=== PATIENT | male | born 1950 | race African-American/Black ===

== ENCOUNTER 2017-09-03 13:01 | Inpatient (IN) | payer MEDICARE, OTHER ==
[~2017-09-03] VITALS: Ht 170.2 cm; Wt 63.5 kg
[2017-09-03 18:30] VITALS: BP 173/94
[2017-09-03 20:00] VITALS: BP 141/70
[2017-09-03] MEDS ORDERED: HALOPERIDOL1 MG GT (20:28)
[2017-09-03] MEDS ORDERED: HEPARIN SO5000 UNIT2 SUBQ (20:39)
[2017-09-03] MEDS ORDERED: MILK OF MA400 MG/51 GT (20:40)
[2017-09-03] MEDS ORDERED: DEPAKOTE ER250 MG GT (20:40)
[2017-09-03] MEDS ORDERED: REMERON15 M1 ORAL (20:40)
[2017-09-03] MEDS ORDERED: TRADJENTA5 MG GT (20:40)
[2017-09-03] MEDS ORDERED: ALLOPURINOL100 M1 GT (20:40)
[2017-09-03] MEDS ORDERED: KEPPRA500 M4 GT (20:40)
[2017-09-03] MEDS ORDERED: ASPIRIN81 M3 GT (20:40)
[2017-09-03] MEDS ORDERED: CLONIDINE HCL0.1 MG GT (20:40)
[2017-09-03] MEDS ORDERED: LIPITOR10 MG ORAL (20:40)
[2017-09-03] MEDS ORDERED: DEPAKOTE SPRIN125 MG GT (20:49)
[2017-09-03] MEDS ORDERED: Promethazine/Codeine 5ml UD ORAL PRN (22:00)
[2017-09-03] MEDS ORDERED: Nitroglycerin Subl 0.4mg tab SL PRN (22:00)
[2017-09-03] MEDS ORDERED: Albuterol/Ipratropium 3ml neb HHN PRN (22:00)
[2017-09-03] MEDS ORDERED: Morphine Sulfate 2mg/ml Inj IVP PRN (22:00)
[2017-09-03] MEDS ORDERED: LORazepam Inj 2mg/ml 1ml IV PRN (22:00)
[2017-09-03] MEDS ORDERED: cefTRIAXone 1 GM in D5W 55 ML IVPB SCH (22:45)
[2017-09-03] MEDS: Depakote 125mg Sprinkles GT SCH (23:02)
[2017-09-03] MEDS: Solu-MEDROL 125mg Inj IV SCH (23:02)
[2017-09-04] VITALS: BP 142/72
[2017-09-04 04:00] VITALS: BP 148/91
[2017-09-04] MEDS: Solu-MEDROL 125mg Inj IV SCH ×3 (06:06→17:21)
[2017-09-04] MEDS: NovoLOG Insulin Flexpen SUBQ SCH ×4 (06:06→21:22)
[2017-09-04] MEDS: Depakote 125mg Sprinkles GT SCH ×3 (06:06→21:37)
[2017-09-04 08:00] VITALS: BP 148/81
[2017-09-04] MEDS ORDERED: Theophylline ER 100mg ORAL SCH (09:00)
[2017-09-04] MEDS ORDERED: Allopurinol 100mg Tab GT SCH (09:00)
[2017-09-04 09:17] LABS: BASOPHILS % (AUTO) 0.3 % (0.0-2.0); HEMATOCRIT 30.7 % (42.0-52.0); LYMPHOCYTES % (AUTO) 14.2 % (20.0-45.0); MEAN CORPUSCULAR VOLUME 82 FL (80-99); MONOCYTES % (AUTO) 1.2 % (1.0-10.0); NEUTROPHILS % (AUTO) 84.4 % (45.0-75.0); PLATELET COUNT 234 K/UL (150-450); RED BLOOD COUNT 3.74 M/UL (4.70-6.10); RED CELL DISTRIBUTION WIDTH 14.3 % (11.6-14.8); WHITE BLOOD COUNT 11.3 K/UL (4.8-10.8)
[2017-09-04 09:45] LABS: ALANINE AMINOTRANSFERASE 28 U/L (12-78); ALBUMIN 1.3 G/DL (3.4-5.0); ALBUMIN/GLOBULIN RATIO 0.1 (1.0-2.7); ALKALINE PHOSPHATASE 77 U/L (46-116); ANION GAP 7 mmol/L (5-15); ASPARTATE AMINO TRANSFERASE 48 U/L (15-37); BILIRUBIN,TOTAL 0.2 MG/DL (0.2-1.0); BLOOD UREA NITROGEN 26 mg/dL (7-18); CALCIUM 8.4 MG/DL (8.5-10.1); CARBON DIOXIDE 24 MMOL/L (21-32); CHLORIDE 102 MMOL/L (98-107); POTASSIUM 4.7 MMOL/L (3.5-5.1); SODIUM 133 MMOL/L (136-145)
--- NOTE | 2017-09-04 09:51 | Consultation ---
History of Present Illness General Date patient seen: Sep 04, 2017 Present Illness HPI 67 year old male with hx of COPD, DM, seizures, CVA, schizophrenia, HTN, GOUT, PEG, bed bound, detention resident, was taken to [facility] with CC of SOB, a CT of chest at [place] didn't show any PE. He received symptomatic treatment at [place] and transferred to [place]. Pt is nonverbal. looks comfortable and doesn't answer any questions. Allergies: Coded Allergies: No Known Allergies (Unverified , 09/03/17) Medication History Scheduled Allopurinol* (Allopurinol*), 100 MG GT DAILY, (Reported) Aspirin (Aspirin), 81 MG GT DAILY, (Reported) Atorvastatin Calcium* (Lipitor*), 10 MG ORAL BEDTIME, (Reported) Divalproex Sodium (Depakote Sprinkle), 250 MG GT EVERY 8 HOURS, (Reported) Haloperidol* (Haldol*), 2 MG GT EVERY 8 HOURS, (Reported) Heparin Sod (Porcine) (Heparin Sodium*), 5,000 UNITS SUBQ EVERY 12 HOURS, ( Reported) Levetiracetam (Keppra), 500 MG GT EVERY 12 HOURS, (Reported) Linagliptin (Tradjenta), 5 MG GT DAILY, (Reported) Mirtazapine (Remeron), 7.5 MG ORAL BEDTIME, (Reported) Scheduled PRN Clonidine Hcl (Clonidine Hcl), 0.1 MG GT EVERY 8 HOURS PRN for For High Blood Pressure, (Reported) Magnesium Hydroxide* (Milk Of Magnesia*), 30 ML GT DAILY PRN for Constipation, ( Reported) Discontinued Medications Divalproex Sodium* (Depakote Er*), 250 MG GT EVERY 8 HOURS, (Reported) Discontinued Reason: Prescription changed Patient History Healthcare decision maker Guerline Collier, brother Resuscitation status Full Code Advanced Directive on File Past Medical/Surgical History Past Medical/Surgical History: (1) History of CVA (cerebrovascular accident) (2) Feeding by G-tube (3) Diabetes mellitus (4) COPD (chronic obstructive pulmonary disease) Review of Systems All Other Systems: negative except mentioned in HPI Physical Exam General Appearance: cachetic Lines, tubes and drains: peripheral HEENT: normocephalic, atraumatic Neck: non-tender, normal alignment Respiratory/Chest: chest wall non-tender, lungs clear Breasts: no masses Cardiovascular/Chest: normal peripheral pulses, regular rhythm Abdomen: normal bowel sounds, soft, no mass Last 24 Hour Vital Signs Date Time Temp Pulse Resp B/P (MAP) Pulse Ox O2 Delivery O2 Flow Rate FiO2 09/04/17 08:00 97.9 93 22 148/81 100 Room Air 97.9 09/04/17 04:00 102 09/04/17 04:00 98.1 101 27 148/91 100 Room Air 98.1 09/04/17 00:00 84 09/04/17 00:00 98.4 88 20 142/72 99 Room Air 98.4 09/03/17 20:00 86 09/03/17 20:00 98.1 78 22 141/70 97 Room Air 98.1 09/03/17 18:30 97.9 98 16 173/94 98 Room Air 97.9 Intake and Output 09/03/17 09/04/17 19:00 07:00 Output Total 425 ml Balance -425 ml Output Urine Total 425 ml Laboratory Tests Test 09/04/17 08:40 White Blood Count 11.3 K/UL (4.8-10.8) H Red Blood Count 3.74 M/UL (4.70-6.10) L Hemoglobin 10.0 G/DL (14.2-18.0) L Hematocrit 30.7 % (42.0-52.0) L Mean Corpuscular Volume 82 FL (80-99) Mean Corpuscular Hemoglobin 26.6 PG (27.0-31.0) L Mean Corpuscular Hemoglobin Concent 32.4 G/DL (32.0-36.0) Red Cell Distribution Width 14.3 % (11.6-14.8) Platelet Count 234 K/UL (150-450) Mean Platelet Volume 6.4 FL (6.5-10.1) L Neutrophils (%) (Auto) 84.4 % (45.0-75.0) H Lymphocytes (%) (Auto) 14.2 % (20.0-45.0) L Monocytes (%) (Auto) 1.2 % (1.0-10.0) Eosinophils (%) (Auto) 0.0 % (0.0-3.0) Basophils (%) (Auto) 0.3 % (0.0-2.0) Sodium Level Pending Potassium Level Pending Chloride Level Pending Carbon Dioxide Level Pending Blood Urea Nitrogen Pending Creatinine Pending Estimat Glomerular Filtration Rate Pending Glucose Level Pending Calcium Level Pending Total Bilirubin Pending Aspartate Amino Transf (AST/SGOT) Pending Alanine Aminotransferase (ALT/SGPT) Pending Alkaline Phosphatase Pending Total Protein Pending Albumin Pending Globulin Pending Height (Feet): 5 Height (Inches): 7.00 Weight (Pounds): 140 Medications Current Medications Medications (Trade) Dose Ordered Sig/Christian Route PRN Reason Start Time Stop Time Status Last Admin Dose Admin Acetaminophen (Tylenol) 650 mg Q4H PRN ORAL fever 09/03/17 22:00 10/03/17 21:59 Albuterol/ Ipratropium (Albuterol/ Ipratropium) 3 ml EVERY 4 HOURS PRN HHN dyspnea 09/03/17 22:00 09/08/17 21:59 Allopurinol (Zyloprim) 100 mg DAILY GT 09/04/17 09:00 10/04/17 08:59 09/04/17 09:01 Atorvastatin Calcium (Lipitor) 10 mg BEDTIME ORAL 09/04/17 21:00 10/04/17 20:59 Ceftriaxone Sodium 1 gm/ Dextrose 55 ml @ 110 mls/hr Q24H IVPB 09/03/17 22:45 09/10/17 22:44 09/03/17 23:15 Clonidine HCl (Catapres Tab) 0.1 mg EVERY 4 HOURS PRN ORAL sbp more than 160 09/03/17 22:00 10/03/17 21:59 Dextrose (Dextrose 50%) STAT PRN IV Hypoglycemia 09/03/17 22:00 10/03/17 21:59 Divalproex Sodium (Depakote Sprinkles) 250 mg EVERY 8 HOURS GT 09/03/17 22:00 10/03/17 21:59 09/04/17 06:06 Heparin Sodium (Porcine) (Heparin 5000 units/ml) 5,000 units EVERY 12 HOURS SUBQ 09/04/17 10:00 10/04/17 09:59 Insulin Aspart (NovoLOG) BEFORE MEALS AND HS SUBQ 09/04/17 06:30 10/04/17 06:29 Levetiracetam (Keppra) 500 mg EVERY 12 HOURS GT 09/04/17 09:00 10/04/17 08:59 09/04/17 08:56 Lorazepam (Ativan 2mg/ml 1ml) 0.5 mg Q4H PRN IV For Anxiety 09/03/17 22:00 09/10/17 21:59 Methylprednisolone Sodium Succinate (Solu-MEDROL) 60 mg EVERY 6 HOURS IV 09/04/17 00:00 10/04/17 00:00 09/04/17 06:06 Morphine Sulfate (Morphine Sulfate) 2 mg EVERY 4 HOURS PRN IVP severe pain 7-10 09/03/17 22:00 09/10/17 21:59 Nitroglycerin (Ntg) 0.4 mg Q5M X 3 DOSES PRN SL Prn Chest Pain 09/03/17 22:00 10/03/17 21:59 Ondansetron HCl (Zofran) 4 mg Q6H PRN IVP Nausea & Vomiting 09/03/17 22:00 10/03/17 21:59 Promethazine HCl/ Codeine (Phenergan with Codeine) 5 ml EVERY 6 HOURS PRN ORAL cough 09/03/17 22:00 10/03/17 21:59 Temazepam (Restoril) 15 mg HSPRN PRN ORAL Insomnia 09/03/17 22:00 09/10/17 21:59 Theophylline (Henry-Dur) 100 mg EVERY 12 HOURS ORAL 09/04/17 09:00 10/04/17 08:59 Assessment/Plan Problem List: (1) Pneumonia ICD Codes: J18.9 - Pneumonia, unspecified organism SNOMED: 248536671 (2) COPD (chronic obstructive pulmonary disease) ICD Codes: J44.9 - Chronic obstructive pulmonary disease, unspecified SNOMED: 60365811 (3) Diabetes mellitus ICD Codes: E11.9 - Type 2 diabetes mellitus without complications SNOMED: 73218083 (4) Feeding by G-tube ICD Codes: Z93.1 - Gastrostomy status SNOMED: 614066709, 866988694 (5) History of CVA (cerebrovascular accident) ICD Codes: Z86.73 - Personal history of transient ischemic attack (TIA), and cerebral infarction without residual deficits SNOMED: 458946576 Assessment/Plan check sputum IV abx check cxr in am respiratory treatment titrate fio2 to sat of 92% dvt prophylaxis Elder Kumar MD Sep 04, 2017 09:51
[2017-09-04] MEDS ORDERED: Heparin 5000 units/ml inj SUBQ SCH (10:00)
[2017-09-04 12:30] VITALS: BP 127/58
[2017-09-04] MEDS ORDERED: Nitroglycerin Subl 0.4mg tab SL PRN (12:30)
[2017-09-04] MEDS ORDERED: Morphine Sulfate 2mg/ml Inj IVP PRN (13:00)
[2017-09-04] MEDS ORDERED: Albuterol/Ipratropium 3ml neb HHN PRN (13:00)
[2017-09-04] MEDS ORDERED: LORazepam Inj 2mg/ml 1ml IV PRN (14:00)
--- NOTE | 2017-09-04 14:40 | Consultation ---
Consult Note Consult Note ID DIC # [id number] APRIL COATS M.D. Sep 04, 2017 14:40
[2017-09-04 16:00] VITALS: BP 138/74
[2017-09-04] MEDS ORDERED: Promethazine/Codeine 5ml UD ORAL PRN (18:00)
[2017-09-04 20:00] VITALS: BP 114/62
--- NOTE | 2017-09-04 20:15 | History and Physical Report ---
DATE OF ADMISSION: 09/03/2017 TIME SEEN: At 8 a.m. CONSULTANTS: 1. Elder Kumar M.D. 2. Pieter Mcfarland M.D. 3. Spike Canales M.D. 4. Samuel Solorzano M.D. 5. Gideon Mcdonald M.D. CHIEF COMPLAINT: Shortness of breath, altered mental status, weakness, fever, and elevated troponin. BRIEF HISTORY: This is a 67-year-old male from [facility], who was transferred to [facility] for above-mentioned diagnoses, evaluated in the ER, transferred to [place] for further care. Currently, O2 NC, sleeping in bed, nonverbal, not responding to questions. REVIEW OF SYSTEMS: Unavailable. PAST MEDICAL HISTORY: Includes altered mental status, shortness of breath, fever, elevated troponin, COPD, hypertension, and diabetes. PAST SURGICAL HISTORY: G-tube. ALLERGIES: Denies. SOCIAL HISTORY: No smoking. No alcohol. No intravenous drug abuse. FAMILY HISTORY: Noncontributory. PHYSICAL EXAMINATION: GENERAL: Lethargic in bed, not responding to questions. VITAL SIGNS: Temperature is 98, pulse 101, respirations 27, and blood pressure 148/91. CARDIOVASCULAR: No murmur. LUNGS: Poor air exchange. ABDOMEN: Bowel sounds distant. EXTREMITIES: No cyanosis, clubbing, or edema. NEUROLOGIC: The patient is flaccid in bed, not responding to requests. LABORATORY DATA: Pending. MEDICATIONS: Include Lipitor, Keppra, allopurinol, heparin, Henry-Dur, methylprednisolone, NovoLog, ceftriaxone, levofloxacin, divalproex, albuterol, morphine, Zofran, lorazepam, temazepam, nitroglycerin, clonidine, and Phenergan. ASSESSMENT: 1. Shortness of breath. 2. Fever. 3. Elevated troponin. 4. Altered mental status. 5. COPD. 6. Hypertension. 7. Diabetes. PLAN: 1. Continue pre-admit medications. 2. Blood pressure and blood sugar control. 3. O2 and pulmonary treatment. 4. Antibiotics per Infectious Disease. 5. OT, PT, and dietary evaluation. 6. CBC and BMP in the morning. 7. Dr. Kumar, Dr. Mcfarland, Dr. Canales, Dr. Solorzano, and Dr. Mcdonald to consult. Stuart New D.O. DR: MER JOB#: [id number] CC:
--- NOTE | 2017-09-04 21:02 | Cardiology Progress Note ---
Assessment/Plan Assessment/Plan The patient is seen and examined, full consult note will be dictated shortly. Objective Last 24 Hour Vital Signs Date Time Temp Pulse Resp B/P (MAP) Pulse Ox O2 Delivery O2 Flow Rate FiO2 09/04/17 16:00 97.2 73 19 138/74 100 97.2 09/04/17 12:30 97.3 62 20 127/58 100 97.3 09/04/17 08:00 97.9 93 22 148/81 100 Room Air 97.9 09/04/17 04:00 102 09/04/17 04:00 98.1 101 27 148/91 100 Room Air 98.1 09/04/17 00:00 84 09/04/17 00:00 98.4 88 20 142/72 99 Room Air 98.4 Intake and Output 09/03/17 09/04/17 19:00 07:00 Output Total 425 ml Balance -425 ml Output Urine Total 425 ml Laboratory Tests Test 09/04/17 08:40 White Blood Count 11.3 K/UL (4.8-10.8) H Red Blood Count 3.74 M/UL (4.70-6.10) L Hemoglobin 10.0 G/DL (14.2-18.0) L Hematocrit 30.7 % (42.0-52.0) L Mean Corpuscular Volume 82 FL (80-99) Mean Corpuscular Hemoglobin 26.6 PG (27.0-31.0) L Mean Corpuscular Hemoglobin Concent 32.4 G/DL (32.0-36.0) Red Cell Distribution Width 14.3 % (11.6-14.8) Platelet Count 234 K/UL (150-450) Mean Platelet Volume 6.4 FL (6.5-10.1) L Neutrophils (%) (Auto) 84.4 % (45.0-75.0) H Lymphocytes (%) (Auto) 14.2 % (20.0-45.0) L Monocytes (%) (Auto) 1.2 % (1.0-10.0) Eosinophils (%) (Auto) 0.0 % (0.0-3.0) Basophils (%) (Auto) 0.3 % (0.0-2.0) Sodium Level 133 MMOL/L (136-145) L Potassium Level 4.7 MMOL/L (3.5-5.1) Chloride Level 102 MMOL/L (98-107) Carbon Dioxide Level 24 MMOL/L (21-32) Anion Gap 7 mmol/L (5-15) Blood Urea Nitrogen 26 mg/dL (7-18) H Creatinine 1.0 MG/DL (0.55-1.30) Estimat Glomerular Filtration Rate > 60 mL/min (>60) Glucose Level 148 MG/DL (74-106) H Calcium Level 8.4 MG/DL (8.5-10.1) L Total Bilirubin 0.2 MG/DL (0.2-1.0) Aspartate Amino Transf (AST/SGOT) 48 U/L (15-37) H Alanine Aminotransferase (ALT/SGPT) 28 U/L (12-78) Alkaline Phosphatase 77 U/L (46-116) Total Protein 10.2 G/DL (6.4-8.2) H Albumin 1.3 G/DL (3.4-5.0) L Globulin 8.9 g/dL Albumin/Globulin Ratio 0.1 (1.0-2.7) L GERDA GARCIA Sep 04, 2017 21:02
[2017-09-04] MEDS: Heparin 5000 units/ml inj SUBQ SCH (21:21)
[2017-09-04] MEDS ORDERED: cefTRIAXone 1 GM in D5W 55 ML IVPB SCH (23:00)
[2017-09-05] VITALS: BP 128/68
[2017-09-05] MEDS: Solu-MEDROL 125mg Inj IV SCH ×3 (00:46→12:46)
[2017-09-05 04:00] VITALS: BP 125/65
--- NOTE | 2017-09-05 04:45 | Consultation ---
DATE OF CONSULTATION: 09/04/2017 INFECTIOUS DISEASE CONSULTATION CONSULTING PHYSICIAN: Spike Canales M.D. REFERRING PHYSICIAN: Stuart New D.O. REASON FOR CONSULTATION: Evaluation of the patient for possible pneumonia, sepsis, and antibiotic management. HISTORY OF PRESENT ILLNESS: The patient is a 67-year-old male with multiple medical problems, who was transferred initially from [facility] to [facility] due to shortness of breath. The patient after initial workup was transferred to this [facility]. The patient was found to have mild leukocytosis and Infectious Disease consultation has been requested for further evaluation of the patient's antibiotic management. PAST MEDICAL HISTORY: 1. COPD. 2. Diabetes. 3. Seizure disorder. 4. Osteoarthritis. 5. CVA. 6. Hypertension. 7. GERD. 8. Gout. 9. Anxiety. 10. Status post PEG placement. MEDICATIONS: Levaquin and Rocephin. ALLERGIES: No known drug allergies. SOCIAL HISTORY: The patient lives in snf. FAMILY HISTORY: Unavailable. REVIEW OF SYSTEMS: Unobtainable. PHYSICAL EXAMINATION: VITAL SIGNS: Temperature 97.3, pulse 66, blood pressure 127/58. HEENT: No pale conjunctivae. No icterus. NECK: Supple. CHEST: Coarse breathing sounds. HEART: S1 and S2. ABDOMEN: Soft. G-tube in place. EXTREMITIES: No cyanosis. Stage I decubitus of the left heel. LABORATORY AND DIAGNOSTIC DATA: Workups from [place] showed white blood cells 9.3. Influenza screen A/B negative. UA shows white blood cells. Blood culture and urine culture sent and was pending. CT of chest, no evidence of pulmonary emboli, infiltrate, or consolidation. Lactic acidosis. [facility] workup shows WBC 11.3, hemoglobin 10, and platelets 234,000. BUN 23 and creatinine 1. ALT, AST, and alkaline phosphatase unremarkable. ASSESSMENT: The patient is a 67-year-old male with: 1. Status post shortness of breath, probable bronchitis. 2. Doubt pneumonia. CT scan from [place] did not show evidence of infiltrate. 3. Mild leukocytosis. 4. Mild pyuria. 5. Afebrile. PLAN: 1. We will continue the patient on Levaquin, discontinue Rocephin. 2. Monitor CBC. 3. Monitor BMP. 4. Monitor cultures from outside facility. 5. We will follow cultures (sputum, urine, blood) that were sent here. 6. Continue the patient on IV steroids. 7. Based on the patient's clinical course and labs, we will do further recommendation. Spike Canales M.D. DR: Jhonny JOB#: [id number] CC:
[2017-09-05] MEDS: Depakote 125mg Sprinkles GT SCH ×3 (06:15→21:04)
[2017-09-05] MEDS: NovoLOG Insulin Flexpen SUBQ SCH ×4 (06:17→21:06)
[2017-09-05 07:34] LABS: BASOPHILS % (AUTO) 0.2 % (0.0-2.0); HEMATOCRIT 29.8 % (42.0-52.0); HEMOGLOBIN 9.7 G/DL (14.2-18.0); MEAN CORPUSCULAR VOLUME 82 FL (80-99); MONOCYTES % (AUTO) 2.8 % (1.0-10.0); PLATELET COUNT 240 K/UL (150-450); RED BLOOD COUNT 3.64 M/UL (4.70-6.10); RED CELL DISTRIBUTION WIDTH 14.1 % (11.6-14.8); WHITE BLOOD COUNT 8.2 K/UL (4.8-10.8)
[2017-09-05 07:47] LABS: ALANINE AMINOTRANSFERASE 28 U/L (12-78); ALBUMIN 1.3 G/DL (3.4-5.0); ALBUMIN/GLOBULIN RATIO 0.2 (1.0-2.7); ALKALINE PHOSPHATASE 83 U/L (46-116); ANION GAP 7 mmol/L (5-15); ASPARTATE AMINO TRANSFERASE 39 U/L (15-37); BILIRUBIN,TOTAL 0.2 MG/DL (0.2-1.0); BLOOD UREA NITROGEN 49 mg/dL (7-18); CALCIUM 8.3 MG/DL (8.5-10.1); CARBON DIOXIDE 26 MMOL/L (21-32); CHLORIDE 102 MMOL/L (98-107); CREATININE 1.3 MG/DL (0.55-1.30); POTASSIUM 4.6 MMOL/L (3.5-5.1); SODIUM 135 MMOL/L (136-145)
[2017-09-05 07:49] LABS: INR 1.1 (0.9-1.1)
[2017-09-05 07:58] LABS: % IRON SATURATION 30 % (15-50); IRON 58 ug/dL (50-175); TOTAL IRON BINDING CAPACITY 193 ug/dL (250-450)
[2017-09-05 08:06] LABS: LACTATE DEHYDROGENASE 189 U/L (81-234)
[2017-09-05 08:16] VITALS: BP 123/70
[2017-09-05] MEDS: Allopurinol 100mg Tab GT SCH (08:58)
--- NOTE | 2017-09-05 09:01 | General Progress Note ---
Assessment/Plan Problem List: (1) HTN (hypertension) ICD Codes: I10 - Essential (primary) hypertension SNOMED: 96241510 (2) Altered mental status ICD Codes: R41.82 - Altered mental status, unspecified SNOMED: 024812165 (3) SOB (shortness of breath) ICD Codes: R06.02 - Shortness of breath SNOMED: 272248756 (4) Renal insufficiency ICD Codes: N28.9 - Disorder of kidney and ureter, unspecified SNOMED: 178217573, 829740007 (5) COPD (chronic obstructive pulmonary disease) ICD Codes: J44.9 - Chronic obstructive pulmonary disease, unspecified SNOMED: 41132929 (6) Diabetes mellitus ICD Codes: E11.9 - Type 2 diabetes mellitus without complications SNOMED: 56808948 (7) Feeding by G-tube ICD Codes: Z93.1 - Gastrostomy status SNOMED: 175545882, 298972190 (8) History of CVA (cerebrovascular accident) ICD Codes: Z86.73 - Personal history of transient ischemic attack (TIA), and cerebral infarction without residual deficits SNOMED: 963793562 (9) Pneumonia ICD Codes: J18.9 - Pneumonia, unspecified organism SNOMED: 007475391 Status: unchanged Assessment/Plan o2 pulm tx abx bp bs control cbc bmp am Subjective Constitutional: Reports: weakness Respiratory: Reports: shortness of breath Allergies: Coded Allergies: No Known Allergies (Unverified , 09/03/17) All Systems: reviewed and negative except above Subjective o2nc sleepy Objective Last 24 Hour Vital Signs Date Time Temp Pulse Resp B/P (MAP) Pulse Ox O2 Delivery O2 Flow Rate FiO2 09/05/17 08:16 98.9 85 20 123/70 96 Room Air 98.9 09/05/17 04:00 97.0 63 19 125/65 100 Nasal Cannula 2.0 97.0 09/05/17 00:00 97.0 65 18 128/68 100 Nasal Cannula 2.0 97.0 09/04/17 20:00 97.1 63 19 114/62 100 Nasal Cannula 2.0 97.1 09/04/17 16:00 97.2 73 19 138/74 100 97.2 09/04/17 12:30 97.3 62 20 127/58 100 97.3 Intake and Output 09/04/17 09/05/17 19:00 07:00 Output Total 550 ml 480 ml Balance -550 ml -480 ml Output Urine Total 550 ml 480 ml # Voids 1 1 Laboratory Tests 09/04/17 21:15: Troponin I 0.063H 09/05/17 06:00: White Blood Count 8.2, Red Blood Count 3.64L, Hemoglobin 9.7L, Hematocrit 29.8L , Mean Corpuscular Volume 82, Mean Corpuscular Hemoglobin 26.7L, Mean Corpuscular Hemoglobin Concent 32.7, Red Cell Distribution Width 14.1, Platelet Count 240, Mean Platelet Volume 6.4L, Neutrophils (%) (Auto) 79.0H, Lymphocytes (%) (Auto) 18.0L, Monocytes (%) (Auto) 2.8, Eosinophils (%) (Auto) 0.0, Basophils (%) (Auto) 0.2, Neutrophils % (Manual) [Pending], Lymphocytes % ( Manual) [Pending], Platelet Estimate [Pending], Platelet Morphology [Pending], Erythrocyte Sedimentation Rate [Pending], Reticulocyte Count [Pending], Prothrombin Time 11.7H, Prothromb Time International Ratio 1.1, Activated Partial Thromboplast Time 30, Sodium Level 135L, Potassium Level 4.6, Chloride Level 102, Carbon Dioxide Level 26, Anion Gap 7, Blood Urea Nitrogen 49H, Creatinine 1.3, Estimat Glomerular Filtration Rate > 60, Glucose Level 196H, Calcium Level 8.3L, Iron Level 58, Total Iron Binding Capacity 193L, Percent Iron Saturation 30, Unsaturated Iron Binding 135, Total Bilirubin 0.2, Aspartate Amino Transf (AST/SGOT) 39H, Alanine Aminotransferase (ALT/SGPT) 28, Alkaline Phosphatase 83, Lactate Dehydrogenase 189, Pro-B-Type Natriuretic Peptide 737H, Total Protein 9.6H, Albumin 1.3L, Globulin 8.3, Albumin/Globulin Ratio 0.2L, Vitamin B12 Level 1475H, Folate 19.9 Height (Feet): 5 Height (Inches): 7.00 Weight (Pounds): 140 General Appearance: lethargic EENT: normal ENT inspection Neck: normal alignment Cardiovascular: normal peripheral pulses, normal rate, regular rhythm Respiratory/Chest: chest wall non-tender, lungs clear, normal breath sounds Extremities: normal inspection Edema: no edema noted Arm (L), no edema noted Arm (R), no edema noted Leg (L), no edema noted Leg (R), no edema noted Pedal (L), no edema noted Pedal (R), no edema noted Generalized Neurologic: motor weakness Skin: normal pigmentation, warm/dry SYLVAIN ARTHUR Sep 05, 2017 09:01
[2017-09-05] MEDS: Heparin 5000 units/ml inj SUBQ SCH ×2 (09:04→21:05)
[2017-09-05 12:00] VITALS: BP 126/70
--- NOTE | 2017-09-05 12:20 | Diagnostic Imaging Report ---
Indication: Dyspnea Technique: XRAY Chest 1v Comparison: None Findings: Heart size within normal limits. The thoracic aorta is tortuous. There is linear opacity at the left base thought represent atelectasis. Otherwise there is no focal airspace consolidation. No pleural effusion or pneumothorax. No acute osseous abnormality appreciated. Impression: Linear opacity at the left base thought represent subsegmental atelectasis. Correlate clinically to exclude the possibility of developing infiltrate.
--- NOTE | 2017-09-05 13:27 | Pulmonology Progress Note ---
Assessment/Plan Problems: (1) Bacteremia (2) Pneumonia (3) COPD (chronic obstructive pulmonary disease) (4) Diabetes mellitus (5) Feeding by G-tube (6) History of CVA (cerebrovascular accident) Assessment/Plan BC from [place] showed Proteus sensitive to Amikacin, ceftazidime, ertapenem and Zosyn f/u cultures here check electrolytes continue abx check electrolytes tolerating feeding add some fluids check BUN?Creatinine Subjective ROS Limited/Unobtainable: No Interval Events: comfortable Allergies: Coded Allergies: No Known Allergies (Unverified , 09/03/17) Objective Last 24 Hour Vital Signs Date Time Temp Pulse Resp B/P (MAP) Pulse Ox O2 Delivery O2 Flow Rate FiO2 09/05/17 12:00 98.4 85 20 126/70 99 Room Air 98.4 09/05/17 08:16 98.9 85 20 123/70 96 Room Air 98.9 09/05/17 04:00 97.0 63 19 125/65 100 Nasal Cannula 2.0 97.0 09/05/17 00:00 97.0 65 18 128/68 100 Nasal Cannula 2.0 97.0 09/04/17 20:00 97.1 63 19 114/62 100 Nasal Cannula 2.0 97.1 09/04/17 16:00 97.2 73 19 138/74 100 97.2 Intake and Output 09/04/17 09/05/17 19:00 07:00 Output Total 550 ml 480 ml Balance -550 ml -480 ml Output Urine Total 550 ml 480 ml # Voids 1 1 Microbiology Date/Time Source Procedure Growth Status 09/04/17 06:00 Sputum Gram Stain - Final Resulted 09/04/17 06:00 Sputum Culture - Preliminary Staphylococcus Species Resulted 09/03/17 23:00 Nose MRSA Culture - Final Staphylococcus Aureus - Mrsa Complete 09/04/17 03:00 Urine,Clean Catch Urine Culture - Preliminary Gram Negative Bacillus 1 Resulted Laboratory Tests 09/04/17 21:15: Troponin I 0.063H 09/05/17 06:00: White Blood Count 8.2, Red Blood Count 3.64L, Hemoglobin 9.7L, Hematocrit 29.8L , Mean Corpuscular Volume 82, Mean Corpuscular Hemoglobin 26.7L, Mean Corpuscular Hemoglobin Concent 32.7, Red Cell Distribution Width 14.1, Platelet Count 240, Mean Platelet Volume 6.4L, Neutrophils (%) (Auto) 79.0H, Lymphocytes (%) (Auto) 18.0L, Monocytes (%) (Auto) 2.8, Eosinophils (%) (Auto) 0.0, Basophils (%) (Auto) 0.2, Differential Total Cells Counted 100, Neutrophils % ( Manual) 79H, Lymphocytes % (Manual) 16L, Monocytes % (Manual) 5, Eosinophils % ( Manual) 0, Basophils % (Manual) 0, Band Neutrophils 0, Platelet Estimate Adequate, Platelet Morphology Normal, Anisocytosis 1+, Erythrocyte Sedimentation Rate 28H, Reticulocyte Count 1.1, Prothrombin Time 11.7H, Prothromb Time International Ratio 1.1, Activated Partial Thromboplast Time 30, Sodium Level 135L, Potassium Level 4.6, Chloride Level 102, Carbon Dioxide Level 26, Anion Gap 7, Blood Urea Nitrogen 49H, Creatinine 1.3, Estimat Glomerular Filtration Rate > 60, Glucose Level 196H, Calcium Level 8.3L, Iron Level 58, Total Iron Binding Capacity 193L, Percent Iron Saturation 30, Unsaturated Iron Binding 135, Total Bilirubin 0.2, Aspartate Amino Transf (AST/ SGOT) 39H, Alanine Aminotransferase (ALT/SGPT) 28, Alkaline Phosphatase 83, Lactate Dehydrogenase 189, Pro-B-Type Natriuretic Peptide 737H, Total Protein 9.6H, Albumin 1.3L, Globulin 8.3, Albumin/Globulin Ratio 0.2L, Vitamin B12 Level 1475H, Folate 19.9 Current Medications Medications (Trade) Dose Ordered Sig/Christian Route PRN Reason Start Time Stop Time Status Last Admin Dose Admin Acetaminophen (Tylenol) 650 mg Q4H PRN ORAL fever 09/04/17 14:00 10/03/17 21:59 Albuterol/ Ipratropium (Albuterol/ Ipratropium) 3 ml EVERY 4 HOURS PRN HHN dyspnea 09/04/17 13:00 09/08/17 21:59 Allopurinol (Zyloprim) 100 mg DAILY GT 09/05/17 09:00 10/04/17 08:59 09/05/17 08:58 Atorvastatin Calcium (Lipitor) 10 mg BEDTIME ORAL 09/04/17 21:00 10/04/17 20:59 09/04/17 21:18 Clonidine HCl (Catapres Tab) 0.1 mg EVERY 4 HOURS PRN ORAL sbp more than 160 09/04/17 13:00 10/03/17 21:59 Dextrose (Dextrose 50%) STAT PRN IV Hypoglycemia 09/04/17 22:00 10/03/17 21:59 Divalproex Sodium (Depakote Sprinkles) 250 mg EVERY 8 HOURS GT 09/04/17 14:00 10/03/17 21:59 09/05/17 06:15 Heparin Sodium (Porcine) (Heparin 5000 units/ml) 5,000 units EVERY 12 HOURS SUBQ 09/04/17 21:00 10/04/17 09:59 09/05/17 09:04 Insulin Aspart (NovoLOG) BEFORE MEALS AND HS SUBQ 09/04/17 16:30 10/04/17 06:29 09/05/17 12:49 Levetiracetam (Keppra) 500 mg EVERY 12 HOURS GT 09/04/17 21:00 10/04/17 08:59 09/05/17 08:56 Levofloxacin 150 ml @ 150 mls/hr QHS IVPB 09/04/17 21:00 09/11/17 20:59 09/04/17 21:19 Lorazepam (Ativan 2mg/ml 1ml) 0.5 mg Q4H PRN IV For Anxiety 09/04/17 14:00 09/10/17 21:59 Methylprednisolone Sodium Succinate (Solu-MEDROL) 60 mg EVERY 6 HOURS IV 09/04/17 18:00 10/04/17 00:00 09/05/17 12:46 Morphine Sulfate (Morphine Sulfate) 2 mg EVERY 4 HOURS PRN IVP severe pain 7-10 09/04/17 13:00 09/10/17 21:59 Nitroglycerin (Ntg) 0.4 mg Q5M X 3 DOSES PRN SL Prn Chest Pain 09/04/17 12:30 10/03/17 21:59 Ondansetron HCl (Zofran) 4 mg Q6H PRN IVP Nausea & Vomiting 09/04/17 16:00 10/03/17 21:59 Promethazine HCl/ Codeine (Phenergan with Codeine) 5 ml EVERY 6 HOURS PRN ORAL cough 09/04/17 18:00 10/03/17 21:59 Temazepam (Restoril) 15 mg HSPRN PRN ORAL Insomnia 09/04/17 22:00 09/10/17 21:59 Elder Kumar MD Sep 05, 2017 13:27
[2017-09-05 16:03] VITALS: BP 129/75
[2017-09-05] MEDS ORDERED: Tubing IV Secondary IV ONE (16:19)
[2017-09-05 19:57] VITALS: BP 142/72
--- NOTE | 2017-09-05 20:09 | General Progress Note ---
Progress Note Progress Note [id number] full consult dictated ASHLYN MCCORMACK Sep 05, 2017 20:09
[2017-09-05 23:14] LABS: APPEARANCE,URINE CLEAR; BILIRUBIN, URINE NEGATIVE (NEGATIVE); COLOR,URINE PALE YELLOW; GLUCOSE, URINE (UA) NEGATIVE (NEGATIVE); KETONES,URINE NEGATIVE (NEGATIVE); LEUKOCYTE ESTERASE ,URINE 1+ (NEGATIVE); NITRITE,URINE NEGATIVE (NEGATIVE); PH,URINE 5 (4.5-8.0); PROTEIN,URINE 1+ (NEGATIVE); UROBILINOGEN,URINE NORMAL MG/DL (0.0-1.0)
[2017-09-06] VITALS: BP 121/56
--- NOTE | 2017-09-06 00:15 | Progress Note ---
DATE: 09/05/2017 SUBJECTIVE: This is a 67-year-old male patient with shortness of breath, but he does have increase in mood lability worsened by the stress of his medical illness. MENTAL STATUS EXAMINATION: This is a 67-year-old male with psychomotor agitation. Mood is irritable and agitated. Affect guarded and restricted. Thought process, disorganized and illogical. Denies suicidal or homicidal thoughts. Insight and judgment is poor. He has racing thoughts and pressured speech. DIAGNOSIS: Bipolar 2, rule out major depression with psychotic features. PLAN: Plan for this patient is to treat him with a medication regimen consisting of Namenda 5 mg 250 mg q.8 hours per G-tube. Ativan 0.5 mg q.4 hours p.r.n. anxiety and agitation. Provide behavior management. Chart was reviewed and discussed with staff. Seen and assessed in his room. A 20 minutes of supportive therapy provided. Daily psychiatric consultation requested by Dr. Stuart New. Samuel Solorzano M.D. DR: GUILLAUME JOB#: [id number] CC:
--- NOTE | 2017-09-06 00:45 | Consultation ---
DATE OF CONSULTATION: 09/04/2017 NOTE: POOR AUDIO INITIAL PSYCHIATRIC CONSULTATION HISTORY OF PRESENT ILLNESS: The patient is a male patient, 67 years old, came from [facility], admitted to [facility] secondary to shortness of breath and respiratory insufficiency, however, cognition has declined below baseline secondary to the progression of his medical illness. That is why his attending physician has requested daily psychiatric consultation for this patient. I saw and assessed him at bedside, very confused and disorganized flat affect. He is minimally responsive, but verbally baseline. Cognition has declined significantly below his baseline. SOCIAL HISTORY: Financially supported by [employer] and [employer]. Currently lives in a custodial called [facility]. MEDICAL HISTORY: Despite the patient's medical history, the patient has respiratory insufficiency. He also has shortness of breath and he also has an infection as well as COPD. SUBSTANCE ABUSE HISTORY: No history of any drug or alcohol use. PSYCHIATRIC HISTORY: Major depressive disorder, rule out pseudodementia, rule out depression with psychotic features. STRENGTHS: He is better and he has a place to live. WEAKNESSES: He is impulsive and minimal support system. FAMILY PSYCHIATRIC HISTORY: Denies. MENTAL STATUS EXAMINATION: His appearance is disheveled, irritable, and agitated. Affect is flat. Thought process, disorganized and illogical. Thought content, poverty of speech. Insight and judgment is poor. DIAGNOSIS: Major depression with psychotic features, rule out dementia with psychosis, rule out paranoid schizophrenia. PLAN: Plan for this patient, I am going to continue him on a dose of Depakote . This patient is currently on a dose of Depakote 250 mg per G-tube q.8 h. I am also going to add overlying dose of Namenda 5 mg twice a day per G-tube to prevent any further decline in his cognition mg q.4 h. p.r.n. IV to reduce agitation and anxiety. Continue Depakote 250 mg per G-tube three times a day. A 15 to 20 minutes of supportive therapy provided. Chart reviewed and discussed with staff. He was seen and assessed at bedside. Samuel Solorzano M.D. DR: Estevan JOB#: [id number] CC:
[2017-09-06 03:56] VITALS: BP 132/61
[2017-09-06] MEDS: Depakote 125mg Sprinkles GT SCH ×3 (05:44→22:01)
[2017-09-06] MEDS: NovoLOG Insulin Flexpen SUBQ SCH ×4 (06:37→21:00)
--- NOTE | 2017-09-06 06:45 | Progress Note ---
DATE: 09/06/2017 SUBJECTIVE: This is a male patient, who is confused and disorganized, admitted to the hospital. A 67 years old, he has shortness of breath. He was admitted to the hospital because the patient continues to have some mood lability and confusion, but the reason why he was admitted to the hospital because of shortness of breath primarily, however, this patient also has a history of bipolar 2 disorder and so daily psychiatric consultation has been requested by this patient's attending physician as his mood lability has worsened secondary to stress of his medical illness. MENTAL STATUS EXAMINATION: This is a 67-year-old male with psychomotor agitation. Mood is irritable and agitated. Affect guarded and restricted. Thought process, disorganized and illogical. No signs of any suicidal or homicidal thoughts. Insight and judgment is poor. DIAGNOSIS: Bipolar 2. PLAN: Continue to treat this patient with psychotropic medication regimen of Depakote 250 mg q.8 hours. I am also going to add a dose of Namenda 5 mg b.i.d. to prevent any further decline in his cognition as his cognition has declined below baseline. An 18 to 20 minutes supportive therapy provided. Chart reviewed. Discussed with staff. Seen and assessed in his room. Samuel Solorzano M.D. DR: JOE JOB#: [id number] CC:
[2017-09-06 07:00] LABS: BASOPHILS % (AUTO) 0.5 % (0.0-2.0); EOSINOPHILS % (AUTO) 0.1 % (0.0-3.0); HEMATOCRIT 28.2 % (42.0-52.0); HEMOGLOBIN 9.2 G/DL (14.2-18.0); MEAN CORPUSCULAR VOLUME 81 FL (80-99); MONOCYTES % (AUTO) 9.9 % (1.0-10.0); NEUTROPHILS % (AUTO) 66.5 % (45.0-75.0); PLATELET COUNT 249 K/UL (150-450); RED BLOOD COUNT 3.48 M/UL (4.70-6.10); RED CELL DISTRIBUTION WIDTH 14.1 % (11.6-14.8); WHITE BLOOD COUNT 8.2 K/UL (4.8-10.8)
--- NOTE | 2017-09-06 07:00 | Consultation ---
DATE OF CONSULTATION: 09/05/2017 NEPHROLOGY CONSULTATION CONSULTING PHYSICIAN: Xin Garland M.D. REFERRING PHYSICIAN: Stuart New D.O. REASON FOR CONSULTATION: Acute renal failure. HISTORY OF PRESENT ILLNESS: The patient is an unfortunate 67-year-old male with past medical history significant for history of schizophrenia, CVA, status post trach, hypertension, COPD, diabetes, and bedbound, penit[facility]iary resident, who was taken to [facility] with a chief complaint of shortness of breath and altered mental status. The patient had a CT of the chest at [place], which did not show any evidence of pulmonary embolism. The patient was consequently transferred to [facility] for continuation of the treatment. While the patient was there, found to have worsening of his kidney function. I was called for management of renal disease and electrolyte imbalance. PAST MEDICAL HISTORY: 1. Hypertension. 2. Dyslipidemia. 3. History of CVA. 4. History of gout. 5. History of PEG placement. 6. History of seizure disorder. 7. History of schizophrenia. 8. History of diabetes. PAST SURGICAL HISTORY: History of G-tube placement. MEDICATIONS: Prior to admission are including, 1. Allopurinol 100 mg p.o. daily. 2. Aspirin 81 mg p.o. daily. 3. Atorvastatin 10 mg p.o. daily. 4. Depakote 250 mg p.o. daily. 5. Haldol 2 mg every 8 hours p.r.n. 6. Heparin 5000 units subcutaneously. 7. Cipro 500 mg q.12 hours. 8. Tradjenta 5 mg p.o. daily. 9. Remeron 7.5 mg p.o. daily. 10. Clonidine 0.1 mg p.o. q.4 h. p.r.n. blood pressure more than 160. ALLERGIES: No known drug allergies. REVIEW OF SYSTEMS: The patient is nonverbal, unfortunately cannot give any information. PHYSICAL EXAMINATION: VITAL SIGNS: The patient has temperature of 97, pulse rate of 93, blood pressure of 140/80, pulse rate of 100, and respiratory rate of 18. HEAD AND NECK: No JVP. No LAD. No thyromegaly. Bitemporal wasting. Dry mucous membranes. Extraocular movement intact. Pupils are reactive to light and accommodation. LUNGS: Decreased breathing sound on both sides. CARDIAC: Regular rate and rhythm. S1 and S2. No murmur. No rub. ABDOMEN: Soft and nontender. PEG tube in place. EXTREMITIES: No edema. No clubbing. No cyanosis. LABORATORY DATA: Lab values revealed sodium of 135, potassium 4.6, 102 chloride, 26 bicarb, BUN 49, creatinine is 1.3, increased from 1, glucose 196, calcium of 8.3, iron of 68, and saturation of 30%. The patient had troponin of 0.62. BNP of 773. Total protein of 9.6. Albumin of 1.3. CBC revealed WBC count of 8, hemoglobin of 9.7, hematocrit of 29, and platelet count of 240,000. There is no UA. ASSESSMENT: 1. Acute renal failure. The etiology of acute renal failure are including acute tubular necrosis due to unstable hemodynamics. 2. Chronic kidney disease. The etiology are including diabetic nephropathy versus hypertensive nephrosclerosis versus multiple myeloma. The patient has high total protein and low albumin, possibility of multiple myeloma with the presence of anemia and low anion gap. The patient might have multiple myeloma. PLAN: Plan for the patient is to obtain a random urine protein creatinine ratio to calculate the proteinuria. Check the urine. Check the UA. Check the random urine sodium and creatinine to calculate fractional excretion of sodium. Ultrasound of the kidney to evaluate the kidney size. I would check the vitamin D for evaluation of the hypocalcemia. I would replace the electrolytes as needed. I would avoid any NSAID or nephrotoxic. Again, I would like to thank, Dr. Cb New, for allowing me to participate in the care of this patient. Xin Garland M.D. DR: JESÚS JOB#: [id number] CC:
[2017-09-06 07:08] LABS: ANION GAP 3 mmol/L (5-15); BLOOD UREA NITROGEN 52 mg/dL (7-18); CALCIUM 7.8 MG/DL (8.5-10.1); CARBON DIOXIDE 28 MMOL/L (21-32); CHLORIDE 109 MMOL/L (98-107); CREATININE 1.1 MG/DL (0.55-1.30); POTASSIUM 4.1 MMOL/L (3.5-5.1); SODIUM 140 MMOL/L (136-145)
[2017-09-06 08:00] VITALS: BP 132/72
[2017-09-06] MEDS: Allopurinol 100mg Tab GT SCH (09:44)
[2017-09-06] MEDS: Memantine 10mg tab ORAL SCH ×2 (09:45→18:31)
[2017-09-06] MEDS: Heparin 5000 units/ml inj SUBQ SCH ×2 (09:45→22:09)
[2017-09-06 12:00] VITALS: BP 148/80
--- NOTE | 2017-09-06 14:32 | General Progress Note ---
Assessment/Plan Problem List: (1) HTN (hypertension) ICD Codes: I10 - Essential (primary) hypertension SNOMED: 48820209 (2) Altered mental status ICD Codes: R41.82 - Altered mental status, unspecified SNOMED: 006388004 (3) SOB (shortness of breath) ICD Codes: R06.02 - Shortness of breath SNOMED: 924509884 (4) Renal insufficiency ICD Codes: N28.9 - Disorder of kidney and ureter, unspecified SNOMED: 336418982, 752533034 (5) COPD (chronic obstructive pulmonary disease) ICD Codes: J44.9 - Chronic obstructive pulmonary disease, unspecified SNOMED: 70592654 (6) Diabetes mellitus ICD Codes: E11.9 - Type 2 diabetes mellitus without complications SNOMED: 12921374 (7) Feeding by G-tube ICD Codes: Z93.1 - Gastrostomy status SNOMED: 590564227, 972890653 (8) History of CVA (cerebrovascular accident) ICD Codes: Z86.73 - Personal history of transient ischemic attack (TIA), and cerebral infarction without residual deficits SNOMED: 781066672 (9) Pneumonia ICD Codes: J18.9 - Pneumonia, unspecified organism SNOMED: 735471858 (10) UTI (urinary tract infection) ICD Codes: N39.0 - Urinary tract infection, site not specified SNOMED: 88311646 Status: unchanged Assessment/Plan o2 pulm tx abx bp bs control cbc bmp am dc plan Subjective Constitutional: Reports: weakness Allergies: Coded Allergies: No Known Allergies (Unverified , 09/03/17) All Systems: reviewed and negative except above Subjective calm in bed Objective Last 24 Hour Vital Signs Date Time Temp Pulse Resp B/P (MAP) Pulse Ox O2 Delivery O2 Flow Rate FiO2 09/06/17 12:00 97.7 74 20 148/80 100 Room Air 97.7 09/06/17 08:00 98.2 74 20 132/72 100 Room Air 98.2 09/06/17 03:56 98.2 80 20 132/61 100 Room Air 98.2 09/06/17 00:00 98.8 61 18 121/56 98 Room Air 98.8 09/05/17 19:57 98.0 83 18 142/72 99 Room Air 98.0 09/05/17 16:03 97.5 85 20 129/75 100 Room Air 97.5 Intake and Output 09/05/17 09/06/17 19:00 07:00 Intake Total 705 ml 1600 ml Output Total 800 ml 650 ml Balance -95 ml 950 ml Intake Free Water 100 ml 200 ml IV Total 125 ml 800 ml Tube Feeding 480 ml 600 ml Output Urine Total 800 ml 650 ml Laboratory Tests 09/05/17 17:30: Stool Occult Blood Positive 09/05/17 23:00: Urine Random Creatinine [Pending], Urine Random Microalbumin [Pending], Urine Microalbumin/Creatinine Ratio [Pending] 09/05/17 23:03: Urine Color Pale yellow, Urine Appearance Clear, Urine pH 5, Urine Specific [place] 1.015, Urine Protein 1+H, Urine Glucose (UA) Negative, Urine Ketones Negative, Urine Occult Blood 3+H, Urine Nitrite Negative, Urine Bilirubin Negative, Urine Urobilinogen Normal, Urine Leukocyte Esterase 1+H, Urine RBC 2- 4H, Urine WBC 0-2, Urine Squamous Epithelial Cells Occasional, Urine Bacteria Few, Urine Eosinophils None seen, Urine Random Total Protein 27H, Urine Random Sodium < 10L, Urine Creatinine 47.6 09/06/17 06:30: White Blood Count 8.2, Red Blood Count 3.48L, Hemoglobin 9.2L, Hematocrit 28.2L , Mean Corpuscular Volume 81, Mean Corpuscular Hemoglobin 26.6L, Mean Corpuscular Hemoglobin Concent 32.8, Red Cell Distribution Width 14.1, Platelet Count 249, Mean Platelet Volume 6.5, Neutrophils (%) (Auto) 66.5, Lymphocytes (% ) (Auto) 23.0, Monocytes (%) (Auto) 9.9, Eosinophils (%) (Auto) 0.1, Basophils ( %) (Auto) 0.5, Sodium Level 140, Potassium Level 4.1, Chloride Level 109H, Carbon Dioxide Level 28, Anion Gap 3L, Blood Urea Nitrogen 52H, Creatinine 1.1, Estimat Glomerular Filtration Rate > 60, Glucose Level 180H, Calcium Level 7.8L Height (Feet): 5 Height (Inches): 7.00 Weight (Pounds): 140 General Appearance: lethargic EENT: normal ENT inspection Neck: normal alignment Cardiovascular: normal peripheral pulses, normal rate, regular rhythm Respiratory/Chest: chest wall non-tender, lungs clear, normal breath sounds Abdomen: normal bowel sounds, non tender, soft Extremities: normal inspection Edema: no edema noted Arm (L), no edema noted Arm (R), no edema noted Leg (L), no edema noted Leg (R), no edema noted Pedal (L), no edema noted Pedal (R), no edema noted Generalized Neurologic: motor weakness Skin: normal pigmentation, warm/dry SYLVAIN ARTHUR Sep 06, 2017 14:32
[2017-09-06] MEDS: Metoprolol 25mg tab ORAL SCH ×2 (16:15→22:01)
[2017-09-06] MEDS: Aspirin EC 81mg tab ORAL SCH (16:15)
--- NOTE | 2017-09-06 16:18 | Wound Care Consultation ---
Wound Assessment Wound Assessment #1: Wound Number: 1 Wound Present on Admission: Yes New Wound: No Status Change of Wound: No Wound Location Body Site Modif: left Wound Location Body Site: heel Wound Type: pressure ulcer Javier Test: Does not Javier Pressure Ulcer Stage: Deep Tissue Injury Wound Thickness: Full Thickness Wound Length: 2.0 Wound Width: 4.0 Wound Depth: utd Percent of Wound Purple/Maroon: 100 Wound Drainage Amount: None Wound Drainage Odor: None/Absent Tissue Surrounding Wound: Intact Wound General Appearance: Reddened - purple/maroon Wound Assessment #2: Wound Number: 2 Wound Present on Admission: Yes New Wound: No Status Change of Wound: No Wound Location Body Site Modif: mid Wound Location Body Site: sacral Wound Type: scar Javier Test: Does not Javier Wound Thickness: Full Thickness Percent of Wound Coats/Red: 100 Wound Drainage Amount: None Wound Drainage Odor: None/Absent Tissue Surrounding Wound: Intact Wound General Appearance: Asymptomatic Wound Comment #1 Left heel DTI pressure ulcer #2 Sacral area scar tissue Recommendation -Local wound care per protocol -Keep clean and dry -Turn and reposition -Offload both heels -Heel protector on both heels -Low air loss mattress -Optimize nutrition -Assess and f/u accordingly for any changes FATUMA ZAFAR RN Sep 06, 2017 16:18
[2017-09-06] MEDS ORDERED: Piperacillin/Tazobactam 3.375 GM in NS 110 ML IVPB SCH (16:19)
--- NOTE | 2017-09-06 17:22 | Infectious Diseases Prog Note ---
Assessment/Plan Assessment/Plan ASSESSMENT: The patient is a 67-year-old male with: 1. Status post shortness of breath, probable bronchitis. -CXR: Linear opacity at the left base thought represent subsegmental atelectasis. Correlate clinically to exclude the possibility of developing infiltrate. -CT of chest, no evidence of pulmonary emboli, infiltrate, or consolidation. -Influenza screen A/B negative. -sp cx normal resp doris and Stap sp (colonziers) 2. Doubt pneumonia. CT scan from [place] did not show evidence of infiltrate. 3. Mild leukocytosis.; resolved 4. Doubt UTI as no pyuria -ucx >100k Proteus mirabilis, probable ESBL (S Erta, Zosyn); colonizer 5. Afebrile. -. COPD. - Diabetes. - Seizure disorder. - Osteoarthritis. - CVA. - Hypertension. - GERD. -. Gout. -. Anxiety. -. Status post PEG placement. PLAN: 1. D/c Zosyn #2 as Proteus in urine is colonizer and resume Levaquin #3/5 for acute bronchitis -09/04 SP CEftriaxone #2 2. Monitor CBC. 3. Monitor BMP. 4. Monitor cultures from outside facility. 5. We will follow cultures (sputum, urine, blood) that were sent here. 6. aspiration precautions Subjective Allergies: Coded Allergies: No Known Allergies (Unverified , 09/03/17) Subjective afebrile no leukocytosis Objective Vital Signs Last 24 Hour Vital Signs Date Time Temp Pulse Resp B/P (MAP) Pulse Ox O2 Delivery O2 Flow Rate FiO2 09/06/17 16:15 74 148/80 09/06/17 12:00 97.7 74 20 148/80 100 Room Air 97.7 09/06/17 08:00 98.2 74 20 132/72 100 Room Air 98.2 09/06/17 03:56 98.2 80 20 132/61 100 Room Air 98.2 09/06/17 00:00 98.8 61 18 121/56 98 Room Air 98.8 09/05/17 19:57 98.0 83 18 142/72 99 Room Air 98.0 Height (Feet): 5 Height (Inches): 7.00 Weight (Pounds): 140 Objective HEENT: No pale conjunctivae. No icterus. NECK: Supple. CHEST: Coarse breathing sounds. HEART: S1 and S2. ABDOMEN: Soft. G-tube in place. EXTREMITIES: No cyanosis. Stage I decubitus of the left heel. Microbiology Date/Time Source Procedure Growth Status 09/04/17 08:40 Blood Blood Culture - Preliminary NO GROWTH AFTER 24 HOURS Resulted 09/04/17 08:30 Blood Blood Culture - Preliminary NO GROWTH AFTER 24 HOURS Resulted 09/04/17 06:00 Sputum Gram Stain - Final Resulted 09/04/17 06:00 Sputum Culture - Preliminary Staphylococcus Species Usual Respiratory Doris Resulted 09/03/17 23:00 Nose MRSA Culture - Final Staphylococcus Aureus - Mrsa Complete 09/04/17 03:00 Urine,Clean Catch Urine Culture - Preliminary Proteus Mirabilis Resulted 09/03/17 23:00 Rectal Mucosa VRE Culture - Final NO VANCOMYCIN RESISTANT ENTEROCOCCUS ... Complete Laboratory Tests Test 09/05/17 17:30 09/05/17 23:00 09/05/17 23:03 09/06/17 06:30 Stool Occult Blood Positive (NEGATIVE) Urine Random Creatinine Pending Urine Random Microalbumin Pending Urine Microalbumin/Creatinine Ratio Pending Urine Color Pale yellow Urine Appearance Clear Urine pH 5 (4.5-8.0) Urine Specific [place] 1.015 (1.005-1.035) Urine Protein 1+ (NEGATIVE) H Urine Glucose (UA) Negative (NEGATIVE) Urine Ketones Negative (NEGATIVE) Urine Occult Blood 3+ (NEGATIVE) H Urine Nitrite Negative (NEGATIVE) Urine Bilirubin Negative (NEGATIVE) Urine Urobilinogen Normal MG/DL (0.0-1.0) Urine Leukocyte Esterase 1+ (NEGATIVE) H Urine RBC 2-4 /HPF (0 - 0) H Urine WBC 0-2 /HPF (0 - 0) Urine Squamous Epithelial Cells Occasional /LPF Urine Bacteria Few /HPF (NONE) Urine Eosinophils None seen Urine Random Total Protein 27 MG/DL (< 11.9) H Urine Random Sodium < 10 mmol/L (20-110) L Urine Creatinine 47.6 MG/DL (30.0-125.0) White Blood Count 8.2 K/UL (4.8-10.8) Red Blood Count 3.48 M/UL (4.70-6.10) L Hemoglobin 9.2 G/DL (14.2-18.0) L Hematocrit 28.2 % (42.0-52.0) L Mean Corpuscular Volume 81 FL (80-99) Mean Corpuscular Hemoglobin 26.6 PG (27.0-31.0) L Mean Corpuscular Hemoglobin Concent 32.8 G/DL (32.0-36.0) Red Cell Distribution Width 14.1 % (11.6-14.8) Platelet Count 249 K/UL (150-450) Mean Platelet Volume 6.5 FL (6.5-10.1) Neutrophils (%) (Auto) 66.5 % (45.0-75.0) Lymphocytes (%) (Auto) 23.0 % (20.0-45.0) Monocytes (%) (Auto) 9.9 % (1.0-10.0) Eosinophils (%) (Auto) 0.1 % (0.0-3.0) Basophils (%) (Auto) 0.5 % (0.0-2.0) Sodium Level 140 MMOL/L (136-145) Potassium Level 4.1 MMOL/L (3.5-5.1) Chloride Level 109 MMOL/L (98-107) H Carbon Dioxide Level 28 MMOL/L (21-32) Anion Gap 3 mmol/L (5-15) L Blood Urea Nitrogen 52 mg/dL (7-18) H Creatinine 1.1 MG/DL (0.55-1.30) Estimat Glomerular Filtration Rate > 60 mL/min (>60) Glucose Level 180 MG/DL (74-106) H Calcium Level 7.8 MG/DL (8.5-10.1) L Current Medications Medications (Trade) Dose Ordered Sig/Christian Route PRN Reason Start Time Stop Time Status Last Admin Dose Admin Acetaminophen (Tylenol) 650 mg Q4H PRN ORAL fever 09/04/17 14:00 10/03/17 21:59 Albuterol/ Ipratropium (Albuterol/ Ipratropium) 3 ml EVERY 4 HOURS PRN HHN dyspnea 09/04/17 13:00 09/08/17 21:59 Allopurinol (Zyloprim) 100 mg DAILY GT 09/05/17 09:00 10/04/17 08:59 09/06/17 09:44 Aspirin (Ecotrin) 81 mg DAILY ORAL 09/06/17 14:30 10/06/17 14:29 09/06/17 16:15 Atorvastatin Calcium (Lipitor) 10 mg BEDTIME ORAL 09/04/17 21:00 10/04/17 20:59 09/05/17 21:04 Clonidine HCl (Catapres Tab) 0.1 mg EVERY 4 HOURS PRN ORAL sbp more than 160 09/04/17 13:00 10/03/17 21:59 Dextrose (Dextrose 50%) STAT PRN IV Hypoglycemia 09/04/17 22:00 10/03/17 21:59 Divalproex Sodium (Depakote Sprinkles) 250 mg EVERY 8 HOURS GT 09/04/17 14:00 10/03/17 21:59 09/06/17 16:14 Heparin Sodium (Porcine) (Heparin 5000 units/ml) 5,000 units EVERY 12 HOURS SUBQ 09/04/17 21:00 10/04/17 09:59 09/06/17 09:45 Insulin Aspart (NovoLOG) BEFORE MEALS AND HS SUBQ 09/04/17 16:30 10/04/17 06:29 09/06/17 17:05 Levetiracetam (Keppra) 500 mg EVERY 12 HOURS GT 09/04/17 21:00 10/04/17 08:59 09/06/17 09:44 Lorazepam (Ativan 2mg/ml 1ml) 0.5 mg Q4H PRN IV For Anxiety 09/04/17 14:00 09/10/17 21:59 Memantine (Namenda) 5 mg BID ORAL 09/06/17 09:00 10/06/17 08:59 09/06/17 09:45 Metoprolol Tartrate (Lopressor) 25 mg Q12HR ORAL 09/06/17 15:00 10/06/17 14:59 09/06/17 16:15 Morphine Sulfate (Morphine Sulfate) 2 mg EVERY 4 HOURS PRN IVP severe pain 7-10 09/04/17 13:00 09/10/17 21:59 Nitroglycerin (Ntg) 0.4 mg Q5M X 3 DOSES PRN SL Prn Chest Pain 09/04/17 12:30 10/03/17 21:59 Ondansetron HCl (Zofran) 4 mg Q6H PRN IVP Nausea & Vomiting 09/04/17 16:00 10/03/17 21:59 Piperacillin Sod/ Tazobactam Sod 3.375 gm/Sodium Chloride 110 ml @ 27.5 mls/hr Q8HR IVPB 09/06/17 16:19 09/12/17 13:59 09/06/17 17:02 Promethazine HCl/ Codeine (Phenergan with Codeine) 5 ml EVERY 6 HOURS PRN ORAL cough 09/04/17 18:00 10/03/17 21:59 Sodium Chloride 1,000 ml @ 75 mls/hr [id number] IV 09/05/17 13:45 10/05/17 13:44 09/06/17 17:03 Temazepam (Restoril) 15 mg HSPRN PRN ORAL Insomnia 09/04/17 22:00 09/10/17 21:59 Zuleyka Mathews M.D. Sep 06, 2017 17:22
[2017-09-06 20:00] VITALS: BP 152/78
--- NOTE | 2017-09-06 20:26 | Pulmonology Progress Note ---
Assessment/Plan Problems: (1) Bacteremia (2) Pneumonia (3) COPD (chronic obstructive pulmonary disease) (4) Diabetes mellitus (5) Feeding by G-tube (6) History of CVA (cerebrovascular accident) Assessment/Plan improving f/u cultures here check electrolytes continue abx check electrolytes tolerating feeding add some fluids dvt porphylaxis Subjective ROS Limited/Unobtainable: No Constitutional: Reports: no symptoms HEENT: Repors: no symptoms Respiratory: Reports: no symptoms Allergies: Coded Allergies: No Known Allergies (Unverified , 09/03/17) Objective Last 24 Hour Vital Signs Date Time Temp Pulse Resp B/P (MAP) Pulse Ox O2 Delivery O2 Flow Rate FiO2 09/06/17 16:15 74 148/80 09/06/17 12:00 97.7 74 20 148/80 100 Room Air 97.7 09/06/17 08:00 98.2 74 20 132/72 100 Room Air 98.2 09/06/17 03:56 98.2 80 20 132/61 100 Room Air 98.2 09/06/17 00:00 98.8 61 18 121/56 98 Room Air 98.8 Intake and Output 09/05/17 09/06/17 19:00 07:00 Intake Total 705 ml 1600 ml Output Total 800 ml 650 ml Balance -95 ml 950 ml Intake Free Water 100 ml 200 ml IV Total 125 ml 800 ml Tube Feeding 480 ml 600 ml Output Urine Total 800 ml 650 ml Objective General Appearance: WD/WN HEENT: normocephalic, atraumatic Respiratory/Chest: chest wall non-tender, lungs clear Cardiovascular: normal peripheral pulses, normal rate Abdomen: normal bowel sounds, soft, non tender, Gtube Genitourinary: normal external genitalia Extremities: no cyanosis Microbiology Date/Time Source Procedure Growth Status 09/04/17 08:40 Blood Blood Culture - Preliminary NO GROWTH AFTER 24 HOURS Resulted 09/04/17 08:30 Blood Blood Culture - Preliminary NO GROWTH AFTER 24 HOURS Resulted 09/04/17 06:00 Sputum Gram Stain - Final Resulted 09/04/17 06:00 Sputum Culture - Preliminary Staphylococcus Species Usual Respiratory Silvia Resulted 09/03/17 23:00 Nose MRSA Culture - Final Staphylococcus Aureus - Mrsa Complete 09/04/17 03:00 Urine,Clean Catch Urine Culture - Preliminary Proteus Mirabilis Resulted 09/03/17 23:00 Rectal Mucosa VRE Culture - Final NO VANCOMYCIN RESISTANT ENTEROCOCCUS ... Complete Laboratory Tests 09/05/17 23:00: Urine Random Creatinine [Pending], Urine Random Microalbumin [Pending], Urine Microalbumin/Creatinine Ratio [Pending] 09/05/17 23:03: Urine Color Pale yellow, Urine Appearance Clear, Urine pH 5, Urine Specific [place] 1.015, Urine Protein 1+H, Urine Glucose (UA) Negative, Urine Ketones Negative, Urine Occult Blood 3+H, Urine Nitrite Negative, Urine Bilirubin Negative, Urine Urobilinogen Normal, Urine Leukocyte Esterase 1+H, Urine RBC 2- 4H, Urine WBC 0-2, Urine Squamous Epithelial Cells Occasional, Urine Bacteria Few, Urine Eosinophils None seen, Urine Random Total Protein 27H, Urine Random Sodium < 10L, Urine Creatinine 47.6 09/06/17 06:30: White Blood Count 8.2, Red Blood Count 3.48L, Hemoglobin 9.2L, Hematocrit 28.2L , Mean Corpuscular Volume 81, Mean Corpuscular Hemoglobin 26.6L, Mean Corpuscular Hemoglobin Concent 32.8, Red Cell Distribution Width 14.1, Platelet Count 249, Mean Platelet Volume 6.5, Neutrophils (%) (Auto) 66.5, Lymphocytes (% ) (Auto) 23.0, Monocytes (%) (Auto) 9.9, Eosinophils (%) (Auto) 0.1, Basophils ( %) (Auto) 0.5, Sodium Level 140, Potassium Level 4.1, Chloride Level 109H, Carbon Dioxide Level 28, Anion Gap 3L, Blood Urea Nitrogen 52H, Creatinine 1.1, Estimat Glomerular Filtration Rate > 60, Glucose Level 180H, Calcium Level 7.8L Current Medications Medications (Trade) Dose Ordered Sig/Christian Route PRN Reason Start Time Stop Time Status Last Admin Dose Admin Acetaminophen (Tylenol) 650 mg Q4H PRN ORAL fever 09/04/17 14:00 10/03/17 21:59 Albuterol/ Ipratropium (Albuterol/ Ipratropium) 3 ml EVERY 4 HOURS PRN HHN dyspnea 09/04/17 13:00 09/08/17 21:59 Allopurinol (Zyloprim) 100 mg DAILY GT 09/05/17 09:00 10/04/17 08:59 09/06/17 09:44 Aspirin (Ecotrin) 81 mg DAILY ORAL 09/06/17 14:30 10/06/17 14:29 09/06/17 16:15 Atorvastatin Calcium (Lipitor) 10 mg BEDTIME ORAL 09/04/17 21:00 10/04/17 20:59 09/05/17 21:04 Clonidine HCl (Catapres Tab) 0.1 mg EVERY 4 HOURS PRN ORAL sbp more than 160 09/04/17 13:00 10/03/17 21:59 Dextrose (Dextrose 50%) STAT PRN IV Hypoglycemia 09/04/17 22:00 10/03/17 21:59 Divalproex Sodium (Depakote Sprinkles) 250 mg EVERY 8 HOURS GT 09/04/17 14:00 10/03/17 21:59 09/06/17 16:14 Heparin Sodium (Porcine) (Heparin 5000 units/ml) 5,000 units EVERY 12 HOURS SUBQ 09/04/17 21:00 10/04/17 09:59 09/06/17 09:45 Insulin Aspart (NovoLOG) BEFORE MEALS AND HS SUBQ 09/04/17 16:30 10/04/17 06:29 09/06/17 17:05 Levetiracetam (Keppra) 500 mg EVERY 12 HOURS GT 09/04/17 21:00 10/04/17 08:59 09/06/17 09:44 Levofloxacin (Levaquin) 500 mg Q24H ORAL 09/07/17 18:00 09/14/17 17:59 Lorazepam (Ativan 2mg/ml 1ml) 0.5 mg Q4H PRN IV For Anxiety 09/04/17 14:00 09/10/17 21:59 Memantine (Namenda) 5 mg BID ORAL 09/06/17 09:00 10/06/17 08:59 09/06/17 18:31 Metoprolol Tartrate (Lopressor) 25 mg Q12HR ORAL 09/06/17 15:00 10/06/17 14:59 09/06/17 16:15 Morphine Sulfate (Morphine Sulfate) 2 mg EVERY 4 HOURS PRN IVP severe pain 7-10 09/04/17 13:00 09/10/17 21:59 Nitroglycerin (Ntg) 0.4 mg Q5M X 3 DOSES PRN SL Prn Chest Pain 09/04/17 12:30 10/03/17 21:59 Ondansetron HCl (Zofran) 4 mg Q6H PRN IVP Nausea & Vomiting 09/04/17 16:00 10/03/17 21:59 Promethazine HCl/ Codeine (Phenergan with Codeine) 5 ml EVERY 6 HOURS PRN ORAL cough 09/04/17 18:00 10/03/17 21:59 Sodium Chloride 1,000 ml @ 75 mls/hr [id number] IV 09/05/17 13:45 10/05/17 13:44 09/06/17 17:03 Temazepam (Restoril) 15 mg HSPRN PRN ORAL Insomnia 09/04/17 22:00 09/10/17 21:59 Elder Kumar MD Sep 06, 2017 20:26
--- NOTE | 2017-09-06 21:45 | Consultation ---
DATE OF CONSULTATION: 09/05/2017 PSYCHOTHERAPY CONSULTATION PROGRESS NOTE CONSULTING PHYSICIAN: Mayte Rose M.D. TREATING ATTENDING PHYSICIAN: Stuart New D.O. HISTORY: This patient is a 67-year-old male patient from [facility]. The patient has been very confused, disorganized, helpless, and has no logical or viable plan for self-care due to his disorganization, confusion and helplessness. The patient is referred for psychotherapeutic services. At this time, the patient is very confused and disorganized. He is unable to care for his basic needs. There is no indication of auditory or visual hallucinations. No indication of suicidal or homicidal thoughts of ideation at this time, but the patient is very confused and disorganized. The patient at this time is monitored by the nursing staff. PAST MEDICAL HISTORY: History of COPD. ALLERGIES: The patient has no known drug allergies. SUBSTANCE ABUSE HISTORY: There is no indication of alcohol use or illicit substance use, or smoking cigarettes. PSYCHIATRIC HISTORY: The patient has a history of depression and psychosis, and has been treated with psychotropic medications in the past. SOCIAL HISTORY: The patient is a 67-year-old male patient from [facility]. Financially supported by [employer]. MENTAL STATUS EXAMINATION: The patient is alert and oriented to person. Mood is dysphoric. Affect blunted. Thought process is disorganized. The patient has poor attention and concentration. DIAGNOSIS: Major depressive disorder, recurrent, severe with psychotic features. This clinician assessed this patient, assessed the patient's mental status, and provided the patient with reality orientation and provided the patient supportive psychotherapy. Encouraging the patient to participate in treatment milieu. Working on increasing compliance with treatment and coping skills. Continue behavioral management. This clinician has reviewed the patient's chart and discussed the treatment with the treatment team.3 Mayte Rose PsyD. : BERTRAND JOB#: [id number] CC:
--- NOTE | 2017-09-06 21:57 | Nephrology Progress Note ---
Assessment/Plan Assessment 1. Acute renal failure. . 2. Chronic kidney disease. 3.hypocalcemia 4.anemia 5.malnutrition Plan plan to continue current ivf monitoring renal function avoid NSAID Replace electrolyte as need ot Subjective ROS Limited/Unobtainable: Yes Constitutional: Reports: no symptoms HEENT: Reports: no symptoms Genitourinary: Reports: no symptoms Neurologic/Psychiatric: Reports: no symptoms Subjective no acute events Objective Objective Last 24 Hour Vital Signs Date Time Temp Pulse Resp B/P (MAP) Pulse Ox O2 Delivery O2 Flow Rate FiO2 09/06/17 20:00 97.9 69 20 152/78 97 Room Air 97.9 09/06/17 16:15 74 148/80 09/06/17 12:00 97.7 74 20 148/80 100 Room Air 97.7 09/06/17 08:00 98.2 74 20 132/72 100 Room Air 98.2 09/06/17 03:56 98.2 80 20 132/61 100 Room Air 98.2 09/06/17 00:00 98.8 61 18 121/56 98 Room Air 98.8 Intake and Output 09/05/17 09/06/17 19:00 07:00 Intake Total 705 ml 1600 ml Output Total 800 ml 650 ml Balance -95 ml 950 ml Intake Free Water 100 ml 200 ml IV Total 125 ml 800 ml Tube Feeding 480 ml 600 ml Output Urine Total 800 ml 650 ml Laboratory Tests 09/05/17 23:00: Urine Random Creatinine [Pending], Urine Random Microalbumin [Pending], Urine Microalbumin/Creatinine Ratio [Pending] 09/05/17 23:03: Urine Color Pale yellow, Urine Appearance Clear, Urine pH 5, Urine Specific [place] 1.015, Urine Protein 1+H, Urine Glucose (UA) Negative, Urine Ketones Negative, Urine Occult Blood 3+H, Urine Nitrite Negative, Urine Bilirubin Negative, Urine Urobilinogen Normal, Urine Leukocyte Esterase 1+H, Urine RBC 2- 4H, Urine WBC 0-2, Urine Squamous Epithelial Cells Occasional, Urine Bacteria Few, Urine Eosinophils None seen, Urine Random Total Protein 27H, Urine Random Sodium < 10L, Urine Creatinine 47.6 09/06/17 06:30: White Blood Count 8.2, Red Blood Count 3.48L, Hemoglobin 9.2L, Hematocrit 28.2L , Mean Corpuscular Volume 81, Mean Corpuscular Hemoglobin 26.6L, Mean Corpuscular Hemoglobin Concent 32.8, Red Cell Distribution Width 14.1, Platelet Count 249, Mean Platelet Volume 6.5, Neutrophils (%) (Auto) 66.5, Lymphocytes (% ) (Auto) 23.0, Monocytes (%) (Auto) 9.9, Eosinophils (%) (Auto) 0.1, Basophils ( %) (Auto) 0.5, Sodium Level 140, Potassium Level 4.1, Chloride Level 109H, Carbon Dioxide Level 28, Anion Gap 3L, Blood Urea Nitrogen 52H, Creatinine 1.1, Estimat Glomerular Filtration Rate > 60, Glucose Level 180H, Calcium Level 7.8L Height (Feet): 5 Height (Inches): 7.00 Weight (Pounds): 140 Objective HEAD AND NECK: No JVP. No LAD. No thyromegaly. Bitemporal wasting. Dry mucous membranes. Extraocular movement intact. Pupils are reactive to light and accommodation. LUNGS: Decreased breathing sound on both sides. CARDIAC: Regular rate and rhythm. S1 and S2. No murmur. No rub. ABDOMEN: Soft and nontender. PEG tube in place. EXTREMITIES: No edema. No clubbing. No cyanosis. ASHLYN MCCORMACK Sep 06, 2017 21:56
[2017-09-07] VITALS: BP 147/71
[2017-09-07 04:00] VITALS: BP 144/76
[2017-09-07] MEDS: Depakote 125mg Sprinkles GT SCH ×2 (05:11→13:26)
[2017-09-07] MEDS: NovoLOG Insulin Flexpen SUBQ SCH (05:16)
--- NOTE | 2017-09-07 06:30 | Consultation ---
DATE OF CONSULTATION: 09/04/2017 CARDIOLOGY CONSULTATION CONSULTING PHYSICIAN: Pieter Mcfarland M.D. REFERRING PHYSICIAN: Stuart New D.O. REASON FOR CONSULTATION: Management of shortness of breath. HISTORY OF PRESENT ILLNESS: The patient is a very unfortunate 67-year-old , who presents from [facility] to [facility] for evaluation of shortness of breath. Unfortunately, the patient is nonverbal. This report is prepared by reviewing the old records including the records from [facility]. Apparently, the nurse at the facility noted the patient had shortness of breath at 6 a.m. on 09/03/2017. There were no other acute symptoms or complaints. There was no fever, chills, cough, chest pain, or shortness of breath. The patient was evaluated in the emergency department of [facility]. CT scan of the chest was done in that facility, which ruled out pulmonary embolism. The patient had some other workups including chemistry and CBC. Chemistry was significant for hyponatremia and elevation of troponin at 0.23. Electrocardiogram showed sinus tachycardia, rate of [address] and T-wave abnormalities in that facility. The patient received IV fluid in that facility and repeat of troponin I was 0.21, but the patient was transferred to [facility] for continuation of care due to insurance purposes. As mentioned above, the patient is nonverbal. There is no clear history of chest pain or shortness of breath. PAST MEDICAL HISTORY: Hypertension, dyslipidemia, history of CVA, history of gout, history of dysphagia, status post PEG placement, history of seizure disorder, history of schizophrenia, history of diabetes mellitus, history of epilepsy, history of GERD, and history of anxiety disorder. PAST SURGICAL HISTORY: PEG placement. MEDICATIONS: At the nursing facility include Haldol 2 mg G-tube three times a day, heparin 5000 units subcutaneous every 12 hours, Keppra 500 mg G-tube q.12 h., linagliptin 5 mg daily, Lipitor 10 mg p.o. nightly, milk of magnesia as needed, multivitamin one tablet daily, Pepcid 20 mg daily, Remeron 7.5 mg nightly, senna, allopurinol 100 mg p.o. daily, aspirin 81 mg p.o. daily, clonidine 0.1 mg q.8 h. p.r.n. systolic blood pressure above 160 mmHg, and Depakote 250 mg q.8 h. ALLERGIES: No known drug allergies. SOCIAL HISTORY: There is no history of tobacco, alcohol, or illicit drug use. FAMILY HISTORY: Unable to assess. REVIEW OF SYSTEMS: Given the patient's nonverbal status, 12-system review cannot be done. PHYSICAL EXAMINATION: GENERAL: The patient is a very unfortunate 67-year-old who is nonverbal. VITAL SIGNS: Blood pressure 140/80, pulse of 100, respirations of 18, temperature 97.0 degrees Fahrenheit, and . HEENT: Atraumatic and normocephalic. Anicteric. Bitemporal wasting. Pupils are equal, round, and reactive to light and accommodation. Extraocular muscles intact. NECK: JVP less than 5 cm. No carotid bruit. LUNGS: Diminished breath sounds on both sides. CARDIOVASCULAR: Regular rate and rhythm. Normal S1 and S2. No murmurs, gallops, or rubs. PMI is at fourth intercostal space at the midclavicular line. ABDOMEN: Soft, nontender, and nondistended. No hepatosplenomegaly. Presence of PEG tube over abdominal wall. EXTREMITIES: No evidence of edema, clubbing, or cyanosis. LABORATORY AND DIAGNOSTIC DATA: Troponin I x2, 0.23 and 0.21. WBC was 9.3, hemoglobin 10.7, hematocrit 39.1, and platelet count was 259,000. BNP was 94. Glucose 157, sodium 131, potassium 4.5, chloride 98, bicarbonate 27, BUN of 28, and creatinine 0.79. A 12-lead electrocardiogram showed sinus tachycardia, rate of [address] and T-wave abnormalities. ASSESSMENT AND PLAN: The patient is a very unfortunate 67-year-old who is nonverbal, seen in Cardiology consultation at the request of Dr. New. 1. Elevated troponin I level in this patient, might be type 2 [id number] myocardial infarction, however, in view of the patient's comorbidities and the fact that has CVA and hemiplegia and being nonverbal status, history of schizophrenia and dementia, conservative management would be gold standard. We will make sure that the patient continue on aspirin and high-intensity statins as well as beta-luis felipe for double control. 2. Sinus tachycardia, most likely due to underlying sepsis. I would like to obtain 2D echocardiography for assessment of LV systolic function. I would like to thank, Dr. New, for allowing me to participate in the care of this patient. Pieter Mcfarland M.D. DR: AILYN JOB#: [id number] CC:
[2017-09-07 08:00] VITALS: BP 158/76
[2017-09-07 08:30] LABS: BASOPHILS % (AUTO) 1.6 % (0.0-2.0); EOSINOPHILS % (AUTO) 1.2 % (0.0-3.0); HEMATOCRIT 30.3 % (42.0-52.0); HEMOGLOBIN 9.9 G/DL (14.2-18.0); LYMPHOCYTES % (AUTO) 43.3 % (20.0-45.0); MEAN CORPUSCULAR VOLUME 83 FL (80-99); MONOCYTES % (AUTO) 13.3 % (1.0-10.0); NEUTROPHILS % (AUTO) 40.7 % (45.0-75.0); PLATELET COUNT 267 K/UL (150-450); RED BLOOD COUNT 3.67 M/UL (4.70-6.10); RED CELL DISTRIBUTION WIDTH 14.4 % (11.6-14.8); WHITE BLOOD COUNT 8.5 K/UL (4.8-10.8)
[2017-09-07 09:04] LABS: ANION GAP 4 mmol/L (5-15); BLOOD UREA NITROGEN 42 mg/dL (7-18); CALCIUM 7.8 MG/DL (8.5-10.1); CARBON DIOXIDE 28 MMOL/L (21-32); CHLORIDE 113 MMOL/L (98-107); CREATININE 0.9 MG/DL (0.55-1.30); POTASSIUM 3.9 MMOL/L (3.5-5.1); SODIUM 145 MMOL/L (136-145)
--- NOTE | 2017-09-07 10:30 | Progress Note ---
DATE: 09/07/2017 SUBJECTIVE: The patient is a 67-year-old male patient with shortness of breath. This patient continues to have some confusion and disorganized thought process. Mood lability, worsened by the stress of his medical illness. That is why this patient disorganized and since his cognition has declined below baseline, his attending has requested daily psychiatric consultation. MENTAL STATUS EXAMINATION: This is a 67-year-old male with psychomotor retardation. Mood is depressed. Affect guarded and restricted. Thought process, disorganized and illogical. Denies any current suicidal or homicidal thoughts. Insight and judgment is poor. DIAGNOSIS: Depression with psychotic features, rule out pseudodementia. PLAN: Treat him with Depakote 250 mg twice a day and Namenda 5 mg twice a day. Provided 18 to 20 minutes of supportive therapy and encouraged him to interact appropriately with staff. Chart is reviewed and discussed with staff. Samuel Solorzano M.D. DR: JOE JOB#: [id number] CC:
[2017-09-07] MEDS: Allopurinol 100mg Tab GT SCH (11:10)
[2017-09-07] MEDS: Metoprolol 25mg tab ORAL SCH (11:10)
[2017-09-07] MEDS: Memantine 10mg tab ORAL SCH (11:10)
[2017-09-07] MEDS: Aspirin EC 81mg tab ORAL SCH (11:11)
[2017-09-07] MEDS: Heparin 5000 units/ml inj SUBQ SCH (11:12)
[2017-09-07 12:00] VITALS: BP 143/69
[2017-09-07] MEDS ORDERED: NovoLOG Insulin Flexpen SUBQ SCH (12:00)
--- NOTE | 2017-09-07 12:33 | Infectious Diseases Prog Note ---
Assessment/Plan Assessment/Plan ASSESSMENT: The patient is a 67-year-old male with: 1. Status post shortness of breath, probable bronchitis. -CXR: Linear opacity at the left base thought represent subsegmental atelectasis. Correlate clinically to exclude the possibility of developing infiltrate. -CT of chest, no evidence of pulmonary emboli, infiltrate, or consolidation. -Influenza screen A/B negative. -sp cx normal resp doris and MRSA (colonziers) 2. Doubt pneumonia. CT scan from [place] did not show evidence of infiltrate. 3. Mild leukocytosis.; resolved 4. Doubt UTI as no pyuria -ucx >100k Proteus mirabilis, ESBL (S Erta, Zosyn); colonizer 5. Afebrile. -. COPD. - Diabetes. - Seizure disorder. - Osteoarthritis. - CVA. - Hypertension. - GERD. -. Gout. -. Anxiety. -. Status post PEG placement. PLAN: 1. Continue Levaquin #4/5 for acute bronchitis -would not treat MRSA in sputum and ESBL in urine cx as both colonizers -09/06 SP Zosyn #2 -09/04 SP CEftriaxone #2 2. Monitor CBC. 3. Monitor BMP. 4.Contact precautions 5. We will follow cultures (blood) that were sent here. 6. aspiration precautions Subjective Allergies: Coded Allergies: No Known Allergies (Unverified , 09/03/17) Subjective afebrile no leukocytosis Bcx NTD Objective Vital Signs Last 24 Hour Vital Signs Date Time Temp Pulse Resp B/P (MAP) Pulse Ox O2 Delivery O2 Flow Rate FiO2 09/07/17 12:00 98.0 68 20 143/69 98 Room Air 98.0 09/07/17 11:10 68 156/76 09/07/17 08:00 98.2 68 20 158/76 98 Room Air 98.2 09/07/17 04:00 96.6 63 20 144/76 98 Room Air 96.6 09/07/17 00:00 96.4 63 20 147/71 97 Nasal Cannula 96.4 09/06/17 22:01 69 152/78 09/06/17 20:00 97.9 69 20 152/78 97 Room Air 97.9 09/06/17 16:15 74 148/80 Height (Feet): 5 Height (Inches): 7.00 Weight (Pounds): 140 Objective HEENT: No pale conjunctivae. No icterus. NECK: Supple. CHEST: Coarse breathing sounds. HEART: S1 and S2. ABDOMEN: Soft. G-tube in place. EXTREMITIES: No cyanosis. Stage I decubitus of the left heel. Laboratory Tests Test 09/07/17 07:40 White Blood Count 8.5 K/UL (4.8-10.8) Red Blood Count 3.67 M/UL (4.70-6.10) L Hemoglobin 9.9 G/DL (14.2-18.0) L Hematocrit 30.3 % (42.0-52.0) L Mean Corpuscular Volume 83 FL (80-99) Mean Corpuscular Hemoglobin 26.9 PG (27.0-31.0) L Mean Corpuscular Hemoglobin Concent 32.5 G/DL (32.0-36.0) Red Cell Distribution Width 14.4 % (11.6-14.8) Platelet Count 267 K/UL (150-450) Mean Platelet Volume 6.3 FL (6.5-10.1) L Neutrophils (%) (Auto) 40.7 % (45.0-75.0) L Lymphocytes (%) (Auto) 43.3 % (20.0-45.0) Monocytes (%) (Auto) 13.3 % (1.0-10.0) H Eosinophils (%) (Auto) 1.2 % (0.0-3.0) Basophils (%) (Auto) 1.6 % (0.0-2.0) Sodium Level 145 MMOL/L (136-145) Potassium Level 3.9 MMOL/L (3.5-5.1) Chloride Level 113 MMOL/L (98-107) H Carbon Dioxide Level 28 MMOL/L (21-32) Anion Gap 4 mmol/L (5-15) L Blood Urea Nitrogen 42 mg/dL (7-18) H Creatinine 0.9 MG/DL (0.55-1.30) Estimat Glomerular Filtration Rate > 60 mL/min (>60) Glucose Level 81 MG/DL (74-106) # Calcium Level 7.8 MG/DL (8.5-10.1) L Current Medications Medications (Trade) Dose Ordered Sig/Christian Route PRN Reason Start Time Stop Time Status Last Admin Dose Admin Acetaminophen (Tylenol) 650 mg Q4H PRN ORAL fever 09/04/17 14:00 10/03/17 21:59 Albuterol/ Ipratropium (Albuterol/ Ipratropium) 3 ml EVERY 4 HOURS PRN HHN dyspnea 09/04/17 13:00 09/08/17 21:59 Allopurinol (Zyloprim) 100 mg DAILY GT 09/05/17 09:00 10/04/17 08:59 09/07/17 11:10 Aspirin (Ecotrin) 81 mg DAILY ORAL 09/06/17 14:30 10/06/17 14:29 09/07/17 11:11 Atorvastatin Calcium (Lipitor) 10 mg BEDTIME ORAL 09/04/17 21:00 10/04/17 20:59 09/06/17 22:01 Clonidine HCl (Catapres Tab) 0.1 mg EVERY 4 HOURS PRN ORAL sbp more than 160 09/04/17 13:00 10/03/17 21:59 Dextrose (Dextrose 50%) STAT PRN IV Hypoglycemia 09/04/17 22:00 10/03/17 21:59 Divalproex Sodium (Depakote Sprinkles) 250 mg EVERY 8 HOURS GT 09/04/17 14:00 10/03/17 21:59 09/07/17 05:11 Heparin Sodium (Porcine) (Heparin 5000 units/ml) 5,000 units EVERY 12 HOURS SUBQ 09/04/17 21:00 10/04/17 09:59 09/07/17 11:12 Insulin Aspart (NovoLOG) Q6HR SUBQ 09/07/17 12:00 10/04/17 06:29 Levetiracetam (Keppra) 500 mg EVERY 12 HOURS GT 09/04/17 21:00 10/04/17 08:59 09/07/17 11:10 Levofloxacin (Levaquin) 500 mg Q24H ORAL 09/07/17 18:00 09/14/17 17:59 Lorazepam (Ativan 2mg/ml 1ml) 0.5 mg Q4H PRN IV For Anxiety 09/04/17 14:00 09/10/17 21:59 Memantine (Namenda) 5 mg BID ORAL 09/06/17 09:00 10/06/17 08:59 09/07/17 11:10 Metoprolol Tartrate (Lopressor) 25 mg Q12HR ORAL 09/06/17 15:00 10/06/17 14:59 09/07/17 11:10 Morphine Sulfate (Morphine Sulfate) 2 mg EVERY 4 HOURS PRN IVP severe pain 7-10 09/04/17 13:00 09/10/17 21:59 Nitroglycerin (Ntg) 0.4 mg Q5M X 3 DOSES PRN SL Prn Chest Pain 09/04/17 12:30 10/03/17 21:59 Ondansetron HCl (Zofran) 4 mg Q6H PRN IVP Nausea & Vomiting 09/04/17 16:00 10/03/17 21:59 Promethazine HCl/ Codeine (Phenergan with Codeine) 5 ml EVERY 6 HOURS PRN ORAL cough 09/04/17 18:00 10/03/17 21:59 Sodium Chloride 1,000 ml @ 75 mls/hr [id number] IV 09/05/17 13:45 10/05/17 13:44 09/07/17 05:11 Temazepam (Restoril) 15 mg HSPRN PRN ORAL Insomnia 09/04/17 22:00 09/10/17 21:59 Zuleyka Mathews M.D. Sep 07, 2017 12:33
--- NOTE | 2017-09-07 14:20 | General Progress Note ---
Assessment/Plan Problem List: (1) HTN (hypertension) ICD Codes: I10 - Essential (primary) hypertension SNOMED: 98656657 (2) Altered mental status ICD Codes: R41.82 - Altered mental status, unspecified SNOMED: 878439725 (3) SOB (shortness of breath) ICD Codes: R06.02 - Shortness of breath SNOMED: 596954617 (4) Renal insufficiency ICD Codes: N28.9 - Disorder of kidney and ureter, unspecified SNOMED: 544899910, 217750670 (5) COPD (chronic obstructive pulmonary disease) ICD Codes: J44.9 - Chronic obstructive pulmonary disease, unspecified SNOMED: 12346259 (6) Diabetes mellitus ICD Codes: E11.9 - Type 2 diabetes mellitus without complications SNOMED: 67846981 (7) Feeding by G-tube ICD Codes: Z93.1 - Gastrostomy status SNOMED: 067375725, 024762575 (8) History of CVA (cerebrovascular accident) ICD Codes: Z86.73 - Personal history of transient ischemic attack (TIA), and cerebral infarction without residual deficits SNOMED: 391160803 (9) Pneumonia ICD Codes: J18.9 - Pneumonia, unspecified organism SNOMED: 845756597 (10) UTI (urinary tract infection) ICD Codes: N39.0 - Urinary tract infection, site not specified SNOMED: 88642370 Status: unchanged Assessment/Plan o2 pulm tx abx bp bs control cbc bmp am dc plan Subjective Constitutional: Reports: weakness Allergies: Coded Allergies: No Known Allergies (Unverified , 09/03/17) All Systems: reviewed and negative except above Subjective calm in bed Objective Last 24 Hour Vital Signs Date Time Temp Pulse Resp B/P (MAP) Pulse Ox O2 Delivery O2 Flow Rate FiO2 09/07/17 12:00 98.0 68 20 143/69 98 Room Air 98.0 09/07/17 11:10 68 156/76 09/07/17 08:00 98.2 68 20 158/76 98 Room Air 98.2 09/07/17 04:00 96.6 63 20 144/76 98 Room Air 96.6 09/07/17 00:00 96.4 63 20 147/71 97 Nasal Cannula 96.4 09/06/17 22:01 69 152/78 09/06/17 20:00 97.9 69 20 152/78 97 Room Air 97.9 09/06/17 16:15 74 148/80 Intake and Output 09/06/17 09/07/17 19:00 07:00 Intake Total 135 ml 1685 ml Output Total 1300 ml Balance 135 ml 385 ml Free Water 260 ml IV Total 75 ml 825 ml Tube Feeding 60 ml 600 ml Output Urine Total 1300 ml Laboratory Tests 09/07/17 07:40: White Blood Count 8.5, Red Blood Count 3.67L, Hemoglobin 9.9L, Hematocrit 30.3L , Mean Corpuscular Volume 83, Mean Corpuscular Hemoglobin 26.9L, Mean Corpuscular Hemoglobin Concent 32.5, Red Cell Distribution Width 14.4, Platelet Count 267, Mean Platelet Volume 6.3L, Neutrophils (%) (Auto) 40.7L, Lymphocytes (%) (Auto) 43.3, Monocytes (%) (Auto) 13.3H, Eosinophils (%) (Auto) 1.2, Basophils (%) (Auto) 1.6, Sodium Level 145, Potassium Level 3.9, Chloride Level 113H, Carbon Dioxide Level 28, Anion Gap 4L, Blood Urea Nitrogen 42H, Creatinine 0.9, Estimat Glomerular Filtration Rate > 60, Glucose Level 81#, Calcium Level 7.8L Height (Feet): 5 Height (Inches): 7.00 Weight (Pounds): 140 General Appearance: lethargic EENT: normal ENT inspection Neck: normal alignment Cardiovascular: normal peripheral pulses, normal rate, regular rhythm Respiratory/Chest: chest wall non-tender, lungs clear, normal breath sounds Abdomen: normal bowel sounds, non tender, soft Extremities: normal inspection Edema: no edema noted Arm (L), no edema noted Arm (R), no edema noted Leg (L), no edema noted Leg (R), no edema noted Pedal (L), no edema noted Pedal (R), no edema noted Generalized Neurologic: motor weakness Skin: normal pigmentation, warm/dry SYLVAIN ARTHUR Sep 07, 2017 14:20
--- NOTE | 2017-09-07 15:36 | Nephrology Progress Note ---
Assessment/Plan Assessment 1. Acute renal failure. resolved 2. Chronic kidney disease. 3.hypocalcemia 4.anemia 5.malnutrition Plan plan to continue current ivf monitoring renal function avoid NSAID Replace electrolyte as need ot Subjective ROS Limited/Unobtainable: Yes Constitutional: Reports: no symptoms HEENT: Reports: no symptoms Genitourinary: Reports: no symptoms Neurologic/Psychiatric: Reports: no symptoms Subjective no acute events Objective Objective Last 24 Hour Vital Signs Date Time Temp Pulse Resp B/P (MAP) Pulse Ox O2 Delivery O2 Flow Rate FiO2 09/07/17 12:00 98.0 68 20 143/69 98 Room Air 98.0 09/07/17 11:10 68 156/76 09/07/17 08:00 98.2 68 20 158/76 98 Room Air 98.2 09/07/17 04:00 96.6 63 20 144/76 98 Room Air 96.6 09/07/17 00:00 96.4 63 20 147/71 97 Nasal Cannula 96.4 09/06/17 22:01 69 152/78 09/06/17 20:00 97.9 69 20 152/78 97 Room Air 97.9 09/06/17 16:15 74 148/80 Intake and Output 09/06/17 09/07/17 19:00 07:00 Intake Total 135 ml 1685 ml Output Total 1300 ml Balance 135 ml 385 ml Free Water 260 ml IV Total 75 ml 825 ml Tube Feeding 60 ml 600 ml Output Urine Total 1300 ml Laboratory Tests 09/07/17 07:40: White Blood Count 8.5, Red Blood Count 3.67L, Hemoglobin 9.9L, Hematocrit 30.3L , Mean Corpuscular Volume 83, Mean Corpuscular Hemoglobin 26.9L, Mean Corpuscular Hemoglobin Concent 32.5, Red Cell Distribution Width 14.4, Platelet Count 267, Mean Platelet Volume 6.3L, Neutrophils (%) (Auto) 40.7L, Lymphocytes (%) (Auto) 43.3, Monocytes (%) (Auto) 13.3H, Eosinophils (%) (Auto) 1.2, Basophils (%) (Auto) 1.6, Sodium Level 145, Potassium Level 3.9, Chloride Level 113H, Carbon Dioxide Level 28, Anion Gap 4L, Blood Urea Nitrogen 42H, Creatinine 0.9, Estimat Glomerular Filtration Rate > 60, Glucose Level 81#, Calcium Level 7.8L Height (Feet): 5 Height (Inches): 7.00 Weight (Pounds): 140 Objective HEAD AND NECK: No JVP. No LAD. No thyromegaly. Bitemporal wasting. Dry mucous membranes. Extraocular movement intact. Pupils are reactive to light and accommodation. LUNGS: Decreased breathing sound on both sides. CARDIAC: Regular rate and rhythm. S1 and S2. No murmur. No rub. ABDOMEN: Soft and nontender. PEG tube in place. EXTREMITIES: No edema. No clubbing. No cyanosis. ASHLYN MCCORMACK Sep 07, 2017 15:36
--- NOTE | 2017-09-07 16:05 | Pulmonology Progress Note ---
Assessment/Plan Problems: (1) Bacteremia (2) Pneumonia (3) COPD (chronic obstructive pulmonary disease) (4) Diabetes mellitus (5) Feeding by G-tube (6) History of CVA (cerebrovascular accident) Assessment/Plan dc home today improving f/u cultures here check electrolytes continue abx check electrolytes tolerating feeding add some fluids dvt porphylaxis Subjective ROS Limited/Unobtainable: No Constitutional: Reports: no symptoms HEENT: Repors: no symptoms Respiratory: Reports: no symptoms Allergies: Coded Allergies: No Known Allergies (Unverified , 09/03/17) Objective Last 24 Hour Vital Signs Date Time Temp Pulse Resp B/P (MAP) Pulse Ox O2 Delivery O2 Flow Rate FiO2 09/07/17 12:00 98.0 68 20 143/69 98 Room Air 98.0 09/07/17 11:10 68 156/76 09/07/17 08:00 98.2 68 20 158/76 98 Room Air 98.2 09/07/17 04:00 96.6 63 20 144/76 98 Room Air 96.6 09/07/17 00:00 96.4 63 20 147/71 97 Nasal Cannula 96.4 09/06/17 22:01 69 152/78 09/06/17 20:00 97.9 69 20 152/78 97 Room Air 97.9 09/06/17 16:15 74 148/80 Intake and Output 09/06/17 09/07/17 19:00 07:00 Intake Total 135 ml 1685 ml Output Total 1300 ml Balance 135 ml 385 ml Free Water 260 ml IV Total 75 ml 825 ml Tube Feeding 60 ml 600 ml Output Urine Total 1300 ml Objective General Appearance: WD/WN HEENT: normocephalic, atraumatic Respiratory/Chest: chest wall non-tender, lungs clear Cardiovascular: normal peripheral pulses, normal rate Abdomen: normal bowel sounds, soft, non tender, Gtube Genitourinary: normal external genitalia Extremities: no cyanosis Laboratory Tests 09/07/17 07:40: White Blood Count 8.5, Red Blood Count 3.67L, Hemoglobin 9.9L, Hematocrit 30.3L , Mean Corpuscular Volume 83, Mean Corpuscular Hemoglobin 26.9L, Mean Corpuscular Hemoglobin Concent 32.5, Red Cell Distribution Width 14.4, Platelet Count 267, Mean Platelet Volume 6.3L, Neutrophils (%) (Auto) 40.7L, Lymphocytes (%) (Auto) 43.3, Monocytes (%) (Auto) 13.3H, Eosinophils (%) (Auto) 1.2, Basophils (%) (Auto) 1.6, Sodium Level 145, Potassium Level 3.9, Chloride Level 113H, Carbon Dioxide Level 28, Anion Gap 4L, Blood Urea Nitrogen 42H, Creatinine 0.9, Estimat Glomerular Filtration Rate > 60, Glucose Level 81#, Calcium Level 7.8L Current Medications Medications (Trade) Dose Ordered Sig/Christian Route PRN Reason Start Time Stop Time Status Last Admin Dose Admin Acetaminophen (Tylenol) 650 mg Q4H PRN ORAL fever 09/04/17 14:00 10/03/17 21:59 Albuterol/ Ipratropium (Albuterol/ Ipratropium) 3 ml EVERY 4 HOURS PRN HHN dyspnea 09/04/17 13:00 09/08/17 21:59 Allopurinol (Zyloprim) 100 mg DAILY GT 09/05/17 09:00 10/04/17 08:59 09/07/17 11:10 Aspirin (Ecotrin) 81 mg DAILY ORAL 09/06/17 14:30 10/06/17 14:29 09/07/17 11:11 Atorvastatin Calcium (Lipitor) 10 mg BEDTIME ORAL 09/04/17 21:00 10/04/17 20:59 09/06/17 22:01 Clonidine HCl (Catapres Tab) 0.1 mg EVERY 4 HOURS PRN ORAL sbp more than 160 09/04/17 13:00 10/03/17 21:59 Dextrose (Dextrose 50%) STAT PRN IV Hypoglycemia 09/04/17 22:00 10/03/17 21:59 Divalproex Sodium (Depakote Sprinkles) 250 mg EVERY 8 HOURS GT 09/04/17 14:00 10/03/17 21:59 09/07/17 13:26 Heparin Sodium (Porcine) (Heparin 5000 units/ml) 5,000 units EVERY 12 HOURS SUBQ 09/04/17 21:00 10/04/17 09:59 09/07/17 11:12 Insulin Aspart (NovoLOG) Q6HR SUBQ 09/07/17 12:00 10/04/17 06:29 Levetiracetam (Keppra) 500 mg EVERY 12 HOURS GT 09/04/17 21:00 10/04/17 08:59 09/07/17 11:10 Levofloxacin (Levaquin) 500 mg Q24H ORAL 09/07/17 18:00 09/14/17 17:59 Lorazepam (Ativan 2mg/ml 1ml) 0.5 mg Q4H PRN IV For Anxiety 09/04/17 14:00 09/10/17 21:59 Memantine (Namenda) 5 mg BID ORAL 09/06/17 09:00 10/06/17 08:59 09/07/17 11:10 Metoprolol Tartrate (Lopressor) 25 mg Q12HR ORAL 09/06/17 15:00 10/06/17 14:59 09/07/17 11:10 Morphine Sulfate (Morphine Sulfate) 2 mg EVERY 4 HOURS PRN IVP severe pain 7-10 09/04/17 13:00 09/10/17 21:59 Nitroglycerin (Ntg) 0.4 mg Q5M X 3 DOSES PRN SL Prn Chest Pain 09/04/17 12:30 10/03/17 21:59 Ondansetron HCl (Zofran) 4 mg Q6H PRN IVP Nausea & Vomiting 09/04/17 16:00 10/03/17 21:59 Promethazine HCl/ Codeine (Phenergan with Codeine) 5 ml EVERY 6 HOURS PRN ORAL cough 09/04/17 18:00 10/03/17 21:59 Sodium Chloride 1,000 ml @ 75 mls/hr [id number] IV 09/05/17 13:45 10/05/17 13:44 09/07/17 05:11 Temazepam (Restoril) 15 mg HSPRN PRN ORAL Insomnia 09/04/17 22:00 09/10/17 21:59 Elder Kumar MD Sep 07, 2017 16:05
[2017-09-07] MEDS ORDERED: LEVAQUIN500 MG GT (16:24)
[2017-09-07] MEDS ORDERED: D5 1/2NS 1000ml IV ONE (17:22)
[2017-09-07] MEDS ORDERED: Levofloxacin 500mg tab ORAL SCH (18:00)
--- NOTE | 2017-09-07 18:31 | Discharge Summary ---
Discharge Summary Hospital Course Date of Admission Sep 03, 2017 at 18:00 Date of Discharge Sep 07, 2017 at 17:23 Admitting Diagnosis HPI Doug Collier is a 67 year old male who was admitted on Sep 03, 2017 at 18:00 for Shortness Of Breath Hospital Course [id number] Discharge Discharge Disposition Patient was discharged to SNF/Subacute Facility(03) Discharge Diagnoses: Martine King NP Sep 07, 2017 18:31
--- NOTE | 2017-09-07 23:00 | Progress Note ---
DATE: 09/06/2017 PSYCHOTHERAPY CONSULTATION PROGRESS NOTE TREATING ATTENDING PHYSICIAN: Stuart New D.O. SUBJECTIVE: The patient is a 67-year-old male patient. The patient remains confused, disorganized, altered in his mental status, remained helpless, and motivated. The patient has no logical plan for self-care or safety. MENTAL STATUS EXAMINATION: The patient is alert and oriented to person. Mood is dysphoric. Affect blunted. Thought process disorganized. The patient has poor attention and concentration. This clinician assessed this patient, assessed this patient's mental status. Provided the patient with reality orientation and provided with supportive psychotherapy DIAGNOSIS: Major depressive disorder, recurrent, severe with psychotic features. PLAN: Continue with behavioral management. This clinician has reviewed the patient's chart and discussed the treatment with nursing staff. Mayte Rose PsyD. DR: Elfego JOB#: [id number] CC:
--- NOTE | 2017-09-08 02:16 | Discharge Summary 2 SIG ---
DATE OF ADMISSION: 09/03/2017 DATE OF DISCHARGE: 09/07/2017 CONSULTANTS: 1. Elder Kumar M.D. 2. Xin Garland M.D. 3. Zuleyka Mathews M.D. 4. Samuel Solorzano M.D. 5. Pieter Mcfarland M.D. 6. Mayte Rose PsyD. BRIEF HOSPITAL COURSE: The patient is a 67-year-old male resident of [facility], who was initially transferred to [facility] due to shortness of breath and altered mental status with weakness, fever, and elevated troponin. He has a medical history significant for altered mental status, hypertension, chronic obstructive pulmonary disease, and diabetes. The patient has a G-tube, history of schizophrenia, gout, and seizure disorder. At [facility], a CT of the chest did not show any PE. He received symptomatic treatment and was eventually transferred to [place] for further management. He was given respiratory treatment and was started on IV antibiotic ceftriaxone. He was given [place] and was eventually started on Solu-Medrol. He was followed by Infectious Disease specialist. Rocephin was discontinued. The patient was given Levaquin. Chest x-ray done showed linear opacity on the left base. His creatinine increased to 1.3. Electrolytes were monitored and was given IV fluids. Recommended to avoid NSAIDs. He has declined cognition and psychiatric evaluation was done. He was diagnosed with major depression with psychotic features and was given Depakote and Namenda. The patient had elevated troponin 0.23. Electrocardiogram showed sinus tachycardia at the rate of [address] to T-wave abnormality. His repeat troponin showed 0.23 and 0.21, however, with no acute ST to T-wave changes. The patient probably with type 2 non-ST elevated myocardial infarction. However due to other comorbidities, conservative management was given. He was placed on aspirin, metoprolol, and Lipitor. He came in with left heel DTI and a sacral area scar. He was given local wound care with frequent turning and offloading. Sputum culture showed growth of MRSA. Urine culture with Proteus mirabilis ESBL. Influenza screens were negative. Sputum culture most likely colonizers. He was continued on Levaquin. No need to treat MRSA in sputum and ESBL in urine as both are colonizers. He was eventually cleared for discharge back to intermediate to continue two more days of Levaquin treatment. FINAL DIAGNOSES: 1. Pneumonia. 2. Chronic obstructive pulmonary disease. 3. Dysphagia with feeding via gastrostomy tube. 4. Old cerebrovascular accident. 5. Acute renal failure, resolved. 6. Chronic kidney disease. 7. Hypocalcemia. 8. Anemia. 9. Malnutrition. 10. Left heel deep tissue injury pressure ulcer, present on admission. DISPOSITION: The patient was discharged back to intermediate. DISCHARGE MEDICATIONS: Refer to medication list. Continue with Levaquin 500 mg G-tube x2 more days. Stuart New D.O. I have been assigned to dictate discharge summary on this account and I was not involved in the patient's management. Martine King N.P. DR: MARKEL JOB#: [id number] CC: NEAL
--- NOTE | 2017-09-08 17:01 | Cardiology Report ---
APPROVED REPORT EKG Measurement Heart [id number] Normal sinus rhythm Normal ECG
--- NOTE | 2017-09-09 00:46 | Progress Note ---
DATE: 09/07/2017 PSYCHOTHERAPY CONSULTATION PROGRESS NOTE TREATING ATTENDING PHYSICIAN: Stuart New D.O. SUBJECTIVE: The patient is a 67-year-old male patient. The patient patient has a history of depression. The patient is confused, disorganized, and altered in his mental status. He is very helpless and hopeless. Unable to care for his basic needs at this time. He has no logical or viable plan for self-care. At times, the patient is irritable and agitated. The patient is alert and oriented to person. Mood is dysphoric. Affect blunted. Thought process is . This clinician assessed this patient. Provided the patient with reality orientation, provided the patient with supportive psychotherapy. Encouraging the patient to participate in treatment milieu. Continue with behavioral management. This clinician has reviewed the patient's chart and discussed the treatment with treatment team. Mayte Rose PsyD. : CHIVO JOB#: [id number] CC:
== END 2017-09-07 17:23 | DRG 193 ==
LOC: 2E 18:00 → 3E 09-04 12:36 → 4E 09-06 08:00
DX: J18.9 Pneumonia, unspecified organism (principal); N17.0 Acute kidney failure with tubular necrosis; I21.A1 Myocardial infarction type 2; Z43.1 Encounter for attention to gastrostomy; F31.81 Bipolar II disorder; J44.9 Chronic obstructive pulmonary disease, unspecified; Z86.73 Personal history of transient ischemic attack (TIA), and cerebral infarction without residual deficits; I12.9 Hypertensive chronic kidney disease with stage 1 through stage 4 chronic kidney disease, or unspecified chronic kidney disease; E11.22 Type 2 diabetes mellitus with diabetic chronic kidney disease; N18.9 Chronic kidney disease, unspecified; Z79.4 Long term (current) use of insulin; E83.51 Hypocalcemia; D64.9 Anemia, unspecified; L89.620 Pressure ulcer of left heel, unstageable; Z22.322 Carrier or suspected carrier of Methicillin resistant Staphylococcus aureus; F20.9 Schizophrenia, unspecified; G40.909 Epilepsy, unspecified, not intractable, without status epilepticus; K21.9 Gastro-esophageal reflux disease without esophagitis; F41.9 Anxiety disorder, unspecified; F32.9 Major depressive disorder, single episode, unspecified; E78.5 Hyperlipidemia, unspecified; M10.9 Gout, unspecified
CPT/HCPCS: 36415; 71045; 80048; 80053; 80299; 81001; 82043; 82044; 82270; 82378; 82570; 82607; 82746; 82962; 83540; 83550; 83615; 83880; 84165; 84300; 84484; 85007; 85025; 85044; 85060; 85610; 85651; 85730; 87040; 87070; 87081; 87086; 87181; 87205; 89050; 93005; 97803; J1815

== ENCOUNTER 2018-06-21 08:25 | Inpatient (IN) | payer MEDICARE, OTHER ==
[~2018-06-21] VITALS: Ht 172.7 cm; Wt 73.5 kg
--- NOTE | 2018-06-21 08:20 | NUR ---
ED Nurse Note: PT BROUGHT IN BY R68 FROM [facility] FOR SEIZURE X 2 - ONE LAST NIGHT AND ONE THIS AM. PER EMS, PT HAS HX OF SEIZURES AND IS ON MEDICATION FOR IT. BG EN ROUTE: 139. BG AT BEDSIDE: 127. NO INCONTINENCE. PT IS NONVERBAL, AOX1, WHICH IS BASELINE PER EMS.
[2018-06-21 08:25] VITALS: BP 180/71
[~2018-06-21 08:25] MED LIST: ALLOPURINOL100 M1 GT; ASPIRIN81 M3 GT; CLONIDINE HCL0.1 MG GT; DEPAKOTE ER250 MG GT; DEPAKOTE SPRIN125 MG GT; HALOPERIDOL1 MG GT; HEPARIN SO5000 UNIT2 SUBQ; KEPPRA500 M4 GT; LEVAQUIN500 MG GT; LIPITOR10 MG ORAL; MILK OF MA400 MG/51 GT; REMERON15 M1 ORAL; TRADJENTA5 MG GT
[2018-06-21] MEDS ORDERED: Sodium Chloride 500ML 500 ML IV ONE (08:36)
[2018-06-21] MEDS ORDERED: ACETAMINOPHEN325 M1 ORAL (08:37)
[2018-06-21] MEDS ORDERED: SENNA LAXATIVE1 EAC1 PO (08:37)
--- NOTE | 2018-06-21 08:38 | Emergency Room Report ---
History of Present Illness General Chief Complaint: Seizure Source: EMS Present Illness HPI Patient is brought from nursing facility with reports of seizure activity Patient was provided with medications yesterday however had another breakthrough seizure this morning Patient himself is not able to provide history History of present illness remains limited Unknown regarding vomiting or diarrhea Unknown regarding fevers patient appears to be on Keppra On discussion with the patient's family member He reports that he has not seen the patient have any seizures, he reports that his did see him this morning foaming at the mouth and appeared that his eyes were rolled back in his head Reports patient had a major stroke and heart attack several years ago He was able to provide medications which include lisinopril, spironolactone, amlodipine and [place], another medicine that he reported as DOK, unclear if this is Depakote Allergies: Coded Allergies: No Known Allergies (Unverified , 09/03/17) Patient History Limited by: medical condition Past Medical History: see triage record Pertinent Family History: unable to obtain Reviewed Nursing Documentation: PMH: Agreed; PSxH: Agreed Nursing Documentation-PMH Past Medical History: No History, Except For Hx Hypertension: Yes Hx COPD: Yes Hx Diabetes: Yes Hx Cancer: No Hx Cerebrovascular Accident: Yes - hemiplegia/hemiparesis Hx Seizures: Yes Hx Aphasia: Yes Hx Dysphasia: Yes - G-tube Review of Systems All Other Systems: limited - Other than the ones mentioned in the history of present illness all others are reviewed however they do stay limited due to the patient's mental status Physical Exam Vital Signs Date Time Temp Pulse Resp B/P (MAP) Pulse Ox O2 Delivery O2 Flow Rate FiO2 06/21/18 08:12 98.4 120 16 170/80 98 Room Air Sp02 EP Interpretation: reviewed, normal General Appearance: no apparent distress Head: normocephalic, atraumatic Eyes: bilateral eye PERRL, bilateral eye EOMI ENT: dry mucus membranes Neck: supple Respiratory: lungs clear, no retraction, no accessory muscle use Cardiovascular #1: regular rate, rhythm Gastrointestinal: non tender, soft Musculoskeletal: other - Chronically debilitated Neurologic: responsive - Has eyes open, response to verbal and physical stimuli however not following commands Skin: normal color Lymphatic: no adenopathy Medical Decision Making Diagnostic Impression: Primary Impression: Seizure disorder Additional Impression: Elevated troponin ER Course Patient is a fairly complex patient with multiple differential to consideration including but not limited to cardiac cardiopulmonary and vascular emergencies Patient remains at baseline mental status eyes open does not appear altered Blood work reveals elevated troponin level etiology of this is not fully clear EKG does not show any ST changes Patient will require further inpatient care Labs Test 06/21/18 09:08 06/21/18 09:11 White Blood Count 9.5 K/UL (4.8-10.8) Red Blood Count 4.78 M/UL (4.70-6.10) Hemoglobin 13.2 G/DL (14.2-18.0) Hematocrit 40.5 % (42.0-52.0) Mean Corpuscular Volume 85 FL (80-99) Mean Corpuscular Hemoglobin 27.5 PG (27.0-31.0) Mean Corpuscular Hemoglobin Concent 32.5 G/DL (32.0-36.0) Red Cell Distribution Width 12.2 % (11.6-14.8) Platelet Count 158 K/UL (150-450) Mean Platelet Volume 8.9 FL (6.5-10.1) Neutrophils (%) (Auto) 58.9 % (45.0-75.0) Lymphocytes (%) (Auto) 34.6 % (20.0-45.0) Monocytes (%) (Auto) 5.1 % (1.0-10.0) Eosinophils (%) (Auto) 0.2 % (0.0-3.0) Basophils (%) (Auto) 1.2 % (0.0-2.0) Sodium Level 134 MMOL/L (136-145) Potassium Level 5.1 MMOL/L (3.5-5.1) Chloride Level 100 MMOL/L (98-107) Carbon Dioxide Level 26 MMOL/L (21-32) Anion Gap 9 mmol/L (5-15) Blood Urea Nitrogen 21 mg/dL (7-18) Creatinine 1.1 MG/DL (0.55-1.30) Estimat Glomerular Filtration Rate > 60 mL/min (>60) Glucose Level 132 MG/DL (74-106) Calcium Level 9.1 MG/DL (8.5-10.1) Total Bilirubin 0.4 MG/DL (0.2-1.0) Aspartate Amino Transf (AST/SGOT) 71 U/L (15-37) Alanine Aminotransferase (ALT/SGPT) 86 U/L (12-78) Alkaline Phosphatase 100 U/L (46-116) Total Creatine Kinase 247 U/L (26-308) Creatine Kinase MB 1.6 NG/ML (0.0-3.6) Creatine Kinase MB Relative Index 0.6 Troponin I 0.159 ng/mL (0.000-0.056) Total Protein 8.8 G/DL (6.4-8.2) Albumin 3.0 G/DL (3.4-5.0) Globulin 5.8 g/dL Albumin/Globulin Ratio 0.5 (1.0-2.7) Lipase 264 U/L (73-393) Urine Color Pale yellow Urine Appearance Clear Urine pH 7 (4.5-8.0) Urine Specific [place] 1.010 (1.005-1.035) Urine Protein 3+ (NEGATIVE) Urine Glucose (UA) Negative (NEGATIVE) Urine Ketones Negative (NEGATIVE) Urine Blood 1+ (NEGATIVE) Urine Nitrite Negative (NEGATIVE) Urine Bilirubin Negative (NEGATIVE) Urine Urobilinogen Normal MG/DL (0.0-1.0) Urine Leukocyte Esterase Negative (NEGATIVE) Urine RBC 0-2 /HPF (0 - 0) Urine WBC 0-2 /HPF (0 - 0) Urine Squamous Epithelial Cells Occasional /LPF Urine Bacteria Occasional /HPF (NONE) EKG Diagnostic Results Rate: normal Rhythm: NSR ST Segments: no acute changes Rhythm Strip Diag. Results EP Interpretation: yes Rate: 88 Rhythm: NSR, no PVC's, no ectopy Chest X-Ray Diagnostic Results Chest X-Ray Diagnostic Results : Chest X-Ray Ordered: Yes # of Views/Limited/Complete: 1 View Indication: Chest Pain EP Interpretation: Yes Interpretation: no consolidation, no effusion, no pneumothorax, other - Wide mediastinum Impression: Other - Wide mediastinum Electronically Signed by: Olman Martinez DO Last Vital Signs Date Time Temp Pulse Resp B/P (MAP) Pulse Ox O2 Delivery O2 Flow Rate FiO2 06/21/18 08:12 98.4 120 16 170/80 98 Room Air Status: improved Disposition: ADMITTED INPATIENT Condition: Serious Olman Martinez DO Jun 21, 2018 08:38
[2018-06-21] MEDS ORDERED: levETIRAcetam 500mg/NS100ml 100 ML IVPB ONE (08:45)
[2018-06-21 09:36] LABS: BASOPHILS % (AUTO) 1.2 % (0.0-2.0); EOSINOPHILS % (AUTO) 0.2 % (0.0-3.0); HEMATOCRIT 40.5 % (42.0-52.0); HEMOGLOBIN 13.2 G/DL (14.2-18.0); LYMPHOCYTES % (AUTO) 34.6 % (20.0-45.0); MEAN CORPUSCULAR VOLUME 85 FL (80-99); MONOCYTES % (AUTO) 5.1 % (1.0-10.0); NEUTROPHILS % (AUTO) 58.9 % (45.0-75.0); PLATELET COUNT 158 K/UL (150-450); RED BLOOD COUNT 4.78 M/UL (4.70-6.10); RED CELL DISTRIBUTION WIDTH 12.2 % (11.6-14.8); WHITE BLOOD COUNT 9.5 K/UL (4.8-10.8)
[2018-06-21 09:50] LABS: APPEARANCE,URINE CLEAR; BILIRUBIN, URINE NEGATIVE (NEGATIVE); COLOR,URINE PALE YELLOW; GLUCOSE, URINE (UA) NEGATIVE (NEGATIVE); KETONES,URINE NEGATIVE (NEGATIVE); LEUKOCYTE ESTERASE ,URINE NEGATIVE (NEGATIVE); NITRITE,URINE NEGATIVE (NEGATIVE); PH,URINE 7 (4.5-8.0); PROTEIN,URINE 3+ (NEGATIVE); UROBILINOGEN,URINE NORMAL MG/DL (0.0-1.0)
[2018-06-21 09:59] LABS: ANION GAP 9 mmol/L (5-15); BLOOD UREA NITROGEN 21 mg/dL (7-18); CALCIUM 9.1 MG/DL (8.5-10.1); CARBON DIOXIDE 26 MMOL/L (21-32); CHLORIDE 100 MMOL/L (98-107); CREATININE 1.1 MG/DL (0.55-1.30); POTASSIUM 5.1 MMOL/L (3.5-5.1); SODIUM 134 MMOL/L (136-145)
[2018-06-21 10:13] LABS: ALANINE AMINOTRANSFERASE 86 U/L (12-78); ALBUMIN/GLOBULIN RATIO 0.5 (1.0-2.7); ALKALINE PHOSPHATASE 100 U/L (46-116); ASPARTATE AMINO TRANSFERASE 71 U/L (15-37); BILIRUBIN,TOTAL 0.4 MG/DL (0.2-1.0); CKMB 1.6 NG/ML (0.0-3.6); CREATINE KINASE 247 U/L (26-308)
--- NOTE | 2018-06-21 10:53 | NUR ---
ED Nurse Note: TELE UNIT CALLED FOR PT TRANSFER. PER BHUMIKA, CHARGE NURSE, BED NOT READY. TOLD TO CALL BACK IN 15 MINUTES. WILL CALL BACK.
[2018-06-21 10:59] VITALS: BP 148/63
--- NOTE | 2018-06-21 11:17 | NUR ---
ED Nurse Note: TELE UNIT CALLED FOR PT TRANSFER. REPORT GIVEN TO SHELLEY EVANGELISTA. PT TAKEN UP TO TELE UNT VIA GURNEY WITH ALL BELONGINGS ON [employer] OPERATOR HEAVY DUTY ACCOMPANIED BY PRIMARY NURSE AND EMT.
--- NOTE | 2018-06-21 11:50 | NUR ---
NURSE NOTES: Received patient from ER on [facility] asleep on semi dangelo position on stable condition with no SOB or distress noted. On tele monitor, A/O X 0, IV intact and patent. Keep patient clean and comfortable in bed, call light within patient reach, will continue to monitor accordingly.
[2018-06-21 12:00] VITALS: BP 123/63
[2018-06-21] MEDS ORDERED: Acetaminophen 650mg/20.3ml GT PRN (13:30)
--- NOTE | 2018-06-21 14:42 | Consultation ---
Consult Note Consult Note asked to eval at the request of Dr North for : Int Med- & Fluid Mgt Patient is brought from nursing facility with reports of seizure activity Patient was provided with medications yesterday however had another breakthrough seizure this morning Patient himself is not able to provide history History of present illness remains limited Unknown regarding vomiting or diarrhea Unknown regarding fevers patient appears to be on Keppra On discussion with the patient's family member He reports that he has not seen the patient have any seizures, he reports that his did see him this morning foaming at the mouth and appeared that his eyes were rolled back in his head Reports patient had a major stroke and heart attack several years ago He was able to provide medications which include lisinopril, spironolactone, amlodipine and [place], another medicine that he reported as DOK, unclear if this is Depakote No Known Allergies (Unverified , 09/03/17) Past Medical History: No History, Except For Hx Hypertension: Yes Hx COPD: Yes Hx Diabetes: Yes Hx Cerebrovascular Accident: Yes - hemiplegia/hemiparesis Hx Seizures: Yes Hx Aphasia: Yes Hx Dysphasia: Yes - G-tube examined non verbal data reviewed Assessment/Plan reported Sz activity Right paralysis , h/o CVA PEG Hyponatremia elevated troponin clinical dehydration One liter NS Depakote and Keppra monitor labs gastric support GT feeding ua and c/s nitrate and asa per orders Odilon Carroll MD Jun 21, 2018 14:42
[2018-06-21] MEDS ORDERED: LORazepam Inj 2mg/ml 1ml IV PRN (14:59)
[2018-06-21 16:00] VITALS: BP 130/76
--- NOTE | 2018-06-21 17:07 | Cardiology Progress Note ---
Assessment/Plan Assessment/Plan The patient is seen and examined, full consult note will be dictated. Objective Last 24 Hour Vital Signs Date Time Temp Pulse Resp B/P (MAP) Pulse Ox O2 Delivery O2 Flow Rate FiO2 06/21/18 16:00 97.2 60 18 130/76 (94) 99 06/21/18 12:25 Room Air 06/21/18 12:00 97.7 62 18 123/63 (83) 99 06/21/18 11:16 99.2 69 14 141/66 99 Room Air 06/21/18 10:59 99.1 67 12 148/63 99 Room Air 06/21/18 08:25 100 23 Room Air 06/21/18 08:25 98.6 100 23 180/71 96 Room Air 06/21/18 08:12 98.4 120 16 170/80 98 Room Air Laboratory Tests Test 06/21/18 09:08 06/21/18 09:11 White Blood Count 9.5 K/UL (4.8-10.8) Red Blood Count 4.78 M/UL (4.70-6.10) Hemoglobin 13.2 G/DL (14.2-18.0) L Hematocrit 40.5 % (42.0-52.0) L Mean Corpuscular Volume 85 FL (80-99) Mean Corpuscular Hemoglobin 27.5 PG (27.0-31.0) Mean Corpuscular Hemoglobin Concent 32.5 G/DL (32.0-36.0) Red Cell Distribution Width 12.2 % (11.6-14.8) Platelet Count 158 K/UL (150-450) Mean Platelet Volume 8.9 FL (6.5-10.1) Neutrophils (%) (Auto) 58.9 % (45.0-75.0) Lymphocytes (%) (Auto) 34.6 % (20.0-45.0) Monocytes (%) (Auto) 5.1 % (1.0-10.0) Eosinophils (%) (Auto) 0.2 % (0.0-3.0) Basophils (%) (Auto) 1.2 % (0.0-2.0) Sodium Level 134 MMOL/L (136-145) L Potassium Level 5.1 MMOL/L (3.5-5.1) Chloride Level 100 MMOL/L (98-107) Carbon Dioxide Level 26 MMOL/L (21-32) Anion Gap 9 mmol/L (5-15) Blood Urea Nitrogen 21 mg/dL (7-18) H Creatinine 1.1 MG/DL (0.55-1.30) Estimat Glomerular Filtration Rate > 60 mL/min (>60) Glucose Level 132 MG/DL (74-106) H Calcium Level 9.1 MG/DL (8.5-10.1) Total Bilirubin 0.4 MG/DL (0.2-1.0) Aspartate Amino Transf (AST/SGOT) 71 U/L (15-37) H Alanine Aminotransferase (ALT/SGPT) 86 U/L (12-78) H Alkaline Phosphatase 100 U/L (46-116) Total Creatine Kinase 247 U/L (26-308) Creatine Kinase MB 1.6 NG/ML (0.0-3.6) Creatine Kinase MB Relative Index 0.6 Troponin I 0.159 ng/mL (0.000-0.056) C-Reactive Protein, Quantitative 1.5 mg/dL (0.00-0.90) H Total Protein 8.8 G/DL (6.4-8.2) H Albumin 3.0 G/DL (3.4-5.0) L Globulin 5.8 g/dL Albumin/Globulin Ratio 0.5 (1.0-2.7) L Lipase 264 U/L (73-393) Urine Color Pale yellow Urine Appearance Clear Urine pH 7 (4.5-8.0) Urine Specific [place] 1.010 (1.005-1.035) Urine Protein 3+ (NEGATIVE) H Urine Glucose (UA) Negative (NEGATIVE) Urine Ketones Negative (NEGATIVE) Urine Blood 1+ (NEGATIVE) H Urine Nitrite Negative (NEGATIVE) Urine Bilirubin Negative (NEGATIVE) Urine Urobilinogen Normal MG/DL (0.0-1.0) Urine Leukocyte Esterase Negative (NEGATIVE) Urine RBC 0-2 /HPF (0 - 0) H Urine WBC 0-2 /HPF (0 - 0) Urine Squamous Epithelial Cells Occasional /LPF Urine Bacteria Occasional /HPF (NONE) Pieter Mcfarland MD Jun 21, 2018 17:07
[2018-06-21] MEDS: Docusate 100mg/10ml Liq GT SCH (17:10)
[2018-06-21] MEDS: Nitroglycerin Patch 0.4mg TDERMAL SCH (17:12)
[2018-06-21] MEDS: NovoLOG Insulin Flexpen SUBQ SCH (17:12)
[2018-06-21] MEDS ORDERED: Docusate 100mg/10ml Liq GT SCH (18:00)
--- NOTE | 2018-06-21 18:27 | NUR ---
NURSE NOTES: Called and left message to brother (Guerline Nando) [phone] regarding home medication to bring.
--- NOTE | 2018-06-21 19:26 | NUR ---
HAND-OFF: Report given to Tong RN.
--- NOTE | 2018-06-21 19:28 | NUR ---
NURSE NOTES: Received report from Fabian Chapman RN. Patient in bed AAO x1 with HOB elevated at 30' fro aspiration precaution . able to verbalize needs and wants to a certain extent; no acute pain noted at this time. Safety (Seizure) precaution in place; siderails x3 up and padded, call light within reach, bed in lowest position, brakes and alarm on at all times, suction equipment at bedside. On GTF at prescribed formula and rate and is tolerating well. IV line intact and patent. Placed on cardiac monitoring per protocol. No S/S of distress at this time. Needs and wants anticipated and attended, will continue plan of care and monitor for any changes in condition noted
[2018-06-21 20:00] VITALS: BP 117/55
[2018-06-21] MEDS ORDERED: levETIRAcetam 500mg/5ml Liquid GT SCH (21:00)
[2018-06-21] MEDS: Depakote 125mg Sprinkles GT SCH (22:01)
[2018-06-21] MEDS: levETIRAcetam 500mg/5ml Liquid GT SCH (22:02)
[2018-06-21] MEDS: Heparin 5000 units/ml inj SUBQ SCH (22:04)
--- NOTE | 2018-06-21 22:10 | NUR ---
NURSE NOTES:Patients brother (Guerline Collier) called back regarding medication reconciliation, states that " i dont have the medication at home, all his meds are from the facility" Will F/U with Trevor Babin tomorrow morning 06/22/17. Will continue to monitor
--- NOTE | 2018-06-21 23:45 | History and Physical Report ---
DATE OF ADMISSION: 06/21/2018 HISTORY OF PRESENT ILLNESS: The patient admitted for breakthrough seizure, also with elevated troponin and azotemia. The patient also initially brought in from a senior living. He was admitted for breakthrough seizure. The patient is unable to provide history. He is a poor historian, cannot get any history from the patient and admitted got breakthrough seizure. PAST MEDICAL HISTORY: Significant for seizure, organic brain syndrome, diabetes, COPD, hypertension, history of aphasia, dysphagia, hyperlipidemia, psychosis, depression, history of CVA. PAST SURGICAL HISTORY: History of PEG. ALLERGIES: No known allergies. FAMILY HISTORY: Unable to obtain. SOCIAL HISTORY: Unable to obtain. REVIEW OF SYSTEMS: Unable to obtain. PHYSICAL EXAMINATION: VITAL SIGNS: Temperature 99.9, pulse is 67, blood pressure 142/67. HEENT: PERRLA. NECK: Supple. CHEST: Clear to auscultation. CARDIOVASCULAR: Bradycardic. GASTROINTESTINAL: Abdomen is soft. Positive bowel sounds. No edema on the G-tube. EXTREMITY: No edema. Reflexes on both sides. NEUROLOGICAL: Does not follow neurologic examination, non-oriented. LABORATORY DATA: WBC of 9.5, hemoglobin 13.2, platelet 158. Sodium 134, potassium 5.1, BUN 21, creatinine of 1.1, and glucose of 132. AST of 71, ALT of 86. Troponin 0.159. ASSESSMENT/PLAN: Elevated troponin, breakthrough seizure, as well as hyponatremia and azotemia. I have asked Dr. Curry, Dr. Edmonds, Dr. Carroll to see the patient for the above-mentioned diagnoses and treatment. I am covering Dr. Stuart New's for a couple of days. Olman Bangura M.D. DR: Selene JOB#: [id number] CC:
[2018-06-22] VITALS: BP 138/80
--- NOTE | 2018-06-22 03:30 | NUR ---
NURSE NOTES: Patient in bed asleep with no distress noted. Continue plan of care
[2018-06-22 04:00] VITALS: BP 152/70
[2018-06-22] MEDS: Depakote 125mg Sprinkles GT SCH (05:52)
[2018-06-22] MEDS: NovoLOG Insulin Flexpen SUBQ SCH ×4 (06:00→18:02)
--- NOTE | 2018-06-22 07:39 | NUR ---
HAND-OFF: Report given to Jenny Granger RN. Patient in stable condition, endorsed plan of care.
--- NOTE | 2018-06-22 07:40 | NUR ---
NURSE NOTES: Received patient from SHELLEY Fortune. Patient in bed, awake, and able to respond. On room air. No SOB. Respirations are even and unlaboured. school patrol in placed. Gtube feeding is in placed Glucerna 1.2 at 40 cc/hour. Condom cath is also in placed patent and draining well. IV site is asymptomatic. Per PM nurse, NS @ 75 cc/hour was paused due to patient trying to remove the IV fluid and site. Will resume during my shift. Bed in lowest position with side rails up and padded. Will continue to follow plan of care.
[2018-06-22 08:00] VITALS: BP 155/70
[2018-06-22] MEDS ORDERED: Allopurinol 100mg Tab GT SCH (09:00)
--- NOTE | 2018-06-22 09:11 | Diagnostic Imaging Report ---
Indication: Chest pain Comparison: 09/05/2017 A single view chest radiograph was obtained. Findings: Cardiomediastinal appearance is within normal limits for age. The lungs are clear. Pulmonary vascularity is appropriate. The diaphragmatic contour is smooth and costophrenic angles are sharp. No pleural effusions are identified. The bones are unremarkable. Impression: No acute findings
[2018-06-22] MEDS: Docusate 100mg/10ml Liq GT SCH ×3 (09:23→17:16)
[2018-06-22] MEDS: levETIRAcetam 500mg/5ml Liquid GT SCH ×2 (09:23→22:14)
[2018-06-22] MEDS: Aspirin Baby 81mg GT SCH (09:23)
[2018-06-22] MEDS: Heparin 5000 units/ml inj SUBQ SCH ×2 (09:25→22:16)
[2018-06-22 10:30] LABS: HEMATOCRIT 40.6 % (42.0-52.0); HEMOGLOBIN 13.1 G/DL (14.2-18.0); MEAN CORPUSCULAR VOLUME 84 FL (80-99); PLATELET COUNT 176 K/UL (150-450); RED BLOOD COUNT 4.83 M/UL (4.70-6.10); RED CELL DISTRIBUTION WIDTH 12.1 % (11.6-14.8); WHITE BLOOD COUNT 8.3 K/UL (4.8-10.8)
[2018-06-22 10:58] LABS: ALANINE AMINOTRANSFERASE 72 U/L (12-78); ALBUMIN 2.6 G/DL (3.4-5.0); ALBUMIN/GLOBULIN RATIO 0.5 (1.0-2.7); ALKALINE PHOSPHATASE 90 U/L (46-116); ANION GAP 7 mmol/L (5-15); ASPARTATE AMINO TRANSFERASE 59 U/L (15-37); BILIRUBIN,TOTAL 0.4 MG/DL (0.2-1.0); BLOOD UREA NITROGEN 16 mg/dL (7-18); CARBON DIOXIDE 26 MMOL/L (21-32); CHLORIDE 107 MMOL/L (98-107); CHOLESTEROL 119 MG/DL (< 200); CREATININE 0.9 MG/DL (0.55-1.30); FERRITIN 171 NG/ML (8-388); GAMMA GLUTAMYL TRANSPEPTIDASE 84 U/L (5-85); HDL CHOLESTEROL 53 MG/DL (40-60); PHOSPHORUS 3.4 MG/DL (2.5-4.9); POTASSIUM 3.9 MMOL/L (3.5-5.1); SODIUM 140 MMOL/L (136-145); TRIGLYCERIDES 106 MG/DL (30-150)
[2018-06-22 10:59] LABS: % IRON SATURATION 12 % (15-50); IRON 37 ug/dL (50-175); TOTAL IRON BINDING CAPACITY 298 ug/dL (250-450)
--- NOTE | 2018-06-22 12:00 | NUR ---
NURSE NOTES: Pharmacy called to clarify about the Trajenta medication. Per PM nurse Brother is not aware about this medication because patient came from SNF and that is what I relayed to the pharmacist. On eMAR notes it says that I will ask Dr. Espinal about taking januvia. It was not explained to me by the pharmacist about this.
--- NOTE | 2018-06-22 12:54 | Nephrology Progress Note ---
Assessment/Plan Problem List: (1) Seizure (2) Dehydration (3) HTN (hypertension) (4) Feeding by G-tube (5) Elevated troponin (6) Electrolyte abnormality Assessment reported Sz activity Right paralysis , h/o CVA PEG Hyponatremia elevated troponin clinical dehydration elevated troponin Plan mag IV Venofer one time up dose Depakote isordil, ASA , Subjective ROS Limited/Unobtainable: No Constitutional: Reports: other - non verbal Objective Objective Last 24 Hour Vital Signs Date Time Temp Pulse Resp B/P (MAP) Pulse Ox O2 Delivery O2 Flow Rate FiO2 06/22/18 09:00 Room Air 06/22/18 08:00 97.7 55 20 155/70 (98) 97 06/22/18 07:16 55 06/22/18 04:00 66 06/22/18 04:00 98.1 60 18 152/70 (97) 100 06/22/18 00:00 98.9 114 16 138/80 (99) 94 06/22/18 00:00 71 06/21/18 21:00 Room Air 06/21/18 20:00 59 06/21/18 20:00 97.9 60 20 117/55 (75) 96 06/21/18 17:12 130/76 06/21/18 16:00 97.2 60 18 130/76 (94) 99 06/21/18 16:00 94 Intake and Output 06/21/18 06/22/18 18:59 06:59 Intake Total 600 ml 580 ml Output Total 400 ml 50 ml Balance 200 ml 530 ml Intake Free Water 180 ml IV Total 600 ml Tube Feeding 400 ml Output Urine Total 400 ml 50 ml # Voids 2 # Bowel Movements 2 1 Laboratory Tests 06/21/18 18:10: Troponin I 0.182H 06/22/18 10:15: Troponin I 0.141H, White Blood Count 8.3, Red Blood Count 4.83, Hemoglobin 13.1L , Hematocrit 40.6L, Mean Corpuscular Volume 84, Mean Corpuscular Hemoglobin 27.2 , Mean Corpuscular Hemoglobin Concent 32.4, Red Cell Distribution Width 12.1, Platelet Count 176, Mean Platelet Volume 9.6, Neutrophils (%) (Auto) , Lymphocytes (%) (Auto) , Monocytes (%) (Auto) , Eosinophils (%) (Auto) , Basophils (%) (Auto) , Differential Total Cells Counted 100, Neutrophils % ( Manual) 41L, Lymphocytes % (Manual) 51H, Monocytes % (Manual) 5, Eosinophils % ( Manual) 3, Basophils % (Manual) 0, Band Neutrophils 0, Platelet Estimate Adequate, Platelet Morphology Normal, Red Blood Cell Morphology Normal, Sodium Level 140, Potassium Level 3.9, Chloride Level 107, Carbon Dioxide Level 26, Anion Gap 7, Blood Urea Nitrogen 16, Creatinine 0.9, Estimat Glomerular Filtration Rate > 60, Glucose Level 119H, Uric Acid 6.4, Calcium Level 9.0, Phosphorus Level 3.4, Magnesium Level 1.6L, Iron Level 37L, Total Iron Binding Capacity 298, Percent Iron Saturation 12L, Unsaturated Iron Binding 261, Ferritin 171, Total Bilirubin 0.4, Gamma Glutamyl Transpeptidase 84, Aspartate Amino Transf (AST/SGOT) 59H, Alanine Aminotransferase (ALT/SGPT) 72, Alkaline Phosphatase 90, Pro-B-Type Natriuretic Peptide 316H, Total Protein 8.1, Albumin 2.6L, Globulin 5.5, Albumin/Globulin Ratio 0.5L, Triglycerides Level 106, Cholesterol Level 119, LDL Cholesterol 61, HDL Cholesterol 53, Cholesterol/HDL Ratio 2.2L, Vitamin B12 Level 1207H, Folate 42.8, Thyroid Stimulating Hormone ( TSH) 2.107, Valproic Acid (Depakene) Level 29L Height (Feet): 5 Height (Inches): 8.00 Weight (Pounds): 162 General Appearance: no apparent distress Cardiovascular: regular rhythm Respiratory/Chest: lungs clear Abdomen: soft, other - GT Neurologic: other - no further Sz activity Odilon Carroll MD Jun 22, 2018 12:54
--- NOTE | 2018-06-22 13:07 | Consultation ---
History of Present Illness General Chief Complaint: Seizure Present Illness HPI the pt is a 68 yo male with hx of seizure, with elevated troponin and azotemia. the pt was confused and unable to provide hx. the pt has hx of depression and psychotic do. the pt might have been noncompliant with meds. the pt is unable to understand, process nor communicate appropriately. Allergies: Coded Allergies: No Known Allergies (Unverified , 09/03/17) Medication History Scheduled Allopurinol* (Allopurinol*), 100 MG GT DAILY, (Reported) Aspirin (Aspirin), 81 MG GT DAILY, (Reported) Atorvastatin Calcium* (Lipitor*), 10 MG ORAL BEDTIME, (Reported) Divalproex Sodium (Depakote Sprinkle), 250 MG GT EVERY 8 HOURS, (Reported) Haloperidol* (Haldol*), 2 MG GT EVERY 8 HOURS, (Reported) Heparin Sod (Porcine) (Heparin Sodium*), 5,000 UNITS SUBQ EVERY 12 HOURS, ( Reported) Levetiracetam (Keppra), 500 MG GT EVERY 12 HOURS, (Reported) Levofloxacin* (Levaquin*), 500 MG GT DAILY, (Reported) Linagliptin (Tradjenta), 5 MG GT DAILY, (Reported) Mirtazapine (Remeron), 7.5 MG ORAL BEDTIME, (Reported) Scheduled PRN Acetaminophen* (Acetaminophen 325MG Tablet*), 650 MG ORAL Q4H PRN for For Pain, (Reported) Clonidine Hcl (Clonidine Hcl), 0.1 MG GT EVERY 8 HOURS PRN for For High Blood Pressure, (Reported) Magnesium Hydroxide* (Milk Of Magnesia*), 30 ML GT DAILY PRN for Constipation, ( Reported) Miscellaneous Medications Sennosides/Docusate Sodium (Senna Laxative Tablet), 1 EACH PO, (Reported) Patient History Limited by: medical condition History Provided By: Medical Record, PMD Healthcare decision maker Resuscitation status Full Code Advanced Directive on File Past Medical/Surgical History Past Medical/Surgical History: (1) COPD (chronic obstructive pulmonary disease) (2) Diabetes mellitus (3) History of CVA (cerebrovascular accident) (4) Pneumonia (5) SOB (shortness of breath) (6) Renal insufficiency (7) Altered mental status (8) Bacteremia (9) UTI (urinary tract infection) (10) Bronchitis (11) Seizure disorder (12) Elevated troponin (13) Dehydration (14) Seizure (15) HTN (hypertension) (16) Feeding by G-tube (17) Electrolyte abnormality Review of Systems Psychiatric: Reports: prior hx, anxiety, depressed feelings ROS Narrative the pt is confused Physical Exam General Appearance: alert, confused Neurologic: responsive, depressed affect Last 24 Hour Vital Signs Date Time Temp Pulse Resp B/P (MAP) Pulse Ox O2 Delivery O2 Flow Rate FiO2 06/22/18 09:00 Room Air 06/22/18 08:00 97.7 55 20 155/70 (98) 97 06/22/18 07:16 55 06/22/18 04:00 66 06/22/18 04:00 98.1 60 18 152/70 (97) 100 06/22/18 00:00 98.9 114 16 138/80 (99) 94 06/22/18 00:00 71 06/21/18 21:00 Room Air 06/21/18 20:00 59 06/21/18 20:00 97.9 60 20 117/55 (75) 96 06/21/18 17:12 130/76 06/21/18 16:00 97.2 60 18 130/76 (94) 99 06/21/18 16:00 94 Intake and Output 06/21/18 06/22/18 19:00 07:00 Intake Total 600 ml 580 ml Output Total 400 ml 50 ml Balance 200 ml 530 ml Intake Free Water 180 ml IV Total 600 ml Tube Feeding 400 ml Output Urine Total 400 ml 50 ml # Voids 2 # Bowel Movements 2 1 Laboratory Tests Test 06/21/18 18:10 06/22/18 10:15 Troponin I 0.182 ng/mL (0.000-0.056) 0.141 ng/mL (0.000-0.056) White Blood Count 8.3 K/UL (4.8-10.8) Red Blood Count 4.83 M/UL (4.70-6.10) Hemoglobin 13.1 G/DL (14.2-18.0) L Hematocrit 40.6 % (42.0-52.0) L Mean Corpuscular Volume 84 FL (80-99) Mean Corpuscular Hemoglobin 27.2 PG (27.0-31.0) Mean Corpuscular Hemoglobin Concent 32.4 G/DL (32.0-36.0) Red Cell Distribution Width 12.1 % (11.6-14.8) Platelet Count 176 K/UL (150-450) Mean Platelet Volume 9.6 FL (6.5-10.1) Neutrophils (%) (Auto) % (45.0-75.0) Lymphocytes (%) (Auto) % (20.0-45.0) Monocytes (%) (Auto) % (1.0-10.0) Eosinophils (%) (Auto) % (0.0-3.0) Basophils (%) (Auto) % (0.0-2.0) Differential Total Cells Counted 100 Neutrophils % (Manual) 41 % (45-75) L Lymphocytes % (Manual) 51 % (20-45) H Monocytes % (Manual) 5 % (1-10) Eosinophils % (Manual) 3 % (0-3) Basophils % (Manual) 0 % (0-2) Band Neutrophils 0 % (0-8) Platelet Estimate Adequate Platelet Morphology Normal Red Blood Cell Morphology Normal Sodium Level 140 MMOL/L (136-145) Potassium Level 3.9 MMOL/L (3.5-5.1) Chloride Level 107 MMOL/L (98-107) Carbon Dioxide Level 26 MMOL/L (21-32) Anion Gap 7 mmol/L (5-15) Blood Urea Nitrogen 16 mg/dL (7-18) Creatinine 0.9 MG/DL (0.55-1.30) Estimat Glomerular Filtration Rate > 60 mL/min (>60) Glucose Level 119 MG/DL (74-106) H Uric Acid 6.4 MG/DL (2.6-7.2) Calcium Level 9.0 MG/DL (8.5-10.1) Phosphorus Level 3.4 MG/DL (2.5-4.9) Magnesium Level 1.6 MG/DL (1.8-2.4) L Iron Level 37 ug/dL (50-175) L Total Iron Binding Capacity 298 ug/dL (250-450) Percent Iron Saturation 12 % (15-50) L Unsaturated Iron Binding 261 ug/dL (112-346) Ferritin 171 NG/ML (8-388) Total Bilirubin 0.4 MG/DL (0.2-1.0) Gamma Glutamyl Transpeptidase 84 U/L (5-85) Aspartate Amino Transf (AST/SGOT) 59 U/L (15-37) H Alanine Aminotransferase (ALT/SGPT) 72 U/L (12-78) Alkaline Phosphatase 90 U/L (46-116) Pro-B-Type Natriuretic Peptide 316 pg/mL (0-125) H Total Protein 8.1 G/DL (6.4-8.2) Albumin 2.6 G/DL (3.4-5.0) L Globulin 5.5 g/dL Albumin/Globulin Ratio 0.5 (1.0-2.7) L Triglycerides Level 106 MG/DL (30-150) Cholesterol Level 119 MG/DL (< 200) LDL Cholesterol 61 mg/dL (<100) HDL Cholesterol 53 MG/DL (40-60) Cholesterol/HDL Ratio 2.2 (3.3-4.4) L Vitamin B12 Level 1207 PG/ML (193-986) H Folate 42.8 NG/ML (8.6-58.9) Thyroid Stimulating Hormone (TSH) 2.107 uiU/mL (0.358-3.740) Valproic Acid (Depakene) Level 29 MCG/ML (50-100) L Height (Feet): 5 Height (Inches): 8.00 Weight (Pounds): 162 Medications Current Medications Medications (Trade) Dose Ordered Sig/Christian Route PRN Reason Start Time Stop Time Status Last Admin Dose Admin Acetaminophen (Tylenol) 650 mg Q4H PRN GT Mild Pain/Temp > 100.5 06/21/18 13:30 07/21/18 13:29 Aspirin (ASA) 81 mg DAILY GT 06/22/18 09:00 07/22/18 08:59 06/22/18 09:23 Atorvastatin Calcium (Lipitor) 10 mg BEDTIME GT 06/21/18 21:00 07/21/18 20:59 06/21/18 22:01 Baclofen (Lioresal) 5 mg Q6HR GT 06/21/18 18:00 07/21/18 17:59 06/22/18 11:40 Clonidine HCl (Catapres Tab) 0.1 mg Q8H PRN GT For High Blood Pressure 06/21/18 13:30 07/21/18 13:29 Dextrose (Dextrose 50%) 25 ml Q30M PRN IV Hypoglycemia 06/21/18 14:00 07/21/18 13:59 Dextrose (Dextrose 50%) 50 ml Q30M PRN IV Hypoglycemia 06/21/18 14:00 07/21/18 13:59 Divalproex Sodium (Depakote Sprinkles) 500 mg Q8HR GT 06/22/18 14:00 07/21/18 21:59 Docusate Sodium (Colace) 100 mg TID GT 06/21/18 18:00 07/21/18 17:59 06/22/18 09:23 Famotidine (Pepcid) 20 mg BID GT 06/21/18 18:00 07/21/18 17:59 06/22/18 09:23 Heparin Sodium (Porcine) (Heparin 5000 units/ml) 5,000 units EVERY 12 HOURS SUBQ 06/21/18 21:00 07/21/18 20:59 06/22/18 09:25 Insulin Aspart (NovoLOG) Q6HR SUBQ 06/21/18 18:00 07/21/18 17:59 Iron Sucrose 200 mg/Sodium Chloride 120 ml @ 240 mls/hr ONCE ONCE IV 06/22/18 15:00 06/22/18 15:29 Isosorbide Dinitrate (Isordil) 10 mg ONCE GT 06/22/18 13:30 06/22/18 14:30 Isosorbide Dinitrate (Isordil) 10 mg Q6HR GT 06/22/18 18:00 07/22/18 17:59 Levetiracetam (Keppra) 750 mg Q12HR GT 06/21/18 21:00 07/21/18 20:59 06/22/18 09:23 Lorazepam (Ativan 2mg/ml 1ml) 1 mg Q4H PRN IV For agitation 06/21/18 14:59 06/28/18 14:58 Magnesium Sulfate 100 ml @ 100 mls/hr Q1H IVPB 06/22/18 14:00 06/22/18 17:59 Mirtazapine (Remeron) 7.5 mg BEDTIME GT 06/21/18 21:00 07/21/18 20:59 06/21/18 22:01 Nitroglycerin (Ntg) 1 patch Q24H TDERMAL 06/21/18 16:00 07/21/18 15:59 06/21/18 17:12 Non-Formulary Medication (Non-Formulary Med) 1 ea DAILY ORAL 06/22/18 09:00 07/22/18 08:59 UNV Assessment/Plan Problem List: (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
--- NOTE | 2018-06-22 13:52 | NUR ---
NURSE NOTES: Left a message to Dr. Mcfarland for BNP level 316. Awaiting for call back.
[2018-06-22] MEDS ORDERED: Depakote 125mg Sprinkles GT SCH (14:00)
[2018-06-22] MEDS ORDERED: Iron Sucrose 200 MG in NS 110 ML IV ONE (15:00)
--- NOTE | 2018-06-22 15:37 | Cardiology Report ---
APPROVED REPORT EXAM: Two-dimensional and M-mode echocardiogram with Doppler and color Doppler. INDICATION Acute myocardial infarction M-Mode DIMENSIONS IVSd1.2 (0.7-1.1cm)Left Atrium (MM)3.5 (1.6-4.0cm) LVDd4.1 (3.5-5.6cm)Aortic Root2.5 (2.0-3.7cm) PWd0.8 (0.7-1.1cm)Aortic Cusp Exc.2.0 (1.5-2.0cm) LVDs1.9 (2.5-4.0cm) PWs1.4 cm Normal left ventricular chamber size, systolic function and wall motion. Left ventricular ejection fraction estimated to be 55 %. Anterior Echo-free space, may be due to pericardial fat or effusion. All other cardiac chamber sizes are within normal limits. Mild focal aortic valve sclerosis with reduced cusp excursion. Large echogenic material noted on aortic valves, likely calcification. Cannot exclude vegetation. Mildly thickened mitral valve leaflets with normal excursion. Mild mitral annulus and aortic root calcification. Pulmonic valve not well visualized. Normal tricuspid valve structure. Subcostal views not obtainable. A color flow and spectral Doppler study was performed and revealed: No aortic insufficiency. Mild mitral regurgitation. Mitral diastolic velocities suggest mild left ventricular diastolic dysfunction (Grade I). Trace tricuspid regurgitation. Tricuspid systolic velocities suggests peak right ventricular systolic pressure of 21 mmHg. Trace pulmonic regurgitation present.
[2018-06-22] MEDS: Nitroglycerin Patch 0.4mg TDERMAL SCH (15:43)
--- NOTE | 2018-06-22 15:53 | NUR ---
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
--- NOTE | 2018-06-22 16:00 | Cardiology Report ---
APPROVED REPORT EKG Measurement Heart [id number] Normal sinus rhythm Normal ECG
--- NOTE | 2018-06-22 16:12 | NUR ---
NURSE NOTES: Called [facility] for Glucerna 1.2 because unit is out of stock. Dietary came and brought Jevity 1.2 and states that it is appropriate to also give to the patient because Glucerna 1.2 is out of stock and shipment will come tomorrow.
--- NOTE | 2018-06-22 17:17 | General Progress Note ---
Assessment/Plan Problem List: (1) Seizure ICD Codes: R56.9 - Unspecified convulsions SNOMED: 46391264 (2) HTN (hypertension) ICD Codes: I10 - Essential (primary) hypertension SNOMED: 46236185 (3) Seizure disorder ICD Codes: G40.909 - Epilepsy, unspecified, not intractable, without status epilepticus SNOMED: 863513635 (4) Dehydration ICD Codes: E86.0 - Dehydration SNOMED: 72805625 Status: progressing Assessment/Plan afebrile seizure no sz today vitals stable Subjective ROS Limited/Unobtainable: Yes Allergies: Coded Allergies: No Known Allergies (Unverified , 09/03/17) Objective Last 24 Hour Vital Signs Date Time Temp Pulse Resp B/P (MAP) Pulse Ox O2 Delivery O2 Flow Rate FiO2 06/22/18 15:43 155/70 06/22/18 13:22 155/70 06/22/18 11:15 62 06/22/18 09:00 Room Air 06/22/18 08:00 97.7 55 20 155/70 (98) 97 06/22/18 07:16 55 06/22/18 04:00 66 06/22/18 04:00 98.1 60 18 152/70 (97) 100 06/22/18 00:00 98.9 114 16 138/80 (99) 94 06/22/18 00:00 71 06/21/18 21:00 Room Air 06/21/18 20:00 59 06/21/18 20:00 97.9 60 20 117/55 (75) 96 Intake and Output 06/21/18 06/22/18 18:59 06:59 Intake Total 600 ml 580 ml Output Total 400 ml 50 ml Balance 200 ml 530 ml Intake Free Water 180 ml IV Total 600 ml Tube Feeding 400 ml Output Urine Total 400 ml 50 ml # Voids 2 # Bowel Movements 2 1 Laboratory Tests 06/21/18 18:10: Troponin I 0.182H 06/22/18 10:15: Troponin I 0.141H, White Blood Count 8.3, Red Blood Count 4.83, Hemoglobin 13.1L , Hematocrit 40.6L, Mean Corpuscular Volume 84, Mean Corpuscular Hemoglobin 27.2 , Mean Corpuscular Hemoglobin Concent 32.4, Red Cell Distribution Width 12.1, Platelet Count 176, Mean Platelet Volume 9.6, Neutrophils (%) (Auto) , Lymphocytes (%) (Auto) , Monocytes (%) (Auto) , Eosinophils (%) (Auto) , Basophils (%) (Auto) , Differential Total Cells Counted 100, Neutrophils % ( Manual) 41L, Lymphocytes % (Manual) 51H, Monocytes % (Manual) 5, Eosinophils % ( Manual) 3, Basophils % (Manual) 0, Band Neutrophils 0, Platelet Estimate Adequate, Platelet Morphology Normal, Red Blood Cell Morphology Normal, Sodium Level 140, Potassium Level 3.9, Chloride Level 107, Carbon Dioxide Level 26, Anion Gap 7, Blood Urea Nitrogen 16, Creatinine 0.9, Estimat Glomerular Filtration Rate > 60, Glucose Level 119H, Uric Acid 6.4, Calcium Level 9.0, Phosphorus Level 3.4, Magnesium Level 1.6L, Iron Level 37L, Total Iron Binding Capacity 298, Percent Iron Saturation 12L, Unsaturated Iron Binding 261, Ferritin 171, Total Bilirubin 0.4, Gamma Glutamyl Transpeptidase 84, Aspartate Amino Transf (AST/SGOT) 59H, Alanine Aminotransferase (ALT/SGPT) 72, Alkaline Phosphatase 90, Pro-B-Type Natriuretic Peptide 316H, Total Protein 8.1, Albumin 2.6L, Globulin 5.5, Albumin/Globulin Ratio 0.5L, Triglycerides Level 106, Cholesterol Level 119, LDL Cholesterol 61, HDL Cholesterol 53, Cholesterol/HDL Ratio 2.2L, Vitamin B12 Level 1207H, Folate 42.8, Thyroid Stimulating Hormone ( TSH) 2.107, Valproic Acid (Depakene) Level 29L Height (Feet): 5 Height (Inches): 8.00 Weight (Pounds): 162 General Appearance: confused Neck: supple Cardiovascular: normal rate Respiratory/Chest: lungs clear Olman Bangura MD Jun 22, 2018 17:17
--- NOTE | 2018-06-22 19:15 | NUR ---
NURSE NOTES: Called [facility] about the Trajenta medication and was told by Conrado ROSA Electronics Design Engineer that they will fax the medication list.
--- NOTE | 2018-06-22 19:16 | NUR ---
HAND-OFF: Report given to SHELLEY Fortune. Aware about the Trajenta medication.
--- NOTE | 2018-06-22 19:18 | NUR ---
NURSE NOTES: Received report from Jenny Oneal RN. Patient in bed AAO x1 with HOB elevated at semi fowlers, on R/A and is saturating at 95-97% and in no respiratory distress noted at this time. Patient able to verbalize needs and wants appropriately with no difficulty. Receives GTF as ordered and is tolerating well, Glucerna 1.2 replaced with Jevity 1.2 d/t unavailability per RD recommendation, will resume Glucerna 1.2 once available. Safety precaution in place; side rails x2 up, call light within reach, bed in lowest position, brakes and alarm on at all times. No complaints of acute pain at this time, kept comfortable in bed. Cardiac monitoring in place per protocol. Needs and wants anticipated and attended, will continue plan of care and monitor for any changes in condition noted
--- NOTE | 2018-06-22 21:38 | Cardiology Progress Note ---
Assessment/Plan Assessment/Plan 1. Elevated troponin I level in this patient, could be due to seizure activity or [id number] myocardial infarction, type II, however, in view of the patient's comorbidities including CVA and hemiplegia, aphasia as well as history of schizophrenia and dementia, conservative management would be gold standard. Continue aspirin and atorvastatin as well as metoprolol. 2. DM 3. Hx of HTN, will add amlodipine, clonidine for breakthrough HTN. 4. CVA 5. Dementia 6. Seizure D/O Subjective Subjective Sinus rhythm at rate of 61. Objective Last 24 Hour Vital Signs Date Time Temp Pulse Resp B/P (MAP) Pulse Ox O2 Delivery O2 Flow Rate FiO2 06/22/18 19:00 Room Air 06/22/18 17:16 155/70 06/22/18 15:43 155/70 06/22/18 15:35 61 06/22/18 13:22 155/70 06/22/18 11:15 62 06/22/18 09:00 Room Air 06/22/18 08:00 97.7 55 20 155/70 (98) 97 06/22/18 07:16 55 06/22/18 04:00 66 06/22/18 04:00 98.1 60 18 152/70 (97) 100 06/22/18 00:00 98.9 114 16 138/80 (99) 94 06/22/18 00:00 71 Intake and Output 06/21/18 06/22/18 19:00 07:00 Intake Total 600 ml 620 ml Output Total 400 ml 50 ml Balance 200 ml 570 ml Intake Free Water 180 ml IV Total 600 ml Tube Feeding 440 ml Output Urine Total 400 ml 50 ml # Voids 2 # Bowel Movements 2 1 2D Echo: LVEF 55%, Mild MR, Grade I LVDD, RVSP 21 mmHg Laboratory Tests Test 06/22/18 10:15 White Blood Count 8.3 K/UL (4.8-10.8) Red Blood Count 4.83 M/UL (4.70-6.10) Hemoglobin 13.1 G/DL (14.2-18.0) L Hematocrit 40.6 % (42.0-52.0) L Mean Corpuscular Volume 84 FL (80-99) Mean Corpuscular Hemoglobin 27.2 PG (27.0-31.0) Mean Corpuscular Hemoglobin Concent 32.4 G/DL (32.0-36.0) Red Cell Distribution Width 12.1 % (11.6-14.8) Platelet Count 176 K/UL (150-450) Mean Platelet Volume 9.6 FL (6.5-10.1) Neutrophils (%) (Auto) % (45.0-75.0) Lymphocytes (%) (Auto) % (20.0-45.0) Monocytes (%) (Auto) % (1.0-10.0) Eosinophils (%) (Auto) % (0.0-3.0) Basophils (%) (Auto) % (0.0-2.0) Differential Total Cells Counted 100 Neutrophils % (Manual) 41 % (45-75) L Lymphocytes % (Manual) 51 % (20-45) H Monocytes % (Manual) 5 % (1-10) Eosinophils % (Manual) 3 % (0-3) Basophils % (Manual) 0 % (0-2) Band Neutrophils 0 % (0-8) Platelet Estimate Adequate Platelet Morphology Normal Red Blood Cell Morphology Normal Sodium Level 140 MMOL/L (136-145) Potassium Level 3.9 MMOL/L (3.5-5.1) Chloride Level 107 MMOL/L (98-107) Carbon Dioxide Level 26 MMOL/L (21-32) Anion Gap 7 mmol/L (5-15) Blood Urea Nitrogen 16 mg/dL (7-18) Creatinine 0.9 MG/DL (0.55-1.30) Estimat Glomerular Filtration Rate > 60 mL/min (>60) Glucose Level 119 MG/DL (74-106) H Uric Acid 6.4 MG/DL (2.6-7.2) Calcium Level 9.0 MG/DL (8.5-10.1) Phosphorus Level 3.4 MG/DL (2.5-4.9) Magnesium Level 1.6 MG/DL (1.8-2.4) L Iron Level 37 ug/dL (50-175) L Total Iron Binding Capacity 298 ug/dL (250-450) Percent Iron Saturation 12 % (15-50) L Unsaturated Iron Binding 261 ug/dL (112-346) Ferritin 171 NG/ML (8-388) Total Bilirubin 0.4 MG/DL (0.2-1.0) Gamma Glutamyl Transpeptidase 84 U/L (5-85) Aspartate Amino Transf (AST/SGOT) 59 U/L (15-37) H Alanine Aminotransferase (ALT/SGPT) 72 U/L (12-78) Alkaline Phosphatase 90 U/L (46-116) Troponin I 0.141 ng/mL (0.000-0.056) Pro-B-Type Natriuretic Peptide 316 pg/mL (0-125) H Total Protein 8.1 G/DL (6.4-8.2) Albumin 2.6 G/DL (3.4-5.0) L Globulin 5.5 g/dL Albumin/Globulin Ratio 0.5 (1.0-2.7) L Triglycerides Level 106 MG/DL (30-150) Cholesterol Level 119 MG/DL (< 200) LDL Cholesterol 61 mg/dL (<100) HDL Cholesterol 53 MG/DL (40-60) Cholesterol/HDL Ratio 2.2 (3.3-4.4) L Vitamin B12 Level 1207 PG/ML (193-986) H Folate 42.8 NG/ML (8.6-58.9) Thyroid Stimulating Hormone (TSH) 2.107 uiU/mL (0.358-3.740) Valproic Acid (Depakene) Level 29 MCG/ML (50-100) L Objective HEENT: Atraumatic and normocephalic. Anicteric. Bitemporal wasting. Pupils are equal, round, and reactive to light and accommodation. Extraocular muscles intact. NECK: JVP less than 5 cm. No carotid bruit. LUNGS: Diminished breath sounds on both sides. CARDIOVASCULAR: Regular rate and rhythm. Normal S1 and S2. No murmurs, gallops, or rubs. PMI is at fourth intercostal space at the midclavicular line. ABDOMEN: Soft, nontender, and nondistended. No hepatosplenomegaly. Presence of PEG tube over abdominal wall. EXTREMITIES: No evidence of edema, clubbing, or cyanosis. Pieter Mcfarland MD Jun 22, 2018 21:38
--- NOTE | 2018-06-22 23:00 | Consultation ---
DATE OF CONSULTATION: 06/21/2018 CARDIOLOGY CONSULTATION CONSULTING PHYSICIAN: Pieter Mcfarland M.D. REFERRING PHYSICIAN: Olman Bangura M.D. REASON FOR CONSULTATION: Management of tachycardia. HISTORY OF PRESENT ILLNESS: The patient is a very unfortunate 68-year-old gentleman, who is a resident of a nursing facility. They brought into emergency department of [facility] for evaluation and management of seizure disorder. Apparently, the patient had another breakthrough of seizure on the morning of June 21 despite receiving antiseizure medication. The patient is unfortunately nonverbal. This report is prepared by using the medical records. The patient was seen by his to have foam in the mouth and eyes rolling back during seizure activity. At the time of arrival to the [facility], the patient had blood pressure 170/80 mmHg and heart rate was 120. A 12-lead electrocardiogram was significant for sinus rhythm, rate of 88 with no ectopy and no ST and T-wave abnormalities. Chest x-ray done in the emergency department showed wide mediastinum but no evidence of consolidation, effusion, or pneumothorax. The patient was admitted to telemetry bed for further evaluation and management. I was called by Dr. Bangura to evaluate the patient's tachycardia in Cardiology consultation. PAST MEDICAL HISTORY: Includes hypertension, COPD, diabetes mellitus, history of CVA with hemiparalysis, history of seizures, history of dysphagia, status post PEG placement. ALLERGIES: No known drug allergies. PAST SURGICAL HISTORY: Percutaneous endoscopic gastrostomy tube placement. FAMILY HISTORY: No premature coronary artery disease or arrhythmogenic in the first-degree relatives, according to the records. SOCIAL HISTORY: No current history of tobacco, alcohol, or illicit drug use. MEDICATIONS: List of medication includes acetaminophen 650 mg q.4 h. p.r.n. pain, 100 mg G-tube q.4 h. p.r.n. pain, allopurinol 100 mg G-tube daily, aspirin 81 mg G-tube daily, Lipitor 10 mg G-tube nightly, clonidine 0.1 mg G-tube q.8 h. p.r.n. systolic blood pressure above 160, Depakote 250 mg G-tube q.8 h., Haldol 2 mg G-tube q.8 h., heparin sodium 5000 units subcutaneous q.12 h., Keppra 500 mg G-tube q.12 h., Levaquin 500 mg G-tube daily, Tradjenta 5 mg G-tube daily, milk of magnesia 30 mL G-tube daily p.r.n. constipation, Remeron 7.5 mg G-tube nightly, and Senna one tablet G-tube daily. REVIEW OF SYSTEMS: A 12-system review could not be obtained given the patient's aphasia and severe debilitation. PHYSICAL EXAMINATION: VITAL SIGNS: Blood pressure at time of arrival to the hospital 170/80, respirations 16, pulse 120, and temperature 98.4 degrees Fahrenheit. O2 saturation 98% on room air. GENERAL: The patient is a very unfortunate 68-year-old gentleman, chronically ill. HEENT: Atraumatic and normocephalic. Anicteric. Pupils are equal, round, and reactive to light and accommodation. Dry mucosal membranes. NECK: JVP less than 5 cm. No carotid bruit. Carotid upstrokes 2+ bilaterally. CARDIOVASCULAR: Normal S1 and S2. Regular rate and rhythm. Tachycardic. No murmurs, gallops, or rubs. PMI is at fourth intercostal space at the midclavicular line. LUNGS: Clear to auscultation bilaterally. ABDOMEN: Soft, nontender, and nondistended. No hepatosplenomegaly. Positive bowel sounds. Presence of a G-tube. EXTREMITIES: No evidence of edema, clubbing or cyanosis. LABORATORY FINDINGS: WBC 9.5, hemoglobin 13.2, hematocrit 40.5, and platelet count 158,000. Sodium is 134, potassium 5.1, chloride 100, bicarbonate 26, BUN 21, and creatinine 1.1. Glucose is 132. Calcium is 9.1. Troponin I was elevated at 0.159. AST 71, ALT 86. ProBNP was 316. Chest x-ray revealed no acute cardiopulmonary disease. ASSESSMENT AND PLAN: The patient is a very unfortunate 68-year-old gentleman, seen in Cardiology consultation. 1. Slight elevation of troponin I level. This could be secondary to non-ST elevation myocardial infarction type 2 or rhabdomyolysis associated with seizure activity in association with small troponin leakage. Given overall the patient's clinical picture of CVA and severe debilitation, I do not feel that the patient would be a suitable candidate for ischemic workup including heart catheterization. We will continue with conservative medical management. The patient will be continued on anti-platelet therapy, high-dose statins as well as beta-blockers for double-product control. 2. History of hypertension. We will continue the patient's outpatient therapy with clonidine p.r.n. We may add calcium channel luis felipe to the regimen. 3. History of chronic obstructive pulmonary disease. 4. History of diabetes mellitus. We will continue with aspirin and statin. 5. History of cerebrovascular accident with hemiparalysis and aphasia. 6. History of seizure disorder. 7. History of dysphagia, status post percutaneous endoscopic gastrostomy placement. 8. We will like to obtain 2-D echocardiography to assess LV systolic and diastolic function. 9. Further therapeutic and diagnostic decision will be based on results of echocardiography. 10. Serial troponin I levels will also be done to identify the pattern of the troponin rise. Of note, 12-lead electrocardiogram does not show any acute ST and T-wave abnormalities. I would like to thank for allowing me to participate in the care of this patient. Pieter Mcfarland M.D. DR: DAVID JOB#: [id number] CC:
--- NOTE | 2018-06-23 03:00 | NUR ---
NURSE NOTES: Patient in bed asleep with no complaints of acute pain at this time, will continue to monitor
[2018-06-23] MEDS: NovoLOG Insulin Flexpen SUBQ SCH ×4 (05:43→17:12)
--- NOTE | 2018-06-23 07:10 | NUR ---
NURSE NOTES: I received the patient awake and resting in bed. Patient alert to name only. Patient did not display any signs of distress or SOB. Bed in the lowest position and call light within reach. I will continue to monitor the patient and implement care.
--- NOTE | 2018-06-23 07:30 | NUR ---
HAND-OFF: Report given to Flor Gonzalez RN. Patient in stable condition, endorsed plan of care
[2018-06-23 08:00] VITALS: BP 120/54
[2018-06-23] MEDS: levETIRAcetam 500mg/5ml Liquid GT SCH ×2 (08:14→21:28)
[2018-06-23] MEDS: Docusate 100mg/10ml Liq GT SCH ×3 (08:14→17:03)
[2018-06-23] MEDS: Aspirin Baby 81mg GT SCH (08:14)
[2018-06-23] MEDS: Heparin 5000 units/ml inj SUBQ SCH ×2 (08:17→21:30)
[2018-06-23 11:37] VITALS: BP 129/53
--- NOTE | 2018-06-23 12:51 | Consultation ---
History of Present Illness General Date patient seen: Jun 23, 2018 Chief Complaint: Seizure Present Illness Allergies: Coded Allergies: No Known Allergies (Unverified , 09/03/17) Medication History Scheduled Allopurinol* (Allopurinol*), 100 MG GT DAILY, (Reported) Aspirin (Aspirin), 81 MG GT DAILY, (Reported) Atorvastatin Calcium* (Lipitor*), 10 MG ORAL BEDTIME, (Reported) Divalproex Sodium (Depakote Sprinkle), 250 MG GT EVERY 8 HOURS, (Reported) Haloperidol* (Haldol*), 2 MG GT EVERY 8 HOURS, (Reported) Heparin Sod (Porcine) (Heparin Sodium*), 5,000 UNITS SUBQ EVERY 12 HOURS, ( Reported) Levetiracetam (Keppra), 500 MG GT EVERY 12 HOURS, (Reported) Levofloxacin* (Levaquin*), 500 MG GT DAILY, (Reported) Linagliptin (Tradjenta), 5 MG GT DAILY, (Reported) Mirtazapine (Remeron), 7.5 MG ORAL BEDTIME, (Reported) Scheduled PRN Acetaminophen* (Acetaminophen 325MG Tablet*), 650 MG ORAL Q4H PRN for For Pain, (Reported) Clonidine Hcl (Clonidine Hcl), 0.1 MG GT EVERY 8 HOURS PRN for For High Blood Pressure, (Reported) Magnesium Hydroxide* (Milk Of Magnesia*), 30 ML GT DAILY PRN for Constipation, ( Reported) Miscellaneous Medications Sennosides/Docusate Sodium (Senna Laxative Tablet), 1 EACH PO, (Reported) Patient History Healthcare decision maker Resuscitation status Full Code Advanced Directive on File Physical Exam Last 24 Hour Vital Signs Date Time Temp Pulse Resp B/P (MAP) Pulse Ox O2 Delivery O2 Flow Rate FiO2 06/23/18 12:08 129/53 06/23/18 11:37 98.2 61 20 129/53 (78) 96 06/23/18 09:00 Room Air 06/23/18 08:00 97.9 55 20 120/54 (76) 97 06/23/18 07:40 55 06/23/18 05:34 128/61 06/23/18 04:00 63 06/23/18 00:12 134/66 06/23/18 00:00 67 06/22/18 20:00 75 06/22/18 19:00 Room Air 06/22/18 17:16 155/70 06/22/18 15:43 155/70 06/22/18 15:35 61 06/22/18 13:22 155/70 Intake and Output 06/22/18 06/23/18 19:00 07:00 Intake Total 780 ml Output Total 1250 ml Balance 780 ml -1250 ml Intake Free Water 100 ml IV Total 200 ml Tube Feeding 480 ml Output Urine Total 1250 ml # Bowel Movements 1 Height (Feet): 5 Height (Inches): 8.00 Weight (Pounds): 162 Medications Current Medications Medications (Trade) Dose Ordered Sig/Christian Route PRN Reason Start Time Stop Time Status Last Admin Dose Admin Acetaminophen (Tylenol) 650 mg Q4H PRN GT Mild Pain/Temp > 100.5 06/21/18 13:30 07/21/18 13:29 Aspirin (ASA) 81 mg DAILY GT 06/22/18 09:00 07/22/18 08:59 06/23/18 08:14 Atorvastatin Calcium (Lipitor) 10 mg BEDTIME GT 06/21/18 21:00 07/21/18 20:59 06/22/18 22:15 Baclofen (Lioresal) 5 mg Q6HR GT 06/21/18 18:00 07/21/18 17:59 06/23/18 12:07 Clonidine HCl (Catapres Tab) 0.1 mg Q8H PRN GT For High Blood Pressure 06/21/18 13:30 07/21/18 13:29 Dextrose (Dextrose 50%) 25 ml Q30M PRN IV Hypoglycemia 06/21/18 14:00 07/21/18 13:59 Dextrose (Dextrose 50%) 50 ml Q30M PRN IV Hypoglycemia 06/21/18 14:00 07/21/18 13:59 Docusate Sodium (Colace) 100 mg TID GT 06/21/18 18:00 07/21/18 17:59 06/23/18 12:07 Famotidine (Pepcid) 20 mg BID GT 06/21/18 18:00 07/21/18 17:59 06/23/18 08:14 Heparin Sodium (Porcine) (Heparin 5000 units/ml) 5,000 units EVERY 12 HOURS SUBQ 06/21/18 21:00 07/21/18 20:59 06/23/18 08:17 Insulin Aspart (NovoLOG) Q6HR SUBQ 06/21/18 18:00 07/21/18 17:59 06/22/18 18:02 Isosorbide Dinitrate (Isordil) 10 mg Q6HR GT 06/22/18 18:00 07/22/18 17:59 06/23/18 12:08 Levetiracetam (Keppra) 1,000 mg Q12HR GT 06/22/18 21:00 07/22/18 20:59 06/23/18 08:14 Lorazepam (Ativan 2mg/ml 1ml) 1 mg Q4H PRN IV For agitation 06/21/18 14:59 06/28/18 14:58 Mirtazapine (Remeron) 15 mg BEDTIME GT 06/22/18 21:00 07/22/18 20:59 06/22/18 22:15 Nitroglycerin (Ntg) 1 patch Q24H TDERMAL 06/21/18 16:00 07/21/18 15:59 06/22/18 15:43 Non-Formulary Medication (Non-Formulary Med) 1 ea DAILY ORAL 06/22/18 09:00 07/22/18 08:59 UNV Assessment/Plan Assessment/Plan Hematology Oncology Consultation Note DOS: 06/23/17 IFRAH MD: Olman Bangura RFC: Lymphocytosis ID [id number] old male brought from nursing facility with reports of seizure activity Patient was provided with medications yesterday however had another breakthrough seizure this morning Patient himself is not able to provide history History of present illness remains limited Unknown regarding vomiting or diarrhea Unknown regarding fevers patient appears to be on Keppra On discussion with the patient's family member He reports that he has not seen the patient have any seizures, he reports that his did see him this morning foaming at the mouth and appeared that his eyes were rolled back in his head Reports patient had a major stroke and heart attack several years ago He was able to provide medications which include lisinopril, spironolactone, amlodipine and [place], another medicine that he reported as DOK, unclear if this is Depakote Lymphocytosis is noted on the peripeheral smear and heme was consulted, as was cards, notes have been reviewed Allergies: Coded Allergies: No Known Allergies (Unverified , 09/03/17) Limited by: medical condition Past Medical History: see triage record Pertinent Family History: unable to obtain Reviewed Nursing Documentation: PMH: Agreed; PSxH: Agreed Nursing Documentation-PMH Past Medical History: No History, Except For Hx Hypertension: Yes Hx COPD: Yes Hx Diabetes: Yes Hx Cancer: No Hx Cerebrovascular Accident: Yes - hemiplegia/hemiparesis Hx Seizures: Yes Hx Aphasia: Yes Hx Dysphasia: Yes - G-tube ER ROS - General Review of Systems All Other Systems: limited - Other than the ones mentioned in the history of present illness all others are reviewed however they do stay limited due to the patient's mental status ER Physical Exam - General Physical Exam Last 24 Hour Vital Signs Date Time Temp Pulse Resp B/P (MAP) Pulse Ox O2 Delivery O2 Flow Rate FiO2 06/23/18 12:08 129/53 06/23/18 11:37 98.2 61 20 129/53 (78) 96 06/23/18 09:00 Room Air 06/23/18 08:00 97.9 55 20 120/54 (76) 97 06/23/18 07:40 55 06/23/18 05:34 128/61 06/23/18 04:00 63 06/23/18 00:12 134/66 06/23/18 00:00 67 06/22/18 20:00 75 06/22/18 19:00 Room Air 06/22/18 17:16 155/70 06/22/18 15:43 155/70 06/22/18 15:35 61 06/22/18 13:22 155/70 General Appearance: no apparent distress, reviewed Head: normocephalic, atraumatic Eyes: bilateral eye PERRL, bilateral eye EOMI ENT: dry mucus membranes Neck: supple Respiratory: lungs clear, no retraction, no accessory muscle use Cardiovascular: regular rate, rhythm Gastrointestinal: non tender, soft ++ peg Musculoskeletal: other - Chronically debilitated Neurologic: responsive - Has eyes open, not following commands Skin: normal color Lymphatic: no adenopathy Current Medications Medications (Trade) Dose Ordered Sig/Christian Route PRN Reason Start Time Stop Time Status Last Admin Dose Admin Acetaminophen (Tylenol) 650 mg Q4H PRN GT Mild Pain/Temp > 100.5 06/21/18 13:30 07/21/18 13:29 Aspirin (ASA) 81 mg DAILY GT 06/22/18 09:00 07/22/18 08:59 06/23/18 08:14 Atorvastatin Calcium (Lipitor) 10 mg BEDTIME GT 06/21/18 21:00 07/21/18 20:59 06/22/18 22:15 Baclofen (Lioresal) 5 mg Q6HR GT 06/21/18 18:00 07/21/18 17:59 06/23/18 12:07 Clonidine HCl (Catapres Tab) 0.1 mg Q8H PRN GT For High Blood Pressure 06/21/18 13:30 07/21/18 13:29 Dextrose (Dextrose 50%) 25 ml Q30M PRN IV Hypoglycemia 06/21/18 14:00 07/21/18 13:59 Dextrose (Dextrose 50%) 50 ml Q30M PRN IV Hypoglycemia 06/21/18 14:00 07/21/18 13:59 Docusate Sodium (Colace) 100 mg TID GT 06/21/18 18:00 07/21/18 17:59 06/23/18 12:07 Famotidine (Pepcid) 20 mg BID GT 06/21/18 18:00 07/21/18 17:59 06/23/18 08:14 Heparin Sodium (Porcine) (Heparin 5000 units/ml) 5,000 units EVERY 12 HOURS SUBQ 06/21/18 21:00 07/21/18 20:59 06/23/18 08:17 Insulin Aspart (NovoLOG) Q6HR SUBQ 06/21/18 18:00 07/21/18 17:59 06/22/18 18:02 Isosorbide Dinitrate (Isordil) 10 mg Q6HR GT 06/22/18 18:00 07/22/18 17:59 06/23/18 12:08 Levetiracetam (Keppra) 1,000 mg Q12HR GT 06/22/18 21:00 07/22/18 20:59 06/23/18 08:14 Lorazepam (Ativan 2mg/ml 1ml) 1 mg Q4H PRN IV For agitation 06/21/18 14:59 06/28/18 14:58 Mirtazapine (Remeron) 15 mg BEDTIME GT 06/22/18 21:00 07/22/18 20:59 06/22/18 22:15 Nitroglycerin (Ntg) 1 patch Q24H TDERMAL 06/21/18 16:00 07/21/18 15:59 06/22/18 15:43 Non-Formulary Medication (Non-Formulary Med) 1 ea DAILY ORAL 06/22/18 09:00 07/22/18 08:59 UNV Assessment and Recs: # Lymphocytosis -- with elevated lymphocyte percentage, potentially reactive process versus from seizure d/o, recent breakthrough seizure --> smear has been ordered, cbc reordered at this time --> flow cytometry consider to send only if lymphocytosis continues to persist # Anemia of chronic disease -- mild closely monitor --> w/u not yet required # Seizure disorder - on keppra continue at this time --> appreciate neuro recs # Elevated troponin - as per cards # Nonverbal status -- at baseline # s/p peg Appreciate consultation greatly! Timothy Petit MD Jun 23, 2018 12:51
--- NOTE | 2018-06-23 13:24 | NUR ---
CASE MANAGEMENT:REVIEW BIBA FROM [facility] CC: SEIZURE X2 SI: SEIZURE DISORDER. ELEVATED TROPONIN 98.5 120 16 180/71 98% ON RA TROPONIN(+) 0.159 VALPROIC -29 IS: 500CC NS BOLUS IV KEPPRA CXR : TO TELEMETRY DCP: RETURN TO [facility] INTERQUAL CRITERIA MET PLAN: SEIZURE PRECAUTIONS NEURO CHECKS Q4HRS
--- NOTE | 2018-06-23 13:41 | Nephrology Progress Note ---
Assessment/Plan Problem List: (1) Seizure (2) Dehydration (3) HTN (hypertension) (4) Feeding by G-tube (5) Elevated troponin (6) Electrolyte abnormality Assessment reported Sz activity Right paralysis , h/o CVA PEG Hyponatremia elevated troponin clinical dehydration elevated troponin Plan no labs today mag IV Venofer one time Dapakote Dced and Keppra increased by Psych. isordil, ASA , med surg DC planning Subjective ROS Limited/Unobtainable: Yes Objective Objective Last 24 Hour Vital Signs Date Time Temp Pulse Resp B/P (MAP) Pulse Ox O2 Delivery O2 Flow Rate FiO2 06/23/18 12:08 129/53 06/23/18 11:49 55 06/23/18 11:37 98.2 61 20 129/53 (78) 96 06/23/18 09:00 Room Air 06/23/18 08:00 97.9 55 20 120/54 (76) 97 06/23/18 07:40 55 06/23/18 05:34 128/61 06/23/18 04:00 63 06/23/18 00:12 134/66 06/23/18 00:00 67 06/22/18 20:00 75 06/22/18 19:00 Room Air 06/22/18 17:16 155/70 06/22/18 15:43 155/70 06/22/18 15:35 61 Intake and Output 06/22/18 06/23/18 19:00 07:00 Intake Total 780 ml Output Total 1250 ml Balance 780 ml -1250 ml Intake Free Water 100 ml IV Total 200 ml Tube Feeding 480 ml Output Urine Total 1250 ml # Bowel Movements 1 Height (Feet): 5 Height (Inches): 8.00 Weight (Pounds): 162 General Appearance: no apparent distress Neurologic: other - right elda Objective no change Odilon Carroll MD Jun 23, 2018 13:41
[2018-06-23 15:06] LABS: BASOPHILS % (AUTO) 1.2 % (0.0-2.0); EOSINOPHILS % (AUTO) 2.9 % (0.0-3.0); HEMATOCRIT 36.2 % (42.0-52.0); HEMOGLOBIN 11.6 G/DL (14.2-18.0); LYMPHOCYTES % (AUTO) 51.8 % (20.0-45.0); MEAN CORPUSCULAR VOLUME 85 FL (80-99); MONOCYTES % (AUTO) 9.9 % (1.0-10.0); NEUTROPHILS % (AUTO) 34.2 % (45.0-75.0); PLATELET COUNT 160 K/UL (150-450); RED BLOOD COUNT 4.27 M/UL (4.70-6.10); RED CELL DISTRIBUTION WIDTH 12.1 % (11.6-14.8); WHITE BLOOD COUNT 6.7 K/UL (4.8-10.8)
[2018-06-23 16:13] VITALS: BP 123/59
[2018-06-23] MEDS: Nitroglycerin Patch 0.4mg TDERMAL SCH (17:03)
--- NOTE | 2018-06-23 19:10 | NUR ---
HAND-OFF: Report given to SHELLEY Fortune.
--- NOTE | 2018-06-23 19:12 | NUR ---
NURSE NOTES: Received report from Flor Gonzalez RN. Patient in bed AAO x1 with HOB elevated at semifowlers, no complaints of acute pain at this time. Able to verbalize with no difficulty, no S/S of respiratory distress and SP02 at 94-96% in R/A. Safety precaution in place; siderails x3 up, call light within reach, bed in lowest position, brakes and alarm on at all times. Kept clean, dry, and comfortable in bed at all times. Needs and wants anticipated and attended, will continue plan of care and monitor for any changes noted
--- NOTE | 2018-06-23 19:30 | NUR ---
NURSE NOTES: On GTF on prescribed rate and formula, tolerating well. Aspiration and seizure precaution initiated at all times. Will continue to monitor
[2018-06-23 20:00] VITALS: BP 120/50
--- NOTE | 2018-06-23 20:10 | Cardiology Progress Note ---
Assessment/Plan Assessment/Plan 1. Elevated troponin I level in this patient, could be due to seizure activity or [id number]-[id number] myocardial infarction, type II, however, in view of the patient's comorbidities including CVA and hemiplegia, aphasia as well as history of schizophrenia and dementia, conservative management would be the gold standard. Continue aspirin and atorvastatin as well as metoprolol. 2. DM, ASA and statins. 3. Hx of HTN, continue clonidine for breakthrough HTN. 4. CVA, continue ASA 5. Dementia 6. Seizure D/O Subjective Subjective Sinus bradycardia at rate of 59. Objective Last 24 Hour Vital Signs Date Time Temp Pulse Resp B/P (MAP) Pulse Ox O2 Delivery O2 Flow Rate FiO2 06/23/18 17:03 123/59 06/23/18 17:02 123/59 06/23/18 16:13 98.1 59 20 123/59 (80) 94 06/23/18 15:39 55 06/23/18 12:08 129/53 06/23/18 11:49 55 06/23/18 11:37 98.2 61 20 129/53 (78) 96 06/23/18 09:00 Room Air 06/23/18 08:00 97.9 55 20 120/54 (76) 97 06/23/18 07:40 55 06/23/18 05:34 128/61 06/23/18 04:00 63 06/23/18 00:12 134/66 06/23/18 00:00 67 Intake and Output 06/22/18 06/23/18 18:59 06:59 Intake Total 780 ml 40 ml Output Total 1250 ml Balance 780 ml -1210 ml Intake Free Water 100 ml IV Total 200 ml Tube Feeding 480 ml 40 ml Output Urine Total 1250 ml # Bowel Movements 1 2D Echo: LVEF 55%, Mild MR, Grade I LVDD, RVSP 21 mmHg Laboratory Tests Test 06/23/18 14:45 White Blood Count 6.7 K/UL (4.8-10.8) Red Blood Count 4.27 M/UL (4.70-6.10) L Hemoglobin 11.6 G/DL (14.2-18.0) L Hematocrit 36.2 % (42.0-52.0) L Mean Corpuscular Volume 85 FL (80-99) Mean Corpuscular Hemoglobin 27.1 PG (27.0-31.0) Mean Corpuscular Hemoglobin Concent 32.0 G/DL (32.0-36.0) Red Cell Distribution Width 12.1 % (11.6-14.8) Platelet Count 160 K/UL (150-450) Mean Platelet Volume 8.8 FL (6.5-10.1) Neutrophils (%) (Auto) 34.2 % (45.0-75.0) L Lymphocytes (%) (Auto) 51.8 % (20.0-45.0) H Monocytes (%) (Auto) 9.9 % (1.0-10.0) Eosinophils (%) (Auto) 2.9 % (0.0-3.0) Basophils (%) (Auto) 1.2 % (0.0-2.0) Microbiology Date/Time Source Procedure Growth Status 06/21/18 10:24 Rectum VRE Culture Pending Resulted 06/21/18 10:24 Rectum - Final NO CARBAPENEM-RESISTANT ENTEROBACTERI... Resulted Objective HEENT: Atraumatic and normocephalic. Anicteric. Bitemporal wasting. Pupils are equal, round, and reactive to light and accommodation. Extraocular muscles intact. NECK: JVP less than 5 cm. No carotid bruit. LUNGS: Diminished breath sounds on both sides. CARDIOVASCULAR: Regular rate and rhythm. Normal S1 and S2. No murmurs, gallops, or rubs. PMI is at fourth intercostal space at the midclavicular line. ABDOMEN: Soft, nontender, and nondistended. No hepatosplenomegaly. Presence of PEG tube over abdominal wall. EXTREMITIES: No evidence of edema, clubbing, or cyanosis. Pieter Mcfarland MD Jun 23, 2018 20:10
--- NOTE | 2018-06-23 23:03 | General Progress Note ---
Assessment/Plan Problem List: (1) encephalopathy due to toxin (2) Seizure disorder ICD Codes: G40.909 - Epilepsy, unspecified, not intractable, without status epilepticus SNOMED: 106798555 Status: stable Assessment/Plan remeron 15mg qhs dc depakote increase kepra 1000mg po bid the pts room was change close to the station to monitor Subjective Allergies: Coded Allergies: No Known Allergies (Unverified , 09/03/17) Subjective the pt was sleepy today the nurse didn't know if the pt has had any seizures the room was away from nursing station Objective Last 24 Hour Vital Signs Date Time Temp Pulse Resp B/P (MAP) Pulse Ox O2 Delivery O2 Flow Rate FiO2 06/23/18 17:03 123/59 06/23/18 17:02 123/59 06/23/18 16:13 98.1 59 20 123/59 (80) 94 06/23/18 15:39 55 06/23/18 12:08 129/53 06/23/18 11:49 55 06/23/18 11:37 98.2 61 20 129/53 (78) 96 06/23/18 09:00 Room Air 06/23/18 08:00 97.9 55 20 120/54 (76) 97 06/23/18 07:40 55 06/23/18 05:34 128/61 06/23/18 04:00 63 06/23/18 00:12 134/66 06/23/18 00:00 67 Intake and Output 06/22/18 06/23/18 19:00 07:00 Intake Total 780 ml Output Total 1250 ml Balance 780 ml -1250 ml Intake Free Water 100 ml IV Total 200 ml Tube Feeding 480 ml Output Urine Total 1250 ml # Bowel Movements 1 Laboratory Tests 06/23/18 14:45: White Blood Count 6.7, Red Blood Count 4.27L, Hemoglobin 11.6L, Hematocrit 36.2L , Mean Corpuscular Volume 85, Mean Corpuscular Hemoglobin 27.1, Mean Corpuscular Hemoglobin Concent 32.0, Red Cell Distribution Width 12.1, Platelet Count 160, Mean Platelet Volume 8.8, Neutrophils (%) (Auto) 34.2L, Lymphocytes ( %) (Auto) 51.8H, Monocytes (%) (Auto) 9.9, Eosinophils (%) (Auto) 2.9, Basophils (%) (Auto) 1.2 Height (Feet): 5 Height (Inches): 8.00 Weight (Pounds): 162 General Appearance: lethargic, confused, agitated Mian Edmonds MD Jun 23, 2018 23:03
[2018-06-24] VITALS (7 sets, daily range): BP systolic 125–144; BP diastolic 52–78
--- NOTE | 2018-06-24 02:32 | NUR ---
NURSE NOTES: Patient in bed asleep with no S/S of distress noted. Will continue to monitor
[2018-06-24] MEDS: NovoLOG Insulin Flexpen SUBQ SCH ×5 (06:00→23:20)
[2018-06-24 06:06] LABS: BASOPHILS % (AUTO) 1.3 % (0.0-2.0); EOSINOPHILS % (AUTO) 2.2 % (0.0-3.0); HEMATOCRIT 35.4 % (42.0-52.0); HEMOGLOBIN 11.6 G/DL (14.2-18.0); LYMPHOCYTES % (AUTO) 52.6 % (20.0-45.0); MEAN CORPUSCULAR VOLUME 84 FL (80-99); MONOCYTES % (AUTO) 6.8 % (1.0-10.0); NEUTROPHILS % (AUTO) 37.2 % (45.0-75.0); PLATELET COUNT 143 K/UL (150-450); RED CELL DISTRIBUTION WIDTH 12.1 % (11.6-14.8); WHITE BLOOD COUNT 7.2 K/UL (4.8-10.8)
[2018-06-24 06:40] LABS: ALANINE AMINOTRANSFERASE 59 U/L (12-78); ALBUMIN 2.4 G/DL (3.4-5.0); ALBUMIN/GLOBULIN RATIO 0.5 (1.0-2.7); ANION GAP 4 mmol/L (5-15); ASPARTATE AMINO TRANSFERASE 48 U/L (15-37); BILIRUBIN,TOTAL 0.3 MG/DL (0.2-1.0); BLOOD UREA NITROGEN 23 mg/dL (7-18); CALCIUM 8.4 MG/DL (8.5-10.1); CARBON DIOXIDE 30 MMOL/L (21-32); CHLORIDE 107 MMOL/L (98-107); CREATININE 1.2 MG/DL (0.55-1.30); PHOSPHORUS 3.2 MG/DL (2.5-4.9); SODIUM 141 MMOL/L (136-145)
[2018-06-24 07:03] LABS: ALKALINE PHOSPHATASE 90 U/L (46-116)
--- NOTE | 2018-06-24 07:24 | NUR ---
HAND-OFF: Report given to Jenny Apodaca RN. Patient in stable condition, endorsed plan of care.
--- NOTE | 2018-06-24 07:33 | NUR ---
NURSE NOTES: Received report from SHELLEY Fortune. Pt is sitting up in bed. No distress noted. Bed is in lowest position, side rails up X2, and call light is within reach. WIll continue to monitor,
[2018-06-24] MEDS: Docusate 100mg/10ml Liq GT SCH ×3 (08:14→17:10)
[2018-06-24] MEDS: Aspirin Baby 81mg GT SCH (08:14)
[2018-06-24] MEDS: levETIRAcetam 500mg/5ml Liquid GT SCH ×2 (08:14→21:07)
[2018-06-24] MEDS: Heparin 5000 units/ml inj SUBQ SCH ×2 (08:15→21:00)
--- NOTE | 2018-06-24 10:48 | NUR ---
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 CURRENT TF:Gluc 1.2 @ 55 x24 hrs ENTERAL NUTRITION RECOMMENDATIONS: Glucerna 1.2 @60ml x24 hrs to provide 1440ml, 1728 kcal, 86g prot, 1159ml free H2O - Increase goal rate to 60ml/hr x 24 hrs - Flush per MD/ HOB over 30 degrees ADDITIONAL RECOMMENDATIONS: 1) Calibrated bedscale wt for accurate CBW 2) Monitor lytes closely, replete as needed 3) Consider TRIAL PARALEGAL eval for possible oral grat- pt on oral diet TID MAT CUTTER
--- NOTE | 2018-06-24 12:25 | NUR ---
NURSE NOTES: patient is sitting up in bed resting comfortably. Will contiunue to monitor.
--- NOTE | 2018-06-24 13:21 | Nephrology Progress Note ---
Assessment/Plan Problem List: (1) Seizure (2) Dehydration (3) HTN (hypertension) (4) Feeding by G-tube (5) Elevated troponin (6) Electrolyte abnormality Assessment reported Sz activity Right paralysis , h/o CVA PEG Hyponatremia elevated troponin clinical dehydration elevated troponin Plan labs reviewed Venofer one time given Dapakote Dced and Keppra increased by Psych. isordil, ASA , med surg DC planning Subjective ROS Limited/Unobtainable: No Constitutional: Reports: malaise Objective Objective Last 24 Hour Vital Signs Date Time Temp Pulse Resp B/P (MAP) Pulse Ox O2 Delivery O2 Flow Rate FiO2 06/24/18 12:02 128/55 06/24/18 12:00 57 06/24/18 11:58 99.0 58 18 128/55 (79) 95 06/24/18 09:00 Room Air 06/24/18 08:00 61 06/24/18 08:00 99.5 80 18 128/66 (86) 95 06/24/18 06:08 125/64 06/24/18 04:00 97.8 55 16 125/64 (84) 96 06/24/18 04:00 63 06/24/18 00:37 136/62 06/24/18 00:00 97.4 69 17 135/52 (79) 98 06/23/18 21:00 Room Air 06/23/18 20:00 97.5 69 19 120/50 (73) 97 06/23/18 20:00 68 06/23/18 17:03 123/59 06/23/18 17:02 123/59 06/23/18 16:13 98.1 59 20 123/59 (80) 94 06/23/18 15:39 55 Intake and Output 06/23/18 06/24/18 19:00 07:00 Intake Total 560 ml 1040 ml Balance 560 ml 1040 ml Intake Free Water 120 ml 600 ml Tube Feeding 440 ml 440 ml # Bowel Movements 1 Current Medications Medications (Trade) Dose Ordered Sig/Christian Route PRN Reason Start Time Stop Time Status Last Admin Dose Admin Acetaminophen (Tylenol) 650 mg Q4H PRN GT Mild Pain/Temp > 100.5 06/21/18 13:30 07/21/18 13:29 Aspirin (ASA) 81 mg DAILY GT 06/22/18 09:00 07/22/18 08:59 06/24/18 08:14 Atorvastatin Calcium (Lipitor) 10 mg BEDTIME GT 06/21/18 21:00 07/21/18 20:59 06/23/18 21:28 Baclofen (Lioresal) 5 mg Q6HR GT 06/21/18 18:00 07/21/18 17:59 06/24/18 12:02 Clonidine HCl (Catapres Tab) 0.1 mg Q8H PRN GT For High Blood Pressure 06/21/18 13:30 07/21/18 13:29 Dextrose (Dextrose 50%) 25 ml Q30M PRN IV Hypoglycemia 06/21/18 14:00 07/21/18 13:59 Dextrose (Dextrose 50%) 50 ml Q30M PRN IV Hypoglycemia 06/21/18 14:00 07/21/18 13:59 Docusate Sodium (Colace) 100 mg TID GT 06/21/18 18:00 07/21/18 17:59 06/24/18 12:02 Famotidine (Pepcid) 20 mg BID GT 06/21/18 18:00 07/21/18 17:59 06/24/18 08:14 Heparin Sodium (Porcine) (Heparin 5000 units/ml) 5,000 units EVERY 12 HOURS SUBQ 06/21/18 21:00 07/21/18 20:59 06/23/18 21:30 Insulin Aspart (NovoLOG) Q6HR SUBQ 06/21/18 18:00 07/21/18 17:59 06/22/18 18:02 Isosorbide Dinitrate (Isordil) 10 mg Q6HR GT 06/22/18 18:00 07/22/18 17:59 06/24/18 12:02 Levetiracetam (Keppra) 1,000 mg Q12HR GT 06/22/18 21:00 07/22/18 20:59 06/24/18 08:14 Lorazepam (Ativan 2mg/ml 1ml) 1 mg Q4H PRN IV For agitation 06/21/18 14:59 06/28/18 14:58 Mirtazapine (Remeron) 15 mg BEDTIME GT 06/22/18 21:00 07/22/18 20:59 06/23/18 21:28 Nitroglycerin (Ntg) 1 patch Q24H TDERMAL 06/21/18 16:00 07/21/18 15:59 06/23/18 17:03 Laboratory Tests 06/23/18 14:45: White Blood Count 6.7, Red Blood Count 4.27L, Hemoglobin 11.6L, Hematocrit 36.2L , Mean Corpuscular Volume 85, Mean Corpuscular Hemoglobin 27.1, Mean Corpuscular Hemoglobin Concent 32.0, Red Cell Distribution Width 12.1, Platelet Count 160, Mean Platelet Volume 8.8, Neutrophils (%) (Auto) 34.2L, Lymphocytes ( %) (Auto) 51.8H, Monocytes (%) (Auto) 9.9, Eosinophils (%) (Auto) 2.9, Basophils (%) (Auto) 1.2 06/24/18 04:50: White Blood Count 7.2, Red Blood Count 4.20L, Hemoglobin 11.6L, Hematocrit 35.4L , Mean Corpuscular Volume 84, Mean Corpuscular Hemoglobin 27.7, Mean Corpuscular Hemoglobin Concent 32.8, Red Cell Distribution Width 12.1, Platelet Count 143L, Mean Platelet Volume 7.3, Neutrophils (%) (Auto) 37.2L, Lymphocytes (%) (Auto) 52.6H, Monocytes (%) (Auto) 6.8, Eosinophils (%) (Auto) 2.2, Basophils (%) (Auto) 1.3, Sodium Level 141, Potassium Level 4.0, Chloride Level 107, Carbon Dioxide Level 30, Anion Gap 4L, Blood Urea Nitrogen 23H, Creatinine 1.2, Estimat Glomerular Filtration Rate > 60, Glucose Level 110H, Calcium Level 8.4L, Phosphorus Level 3.2, Magnesium Level 1.9, Total Bilirubin 0.3, Aspartate Amino Transf (AST/SGOT) 48H, Alanine Aminotransferase (ALT/SGPT) 59, Alkaline Phosphatase 90, Pro-B-Type Natriuretic Peptide 155H, Total Protein 7.5, Albumin 2.4L, Globulin 5.1, Albumin/Globulin Ratio 0.5L Height (Feet): 5 Height (Inches): 8.00 Weight (Pounds): 162 General Appearance: no apparent distress Cardiovascular: normal rate Respiratory/Chest: lungs clear Abdomen: soft Objective no change Odilon Carroll MD Jun 24, 2018 13:21
[2018-06-24] MEDS: Nitroglycerin Patch 0.4mg TDERMAL SCH (16:51)
--- NOTE | 2018-06-24 18:37 | NUR ---
TRANSFER TO FLOOR: Patient transferred to 4E, per MD orders. Report given to SHELLEY Barreto. Belongings list in chart. Plan of care endorsed. Pt is stable.
--- NOTE | 2018-06-24 18:37 | NUR ---
Received pt at 1836, pt in bed in no acute distress. a/o x 1, responds to name, obeys commands. VS stable, j tube dressing D/C/I, skin intact. Feeding running as ordered. Patent IV to L foream. VS stable. Pt left in bed in low position, call light within reach, suction at bedside, verified arm band, rails padded.
[2018-06-24] MEDS ORDERED: LORazepam Inj 2mg/ml 1ml IV PRN (19:00)
--- NOTE | 2018-06-24 20:04 | NUR ---
Report given to SHELLEY Hdz. Pt left in bed in stable condition, a/o x 1, follows commands. Bed in low position, call light within reach, bed alarm on, suction at bedside, rails are padded.
[2018-06-24] MEDS ORDERED: Acetaminophen 650mg/20.3ml GT PRN (21:30)
--- NOTE | 2018-06-24 21:42 | NUR ---
NURSE NOTES: Patient in bed, awake, unable to make needs known. NOted with GT site, feeding is infusing as ordered. Kept clean and comfortable. Provided safe environment. Bed in low and locked position. Iv site is patent. Respiration is even and unlabored. NO s/s of pain or discomfort noted. Call light is at bedside. Frequent visual checks. Will continue plan of care.
--- NOTE | 2018-06-24 22:32 | General Progress Note ---
Assessment/Plan Problem List: (1) encephalopathy due to toxin (2) Seizure disorder ICD Codes: G40.909 - Epilepsy, unspecified, not intractable, without status epilepticus SNOMED: 526673052 Status: stable Assessment/Plan remeron 15mg qhs increase kepra 1000mg po bid dc cn Subjective Allergies: Coded Allergies: No Known Allergies (Unverified , 09/03/17) Subjective pt had no seizures today. the pt tolerating Keppra Objective Last 24 Hour Vital Signs Date Time Temp Pulse Resp B/P (MAP) Pulse Ox O2 Delivery O2 Flow Rate FiO2 06/24/18 21:00 Room Air 06/24/18 20:00 97.2 52 19 144/63 (90) 97 06/24/18 18:49 97.3 51 18 138/64 (88) 99 06/24/18 17:10 128/55 06/24/18 16:51 128/55 06/24/18 16:00 59 06/24/18 12:02 128/55 06/24/18 12:00 57 06/24/18 11:58 99.0 58 18 128/55 (79) 95 06/24/18 09:00 Room Air 06/24/18 08:00 61 06/24/18 08:00 99.5 80 18 128/66 (86) 95 06/24/18 06:08 125/64 06/24/18 04:00 97.8 55 16 125/64 (84) 96 06/24/18 04:00 63 06/24/18 00:37 136/62 06/24/18 00:00 97.4 69 17 135/52 (79) 98 Intake and Output 06/23/18 06/24/18 18:59 06:59 Intake Total 560 ml 1040 ml Balance 560 ml 1040 ml Intake Free Water 120 ml 600 ml Tube Feeding 440 ml 440 ml # Bowel Movements 1 Laboratory Tests 06/24/18 04:50: White Blood Count 7.2, Red Blood Count 4.20L, Hemoglobin 11.6L, Hematocrit 35.4L , Mean Corpuscular Volume 84, Mean Corpuscular Hemoglobin 27.7, Mean Corpuscular Hemoglobin Concent 32.8, Red Cell Distribution Width 12.1, Platelet Count 143L, Mean Platelet Volume 7.3, Neutrophils (%) (Auto) 37.2L, Lymphocytes (%) (Auto) 52.6H, Monocytes (%) (Auto) 6.8, Eosinophils (%) (Auto) 2.2, Basophils (%) (Auto) 1.3, Sodium Level 141, Potassium Level 4.0, Chloride Level 107, Carbon Dioxide Level 30, Anion Gap 4L, Blood Urea Nitrogen 23H, Creatinine 1.2, Estimat Glomerular Filtration Rate > 60, Glucose Level 110H, Calcium Level 8.4L, Phosphorus Level 3.2, Magnesium Level 1.9, Total Bilirubin 0.3, Aspartate Amino Transf (AST/SGOT) 48H, Alanine Aminotransferase (ALT/SGPT) 59, Alkaline Phosphatase 90, Pro-B-Type Natriuretic Peptide 155H, Total Protein 7.5, Albumin 2.4L, Globulin 5.1, Albumin/Globulin Ratio 0.5L Height (Feet): 5 Height (Inches): 8.00 Weight (Pounds): 162 General Appearance: alert, confused Mian Edmonds MD Jun 24, 2018 22:32
--- NOTE | 2018-06-24 22:37 | General Progress Note ---
Assessment/Plan Problem List: (1) Seizure ICD Codes: R56.9 - Unspecified convulsions SNOMED: 79839311 (2) HTN (hypertension) ICD Codes: I10 - Essential (primary) hypertension SNOMED: 34132254 (3) Seizure disorder ICD Codes: G40.909 - Epilepsy, unspecified, not intractable, without status epilepticus SNOMED: 319978294 (4) Dehydration ICD Codes: E86.0 - Dehydration SNOMED: 54959392 Status: stable Assessment/Plan obs.poor historian no sz today htn is under control Subjective ROS Limited/Unobtainable: Yes Allergies: Coded Allergies: No Known Allergies (Unverified , 09/03/17) Objective Last 24 Hour Vital Signs Date Time Temp Pulse Resp B/P (MAP) Pulse Ox O2 Delivery O2 Flow Rate FiO2 06/24/18 21:00 Room Air 06/24/18 20:00 97.2 52 19 144/63 (90) 97 06/24/18 18:49 97.3 51 18 138/64 (88) 99 06/24/18 17:10 128/55 06/24/18 16:51 128/55 06/24/18 16:00 59 06/24/18 12:02 128/55 06/24/18 12:00 57 06/24/18 11:58 99.0 58 18 128/55 (79) 95 06/24/18 09:00 Room Air 06/24/18 08:00 61 06/24/18 08:00 99.5 80 18 128/66 (86) 95 06/24/18 06:08 125/64 06/24/18 04:00 97.8 55 16 125/64 (84) 96 06/24/18 04:00 63 06/24/18 00:37 136/62 06/24/18 00:00 97.4 69 17 135/52 (79) 98 Intake and Output 06/23/18 06/24/18 18:59 06:59 Intake Total 560 ml 1040 ml Balance 560 ml 1040 ml Intake Free Water 120 ml 600 ml Tube Feeding 440 ml 440 ml # Bowel Movements 1 Laboratory Tests 06/24/18 04:50: White Blood Count 7.2, Red Blood Count 4.20L, Hemoglobin 11.6L, Hematocrit 35.4L , Mean Corpuscular Volume 84, Mean Corpuscular Hemoglobin 27.7, Mean Corpuscular Hemoglobin Concent 32.8, Red Cell Distribution Width 12.1, Platelet Count 143L, Mean Platelet Volume 7.3, Neutrophils (%) (Auto) 37.2L, Lymphocytes (%) (Auto) 52.6H, Monocytes (%) (Auto) 6.8, Eosinophils (%) (Auto) 2.2, Basophils (%) (Auto) 1.3, Sodium Level 141, Potassium Level 4.0, Chloride Level 107, Carbon Dioxide Level 30, Anion Gap 4L, Blood Urea Nitrogen 23H, Creatinine 1.2, Estimat Glomerular Filtration Rate > 60, Glucose Level 110H, Calcium Level 8.4L, Phosphorus Level 3.2, Magnesium Level 1.9, Total Bilirubin 0.3, Aspartate Amino Transf (AST/SGOT) 48H, Alanine Aminotransferase (ALT/SGPT) 59, Alkaline Phosphatase 90, Pro-B-Type Natriuretic Peptide 155H, Total Protein 7.5, Albumin 2.4L, Globulin 5.1, Albumin/Globulin Ratio 0.5L Height (Feet): 5 Height (Inches): 8.00 Weight (Pounds): 162 General Appearance: confused Cardiovascular: regular rhythm Respiratory/Chest: lungs clear Olman Bangura MD Jun 24, 2018 22:37
--- NOTE | 2018-06-24 23:58 | Cardiology Progress Note ---
Assessment/Plan Assessment/Plan 1. Elevated troponin I level in this patient, could be due to seizure activity or [id number] myocardial infarction, type II, however, in view of the patient's comorbidities including CVA and hemiplegia, aphasia as well as history of schizophrenia and dementia, conservative management would be the gold standard. Continue aspirin and atorvastatin as well as metoprolol. 2. DM, ASA and statins. 3. Hx of HTN, continue clonidine for breakthrough HTN. 4. CVA, continue ASA 5. Dementia 6. Seizure D/O Subjective Subjective Sinus bradycardia at rate of 50. Objective Last 24 Hour Vital Signs Date Time Temp Pulse Resp B/P (MAP) Pulse Ox O2 Delivery O2 Flow Rate FiO2 06/24/18 23:21 97.9 50 16 137/78 (97) 99 06/24/18 23:20 137/78 06/24/18 21:00 Room Air 06/24/18 20:00 97.2 52 19 144/63 (90) 97 06/24/18 18:49 97.3 51 18 138/64 (88) 99 06/24/18 17:10 128/55 06/24/18 16:51 128/55 06/24/18 16:00 59 06/24/18 12:02 128/55 06/24/18 12:00 57 06/24/18 11:58 99.0 58 18 128/55 (79) 95 06/24/18 09:00 Room Air 06/24/18 08:00 61 06/24/18 08:00 99.5 80 18 128/66 (86) 95 06/24/18 06:08 125/64 06/24/18 04:00 97.8 55 16 125/64 (84) 96 06/24/18 04:00 63 06/24/18 00:37 136/62 06/24/18 00:00 97.4 69 17 135/52 (79) 98 Intake and Output 06/23/18 06/24/18 18:59 06:59 Intake Total 560 ml 1040 ml Balance 560 ml 1040 ml Intake Free Water 120 ml 600 ml Tube Feeding 440 ml 440 ml # Bowel Movements 1 2D Echo: LVEF 55%, Mild MR, Grade I LVDD, RVSP 21 mmHg Laboratory Tests Test 06/24/18 04:50 White Blood Count 7.2 K/UL (4.8-10.8) Red Blood Count 4.20 M/UL (4.70-6.10) L Hemoglobin 11.6 G/DL (14.2-18.0) L Hematocrit 35.4 % (42.0-52.0) L Mean Corpuscular Volume 84 FL (80-99) Mean Corpuscular Hemoglobin 27.7 PG (27.0-31.0) Mean Corpuscular Hemoglobin Concent 32.8 G/DL (32.0-36.0) Red Cell Distribution Width 12.1 % (11.6-14.8) Platelet Count 143 K/UL (150-450) L Mean Platelet Volume 7.3 FL (6.5-10.1) Neutrophils (%) (Auto) 37.2 % (45.0-75.0) L Lymphocytes (%) (Auto) 52.6 % (20.0-45.0) H Monocytes (%) (Auto) 6.8 % (1.0-10.0) Eosinophils (%) (Auto) 2.2 % (0.0-3.0) Basophils (%) (Auto) 1.3 % (0.0-2.0) Sodium Level 141 MMOL/L (136-145) Potassium Level 4.0 MMOL/L (3.5-5.1) Chloride Level 107 MMOL/L (98-107) Carbon Dioxide Level 30 MMOL/L (21-32) Anion Gap 4 mmol/L (5-15) L Blood Urea Nitrogen 23 mg/dL (7-18) H Creatinine 1.2 MG/DL (0.55-1.30) Estimat Glomerular Filtration Rate > 60 mL/min (>60) Glucose Level 110 MG/DL (74-106) H Calcium Level 8.4 MG/DL (8.5-10.1) L Phosphorus Level 3.2 MG/DL (2.5-4.9) Magnesium Level 1.9 MG/DL (1.8-2.4) Total Bilirubin 0.3 MG/DL (0.2-1.0) Aspartate Amino Transf (AST/SGOT) 48 U/L (15-37) H Alanine Aminotransferase (ALT/SGPT) 59 U/L (12-78) Alkaline Phosphatase 90 U/L (46-116) Pro-B-Type Natriuretic Peptide 155 pg/mL (0-125) H Total Protein 7.5 G/DL (6.4-8.2) Albumin 2.4 G/DL (3.4-5.0) L Globulin 5.1 g/dL Albumin/Globulin Ratio 0.5 (1.0-2.7) L Objective HEENT: Atraumatic and normocephalic. Anicteric. Bitemporal wasting. Pupils are equal, round, and reactive to light and accommodation. Extraocular muscles intact. NECK: JVP less than 5 cm. No carotid bruit. LUNGS: Diminished breath sounds on both sides. CARDIOVASCULAR: Regular rate and rhythm. Normal S1 and S2. No murmurs, gallops, or rubs. PMI is at fourth intercostal space at the midclavicular line. ABDOMEN: Soft, nontender, and nondistended. No hepatosplenomegaly. Presence of PEG tube over abdominal wall. EXTREMITIES: No evidence of edema, clubbing, or cyanosis. Pieter Mcfarland MD Jun 24, 2018 23:58
--- NOTE | 2018-06-25 01:24 | General Progress Note ---
Assessment/Plan Assessment/Plan Assessment and Recs: # Lymphocytosis -- with elevated lymphocyte percentage, potentially reactive process versus from seizure d/o, recent breakthrough seizure --> smear has been ordered, cbc reordered at this time --> flow cytometry consider to send only if lymphocytosis continues to persist # Anemia of chronic disease -- mild closely monitor --> w/u not yet required # Seizure disorder - on keppra continue at this time --> appreciate neuro recs # Elevated troponin - as per cards # Nonverbal status -- at baseline # s/p peg Appreciate consultation greatly! Subjective Constitutional: Denies: no symptoms, chills, diaphoresis, fever, malaise, weakness, other Cardiovascular: Denies: no symptoms, chest pain, edema, irregular heart rate, lightheadedness, palpitations, syncope, other Respiratory: Denies: no symptoms, cough, orthopnea, shortness of breath, SOB with excertion, SOB at rest, sputum, stridor, wheezing, other Gastrointestinal/Abdominal: Denies: no symptoms, abdomen distended, abdominal pain, black stools, tarry stools, blood in stool, constipated, diarrhea, difficulty swallowing, nausea, poor appetite, poor fluid intake, rectal bleeding , vomiting, other Genitourinary: Denies: no symptoms, burning, discharge, frequency, flank pain, hematuria, incontinence, pain, urgency, other Neurologic/Psychiatric: Denies: no symptoms, anxiety, depressed, emotional problems, headache, numbness, paresthesia, pre-existing deficit, seizure, tingling, tremors, weakness, other Endocrine: Denies: no symptoms, excessive sweating, flushing, intolerance to cold, intolerance to heat, increased hunger, increased thirst, increased urine, unexplained weight gain, unexplained weight loss, other Hematologic/Lymphatic: Denies: no symptoms, anemia, easy bleeding, easy bruising, other Allergies: Coded Allergies: No Known Allergies (Unverified , 09/03/17) Subjective 06/24/18: pt is seen in the room, resting in bed, on G tube, Elevated troponin I level, could be due to seizure activity or [id number], platelet count is low at 143 Objective Last 24 Hour Vital Signs Date Time Temp Pulse Resp B/P (MAP) Pulse Ox O2 Delivery O2 Flow Rate FiO2 06/24/18 23:21 97.9 50 16 137/78 (97) 99 06/24/18 23:20 137/78 06/24/18 21:00 Room Air 06/24/18 20:00 97.2 52 19 144/63 (90) 97 06/24/18 18:49 97.3 51 18 138/64 (88) 99 06/24/18 17:10 128/55 06/24/18 16:51 128/55 06/24/18 16:00 59 06/24/18 12:02 128/55 06/24/18 12:00 57 06/24/18 11:58 99.0 58 18 128/55 (79) 95 06/24/18 09:00 Room Air 06/24/18 08:00 61 06/24/18 08:00 99.5 80 18 128/66 (86) 95 06/24/18 06:08 125/64 06/24/18 04:00 97.8 55 16 125/64 (84) 96 06/24/18 04:00 63 Intake and Output 06/24/18 06/25/18 18:59 06:59 Intake Total 490 ml 250 ml Output Total 250 ml Balance 240 ml 250 ml Intake Free Water 90 ml 50 ml Tube Feeding 400 ml 200 ml Output Urine Total 250 ml # Voids 1 Laboratory Tests 06/24/18 04:50: White Blood Count 7.2, Red Blood Count 4.20L, Hemoglobin 11.6L, Hematocrit 35.4L , Mean Corpuscular Volume 84, Mean Corpuscular Hemoglobin 27.7, Mean Corpuscular Hemoglobin Concent 32.8, Red Cell Distribution Width 12.1, Platelet Count 143L, Mean Platelet Volume 7.3, Neutrophils (%) (Auto) 37.2L, Lymphocytes (%) (Auto) 52.6H, Monocytes (%) (Auto) 6.8, Eosinophils (%) (Auto) 2.2, Basophils (%) (Auto) 1.3, Sodium Level 141, Potassium Level 4.0, Chloride Level 107, Carbon Dioxide Level 30, Anion Gap 4L, Blood Urea Nitrogen 23H, Creatinine 1.2, Estimat Glomerular Filtration Rate > 60, Glucose Level 110H, Calcium Level 8.4L, Phosphorus Level 3.2, Magnesium Level 1.9, Total Bilirubin 0.3, Aspartate Amino Transf (AST/SGOT) 48H, Alanine Aminotransferase (ALT/SGPT) 59, Alkaline Phosphatase 90, Pro-B-Type Natriuretic Peptide 155H, Total Protein 7.5, Albumin 2.4L, Globulin 5.1, Albumin/Globulin Ratio 0.5L Height (Feet): 5 Height (Inches): 8.00 Weight (Pounds): 162 Objective General Appearance: no apparent distress, reviewed Head: normocephalic, atraumatic Eyes: bilateral eye PERRL, bilateral eye EOMI ENT: dry mucus membranes Neck: supple Respiratory: lungs clear, no retraction, no accessory muscle use Cardiovascular: regular rate, rhythm Gastrointestinal: non tender, soft ++ peg Musculoskeletal: other - Chronically debilitated Neurologic: responsive - Has eyes open, not following commands Skin: normal color Lymphatic: no adenopathy Timothy Petit MD Jun 25, 2018 01:24
[2018-06-25 04:00] VITALS: BP 154/71
[2018-06-25] MEDS: NovoLOG Insulin Flexpen SUBQ SCH ×3 (05:30→17:06)
--- NOTE | 2018-06-25 07:11 | NUR ---
HAND-OFF: Report given to SHELLEY Patle.
[2018-06-25 08:25] VITALS: BP 131/56
[2018-06-25] MEDS: Aspirin Baby 81mg GT SCH (08:43)
[2018-06-25] MEDS: levETIRAcetam 500mg/5ml Liquid GT SCH ×2 (08:43→20:56)
[2018-06-25] MEDS: Docusate 100mg/10ml Liq GT SCH ×3 (08:43→17:06)
[2018-06-25] MEDS: Heparin 5000 units/ml inj SUBQ SCH ×2 (08:44→20:56)
--- NOTE | 2018-06-25 09:40 | NUR ---
CASE MANAGEMENT:REVIEW 06/25/18 SI: SEIZURE. DEHYDRATION 97.3 50 19 131/56 98% ON RA IS: NTG 1 PATCH Q24 ASA GT QD PEPCID GT BID BACOLFEN GT Q6 NOVOLOG SQ Q6 ISORDIL GT Q6 KEPPRA GT Q12 REMERON GT QHS : MED/SURG STATUS DCP: FROM [facility]
--- NOTE | 2018-06-25 10:53 | NUR ---
NURSE NOTES: pt awake alert,no distress, denies pain. gt patent and intact. no residual. hob elevated >30 degrees. will monitor.
[2018-06-25 12:00] VITALS: BP 132/67
--- NOTE | 2018-06-25 13:56 | Nephrology Progress Note ---
Assessment/Plan Problem List: (1) Seizure (2) Dehydration (3) HTN (hypertension) (4) Feeding by G-tube (5) Elevated troponin (6) Electrolyte abnormality Assessment reported Sz activity Right paralysis , h/o CVA PEG Hyponatremia elevated troponin clinical dehydration elevated troponin Plan labs reviewed Venofer one time given Dapakote Dced and Keppra increased by Psych. isordil, ASA , med surg DC planning Subjective ROS Limited/Unobtainable: No Objective Objective Last 24 Hour Vital Signs Date Time Temp Pulse Resp B/P (MAP) Pulse Ox O2 Delivery O2 Flow Rate FiO2 06/25/18 12:00 97.3 52 19 132/67 (88) 98 06/25/18 12:00 132/67 06/25/18 09:00 Room Air 06/25/18 08:25 97.3 50 19 131/56 (81) 98 06/25/18 05:30 154/71 06/25/18 04:00 97.3 50 19 154/71 (98) 98 06/24/18 23:21 97.9 50 16 137/78 (97) 99 06/24/18 23:20 137/78 06/24/18 21:00 Room Air 06/24/18 20:00 97.2 52 19 144/63 (90) 97 06/24/18 18:49 97.3 51 18 138/64 (88) 99 06/24/18 17:10 128/55 06/24/18 16:51 128/55 06/24/18 16:00 59 Intake and Output 06/24/18 06/25/18 19:00 07:00 Intake Total 580 ml 860 ml Output Total 250 ml 700 ml Balance 330 ml 160 ml Intake Free Water 140 ml 200 ml Tube Feeding 440 ml 660 ml Output Urine Total 250 ml 700 ml # Voids 1 Laboratory Tests 06/25/18 05:15: Troponin I 0.035 Height (Feet): 5 Height (Inches): 8.00 Weight (Pounds): 162 General Appearance: no apparent distress Objective no change Odilon Carroll MD Jun 25, 2018 13:56
[2018-06-25] MEDS ORDERED: Nitroglycerin Patch 0.4mg TDERMAL SCH (16:00)
[2018-06-25 16:45] VITALS: BP 162/75
[2018-06-25] MEDS: Nitroglycerin Patch 0.4mg TDERMAL SCH (16:49)
--- NOTE | 2018-06-25 19:01 | NUR ---
HAND-OFF: Report given to SANJAY ROSA.
--- NOTE | 2018-06-25 19:26 | NUR ---
NURSE NOTES: Received patient awake,verbal,resting in bed,tolerating his g-tube feeding well.
[2018-06-25 19:53] VITALS: BP 128/63
--- NOTE | 2018-06-25 21:37 | General Progress Note ---
Assessment/Plan Assessment/Plan Assessment and Recs: # Lymphocytosis -- with elevated lymphocyte percentage, potentially reactive process versus from seizure d/o, recent breakthrough seizure --> smear has been ordered, cbc reordered at this time --> flow cytometry consider to send only if lymphocytosis continues to persist # Anemia of chronic disease -- mild closely monitor --> 9.5-->8.3-->6.7-->7.2 # Seizure disorder - on keppra continue at this time --> appreciate neuro recs # Elevated troponin - as per cards # Nonverbal status -- at baseline # s/p peg Appreciate consultation greatly! Subjective Constitutional: Denies: no symptoms, chills, diaphoresis, fever, malaise, weakness, other HEENT: Denies: no symptoms, eye pain, blurred vision, tearing, double vision, ear pain, ear discharge, nose pain, nose congestion, throat pain, throat swelling, mouth pain, mouth swelling, other Cardiovascular: Denies: no symptoms, chest pain, edema, irregular heart rate, lightheadedness, palpitations, syncope, other Gastrointestinal/Abdominal: Denies: no symptoms, abdomen distended, abdominal pain, black stools, tarry stools, blood in stool, constipated, diarrhea, difficulty swallowing, nausea, poor appetite, poor fluid intake, rectal bleeding , vomiting, other Genitourinary: Denies: no symptoms, burning, discharge, frequency, flank pain, hematuria, incontinence, pain, urgency, other Neurologic/Psychiatric: Denies: no symptoms, anxiety, depressed, emotional problems, headache, numbness, paresthesia, pre-existing deficit, seizure, tingling, tremors, weakness, other Endocrine: Denies: no symptoms, excessive sweating, flushing, intolerance to cold, intolerance to heat, increased hunger, increased thirst, increased urine, unexplained weight gain, unexplained weight loss, other Hematologic/Lymphatic: Denies: no symptoms, anemia, easy bleeding, easy bruising, other Allergies: Coded Allergies: No Known Allergies (Unverified , 09/03/17) Subjective 06/24/18: pt is seen in the room, resting in bed, on G tube, Elevated troponin I level, could be due to seizure activity or [id number], platelet count is low at 143 06/25: Patient in bed, awake, nonverbal, on GT, pending cbc results Objective Last 24 Hour Vital Signs Date Time Temp Pulse Resp B/P (MAP) Pulse Ox O2 Delivery O2 Flow Rate FiO2 06/25/18 20:18 Room Air 06/25/18 19:53 97.9 51 17 128/63 (84) 97 06/25/18 17:06 162/75 06/25/18 16:49 162/75 06/25/18 16:45 98.2 53 19 162/75 (104) 98 06/25/18 12:00 97.3 52 19 132/67 (88) 98 06/25/18 12:00 132/67 06/25/18 09:00 Room Air 06/25/18 08:25 97.3 50 19 131/56 (81) 98 06/25/18 05:30 154/71 06/25/18 04:00 97.3 50 19 154/71 (98) 98 06/24/18 23:21 97.9 50 16 137/78 (97) 99 06/24/18 23:20 137/78 Intake and Output 06/24/18 06/25/18 18:59 06:59 Intake Total 490 ml 895 ml Output Total 250 ml 700 ml Balance 240 ml 195 ml Intake Free Water 90 ml 250 ml Tube Feeding 400 ml 645 ml Output Urine Total 250 ml 700 ml # Voids 1 Laboratory Tests 06/25/18 05:15: Troponin I 0.035 Height (Feet): 5 Height (Inches): 8.00 Weight (Pounds): 162 Objective General Appearance: no apparent distress, reviewed Head: normocephalic, atraumatic Eyes: bilateral eye PERRL, bilateral eye EOMI ENT: dry mucus membranes Neck: supple Respiratory: lungs clear, no retraction, no accessory muscle use Cardiovascular: regular rate, rhythm Gastrointestinal: non tender, soft ++ peg Musculoskeletal: other - Chronically debilitated Neurologic: responsive - Has eyes open, not following commands Skin: normal color Lymphatic: no adenopathy Timothy Petit MD Jun 25, 2018 21:37
--- NOTE | 2018-06-25 23:18 | General Progress Note ---
Assessment/Plan Problem List: (1) Seizure ICD Codes: R56.9 - Unspecified convulsions SNOMED: 02523646 (2) HTN (hypertension) ICD Codes: I10 - Essential (primary) hypertension SNOMED: 71188884 (3) Seizure disorder ICD Codes: G40.909 - Epilepsy, unspecified, not intractable, without status epilepticus SNOMED: 271220414 (4) Dehydration ICD Codes: E86.0 - Dehydration SNOMED: 27977076 Status: progressing Assessment/Plan obs.poor historian no sz today htn is under control reviewed chart and labs afebrile Subjective ROS Limited/Unobtainable: Yes Allergies: Coded Allergies: No Known Allergies (Unverified , 09/03/17) Objective Last 24 Hour Vital Signs Date Time Temp Pulse Resp B/P (MAP) Pulse Ox O2 Delivery O2 Flow Rate FiO2 06/25/18 20:18 Room Air 06/25/18 19:53 97.9 51 17 128/63 (84) 97 06/25/18 17:06 162/75 06/25/18 16:49 162/75 06/25/18 16:45 98.2 53 19 162/75 (104) 98 06/25/18 12:00 97.3 52 19 132/67 (88) 98 06/25/18 12:00 132/67 06/25/18 09:00 Room Air 06/25/18 08:25 97.3 50 19 131/56 (81) 98 06/25/18 05:30 154/71 06/25/18 04:00 97.3 50 19 154/71 (98) 98 06/24/18 23:21 97.9 50 16 137/78 (97) 99 06/24/18 23:20 137/78 Intake and Output 06/24/18 06/25/18 18:59 06:59 Intake Total 490 ml 895 ml Output Total 250 ml 700 ml Balance 240 ml 195 ml Intake Free Water 90 ml 250 ml Tube Feeding 400 ml 645 ml Output Urine Total 250 ml 700 ml # Voids 1 Laboratory Tests 06/25/18 05:15: Troponin I 0.035 Height (Feet): 5 Height (Inches): 8.00 Weight (Pounds): 162 General Appearance: confused Neck: supple Cardiovascular: normal rate Respiratory/Chest: lungs clear Olman Bangura MD Jun 25, 2018 23:18
--- NOTE | 2018-06-25 23:42 | Cardiology Progress Note ---
Assessment/Plan Assessment/Plan 1. Elevated troponin I level in this patient, could be due to seizure activity or [id number] myocardial infarction, type II, however, in view of the patient's comorbidities including CVA and hemiplegia, aphasia as well as history of schizophrenia and dementia, conservative management would be the gold standard. Continue aspirin and atorvastatin, start metoprolol 25mgpo bid. 2. DM, ASA and statins. 3. Hx of HTN, continue metoprolol, clonidine for breakthrough HTN. 4. CVA, continue ASA 5. Dementia 6. Seizure D/O Subjective Subjective Sinus bradycardia at rate of 51. No cardiac events. Objective Last 24 Hour Vital Signs Date Time Temp Pulse Resp B/P (MAP) Pulse Ox O2 Delivery O2 Flow Rate FiO2 06/25/18 20:18 Room Air 06/25/18 19:53 97.9 51 17 128/63 (84) 97 06/25/18 17:06 162/75 06/25/18 16:49 162/75 06/25/18 16:45 98.2 53 19 162/75 (104) 98 06/25/18 12:00 97.3 52 19 132/67 (88) 98 06/25/18 12:00 132/67 06/25/18 09:00 Room Air 06/25/18 08:25 97.3 50 19 131/56 (81) 98 06/25/18 05:30 154/71 06/25/18 04:00 97.3 50 19 154/71 (98) 98 Intake and Output 06/24/18 06/25/18 18:59 06:59 Intake Total 490 ml 895 ml Output Total 250 ml 700 ml Balance 240 ml 195 ml Intake Free Water 90 ml 250 ml Tube Feeding 400 ml 645 ml Output Urine Total 250 ml 700 ml # Voids 1 2D Echo: LVEF 55%, Mild MR, Grade I LVDD, RVSP 21 mmHg Laboratory Tests Test 06/25/18 05:15 Troponin I 0.035 ng/mL (0.000-0.056) Objective HEENT: Atraumatic and normocephalic. Anicteric. Bitemporal wasting. Pupils are equal, round, and reactive to light and accommodation. Extraocular muscles intact. NECK: JVP less than 5 cm. No carotid bruit. LUNGS: Diminished breath sounds on both sides. CARDIOVASCULAR: Regular rate and rhythm. Normal S1 and S2. No murmurs, gallops, or rubs. PMI is at fourth intercostal space at the midclavicular line. ABDOMEN: Soft, nontender, and nondistended. No hepatosplenomegaly. Presence of PEG tube over abdominal wall. EXTREMITIES: No evidence of edema, clubbing, or cyanosis. Pieter Mcfarland MD Jun 25, 2018 23:42
[2018-06-25] MEDS: Metoprolol 25mg tab ORAL SCH (23:45)
[2018-06-25 23:57] VITALS: BP 130/66
[2018-06-26 04:00] VITALS: BP 146/66
[2018-06-26] MEDS: NovoLOG Insulin Flexpen SUBQ SCH ×5 (05:27→23:53)
--- NOTE | 2018-06-26 07:23 | NUR ---
HAND-OFF: Report given to SHELLEY Duron.
--- NOTE | 2018-06-26 07:24 | NUR ---
NURSE NOTES: Pt awake responded to life insurance underwriter as she entered. Will be repositioned q2 hours for comfort and preventive measures. Call light in reach. Current plan of care will be followed
[2018-06-26 08:00] VITALS: BP 137/73
[2018-06-26] MEDS: Aspirin Baby 81mg GT SCH (08:37)
[2018-06-26] MEDS: Metoprolol 25mg tab ORAL SCH ×2 (08:38→20:32)
[2018-06-26] MEDS: levETIRAcetam 500mg/5ml Liquid GT SCH ×2 (08:39→20:32)
[2018-06-26] MEDS: Docusate 100mg/10ml Liq GT SCH ×3 (08:40→18:40)
[2018-06-26] MEDS: Heparin 5000 units/ml inj SUBQ SCH ×2 (08:40→20:32)
--- NOTE | 2018-06-26 09:19 | General Progress Note ---
Assessment/Plan Problem List: (1) Seizure disorder ICD Codes: G40.909 - Epilepsy, unspecified, not intractable, without status epilepticus SNOMED: 980661521 (2) Elevated troponin ICD Codes: R74.8 - Abnormal levels of other serum enzymes SNOMED: 377184835, 126810779, 377408529 (3) Dehydration ICD Codes: E86.0 - Dehydration SNOMED: 79579572 (4) HTN (hypertension) ICD Codes: I10 - Essential (primary) hypertension SNOMED: 19434963 (5) Feeding by G-tube ICD Codes: Z93.1 - Gastrostomy status SNOMED: 315587351, 686614004 (6) Electrolyte abnormality ICD Codes: E87.8 - Other disorders of electrolyte and fluid balance, not elsewhere classified SNOMED: 714308347 (7) COPD (chronic obstructive pulmonary disease) ICD Codes: J44.9 - Chronic obstructive pulmonary disease, unspecified SNOMED: 15544209 (8) Diabetes mellitus ICD Codes: E11.9 - Type 2 diabetes mellitus without complications SNOMED: 36634659 (9) SOB (shortness of breath) ICD Codes: R06.02 - Shortness of breath SNOMED: 205064565 (10) Renal insufficiency ICD Codes: N28.9 - Disorder of kidney and ureter, unspecified SNOMED: 150028913, 458368411 (11) Altered mental status ICD Codes: R41.82 - Altered mental status, unspecified SNOMED: 202760489 (12) Pneumonia ICD Codes: J18.9 - Pneumonia, unspecified organism SNOMED: 778162790 (13) History of CVA (cerebrovascular accident) ICD Codes: Z86.73 - Personal history of transient ischemic attack (TIA), and cerebral infarction without residual deficits SNOMED: 269171563 (14) Bacteremia ICD Codes: R78.81 - Bacteremia SNOMED: 5685475 (15) UTI (urinary tract infection) ICD Codes: N39.0 - Urinary tract infection, site not specified SNOMED: 95907974 (16) Bronchitis ICD Codes: J40 - Bronchitis, not specified as acute or chronic SNOMED: 06827114 (17) encephalopathy due to toxin Status: unchanged Assessment/Plan pt diet seizure control cbc bmp am Subjective Constitutional: Reports: weakness Allergies: Coded Allergies: No Known Allergies (Unverified , 09/03/17) All Systems: reviewed and negative except above Subjective sleepy calm Objective Last 24 Hour Vital Signs Date Time Temp Pulse Resp B/P (MAP) Pulse Ox O2 Delivery O2 Flow Rate FiO2 06/26/18 08:38 94 115/71 06/26/18 05:26 146/66 06/26/18 04:00 97.8 51 17 146/66 (92) 97 06/26/18 00:04 130/66 06/25/18 23:57 97.8 53 18 130/66 (87) 97 06/25/18 23:45 53 130/66 06/25/18 20:18 Room Air 06/25/18 19:53 97.9 51 17 128/63 (84) 97 06/25/18 17:06 162/75 06/25/18 16:49 162/75 06/25/18 16:45 98.2 53 19 162/75 (104) 98 06/25/18 12:00 97.3 52 19 132/67 (88) 98 06/25/18 12:00 132/67 Intake and Output 06/25/18 06/26/18 19:00 07:00 Intake Total 860 ml 780 ml Balance 860 ml 780 ml Intake Free Water 200 ml 120 ml Tube Feeding 660 ml 660 ml # Voids 4 3 Height (Feet): 5 Height (Inches): 8.00 Weight (Pounds): 162 General Appearance: lethargic EENT: normal ENT inspection Neck: normal alignment Cardiovascular: normal peripheral pulses, normal rate, regular rhythm Respiratory/Chest: chest wall non-tender, lungs clear, normal breath sounds Abdomen: normal bowel sounds, non tender, soft Extremities: normal inspection Edema: no edema noted Arm (L), no edema noted Arm (R), no edema noted Leg (L), no edema noted Leg (R), no edema noted Pedal (L), no edema noted Pedal (R), no edema noted Generalized Neurologic: motor weakness Skin: normal pigmentation, warm/dry Stuart New DO Jun 26, 2018 09:19
--- NOTE | 2018-06-26 10:50 | Nephrology Progress Note ---
Assessment/Plan Problem List: (1) Seizure (2) Dehydration (3) HTN (hypertension) (4) Feeding by G-tube (5) Elevated troponin (6) Electrolyte abnormality Assessment Sz Right paralysis , h/o CVA PEG Hyponatremia elevated troponin clinical dehydration elevated troponin Plan labs reviewed Venofer one time given Dapakote Dced and Keppra increased by Psych. isordil, ASA , med surg DC planning Subjective ROS Limited/Unobtainable: No Objective Objective Last 24 Hour Vital Signs Date Time Temp Pulse Resp B/P (MAP) Pulse Ox O2 Delivery O2 Flow Rate FiO2 06/26/18 08:38 94 115/71 06/26/18 05:26 146/66 06/26/18 04:00 97.8 51 17 146/66 (92) 97 06/26/18 00:04 130/66 06/25/18 23:57 97.8 53 18 130/66 (87) 97 06/25/18 23:45 53 130/66 06/25/18 20:18 Room Air 06/25/18 19:53 97.9 51 17 128/63 (84) 97 06/25/18 17:06 162/75 06/25/18 16:49 162/75 06/25/18 16:45 98.2 53 19 162/75 (104) 98 06/25/18 12:00 97.3 52 19 132/67 (88) 98 06/25/18 12:00 132/67 Intake and Output 06/25/18 06/26/18 19:00 07:00 Intake Total 860 ml 780 ml Balance 860 ml 780 ml Intake Free Water 200 ml 120 ml Tube Feeding 660 ml 660 ml # Voids 4 3 Height (Feet): 5 Height (Inches): 8.00 Weight (Pounds): 162 General Appearance: no apparent distress Objective no change Odilon Carroll MD Jun 26, 2018 10:50
[2018-06-26 12:00] VITALS: BP 147/93
--- NOTE | 2018-06-26 15:55 | Pulmonology Progress Note ---
Assessment/Plan Problems: (1) COPD (chronic obstructive pulmonary disease) (2) Seizure disorder (3) Feeding by G-tube (4) History of CVA (cerebrovascular accident) (5) Altered mental status (6) Diabetes mellitus Assessment/Plan doing better no new complains symptomatic treatment monitor BP check electrolytes aspiration precaution seizure precaution Subjective ROS Limited/Unobtainable: No Constitutional: Reports: no symptoms HEENT: Repors: no symptoms Respiratory: Reports: no symptoms Allergies: Coded Allergies: No Known Allergies (Unverified , 09/03/17) Objective Last 24 Hour Vital Signs Date Time Temp Pulse Resp B/P (MAP) Pulse Ox O2 Delivery O2 Flow Rate FiO2 06/26/18 14:59 147/77 06/26/18 12:00 97.0 80 20 147/93 (111) 97 06/26/18 09:00 Room Air 06/26/18 08:38 94 115/71 06/26/18 08:00 97.7 80 20 137/73 (94) 06/26/18 05:26 146/66 06/26/18 04:00 97.8 51 17 146/66 (92) 97 06/26/18 00:04 130/66 06/25/18 23:57 97.8 53 18 130/66 (87) 97 06/25/18 23:45 53 130/66 06/25/18 20:18 Room Air 06/25/18 19:53 97.9 51 17 128/63 (84) 97 06/25/18 17:06 162/75 06/25/18 16:49 162/75 06/25/18 16:45 98.2 53 19 162/75 (104) 98 Intake and Output 06/25/18 06/26/18 19:00 07:00 Intake Total 860 ml 780 ml Balance 860 ml 780 ml Intake Free Water 200 ml 120 ml Tube Feeding 660 ml 660 ml # Voids 4 3 General Appearance: WD/WN HEENT: normocephalic, atraumatic Respiratory/Chest: chest wall non-tender, lungs clear Cardiovascular: normal peripheral pulses, regular rhythm Abdomen: normal bowel sounds Genitourinary: normal external genitalia Extremities: no cyanosis Skin: no rash Current Medications Medications (Trade) Dose Ordered Sig/Christian Route PRN Reason Start Time Stop Time Status Last Admin Dose Admin Acetaminophen (Tylenol) 650 mg Q4H PRN GT Mild Pain/Temp > 100.5 06/24/18 21:30 07/21/18 13:29 06/26/18 08:49 Aspirin (ASA) 81 mg DAILY GT 06/25/18 09:00 07/22/18 08:59 06/26/18 08:37 Atorvastatin Calcium (Lipitor) 10 mg BEDTIME GT 06/24/18 21:00 07/21/18 20:59 06/25/18 20:56 Baclofen (Lioresal) 5 mg Q6HR GT 06/25/18 00:00 07/21/18 17:59 06/26/18 15:01 Clonidine HCl (Catapres Tab) 0.1 mg Q8H PRN GT For High Blood Pressure 06/24/18 21:30 07/21/18 13:29 Dextrose (Dextrose 50%) 25 ml Q30M PRN IV Hypoglycemia 06/24/18 19:00 07/21/18 13:59 Dextrose (Dextrose 50%) 50 ml Q30M PRN IV Hypoglycemia 06/24/18 19:00 07/21/18 13:59 Docusate Sodium (Colace) 100 mg TID GT 06/25/18 09:00 07/21/18 17:59 06/26/18 14:59 Famotidine (Pepcid) 20 mg BID GT 06/25/18 09:00 07/21/18 17:59 06/26/18 08:37 Heparin Sodium (Porcine) (Heparin 5000 units/ml) 5,000 units EVERY 12 HOURS SUBQ 06/24/18 21:00 07/21/18 20:59 06/25/18 08:44 Insulin Aspart (NovoLOG) Q6HR SUBQ 06/25/18 00:00 07/21/18 17:59 Isosorbide Dinitrate (Isordil) 10 mg Q6HR GT 06/25/18 00:00 07/22/18 17:59 06/26/18 14:59 Levetiracetam (Keppra) 1,000 mg Q12HR GT 06/24/18 21:00 07/22/18 20:59 06/26/18 08:39 Lorazepam (Ativan 2mg/ml 1ml) 1 mg Q4H PRN IV For agitation 06/24/18 19:00 06/28/18 14:58 Metoprolol Tartrate (Lopressor) 25 mg Q12HR ORAL 06/25/18 23:45 07/25/18 23:44 06/26/18 08:38 Mirtazapine (Remeron) 15 mg BEDTIME GT 06/24/18 21:00 07/22/18 20:59 06/25/18 20:56 Nitroglycerin (Ntg) 1 patch Q24H TDERMAL 06/25/18 16:00 07/21/18 15:59 06/25/18 16:49 Elder Kumar MD Jun 26, 2018 15:54
[2018-06-26 16:00] VITALS: BP 147/79
--- NOTE | 2018-06-26 16:30 | NUR ---
NURSE NOTES: All anticipated needs required to be met pt is total pt. Able to answer simple questions. Hydrated via gtube , Gtube patent no residual, and functioning. Current paln of care will be followed
[2018-06-26] MEDS: Nitroglycerin Patch 0.4mg TDERMAL SCH (18:40)
--- NOTE | 2018-06-26 19:30 | NUR ---
HAND-OFF: Report given to MICKEY ROSA.
--- NOTE | 2018-06-26 19:40 | NUR ---
NURSE NOTES: Received patient awake,verbal,follows simple command,bedridden,tolerating his g-tube feeding well.
[2018-06-26 20:00] VITALS: BP 130/61
--- NOTE | 2018-06-26 22:16 | General Progress Note ---
Assessment/Plan Assessment/Plan Assessment and Recs: # Lymphocytosis -- with elevated lymphocyte percentage, potentially reactive process versus from seizure d/o, recent breakthrough seizure --> smear has been ordered, cbc reordered at this time --> flow cytometry consider to send only if lymphocytosis continues to persist # Anemia of chronic disease -- mild closely monitor --> 9.5-->8.3-->6.7-->7.2 # Seizure disorder - on keppra continue at this time --> appreciate neuro recs # Elevated troponin - as per cards # Nonverbal status -- at baseline # s/p peg --->tolerating feeding well Appreciate consultation greatly! Subjective Constitutional: Denies: no symptoms, chills, diaphoresis, fever, malaise, weakness, other HEENT: Denies: no symptoms, eye pain, blurred vision, tearing, double vision, ear pain, ear discharge, nose pain, nose congestion, throat pain, throat swelling, mouth pain, mouth swelling, other Cardiovascular: Denies: no symptoms, chest pain, edema, irregular heart rate, lightheadedness, palpitations, syncope, other Respiratory: Denies: no symptoms, cough, orthopnea, shortness of breath, SOB with excertion, SOB at rest, sputum, stridor, wheezing, other Gastrointestinal/Abdominal: Denies: no symptoms, abdomen distended, abdominal pain, black stools, tarry stools, blood in stool, constipated, diarrhea, difficulty swallowing, nausea, poor appetite, poor fluid intake, rectal bleeding , vomiting, other Genitourinary: Denies: no symptoms, burning, discharge, frequency, flank pain, hematuria, incontinence, pain, urgency, other Neurologic/Psychiatric: Denies: no symptoms, anxiety, depressed, emotional problems, headache, numbness, paresthesia, pre-existing deficit, seizure, tingling, tremors, weakness, other Endocrine: Denies: no symptoms, excessive sweating, flushing, intolerance to cold, intolerance to heat, increased hunger, increased thirst, increased urine, unexplained weight gain, unexplained weight loss, other Hematologic/Lymphatic: Denies: no symptoms, anemia, easy bleeding, easy bruising, other Allergies: Coded Allergies: No Known Allergies (Unverified , 09/03/17) Subjective 06/24/18: pt is seen in the room, resting in bed, on G tube, Elevated troponin I level, could be due to seizure activity or [id number], platelet count is low at 143 06/25: Patient in bed, awake, nonverbal, on GT, pending cbc results 06/26/18: Pt is seen by bedside, awake and resting, on GT, tolerating feeding well , pending labs, no acute distress reported by staff. Objective Last 24 Hour Vital Signs Date Time Temp Pulse Resp B/P (MAP) Pulse Ox O2 Delivery O2 Flow Rate FiO2 06/26/18 20:32 49 130/61 06/26/18 20:17 Room Air 06/26/18 20:00 97.5 49 18 130/61 (84) 100 06/26/18 18:41 147/93 06/26/18 18:40 147/93 06/26/18 16:00 98.9 80 16 147/79 (101) 97 06/26/18 14:59 147/77 06/26/18 12:00 97.0 80 20 147/93 (111) 97 06/26/18 09:00 Room Air 06/26/18 08:38 94 115/71 06/26/18 08:00 97.7 80 20 137/73 (94) 06/26/18 05:26 146/66 06/26/18 04:00 97.8 51 17 146/66 (92) 97 06/26/18 00:04 130/66 06/25/18 23:57 97.8 53 18 130/66 (87) 97 06/25/18 23:45 53 130/66 Intake and Output 06/25/18 06/26/18 19:00 07:00 Intake Total 860 ml 780 ml Balance 860 ml 780 ml Intake Free Water 200 ml 120 ml Tube Feeding 660 ml 660 ml # Voids 4 3 Height (Feet): 5 Height (Inches): 8.00 Weight (Pounds): 162 Objective General Appearance: no apparent distress, reviewed Head: normocephalic, atraumatic Eyes: bilateral eye PERRL, bilateral eye EOMI ENT: dry mucus membranes Neck: supple Respiratory: lungs clear, no retraction, no accessory muscle use Cardiovascular: regular rate, rhythm Gastrointestinal: non tender, soft ++ peg, GT Musculoskeletal: other - Chronically debilitated Neurologic: responsive - Has eyes open, not following commands Skin: normal color Lymphatic: no adenopathy Timothy Petit MD Jun 26, 2018 22:16
[2018-06-26 23:50] VITALS: BP 129/63
--- NOTE | 2018-06-26 23:57 | Cardiology Progress Note ---
Assessment/Plan Assessment/Plan 1. Elevated troponin I level in this patient, could be due to seizure activity or [id number] myocardial infarction, type II, however, in view of the patient's comorbidities including CVA and hemiplegia, aphasia as well as history of schizophrenia and dementia, conservative management would be the gold standard. Continue aspirin and atorvastatin, start metoprolol 25mgpo bid. 2. DM, ASA and statins. 3. Hx of HTN, continue metoprolol, clonidine for breakthrough HTN. 4. CVA, continue ASA 5. Dementia 6. Seizure D/O Subjective Subjective Transferred to the med-surg unit. No cardiac events. Objective Last 24 Hour Vital Signs Date Time Temp Pulse Resp B/P (MAP) Pulse Ox O2 Delivery O2 Flow Rate FiO2 06/26/18 23:50 97.8 47 18 129/63 (85) 95 06/26/18 20:32 49 130/61 06/26/18 20:17 Room Air 06/26/18 20:00 97.5 49 18 130/61 (84) 100 06/26/18 18:41 147/93 06/26/18 18:40 147/93 06/26/18 16:00 98.9 80 16 147/79 (101) 97 06/26/18 14:59 147/77 06/26/18 12:00 97.0 80 20 147/93 (111) 97 06/26/18 09:00 Room Air 06/26/18 08:38 94 115/71 06/26/18 08:00 97.7 80 20 137/73 (94) 06/26/18 05:26 146/66 06/26/18 04:00 97.8 51 17 146/66 (92) 97 06/26/18 00:04 130/66 06/25/18 23:57 97.8 53 18 130/66 (87) 97 Intake and Output 06/25/18 06/26/18 18:59 06:59 Intake Total 860 ml 780 ml Balance 860 ml 780 ml Intake Free Water 200 ml 120 ml Tube Feeding 660 ml 660 ml # Voids 4 3 2D Echo: LVEF 55%, Mild MR, Grade I LVDD, RVSP 21 mmHg Objective HEENT: Atraumatic and normocephalic. Anicteric. Bitemporal wasting. Pupils are equal, round, and reactive to light and accommodation. Extraocular muscles intact. NECK: JVP less than 5 cm. No carotid bruit. LUNGS: Diminished breath sounds on both sides. CARDIOVASCULAR: Regular rate and rhythm. Normal S1 and S2. No murmurs, gallops, or rubs. PMI is at fourth intercostal space at the midclavicular line. ABDOMEN: Soft, nontender, and nondistended. No hepatosplenomegaly. Presence of PEG tube. EXTREMITIES: No evidence of edema, clubbing, or cyanosis. Pieter Mcfarland MD Jun 26, 2018 23:57
[2018-06-27 04:00] VITALS: BP 151/71
[2018-06-27] MEDS: NovoLOG Insulin Flexpen SUBQ SCH ×3 (06:00→18:50)
--- NOTE | 2018-06-27 07:29 | NUR ---
HAND-OFF: Report given to SHELLEY Claire.
--- NOTE | 2018-06-27 07:35 | NUR ---
NURSE NOTES: Patient received resting in bed. Breathing unlabored on room air. No s/s of respiratory distress observed. G-tube dressing clean, dry and intact. IV site on left forearm noted to be clean, dry and intact. No s/s of pain or discomfort noted. Seizure precautions maintained, padded rails. Bed locked and set in low position. Call light within reach, will continue to monitor.
[2018-06-27 07:37] LABS: BASOPHILS % (AUTO) 0.8 % (0.0-2.0); EOSINOPHILS % (AUTO) 1.6 % (0.0-3.0); HEMOGLOBIN 13.7 G/DL (14.2-18.0); LYMPHOCYTES % (AUTO) 42.6 % (20.0-45.0); MEAN CORPUSCULAR VOLUME 84 FL (80-99); MONOCYTES % (AUTO) 6.8 % (1.0-10.0); NEUTROPHILS % (AUTO) 48.1 % (45.0-75.0); PLATELET COUNT 185 K/UL (150-450); RED BLOOD COUNT 5.11 M/UL (4.70-6.10); RED CELL DISTRIBUTION WIDTH 12.6 % (11.6-14.8); WHITE BLOOD COUNT 6.9 K/UL (4.8-10.8)
[2018-06-27 07:49] LABS: ANION GAP 8 mmol/L (5-15); BLOOD UREA NITROGEN 22 mg/dL (7-18); CARBON DIOXIDE 28 MMOL/L (21-32); CHLORIDE 104 MMOL/L (98-107); CREATININE 1.1 MG/DL (0.55-1.30); POTASSIUM 4.3 MMOL/L (3.5-5.1); SODIUM 139 MMOL/L (136-145)
[2018-06-27 08:00] VITALS: BP 145/71
--- NOTE | 2018-06-27 08:04 | General Progress Note ---
Assessment/Plan Assessment/Plan Assessment and Recs: # Lymphocytosis -- with elevated lymphocyte percentage, potentially reactive process versus from seizure d/o, recent breakthrough seizure --> smear has been ordered, current wbc better --> flow cytometry consider to send only if lymphocytosis continues to persist --> CBC MANUAL ordered # Anemia of chronic disease -- mild closely monitor --> 9.5-->8.3-->6.7-->7.2 # Seizure disorder - on keppra continue at this time --> appreciate neuro recs # Elevated troponin - as per cards # Nonverbal status -- at baseline # s/p peg --->tolerating feeding well Appreciate consultation greatly! Subjective Constitutional: Denies: no symptoms, chills, diaphoresis, fever, malaise, weakness, other HEENT: Denies: no symptoms, eye pain, blurred vision, tearing, double vision, ear pain, ear discharge, nose pain, nose congestion, throat pain, throat swelling, mouth pain, mouth swelling, other Cardiovascular: Denies: no symptoms, chest pain, edema, irregular heart rate, lightheadedness, palpitations, syncope, other Respiratory: Denies: no symptoms, cough, orthopnea, shortness of breath, SOB with excertion, SOB at rest, sputum, stridor, wheezing, other Gastrointestinal/Abdominal: Denies: no symptoms, abdomen distended, abdominal pain, black stools, tarry stools, blood in stool, constipated, diarrhea, difficulty swallowing, nausea, poor appetite, poor fluid intake, rectal bleeding , vomiting, other Genitourinary: Denies: no symptoms, burning, discharge, frequency, flank pain, hematuria, incontinence, pain, urgency, other Neurologic/Psychiatric: Denies: no symptoms, anxiety, depressed, emotional problems, headache, numbness, paresthesia, pre-existing deficit, seizure, tingling, tremors, weakness, other Endocrine: Denies: no symptoms, excessive sweating, flushing, intolerance to cold, intolerance to heat, increased hunger, increased thirst, increased urine, unexplained weight gain, unexplained weight loss, other Allergies: Coded Allergies: No Known Allergies (Unverified , 09/03/17) Subjective 06/24/18: pt is seen in the room, resting in bed, on G tube, Elevated troponin I level, could be due to seizure activity or [id number], platelet count is low at 143 06/25/18: Patient in bed, awake, nonverbal, on GT, pending cbc results 06/26/18: Pt is seen by bedside, awake and resting, on GT, tolerating feeding well , pending labs, no acute distress reported by staff. 06/27/18: gtube feedings tolerating well, no chills/fevers Objective Last 24 Hour Vital Signs Date Time Temp Pulse Resp B/P (MAP) Pulse Ox O2 Delivery O2 Flow Rate FiO2 06/27/18 06:09 151/71 06/27/18 04:00 97.7 47 18 151/71 (97) 96 06/27/18 00:00 129/63 06/26/18 23:50 97.8 47 18 129/63 (85) 95 06/26/18 20:32 49 130/61 06/26/18 20:17 Room Air 06/26/18 20:00 97.5 49 18 130/61 (84) 100 06/26/18 18:41 147/93 06/26/18 18:40 147/93 06/26/18 16:00 98.9 80 16 147/79 (101) 97 06/26/18 14:59 147/77 06/26/18 12:00 97.0 80 20 147/93 (111) 97 06/26/18 09:00 Room Air 06/26/18 08:38 94 115/71 Intake and Output 06/26/18 06/27/18 18:59 06:59 Intake Total 55 ml 780 ml Balance 55 ml 780 ml Intake Free Water 120 ml Tube Feeding 55 ml 660 ml # Voids 2 5 Laboratory Tests 06/27/18 07:15: White Blood Count 6.9, Red Blood Count 5.11, Hemoglobin 13.7L, Hematocrit 43.0, Mean Corpuscular Volume 84, Mean Corpuscular Hemoglobin 26.8L, Mean Corpuscular Hemoglobin Concent 31.9L, Red Cell Distribution Width 12.6, Platelet Count 185, Mean Platelet Volume 9.3, Neutrophils (%) (Auto) 48.1, Lymphocytes (%) (Auto) 42.6, Monocytes (%) (Auto) 6.8, Eosinophils (%) (Auto) 1.6, Basophils (%) (Auto ) 0.8, Sodium Level 139, Potassium Level 4.3, Chloride Level 104, Carbon Dioxide Level 28, Anion Gap 8, Blood Urea Nitrogen 22H, Creatinine 1.1, Estimat Glomerular Filtration Rate > 60, Glucose Level 111H, Calcium Level 9.0 Height (Feet): 5 Height (Inches): 8.00 Weight (Pounds): 162 Objective General: no apparent distress, reviewed Head: normocephalic, atraumatic Eyes: bilateral eye PERRL, bilateral eye EOMI ENT: dry mucus membranes Neck: supple Respiratory: ctab, no cwr Cardiovascular: rrr Gastrointestinal: non tender, soft ++ peg, GT Musculoskeletal: other - Chronically debilitated Neurologic: responsive - Has eyes open, not following commands Skin: normal color Lymphatic: no adenopathy Timothy Petit MD Jun 27, 2018 08:04
[2018-06-27] MEDS: Aspirin Baby 81mg GT SCH (09:23)
[2018-06-27] MEDS: Metoprolol 25mg tab ORAL SCH (09:24)
[2018-06-27] MEDS: Docusate 100mg/10ml Liq GT SCH ×3 (09:24→17:17)
[2018-06-27] MEDS: levETIRAcetam 500mg/5ml Liquid GT SCH ×2 (09:24→20:46)
[2018-06-27] MEDS: Heparin 5000 units/ml inj SUBQ SCH ×2 (09:27→20:47)
--- NOTE | 2018-06-27 11:11 | Nephrology Progress Note ---
Assessment/Plan Problem List: (1) Seizure (2) Dehydration (3) HTN (hypertension) (4) Feeding by G-tube (5) Elevated troponin (6) Electrolyte abnormality Assessment Sz Right paralysis , h/o CVA PEG Hyponatremia elevated troponin clinical dehydration elevated troponin Plan adjust BP meds for low HR labs reviewed Venofer one time given [place] Dced and Keppra increased by Psych. isordil, ASA , med surg DC planning Subjective ROS Limited/Unobtainable: No Constitutional: Reports: malaise Objective Objective Last 24 Hour Vital Signs Date Time Temp Pulse Resp B/P (MAP) Pulse Ox O2 Delivery O2 Flow Rate FiO2 06/27/18 09:24 47 151/71 06/27/18 09:00 Room Air 06/27/18 08:00 98.1 59 18 145/71 (95) 97 06/27/18 06:09 151/71 06/27/18 04:00 97.7 47 18 151/71 (97) 96 06/27/18 00:00 129/63 06/26/18 23:50 97.8 47 18 129/63 (85) 95 06/26/18 20:32 49 130/61 06/26/18 20:17 Room Air 06/26/18 20:00 97.5 49 18 130/61 (84) 100 06/26/18 18:41 147/93 06/26/18 18:40 147/93 06/26/18 16:00 98.9 80 16 147/79 (101) 97 06/26/18 14:59 147/77 06/26/18 12:00 97.0 80 20 147/93 (111) 97 Intake and Output 06/26/18 06/27/18 19:00 07:00 Intake Total 55 ml 780 ml Balance 55 ml 780 ml Intake Free Water 120 ml Tube Feeding 55 ml 660 ml # Voids 2 5 Current Medications Medications (Trade) Dose Ordered Sig/Christian Route PRN Reason Start Time Stop Time Status Last Admin Dose Admin Acetaminophen (Tylenol) 650 mg Q4H PRN GT Mild Pain/Temp > 100.5 06/24/18 21:30 07/21/18 13:29 06/26/18 08:49 Aspirin (ASA) 81 mg DAILY GT 06/25/18 09:00 07/22/18 08:59 06/27/18 09:23 Atorvastatin Calcium (Lipitor) 10 mg BEDTIME GT 06/24/18 21:00 07/21/18 20:59 06/26/18 20:32 Baclofen (Lioresal) 5 mg Q6HR GT 06/25/18 00:00 07/21/18 17:59 06/27/18 06:09 Clonidine HCl (Catapres Tab) 0.1 mg Q8H PRN GT For High Blood Pressure 06/24/18 21:30 07/21/18 13:29 Dextrose (Dextrose 50%) 25 ml Q30M PRN IV Hypoglycemia 06/24/18 19:00 07/21/18 13:59 Dextrose (Dextrose 50%) 50 ml Q30M PRN IV Hypoglycemia 06/24/18 19:00 07/21/18 13:59 Docusate Sodium (Colace) 100 mg TID GT 06/25/18 09:00 07/21/18 17:59 06/27/18 09:24 Famotidine (Pepcid) 20 mg BID GT 06/25/18 09:00 07/21/18 17:59 06/27/18 09:23 Heparin Sodium (Porcine) (Heparin 5000 units/ml) 5,000 units EVERY 12 HOURS SUBQ 06/24/18 21:00 07/21/18 20:59 06/27/18 09:27 Insulin Aspart (NovoLOG) Q6HR SUBQ 06/25/18 00:00 07/21/18 17:59 Isosorbide Dinitrate (Isordil) 10 mg Q6HR GT 06/25/18 00:00 07/22/18 17:59 06/27/18 06:09 Levetiracetam (Keppra) 1,000 mg Q12HR GT 06/24/18 21:00 07/22/18 20:59 06/27/18 09:24 Lorazepam (Ativan 2mg/ml 1ml) 1 mg Q4H PRN IV For agitation 06/24/18 19:00 06/28/18 14:58 Metoprolol Tartrate (Lopressor) 25 mg Q12HR ORAL 06/25/18 23:45 07/25/18 23:44 06/27/18 09:24 Mirtazapine (Remeron) 15 mg BEDTIME GT 06/24/18 21:00 07/22/18 20:59 06/26/18 20:32 Nitroglycerin (Ntg) 1 patch Q24H TDERMAL 06/25/18 16:00 07/21/18 15:59 06/26/18 18:40 Laboratory Tests 06/27/18 07:15: White Blood Count 6.9, Red Blood Count 5.11, Hemoglobin 13.7L, Hematocrit 43.0, Mean Corpuscular Volume 84, Mean Corpuscular Hemoglobin 26.8L, Mean Corpuscular Hemoglobin Concent 31.9L, Red Cell Distribution Width 12.6, Platelet Count 185, Mean Platelet Volume 9.3, Neutrophils (%) (Auto) 48.1, Lymphocytes (%) (Auto) 42.6, Monocytes (%) (Auto) 6.8, Eosinophils (%) (Auto) 1.6, Basophils (%) (Auto ) 0.8, Sodium Level 139, Potassium Level 4.3, Chloride Level 104, Carbon Dioxide Level 28, Anion Gap 8, Blood Urea Nitrogen 22H, Creatinine 1.1, Estimat Glomerular Filtration Rate > 60, Glucose Level 111H, Calcium Level 9.0 Height (Feet): 5 Height (Inches): 8.00 Weight (Pounds): 162 General Appearance: no apparent distress Cardiovascular: bradycardia Respiratory/Chest: decreased breath sounds Abdomen: soft Objective no change Odilon Carroll MD Jun 27, 2018 11:11
[2018-06-27] MEDS ORDERED: HydrALAZINE 25mg tab ORAL PRN (11:15)
[2018-06-27 12:00] VITALS: BP 143/78
--- NOTE | 2018-06-27 12:48 | General Progress Note ---
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 the pt tolerating Keppra . the pt is stable and no behavioral issues Objective Last 24 Hour Vital Signs Date Time Temp Pulse Resp B/P (MAP) Pulse Ox O2 Delivery O2 Flow Rate FiO2 06/27/18 12:22 151/71 06/27/18 09:24 47 151/71 06/27/18 09:00 Room Air 06/27/18 08:00 98.1 59 18 145/71 (95) 97 06/27/18 06:09 151/71 06/27/18 04:00 97.7 47 18 151/71 (97) 96 06/27/18 00:00 129/63 06/26/18 23:50 97.8 47 18 129/63 (85) 95 06/26/18 20:32 49 130/61 06/26/18 20:17 Room Air 06/26/18 20:00 97.5 49 18 130/61 (84) 100 06/26/18 18:41 147/93 06/26/18 18:40 147/93 06/26/18 16:00 98.9 80 16 147/79 (101) 97 06/26/18 14:59 147/77 Intake and Output 06/26/18 06/27/18 19:00 07:00 Intake Total 55 ml 780 ml Balance 55 ml 780 ml Intake Free Water 120 ml Tube Feeding 55 ml 660 ml # Voids 2 5 Laboratory Tests 06/27/18 07:15: White Blood Count 6.9, Red Blood Count 5.11, Hemoglobin 13.7L, Hematocrit 43.0, Mean Corpuscular Volume 84, Mean Corpuscular Hemoglobin 26.8L, Mean Corpuscular Hemoglobin Concent 31.9L, Red Cell Distribution Width 12.6, Platelet Count 185, Mean Platelet Volume 9.3, Neutrophils (%) (Auto) 48.1, Lymphocytes (%) (Auto) 42.6, Monocytes (%) (Auto) 6.8, Eosinophils (%) (Auto) 1.6, Basophils (%) (Auto ) 0.8, Sodium Level 139, Potassium Level 4.3, Chloride Level 104, Carbon Dioxide Level 28, Anion Gap 8, Blood Urea Nitrogen 22H, Creatinine 1.1, Estimat Glomerular Filtration Rate > 60, Glucose Level 111H, Calcium Level 9.0 Height (Feet): 5 Height (Inches): 8.00 Weight (Pounds): 162 General Appearance: no apparent distress, alert, confused Mian Edmonds MD Jun 27, 2018 12:48
--- NOTE | 2018-06-27 13:07 | Pulmonology Progress Note ---
Assessment/Plan Problems: (1) Elevated troponin (2) Seizure disorder (3) History of CVA (cerebrovascular accident) (4) HTN (hypertension) (5) Feeding by G-tube Assessment/Plan doing better no new complains symptomatic treatment monitor BP check electrolytes aspiration precaution seizure precaution Subjective ROS Limited/Unobtainable: No Constitutional: Reports: no symptoms HEENT: Repors: no symptoms Respiratory: Reports: no symptoms Allergies: Coded Allergies: No Known Allergies (Unverified , 09/03/17) Objective Last 24 Hour Vital Signs Date Time Temp Pulse Resp B/P (MAP) Pulse Ox O2 Delivery O2 Flow Rate FiO2 06/27/18 12:22 151/71 06/27/18 09:24 47 151/71 06/27/18 09:00 Room Air 06/27/18 08:00 98.1 59 18 145/71 (95) 97 06/27/18 06:09 151/71 06/27/18 04:00 97.7 47 18 151/71 (97) 96 06/27/18 00:00 129/63 06/26/18 23:50 97.8 47 18 129/63 (85) 95 06/26/18 20:32 49 130/61 06/26/18 20:17 Room Air 06/26/18 20:00 97.5 49 18 130/61 (84) 100 06/26/18 18:41 147/93 06/26/18 18:40 147/93 06/26/18 16:00 98.9 80 16 147/79 (101) 97 06/26/18 14:59 147/77 Intake and Output 06/26/18 06/27/18 19:00 07:00 Intake Total 55 ml 780 ml Balance 55 ml 780 ml Intake Free Water 120 ml Tube Feeding 55 ml 660 ml # Voids 2 5 General Appearance: WD/WN HEENT: atraumatic Respiratory/Chest: chest wall non-tender, lungs clear Cardiovascular: normal peripheral pulses, normal rate Abdomen: normal bowel sounds, soft, non tender Genitourinary: normal external genitalia Extremities: no clubbing Skin: no rash Laboratory Tests 06/27/18 07:15: White Blood Count 6.9, Red Blood Count 5.11, Hemoglobin 13.7L, Hematocrit 43.0, Mean Corpuscular Volume 84, Mean Corpuscular Hemoglobin 26.8L, Mean Corpuscular Hemoglobin Concent 31.9L, Red Cell Distribution Width 12.6, Platelet Count 185, Mean Platelet Volume 9.3, Neutrophils (%) (Auto) 48.1, Lymphocytes (%) (Auto) 42.6, Monocytes (%) (Auto) 6.8, Eosinophils (%) (Auto) 1.6, Basophils (%) (Auto ) 0.8, Sodium Level 139, Potassium Level 4.3, Chloride Level 104, Carbon Dioxide Level 28, Anion Gap 8, Blood Urea Nitrogen 22H, Creatinine 1.1, Estimat Glomerular Filtration Rate > 60, Glucose Level 111H, Calcium Level 9.0 Current Medications Medications (Trade) Dose Ordered Sig/Christian Route PRN Reason Start Time Stop Time Status Last Admin Dose Admin Acetaminophen (Tylenol) 650 mg Q4H PRN GT Mild Pain/Temp > 100.5 06/24/18 21:30 07/21/18 13:29 06/26/18 08:49 Aspirin (ASA) 81 mg DAILY GT 06/25/18 09:00 07/22/18 08:59 06/27/18 09:23 Atorvastatin Calcium (Lipitor) 10 mg BEDTIME GT 06/24/18 21:00 07/21/18 20:59 06/26/18 20:32 Baclofen (Lioresal) 5 mg Q6HR GT 06/25/18 00:00 07/21/18 17:59 06/27/18 12:17 Dextrose (Dextrose 50%) 25 ml Q30M PRN IV Hypoglycemia 06/24/18 19:00 07/21/18 13:59 Dextrose (Dextrose 50%) 50 ml Q30M PRN IV Hypoglycemia 06/24/18 19:00 07/21/18 13:59 Docusate Sodium (Colace) 100 mg TID GT 06/25/18 09:00 07/21/18 17:59 06/27/18 12:17 Famotidine (Pepcid) 20 mg BID GT 06/25/18 09:00 07/21/18 17:59 06/27/18 09:23 Heparin Sodium (Porcine) (Heparin 5000 units/ml) 5,000 units EVERY 12 HOURS SUBQ 06/24/18 21:00 07/21/18 20:59 06/27/18 09:27 Hydralazine HCl (Apresoline) 25 mg Q4H PRN ORAL bp over 160 syst 06/27/18 11:15 07/27/18 11:14 Insulin Aspart (NovoLOG) Q6HR SUBQ 06/25/18 00:00 07/21/18 17:59 Isosorbide Dinitrate (Isordil) 10 mg Q6HR GT 06/25/18 00:00 07/22/18 17:59 06/27/18 12:22 Levetiracetam (Keppra) 1,000 mg Q12HR GT 06/24/18 21:00 07/22/18 20:59 06/27/18 09:24 Lorazepam (Ativan 2mg/ml 1ml) 1 mg Q4H PRN IV For agitation 06/24/18 19:00 06/28/18 14:58 Metoprolol Tartrate (Lopressor) 12.5 mg Q12HR ORAL 06/27/18 21:00 07/25/18 23:44 Mirtazapine (Remeron) 15 mg BEDTIME GT 06/24/18 21:00 07/22/18 20:59 06/26/18 20:32 Nitroglycerin (Ntg) 1 patch Q24H TDERMAL 06/25/18 16:00 07/21/18 15:59 06/26/18 18:40 Elder Kumar MD Jun 27, 2018 13:07
--- NOTE | 2018-06-27 13:30 | General Progress Note ---
Assessment/Plan Problem List: (1) Seizure disorder ICD Codes: G40.909 - Epilepsy, unspecified, not intractable, without status epilepticus SNOMED: 358939727 (2) Elevated troponin ICD Codes: R74.8 - Abnormal levels of other serum enzymes SNOMED: 254342333, 532126321, 847656501 (3) Dehydration ICD Codes: E86.0 - Dehydration SNOMED: 70415415 (4) HTN (hypertension) ICD Codes: I10 - Essential (primary) hypertension SNOMED: 84895224 (5) Feeding by G-tube ICD Codes: Z93.1 - Gastrostomy status SNOMED: 363140004, 571536013 (6) Electrolyte abnormality ICD Codes: E87.8 - Other disorders of electrolyte and fluid balance, not elsewhere classified SNOMED: 777391650 (7) COPD (chronic obstructive pulmonary disease) ICD Codes: J44.9 - Chronic obstructive pulmonary disease, unspecified SNOMED: 65759919 (8) Diabetes mellitus ICD Codes: E11.9 - Type 2 diabetes mellitus without complications SNOMED: 00380218 (9) SOB (shortness of breath) ICD Codes: R06.02 - Shortness of breath SNOMED: 129864199 (10) Renal insufficiency ICD Codes: N28.9 - Disorder of kidney and ureter, unspecified SNOMED: 548734502, 727558556 (11) Altered mental status ICD Codes: R41.82 - Altered mental status, unspecified SNOMED: 563016971 (12) Pneumonia ICD Codes: J18.9 - Pneumonia, unspecified organism SNOMED: 023881768 (13) History of CVA (cerebrovascular accident) ICD Codes: Z86.73 - Personal history of transient ischemic attack (TIA), and cerebral infarction without residual deficits SNOMED: 342739005 (14) Bacteremia ICD Codes: R78.81 - Bacteremia SNOMED: 8734395 (15) UTI (urinary tract infection) ICD Codes: N39.0 - Urinary tract infection, site not specified SNOMED: 71401075 (16) Bronchitis ICD Codes: J40 - Bronchitis, not specified as acute or chronic SNOMED: 83055850 (17) encephalopathy due to toxin Status: stable, progressing Assessment/Plan pt diet seizure control cbc bmp am Subjective Constitutional: Reports: weakness Allergies: Coded Allergies: No Known Allergies (Unverified , 09/03/17) All Systems: reviewed and negative except above Subjective sleepy calm Objective Last 24 Hour Vital Signs Date Time Temp Pulse Resp B/P (MAP) Pulse Ox O2 Delivery O2 Flow Rate FiO2 06/27/18 12:22 151/71 06/27/18 12:00 98.3 57 20 143/78 (99) 98 06/27/18 09:24 47 151/71 06/27/18 09:00 Room Air 06/27/18 08:00 98.1 59 18 145/71 (95) 97 06/27/18 06:09 151/71 06/27/18 04:00 97.7 47 18 151/71 (97) 96 06/27/18 00:00 129/63 06/26/18 23:50 97.8 47 18 129/63 (85) 95 06/26/18 20:32 49 130/61 06/26/18 20:17 Room Air 06/26/18 20:00 97.5 49 18 130/61 (84) 100 06/26/18 18:41 147/93 06/26/18 18:40 147/93 06/26/18 16:00 98.9 80 16 147/79 (101) 97 06/26/18 14:59 147/77 Intake and Output 06/26/18 06/27/18 19:00 07:00 Intake Total 55 ml 780 ml Balance 55 ml 780 ml Intake Free Water 120 ml Tube Feeding 55 ml 660 ml # Voids 2 5 Laboratory Tests 06/27/18 07:15: White Blood Count 6.9, Red Blood Count 5.11, Hemoglobin 13.7L, Hematocrit 43.0, Mean Corpuscular Volume 84, Mean Corpuscular Hemoglobin 26.8L, Mean Corpuscular Hemoglobin Concent 31.9L, Red Cell Distribution Width 12.6, Platelet Count 185, Mean Platelet Volume 9.3, Neutrophils (%) (Auto) 48.1, Lymphocytes (%) (Auto) 42.6, Monocytes (%) (Auto) 6.8, Eosinophils (%) (Auto) 1.6, Basophils (%) (Auto ) 0.8, Sodium Level 139, Potassium Level 4.3, Chloride Level 104, Carbon Dioxide Level 28, Anion Gap 8, Blood Urea Nitrogen 22H, Creatinine 1.1, Estimat Glomerular Filtration Rate > 60, Glucose Level 111H, Calcium Level 9.0 Height (Feet): 5 Height (Inches): 8.00 Weight (Pounds): 162 General Appearance: lethargic EENT: normal ENT inspection Neck: normal alignment Cardiovascular: normal peripheral pulses, normal rate, regular rhythm Respiratory/Chest: chest wall non-tender, lungs clear, normal breath sounds Abdomen: normal bowel sounds, non tender, soft Extremities: normal inspection Edema: no edema noted Arm (L), no edema noted Arm (R), no edema noted Leg (L), no edema noted Leg (R), no edema noted Pedal (L), no edema noted Pedal (R), no edema noted Generalized Neurologic: motor weakness Skin: normal pigmentation, warm/dry Stuart New DO Jun 27, 2018 13:30
[2018-06-27] MEDS: Nitroglycerin Patch 0.4mg TDERMAL SCH (15:30)
[2018-06-27 16:00] VITALS: BP 152/87
--- NOTE | 2018-06-27 16:31 | NUR ---
DISCHARGE PLANNING PATIENT IS FROM [facility] PER MD'S ORDER CLINICALS HAVE BEEN FAXED TO [facility]
--- NOTE | 2018-06-27 16:32 | NUR ---
CASE MANAGEMENT:REVIEW 06/27/18 SI: SEIZURE. DEHYDRATION 98.3 57 20 143/78 98% ON RA IS: NTG 1 PATCH Q24 LOPRESSOR GT Q12 ASA GT ISORDIL GT Q6HRS KEPPRA GT Q12 : MED/SURG STATUS DCP: FROM [facility]
--- NOTE | 2018-06-27 19:13 | NUR ---
HAND-OFF: Report given to Renae ROSA.
--- NOTE | 2018-06-27 19:30 | NUR ---
NURSE NOTES: Received patient awake,verbal,follows simple command,resting in bed,tolerating his g-tube feeding well.
[2018-06-27 20:00] VITALS: BP 123/57
[2018-06-27] MEDS: Metoprolol Tartrate 12.5mg TAB ORAL SCH (20:46)
--- NOTE | 2018-06-27 23:45 | Progress Note ---
DATE: 06/27/2018 INCOMPLETE DICTATION SUBJECTIVE: This is a 68-year-old male patient with seizure disorder. He continues to have some confusion, some disorganized thought process, and mood lability worsened by stress of his medical illness that is why his attending has requested daily psychiatric consultation. . Samuel Solorzano M.D. DR: Angela JOB#: [id number] CC:
[2018-06-28 00:30] VITALS: BP 138/57
[2018-06-28 04:25] VITALS: BP 146/63
[2018-06-28] MEDS: NovoLOG Insulin Flexpen SUBQ SCH ×5 (05:33→23:54)
--- NOTE | 2018-06-28 07:20 | NUR ---
HAND-OFF: Report given to Pushpa Corbett RN.
--- NOTE | 2018-06-28 07:36 | NUR ---
NURSE NOTES: Report received from SHELLEY Macdonald. Pt in bed asleep, arousable to voice stimulation, no apparent distress noted, G-Tube feeds running at 55ml/hr, respirations unlabored, call light within reach, bed in lowest position.
[2018-06-28 08:00] VITALS: BP 163/78
[2018-06-28] MEDS: Aspirin Baby 81mg GT SCH (09:24)
[2018-06-28] MEDS: levETIRAcetam 500mg/5ml Liquid GT SCH ×2 (09:25→21:20)
[2018-06-28] MEDS: Docusate 100mg/10ml Liq GT SCH ×3 (09:25→17:38)
[2018-06-28] MEDS: Metoprolol Tartrate 12.5mg TAB ORAL SCH ×2 (09:25→21:20)
[2018-06-28] MEDS: Heparin 5000 units/ml inj SUBQ SCH ×2 (09:26→21:23)
[2018-06-28 09:48] LABS: BASOPHILS % (AUTO) 0.8 % (0.0-2.0); EOSINOPHILS % (AUTO) 0.4 % (0.0-3.0); HEMATOCRIT 39.1 % (42.0-52.0); LYMPHOCYTES % (AUTO) 30.4 % (20.0-45.0); MEAN CORPUSCULAR VOLUME 82 FL (80-99); MONOCYTES % (AUTO) 8.8 % (1.0-10.0); NEUTROPHILS % (AUTO) 59.6 % (45.0-75.0); PLATELET COUNT 168 K/UL (150-450); RED BLOOD COUNT 4.74 M/UL (4.70-6.10); RED CELL DISTRIBUTION WIDTH 12.2 % (11.6-14.8); WHITE BLOOD COUNT 9.8 K/UL (4.8-10.8)
[2018-06-28 10:06] LABS: ANION GAP 7 mmol/L (5-15); BLOOD UREA NITROGEN 20 mg/dL (7-18); CALCIUM 8.8 MG/DL (8.5-10.1); CARBON DIOXIDE 26 MMOL/L (21-32); CHLORIDE 104 MMOL/L (98-107); POTASSIUM 4.1 MMOL/L (3.5-5.1); SODIUM 137 MMOL/L (136-145)
[2018-06-28 12:00] VITALS: BP_SYST 108; BP_SYST 127; BP_DIAS 65; BP_DIAS 69
--- NOTE | 2018-06-28 12:09 | General Progress Note ---
Assessment/Plan Problem List: (1) encephalopathy due to toxin (2) Seizure disorder ICD Codes: G40.909 - Epilepsy, unspecified, not intractable, without status epilepticus SNOMED: 087662131 Status: stable, progressing Assessment/Plan remeron 15mg qhs increase kepra 1000mg po bid dc cn Subjective Allergies: Coded Allergies: No Known Allergies (Unverified , 09/03/17) Subjective pt had no seizures today. the pt tolerating Keppra . the pt is stable no agitation. he is stable Objective Last 24 Hour Vital Signs Date Time Temp Pulse Resp B/P (MAP) Pulse Ox O2 Delivery O2 Flow Rate FiO2 06/28/18 09:25 59 163/78 06/28/18 09:00 Room Air 06/28/18 08:00 99.5 59 16 163/78 (106) 98 06/28/18 05:33 146/63 06/28/18 04:25 98.1 58 16 146/63 (90) 96 06/28/18 00:41 138/57 06/28/18 00:30 98.2 60 17 138/57 (84) 99 06/27/18 20:46 59 123/57 06/27/18 20:15 Room Air 06/27/18 20:00 97.3 59 16 123/57 (79) 100 06/27/18 17:18 151/71 06/27/18 16:00 102.0 63 20 152/87 (108) 100 06/27/18 15:30 151/71 06/27/18 12:22 151/71 Intake and Output 06/27/18 06/28/18 19:00 07:00 Intake Total 630 ml 780 ml Output Total 700 ml Balance -70 ml 780 ml Intake Free Water 80 ml 120 ml Tube Feeding 550 ml 660 ml Output Urine Total 700 ml Laboratory Tests 06/28/18 09:05: White Blood Count 9.8, Red Blood Count 4.74, Hemoglobin 13.0L, Hematocrit 39.1L , Mean Corpuscular Volume 82, Mean Corpuscular Hemoglobin 27.5, Mean Corpuscular Hemoglobin Concent 33.3, Red Cell Distribution Width 12.2, Platelet Count 168, Mean Platelet Volume 8.7, Neutrophils (%) (Auto) 59.6, Lymphocytes (% ) (Auto) 30.4, Monocytes (%) (Auto) 8.8, Eosinophils (%) (Auto) 0.4, Basophils ( %) (Auto) 0.8, Sodium Level 137, Potassium Level 4.1, Chloride Level 104, Carbon Dioxide Level 26, Anion Gap 7, Blood Urea Nitrogen 20H, Creatinine 1.0, Estimat Glomerular Filtration Rate > 60, Glucose Level 133H, Calcium Level 8.8 Height (Feet): 5 Height (Inches): 8.00 Weight (Pounds): 162 General Appearance: alert, confused Mian Edmonds MD Jun 28, 2018 12:09
--- NOTE | 2018-06-28 12:25 | NUR ---
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
--- NOTE | 2018-06-28 13:19 | Nephrology Progress Note ---
Assessment/Plan Problem List: (1) Seizure (2) Dehydration (3) HTN (hypertension) (4) Feeding by G-tube (5) Elevated troponin (6) Electrolyte abnormality Assessment Sz Right paralysis , h/o CVA PEG Hyponatremia elevated troponin clinical dehydration elevated troponin Plan adjust BP meds for low HR labs reviewed Venofer one time given [place]ote Dced and Keppra increased by Psych. isordil, ASA , med surg DC planning Subjective ROS Limited/Unobtainable: No Constitutional: Reports: malaise Objective Objective Last 24 Hour Vital Signs Date Time Temp Pulse Resp B/P (MAP) Pulse Ox O2 Delivery O2 Flow Rate FiO2 06/28/18 12:30 108/65 06/28/18 12:00 97.8 90 18 108/65 (79) 99 06/28/18 09:25 59 163/78 06/28/18 09:00 Room Air 06/28/18 08:00 99.5 59 16 163/78 (106) 98 06/28/18 05:33 146/63 06/28/18 04:25 98.1 58 16 146/63 (90) 96 06/28/18 00:41 138/57 06/28/18 00:30 98.2 60 17 138/57 (84) 99 06/27/18 20:46 59 123/57 06/27/18 20:15 Room Air 06/27/18 20:00 97.3 59 16 123/57 (79) 100 06/27/18 17:18 151/71 06/27/18 16:00 102.0 63 20 152/87 (108) 100 06/27/18 15:30 151/71 Intake and Output 06/27/18 06/28/18 19:00 07:00 Intake Total 630 ml 780 ml Output Total 700 ml Balance -70 ml 780 ml Intake Free Water 80 ml 120 ml Tube Feeding 550 ml 660 ml Output Urine Total 700 ml Laboratory Tests 06/28/18 09:05: White Blood Count 9.8, Red Blood Count 4.74, Hemoglobin 13.0L, Hematocrit 39.1L , Mean Corpuscular Volume 82, Mean Corpuscular Hemoglobin 27.5, Mean Corpuscular Hemoglobin Concent 33.3, Red Cell Distribution Width 12.2, Platelet Count 168, Mean Platelet Volume 8.7, Neutrophils (%) (Auto) 59.6, Lymphocytes (% ) (Auto) 30.4, Monocytes (%) (Auto) 8.8, Eosinophils (%) (Auto) 0.4, Basophils ( %) (Auto) 0.8, Sodium Level 137, Potassium Level 4.1, Chloride Level 104, Carbon Dioxide Level 26, Anion Gap 7, Blood Urea Nitrogen 20H, Creatinine 1.0, Estimat Glomerular Filtration Rate > 60, Glucose Level 133H, Calcium Level 8.8 Height (Feet): 5 Height (Inches): 8.00 Weight (Pounds): 162 General Appearance: no apparent distress Objective no change Odilon Carroll MD Jun 28, 2018 13:19
--- NOTE | 2018-06-28 13:53 | Pulmonology Progress Note ---
Assessment/Plan Problems: (1) COPD (chronic obstructive pulmonary disease) (2) Seizure disorder (3) Feeding by G-tube (4) History of CVA (cerebrovascular accident) (5) Altered mental status (6) Diabetes mellitus Assessment/Plan all reviewed doing better no new complains symptomatic treatment monitor BP check electrolytes aspiration precaution seizure precaution Subjective ROS Limited/Unobtainable: No Constitutional: Reports: no symptoms HEENT: Repors: no symptoms Allergies: Coded Allergies: No Known Allergies (Unverified , 09/03/17) Objective Last 24 Hour Vital Signs Date Time Temp Pulse Resp B/P (MAP) Pulse Ox O2 Delivery O2 Flow Rate FiO2 06/28/18 12:30 108/65 06/28/18 12:00 97.8 90 18 108/65 (79) 99 06/28/18 09:25 59 163/78 06/28/18 09:00 Room Air 06/28/18 08:00 99.5 59 16 163/78 (106) 98 06/28/18 05:33 146/63 06/28/18 04:25 98.1 58 16 146/63 (90) 96 06/28/18 00:41 138/57 06/28/18 00:30 98.2 60 17 138/57 (84) 99 06/27/18 20:46 59 123/57 06/27/18 20:15 Room Air 06/27/18 20:00 97.3 59 16 123/57 (79) 100 06/27/18 17:18 151/71 06/27/18 16:00 102.0 63 20 152/87 (108) 100 06/27/18 15:30 151/71 Intake and Output 06/27/18 06/28/18 19:00 07:00 Intake Total 630 ml 780 ml Output Total 700 ml Balance -70 ml 780 ml Intake Free Water 80 ml 120 ml Tube Feeding 550 ml 660 ml Output Urine Total 700 ml General Appearance: WD/WN HEENT: atraumatic Respiratory/Chest: chest wall non-tender, normal breath sounds Cardiovascular: normal peripheral pulses, normal rate Abdomen: normal bowel sounds, soft, non tender Genitourinary: normal external genitalia Extremities: no clubbing Skin: no lesions Laboratory Tests 06/28/18 09:05: White Blood Count 9.8, Red Blood Count 4.74, Hemoglobin 13.0L, Hematocrit 39.1L , Mean Corpuscular Volume 82, Mean Corpuscular Hemoglobin 27.5, Mean Corpuscular Hemoglobin Concent 33.3, Red Cell Distribution Width 12.2, Platelet Count 168, Mean Platelet Volume 8.7, Neutrophils (%) (Auto) 59.6, Lymphocytes (% ) (Auto) 30.4, Monocytes (%) (Auto) 8.8, Eosinophils (%) (Auto) 0.4, Basophils ( %) (Auto) 0.8, Sodium Level 137, Potassium Level 4.1, Chloride Level 104, Carbon Dioxide Level 26, Anion Gap 7, Blood Urea Nitrogen 20H, Creatinine 1.0, Estimat Glomerular Filtration Rate > 60, Glucose Level 133H, Calcium Level 8.8 Current Medications Medications (Trade) Dose Ordered Sig/Christian Route PRN Reason Start Time Stop Time Status Last Admin Dose Admin Acetaminophen (Tylenol) 650 mg Q4H PRN GT Mild Pain/Temp > 100.5 06/24/18 21:30 07/21/18 13:29 06/26/18 08:49 Aspirin (ASA) 81 mg DAILY GT 06/25/18 09:00 07/22/18 08:59 06/28/18 09:24 Atorvastatin Calcium (Lipitor) 10 mg BEDTIME GT 06/24/18 21:00 07/21/18 20:59 06/27/18 20:45 Baclofen (Lioresal) 5 mg Q6HR GT 06/25/18 00:00 07/21/18 17:59 06/28/18 12:31 Dextrose (Dextrose 50%) 25 ml Q30M PRN IV Hypoglycemia 06/24/18 19:00 07/21/18 13:59 Dextrose (Dextrose 50%) 50 ml Q30M PRN IV Hypoglycemia 06/24/18 19:00 07/21/18 13:59 Docusate Sodium (Colace) 100 mg TID GT 06/25/18 09:00 07/21/18 17:59 06/28/18 12:33 Famotidine (Pepcid) 20 mg BID GT 06/25/18 09:00 07/21/18 17:59 06/28/18 09:25 Heparin Sodium (Porcine) (Heparin 5000 units/ml) 5,000 units EVERY 12 HOURS SUBQ 06/24/18 21:00 07/21/18 20:59 06/28/18 09:26 Hydralazine HCl (Apresoline) 25 mg Q4H PRN ORAL bp over 160 syst 06/27/18 11:15 07/27/18 11:14 Insulin Aspart (NovoLOG) Q6HR SUBQ 06/25/18 00:00 07/21/18 17:59 06/28/18 12:32 Isosorbide Dinitrate (Isordil) 10 mg Q6HR GT 06/25/18 00:00 07/22/18 17:59 06/28/18 12:30 Levetiracetam (Keppra) 1,000 mg Q12HR GT 06/24/18 21:00 07/22/18 20:59 06/28/18 09:25 Lorazepam (Ativan 2mg/ml 1ml) 1 mg Q4H PRN IV For agitation 06/24/18 19:00 06/28/18 14:58 Metoprolol Tartrate (Lopressor) 12.5 mg Q12HR ORAL 06/27/18 21:00 07/25/18 23:44 06/28/18 09:25 Mirtazapine (Remeron) 15 mg BEDTIME GT 06/24/18 21:00 07/22/18 20:59 06/27/18 20:45 Nitroglycerin (Ntg) 1 patch Q24H TDERMAL 06/25/18 16:00 07/21/18 15:59 06/27/18 15:30 Elder Kumar MD Jun 28, 2018 13:53
--- NOTE | 2018-06-28 13:58 | NUR ---
BUSINESS INTELLIGENCE DEVELOPER NOTES PT CLINICALLY DECLINE FOR [facility] MD MADE AWARE.
--- NOTE | 2018-06-28 15:23 | General Progress Note ---
Assessment/Plan Problem List: (1) Seizure disorder ICD Codes: G40.909 - Epilepsy, unspecified, not intractable, without status epilepticus SNOMED: 060320218 (2) Elevated troponin ICD Codes: R74.8 - Abnormal levels of other serum enzymes SNOMED: 533506081, 905911157, 687037205 (3) Dehydration ICD Codes: E86.0 - Dehydration SNOMED: 07835337 (4) HTN (hypertension) ICD Codes: I10 - Essential (primary) hypertension SNOMED: 20575347 (5) Feeding by G-tube ICD Codes: Z93.1 - Gastrostomy status SNOMED: 660192611, 036330495 (6) Electrolyte abnormality ICD Codes: E87.8 - Other disorders of electrolyte and fluid balance, not elsewhere classified SNOMED: 758789474 (7) COPD (chronic obstructive pulmonary disease) ICD Codes: J44.9 - Chronic obstructive pulmonary disease, unspecified SNOMED: 98518180 (8) Diabetes mellitus ICD Codes: E11.9 - Type 2 diabetes mellitus without complications SNOMED: 41823435 (9) SOB (shortness of breath) ICD Codes: R06.02 - Shortness of breath SNOMED: 061287557 (10) Renal insufficiency ICD Codes: N28.9 - Disorder of kidney and ureter, unspecified SNOMED: 083253024, 410154776 (11) Altered mental status ICD Codes: R41.82 - Altered mental status, unspecified SNOMED: 575545698 (12) Pneumonia ICD Codes: J18.9 - Pneumonia, unspecified organism SNOMED: 412228817 (13) History of CVA (cerebrovascular accident) ICD Codes: Z86.73 - Personal history of transient ischemic attack (TIA), and cerebral infarction without residual deficits SNOMED: 689426359 (14) Bacteremia ICD Codes: R78.81 - Bacteremia SNOMED: 5463991 (15) UTI (urinary tract infection) ICD Codes: N39.0 - Urinary tract infection, site not specified SNOMED: 09393314 (16) Bronchitis ICD Codes: J40 - Bronchitis, not specified as acute or chronic SNOMED: 87298465 (17) encephalopathy due to toxin Status: stable, progressing Assessment/Plan pt diet seizure control cbc bmp am dc to [facility]ice[facility] Subjective Constitutional: Reports: weakness Allergies: Coded Allergies: No Known Allergies (Unverified , 09/03/17) All Systems: reviewed and negative except above Subjective sleepy calm Objective Last 24 Hour Vital Signs Date Time Temp Pulse Resp B/P (MAP) Pulse Ox O2 Delivery O2 Flow Rate FiO2 06/28/18 12:30 108/65 06/28/18 12:00 97.8 90 18 108/65 (79) 99 06/28/18 09:25 59 163/78 06/28/18 09:00 Room Air 06/28/18 08:00 99.5 59 16 163/78 (106) 98 06/28/18 05:33 146/63 06/28/18 04:25 98.1 58 16 146/63 (90) 96 06/28/18 00:41 138/57 06/28/18 00:30 98.2 60 17 138/57 (84) 99 06/27/18 20:46 59 123/57 06/27/18 20:15 Room Air 06/27/18 20:00 97.3 59 16 123/57 (79) 100 06/27/18 17:18 151/71 06/27/18 16:00 102.0 63 20 152/87 (108) 100 06/27/18 15:30 151/71 Intake and Output 06/27/18 06/28/18 19:00 07:00 Intake Total 630 ml 780 ml Output Total 700 ml Balance -70 ml 780 ml Intake Free Water 80 ml 120 ml Tube Feeding 550 ml 660 ml Output Urine Total 700 ml Laboratory Tests 06/28/18 09:05: White Blood Count 9.8, Red Blood Count 4.74, Hemoglobin 13.0L, Hematocrit 39.1L , Mean Corpuscular Volume 82, Mean Corpuscular Hemoglobin 27.5, Mean Corpuscular Hemoglobin Concent 33.3, Red Cell Distribution Width 12.2, Platelet Count 168, Mean Platelet Volume 8.7, Neutrophils (%) (Auto) 59.6, Lymphocytes (% ) (Auto) 30.4, Monocytes (%) (Auto) 8.8, Eosinophils (%) (Auto) 0.4, Basophils ( %) (Auto) 0.8, Sodium Level 137, Potassium Level 4.1, Chloride Level 104, Carbon Dioxide Level 26, Anion Gap 7, Blood Urea Nitrogen 20H, Creatinine 1.0, Estimat Glomerular Filtration Rate > 60, Glucose Level 133H, Calcium Level 8.8 Height (Feet): 5 Height (Inches): 8.00 Weight (Pounds): 162 General Appearance: lethargic EENT: PERRL/EOMI Neck: normal alignment Cardiovascular: normal peripheral pulses, normal rate, regular rhythm Respiratory/Chest: chest wall non-tender, lungs clear, normal breath sounds Abdomen: normal bowel sounds, non tender, no organomegaly Extremities: normal inspection Edema: no edema noted Arm (L), no edema noted Arm (R), no edema noted Leg (L), no edema noted Leg (R), no edema noted Pedal (L), no edema noted Pedal (R), no edema noted Generalized Neurologic: motor weakness Skin: normal pigmentation, warm/dry Stuart New DO Jun 28, 2018 15:23
[2018-06-28] MEDS: Nitroglycerin Patch 0.4mg TDERMAL SCH (15:46)
[2018-06-28 16:00] VITALS: BP 143/62
--- NOTE | 2018-06-28 16:11 | General Progress Note ---
Assessment/Plan Assessment/Plan Assessment and Recs: # Lymphocytosis -- with elevated lymphocyte percentage, potentially reactive process versus from seizure d/o, recent breakthrough seizure --> smear has been ordered, current wbc better --> flow cytometry consider to send only if lymphocytosis continues to persist --> CBC MANUAL ordered # Anemia of chronic disease -- mild closely monitor --> 9.5-->8.3-->6.7-->7.2 # Seizure disorder - on keppra continue at this time --> appreciate neuro recs # Elevated troponin - as per cards # Nonverbal status -- at baseline # s/p peg --->tolerating feeding well Appreciate consultation greatly! Subjective ROS Limited/Unobtainable: No Constitutional: Denies: no symptoms, chills, diaphoresis, fever, malaise, weakness, other HEENT: Denies: no symptoms, eye pain, blurred vision, tearing, double vision, ear pain, ear discharge, nose pain, nose congestion, throat pain, throat swelling, mouth pain, mouth swelling, other Cardiovascular: Denies: no symptoms, chest pain, edema, irregular heart rate, lightheadedness, palpitations, syncope, other Respiratory: Denies: no symptoms, cough, orthopnea, shortness of breath, SOB with excertion, SOB at rest, sputum, stridor, wheezing, other Gastrointestinal/Abdominal: Denies: no symptoms, abdomen distended, abdominal pain, black stools, tarry stools, blood in stool, constipated, diarrhea, difficulty swallowing, nausea, poor appetite, poor fluid intake, rectal bleeding , vomiting, other Genitourinary: Denies: no symptoms, burning, discharge, frequency, flank pain, hematuria, incontinence, pain, urgency, other Neurologic/Psychiatric: Denies: no symptoms, anxiety, depressed, emotional problems, headache, numbness, paresthesia, pre-existing deficit, seizure, tingling, tremors, weakness, other Endocrine: Denies: no symptoms, excessive sweating, flushing, intolerance to cold, intolerance to heat, increased hunger, increased thirst, increased urine, unexplained weight gain, unexplained weight loss, other Hematologic/Lymphatic: Denies: no symptoms, anemia, easy bleeding, easy bruising, other Allergies: Coded Allergies: No Known Allergies (Unverified , 09/03/17) Subjective 06/24/18: pt is seen in the room, resting in bed, on G tube, Elevated troponin I level, could be due to seizure activity or [id number], platelet count is low at 143 06/25/18: Patient in bed, awake, nonverbal, on GT, pending cbc results 06/26/18: Pt is seen by bedside, awake and resting, on GT, tolerating feeding well , pending labs, no acute distress reported by staff. 06/27/18: gtube feedings tolerating well, no chills/fevers 06/28/18: Pt is awake and calm, no seizure activity, plt 168 today, no events Objective Last 24 Hour Vital Signs Date Time Temp Pulse Resp B/P (MAP) Pulse Ox O2 Delivery O2 Flow Rate FiO2 06/28/18 15:46 108/65 06/28/18 12:30 108/65 06/28/18 12:00 97.8 90 18 108/65 (79) 99 06/28/18 09:25 59 163/78 06/28/18 09:00 Room Air 06/28/18 08:00 99.5 59 16 163/78 (106) 98 06/28/18 05:33 146/63 06/28/18 04:25 98.1 58 16 146/63 (90) 96 06/28/18 00:41 138/57 06/28/18 00:30 98.2 60 17 138/57 (84) 99 06/27/18 20:46 59 123/57 06/27/18 20:15 Room Air 06/27/18 20:00 97.3 59 16 123/57 (79) 100 06/27/18 17:18 151/71 Intake and Output 06/27/18 06/28/18 19:00 07:00 Intake Total 630 ml 780 ml Output Total 700 ml Balance -70 ml 780 ml Intake Free Water 80 ml 120 ml Tube Feeding 550 ml 660 ml Output Urine Total 700 ml Laboratory Tests 06/28/18 09:05: White Blood Count 9.8, Red Blood Count 4.74, Hemoglobin 13.0L, Hematocrit 39.1L , Mean Corpuscular Volume 82, Mean Corpuscular Hemoglobin 27.5, Mean Corpuscular Hemoglobin Concent 33.3, Red Cell Distribution Width 12.2, Platelet Count 168, Mean Platelet Volume 8.7, Neutrophils (%) (Auto) 59.6, Lymphocytes (% ) (Auto) 30.4, Monocytes (%) (Auto) 8.8, Eosinophils (%) (Auto) 0.4, Basophils ( %) (Auto) 0.8, Sodium Level 137, Potassium Level 4.1, Chloride Level 104, Carbon Dioxide Level 26, Anion Gap 7, Blood Urea Nitrogen 20H, Creatinine 1.0, Estimat Glomerular Filtration Rate > 60, Glucose Level 133H, Calcium Level 8.8 Height (Feet): 5 Height (Inches): 8.00 Weight (Pounds): 162 Objective General: no apparent distress, reviewed Head: normocephalic, atraumatic Eyes: bilateral eye PERRL, bilateral eye EOMI ENT: dry mucus membranes Neck: supple Respiratory: ctab, no cwr Cardiovascular: rrr Gastrointestinal: non tender, soft ++ peg, GT Musculoskeletal: other - Chronically debilitated Neurologic: responsive - Has eyes open, not following commands Skin: normal color Lymphatic: no adenopathy Timothy Petit MD Jun 28, 2018 16:11
--- NOTE | 2018-06-28 19:21 | NUR ---
HAND-OFF: Report given to SHELLEY Brown.
--- NOTE | 2018-06-28 19:30 | NUR ---
NURSE NOTES: Recieved patient in bed, asleep, no acute distress noted or reported, patient is on g tube feeding, tolerating well. Bed is in low position, locked and alarm is on. Call light is within reach, will continue to monitor for safety and comfort.
[2018-06-28 20:00] VITALS: BP 129/62
--- NOTE | 2018-06-28 23:58 | Cardiology Progress Note ---
Assessment/Plan Assessment/Plan 1. Elevated troponin I level in this patient, could be due to seizure activity or [id number] myocardial infarction, type II, however, in view of the patient's comorbidities including CVA and hemiplegia, aphasia as well as history of schizophrenia and dementia, conservative management would be the gold standard. Continue aspirin, atorvastatin and metoprolol. 2. DM, ASA and statins. 3. Hx of HTN, continue metoprolol, clonidine for breakthrough HTN. 4. CVA, continue ASA 5. Dementia 6. Seizure D/O Subjective Subjective No cardiac events. Objective Last 24 Hour Vital Signs Date Time Temp Pulse Resp B/P (MAP) Pulse Ox O2 Delivery O2 Flow Rate FiO2 06/28/18 23:43 123/55 06/28/18 21:20 61 129/62 06/28/18 21:00 Room Air 06/28/18 20:00 98.4 61 17 129/62 (84) 98 06/28/18 17:38 143/62 06/28/18 16:00 98.0 62 18 143/62 (89) 100 06/28/18 15:46 108/65 06/28/18 12:30 108/65 06/28/18 12:00 97.8 90 18 108/65 (79) 99 06/28/18 09:25 59 163/78 06/28/18 09:00 Room Air 06/28/18 08:00 99.5 59 16 163/78 (106) 98 06/28/18 05:33 146/63 06/28/18 04:25 98.1 58 16 146/63 (90) 96 06/28/18 00:41 138/57 06/28/18 00:30 98.2 60 17 138/57 (84) 99 Intake and Output 06/27/18 06/28/18 19:00 07:00 Intake Total 630 ml 780 ml Output Total 700 ml Balance -70 ml 780 ml Intake Free Water 80 ml 120 ml Tube Feeding 550 ml 660 ml Output Urine Total 700 ml 2D Echo: LVEF 55%, Mild MR, Grade I LVDD, RVSP 21 mmHg Laboratory Tests Test 06/28/18 09:05 White Blood Count 9.8 K/UL (4.8-10.8) Red Blood Count 4.74 M/UL (4.70-6.10) Hemoglobin 13.0 G/DL (14.2-18.0) L Hematocrit 39.1 % (42.0-52.0) L Mean Corpuscular Volume 82 FL (80-99) Mean Corpuscular Hemoglobin 27.5 PG (27.0-31.0) Mean Corpuscular Hemoglobin Concent 33.3 G/DL (32.0-36.0) Red Cell Distribution Width 12.2 % (11.6-14.8) Platelet Count 168 K/UL (150-450) Mean Platelet Volume 8.7 FL (6.5-10.1) Neutrophils (%) (Auto) 59.6 % (45.0-75.0) Lymphocytes (%) (Auto) 30.4 % (20.0-45.0) Monocytes (%) (Auto) 8.8 % (1.0-10.0) Eosinophils (%) (Auto) 0.4 % (0.0-3.0) Basophils (%) (Auto) 0.8 % (0.0-2.0) Sodium Level 137 MMOL/L (136-145) Potassium Level 4.1 MMOL/L (3.5-5.1) Chloride Level 104 MMOL/L (98-107) Carbon Dioxide Level 26 MMOL/L (21-32) Anion Gap 7 mmol/L (5-15) Blood Urea Nitrogen 20 mg/dL (7-18) H Creatinine 1.0 MG/DL (0.55-1.30) Estimat Glomerular Filtration Rate > 60 mL/min (>60) Glucose Level 133 MG/DL (74-106) H Calcium Level 8.8 MG/DL (8.5-10.1) Objective HEENT: Atraumatic and normocephalic. Anicteric. Bitemporal wasting. Pupils are equal, round, and reactive to light and accommodation. Extraocular muscles intact. NECK: JVP less than 5 cm. No carotid bruit. LUNGS: Diminished breath sounds on both sides. CARDIOVASCULAR: Regular rate and rhythm. Normal S1 and S2. No murmurs, gallops, or rubs. PMI is at fourth intercostal space at the midclavicular line. ABDOMEN: Soft, nontender, and nondistended. No hepatosplenomegaly. Presence of PEG tube. EXTREMITIES: No evidence of edema, clubbing, or cyanosis. Pieter Mcfarland MD Jun 28, 2018 23:58
[2018-06-29 01:00] VITALS: BP 136/69
--- NOTE | 2018-06-29 02:30 | Consultation ---
DATE OF CONSULTATION: 06/28/2018 HISTORY OF PRESENT ILLNESS: This is a 68-year-old male patient who has history of recurrent seizure disorder. The patient was admitted to the hospital because of recurrent seizures, but this patient also has a history of depression, worsened by stress of his medical illness that is why his attending has requested daily psychiatric consultation for this patient, so this patient does have daily psychiatric consultation at this time, but this patient still has some depression, worsened by stress of his medical illness and altered mental status that is why his attending has requested daily psychiatric consultation for this patient. He has feelings of helplessness, hopelessness, low energy, and poor appetite. The patient does have some disorganized thought process, decline in cognition below his baseline that is why his attending has requested daily psychiatric consultation for this patient so that is why this patient does require daily psychiatric consultation at this time. PAST MEDICAL HISTORY: The patient has a medical history significant for seizure disorder, hypertension, COPD, shortness of breath, pneumonia, urinary tract infection, bronchitis, diabetes, electrolyte imbalance seizure disorder. ALLERGIES: He has no known drug allergies. MEDICATIONS: Psychotropic medications on admission, this patient is currently on mg per G-tube nightly. SUBSTANCE ABUSE HISTORY: Denies. PAIN ASSESSMENT: 0/10. DEVELOPMENTAL PROBLEMS: Denies. FAMILY PSYCHIATRIC HISTORY: Denies. SOCIAL HISTORY: The patient is currently financially supported by [employer] and Medicare. He is currently living [facility]. PSYCHIATRIC HISTORY: Major depressive disorder, severe, recurrent, without psychotic features. MENTAL STATUS EXAMINATION: This is a 68-year-old male. Appearance is disheveled. Attitude, irritable and agitated. Affect, guarded and restricted. Intellect poor. Mood depressed and anxious. Motor activity, psychomotor agitation. Attention span is poor. Orientation x2. Speech is low volume and slurred. Thought process, disorganized and illogical. Thought content, he has some paranoid delusions. Insight and judgment are poor. He cannot do serials 7's or spell world backwards. He has poor concentration. Short-term memory, 3/3 word recall after 5 minutes delay with good short-term memory. Long-term memory is poor because he cannot remember events in his life. DIAGNOSES: 1. Major depressive disorder, mild, recurrent, without psychotic features. 2. Medical problems include respiratory insufficiency, elevated troponins, hypertension, COPD, shortness of breath, and urinary tract infection. 3. Psychosocial stressors, financial. PLAN: Plan for this patient is to continue treatment with Remeron 15 mg nightly. Provided with 20 minutes of cognitive behavioral therapy to help him identify automatic negative thoughts and help to convert those negative thoughts to more thoughts to reduce depression, anxiety, and suicidality and help him to have a more adaptive behavioral pattern. Chart was reviewed and discussed with staff. He was seen and assessed in his room. Samuel Solorzano M.D. DR: Angela JOB#: [id number] CC:
[2018-06-29 04:29] VITALS: BP 120/51
[2018-06-29] MEDS: NovoLOG Insulin Flexpen SUBQ SCH ×2 (06:12→12:03)
--- NOTE | 2018-06-29 07:30 | NUR ---
NURSE NOTES: Received pt from SHELLEY GARZA. Pt is alert and orient x1. no SOB or acute respiratory distress noted. pt has intact IV access LFA 22g HL. pt has g tube in place is running well. all needs attended, bed is locked and is in the lowest position, call light within easy reach. will continue to monitor.
--- NOTE | 2018-06-29 07:30 | NUR ---
HAND-OFF: Report given to Magda ROSA.
[2018-06-29 08:00] VITALS: BP 116/53
[2018-06-29] MEDS ORDERED: Memantine 10mg tab GT SCH (09:00)
[2018-06-29] MEDS: Docusate 100mg/10ml Liq GT SCH ×2 (09:08→12:01)
[2018-06-29] MEDS: levETIRAcetam 500mg/5ml Liquid GT SCH (09:08)
[2018-06-29] MEDS: Aspirin Baby 81mg GT SCH (09:08)
[2018-06-29] MEDS: Metoprolol Tartrate 12.5mg TAB ORAL SCH (09:09)
[2018-06-29] MEDS: Heparin 5000 units/ml inj SUBQ SCH (09:11)
[2018-06-29 10:27] LABS: BASOPHILS % (AUTO) 0.7 % (0.0-2.0); EOSINOPHILS % (AUTO) 0.6 % (0.0-3.0); HEMATOCRIT 37.5 % (42.0-52.0); HEMOGLOBIN 12.3 G/DL (14.2-18.0); LYMPHOCYTES % (AUTO) 24.7 % (20.0-45.0); MEAN CORPUSCULAR VOLUME 84 FL (80-99); MONOCYTES % (AUTO) 8.5 % (1.0-10.0); NEUTROPHILS % (AUTO) 65.5 % (45.0-75.0); PLATELET COUNT 168 K/UL (150-450); RED BLOOD COUNT 4.45 M/UL (4.70-6.10); RED CELL DISTRIBUTION WIDTH 12.6 % (11.6-14.8); WHITE BLOOD COUNT 9.7 K/UL (4.8-10.8)
[2018-06-29 10:32] LABS: ANION GAP 8 mmol/L (5-15); BLOOD UREA NITROGEN 31 mg/dL (7-18); CALCIUM 8.7 MG/DL (8.5-10.1); CARBON DIOXIDE 25 MMOL/L (21-32); CHLORIDE 102 MMOL/L (98-107); CREATININE 1.3 MG/DL (0.55-1.30); POTASSIUM 3.9 MMOL/L (3.5-5.1); SODIUM 135 MMOL/L (136-145)
[2018-06-29 11:51] VITALS: BP 113/51
--- NOTE | 2018-06-29 12:30 | NUR ---
DISCHARGE PLANNING PATIENT HAS BEEN REFERRED TO: [facility] P:[phone] F:[phone]
--- NOTE | 2018-06-29 13:27 | Pulmonology Progress Note ---
Assessment/Plan Problems: (1) COPD (chronic obstructive pulmonary disease) (2) Seizure disorder (3) Feeding by G-tube (4) History of CVA (cerebrovascular accident) (5) Altered mental status (6) Diabetes mellitus Assessment/Plan all reviewed doing better no new complains symptomatic treatment monitor BP check electrolytes aspiration precaution seizure precaution Subjective ROS Limited/Unobtainable: No HEENT: Repors: no symptoms Respiratory: Reports: no symptoms Allergies: Coded Allergies: No Known Allergies (Unverified , 09/03/17) Objective Last 24 Hour Vital Signs Date Time Temp Pulse Resp B/P (MAP) Pulse Ox O2 Delivery O2 Flow Rate FiO2 06/29/18 12:01 113/51 06/29/18 11:51 97.3 88 18 113/51 (71) 96 06/29/18 09:09 60 116/53 06/29/18 09:00 Room Air 06/29/18 08:00 97.6 60 19 116/53 (74) 96 06/29/18 06:04 136/82 06/29/18 04:29 97.9 59 18 120/51 (74) 96 06/29/18 01:00 97.5 56 17 136/69 (91) 06/28/18 23:43 123/55 06/28/18 21:20 61 129/62 06/28/18 21:00 Room Air 06/28/18 20:00 98.4 61 17 129/62 (84) 98 06/28/18 17:38 143/62 06/28/18 16:00 98.0 62 18 143/62 (89) 100 06/28/18 15:46 108/65 Intake and Output 06/28/18 06/29/18 18:59 06:59 Intake Total 55 ml 725 ml Balance 55 ml 725 ml Intake Free Water 120 ml Tube Feeding 55 ml 605 ml # Voids 3 # Bowel Movements 1 Objective General Appearance: WD/WN, no apparent distress Lines, tubes and drains: peripheral HEENT: normocephalic, atraumatic Neck: non-tender, normal alignment Respiratory/Chest: chest wall non-tender, decreased breath sounds Cardiovascular/Chest: normal peripheral pulses, normal rate Abdomen: normal bowel sounds, non tender Genitourinary/Rectal: normal genital exam Extremities: normal range of motion, non-tender Skin Exam: normal pigmentation 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 Laboratory Tests 06/29/18 10:00: White Blood Count 9.7, Red Blood Count 4.45L, Hemoglobin 12.3L, Hematocrit 37.5L , Mean Corpuscular Volume 84, Mean Corpuscular Hemoglobin 27.7, Mean Corpuscular Hemoglobin Concent 32.9, Red Cell Distribution Width 12.6, Platelet Count 168, Mean Platelet Volume 8.7, Neutrophils (%) (Auto) 65.5, Lymphocytes (% ) (Auto) 24.7, Monocytes (%) (Auto) 8.5, Eosinophils (%) (Auto) 0.6, Basophils ( %) (Auto) 0.7, Sodium Level 135L, Potassium Level 3.9, Chloride Level 102, Carbon Dioxide Level 25, Anion Gap 8, Blood Urea Nitrogen 31H, Creatinine 1.3, Estimat Glomerular Filtration Rate > 60, Glucose Level 170H, Calcium Level 8.7 Current Medications Medications (Trade) Dose Ordered Sig/Christian Route PRN Reason Start Time Stop Time Status Last Admin Dose Admin Acetaminophen (Tylenol) 650 mg Q4H PRN GT Mild Pain/Temp > 100.5 06/24/18 21:30 07/21/18 13:29 06/26/18 08:49 Aspirin (ASA) 81 mg DAILY GT 06/25/18 09:00 07/22/18 08:59 06/29/18 09:08 Atorvastatin Calcium (Lipitor) 10 mg BEDTIME GT 06/24/18 21:00 07/21/18 20:59 06/28/18 21:20 Baclofen (Lioresal) 5 mg Q6HR GT 06/25/18 00:00 07/21/18 17:59 06/29/18 12:01 Dextrose (Dextrose 50%) 25 ml Q30M PRN IV Hypoglycemia 06/24/18 19:00 07/21/18 13:59 Dextrose (Dextrose 50%) 50 ml Q30M PRN IV Hypoglycemia 06/24/18 19:00 07/21/18 13:59 Docusate Sodium (Colace) 100 mg TID GT 06/25/18 09:00 07/21/18 17:59 06/29/18 12:01 Famotidine (Pepcid) 20 mg BID GT 06/25/18 09:00 07/21/18 17:59 06/29/18 09:09 Heparin Sodium (Porcine) (Heparin 5000 units/ml) 5,000 units EVERY 12 HOURS SUBQ 06/24/18 21:00 07/21/18 20:59 06/29/18 09:11 Hydralazine HCl (Apresoline) 25 mg Q4H PRN ORAL bp over 160 syst 06/27/18 11:15 07/27/18 11:14 Insulin Aspart (NovoLOG) Q6HR SUBQ 06/25/18 00:00 07/21/18 17:59 06/29/18 12:03 Isosorbide Dinitrate (Isordil) 10 mg Q6HR GT 06/25/18 00:00 07/22/18 17:59 06/29/18 12:01 Levetiracetam (Keppra) 1,000 mg Q12HR GT 06/24/18 21:00 07/22/18 20:59 06/29/18 09:08 Memantine (Namenda) 5 mg BID GT 06/29/18 09:00 07/29/18 08:59 06/29/18 09:08 Metoprolol Tartrate (Lopressor) 12.5 mg Q12HR ORAL 06/27/18 21:00 07/25/18 23:44 06/29/18 09:09 Mirtazapine (Remeron) 15 mg BEDTIME GT 06/24/18 21:00 07/22/18 20:59 06/28/18 21:20 Nitroglycerin (Ntg) 1 patch Q24H TDERMAL 06/25/18 16:00 07/21/18 15:59 06/28/18 15:46 Elder Kumar MD Jun 29, 2018 13:27
--- NOTE | 2018-06-29 14:09 | NUR ---
P.T Note: P.T evaluation completed. Pt is alert, oriented to self and place, but not to time. Pt presented moderate to severe flexion contractures on RUE and RLE. Pt uncooperative and resistive with mobility tasks. Pt is dependent in all aspects of ADL/functional mobilities. Based on P.T evaluation , pt is already at baseline and not a candidate for skilled P.T services. Recommend return to SNF and referral to restorative nursing for ROM to preserve joint integrity and available ROM. Thank you for this referral. Addendum: 06/29/18 at 1410 by JEAN CARLOS NAJERA PT Amended: Links added.
--- NOTE | 2018-06-29 14:32 | General Progress Note ---
Assessment/Plan Problem List: (1) Seizure disorder ICD Codes: G40.909 - Epilepsy, unspecified, not intractable, without status epilepticus SNOMED: 391002754 (2) Elevated troponin ICD Codes: R74.8 - Abnormal levels of other serum enzymes SNOMED: 837390076, 666414520, 905013019 (3) Dehydration ICD Codes: E86.0 - Dehydration SNOMED: 12087341 (4) HTN (hypertension) ICD Codes: I10 - Essential (primary) hypertension SNOMED: 13917768 (5) Feeding by G-tube ICD Codes: Z93.1 - Gastrostomy status SNOMED: 412333955, 580196300 (6) Electrolyte abnormality ICD Codes: E87.8 - Other disorders of electrolyte and fluid balance, not elsewhere classified SNOMED: 668271386 (7) COPD (chronic obstructive pulmonary disease) ICD Codes: J44.9 - Chronic obstructive pulmonary disease, unspecified SNOMED: 49328172 (8) Diabetes mellitus ICD Codes: E11.9 - Type 2 diabetes mellitus without complications SNOMED: 76630557 (9) SOB (shortness of breath) ICD Codes: R06.02 - Shortness of breath SNOMED: 056520851 (10) Renal insufficiency ICD Codes: N28.9 - Disorder of kidney and ureter, unspecified SNOMED: 689685591, 013907900 (11) Altered mental status ICD Codes: R41.82 - Altered mental status, unspecified SNOMED: 976983622 (12) Pneumonia ICD Codes: J18.9 - Pneumonia, unspecified organism SNOMED: 418053218 (13) History of CVA (cerebrovascular accident) ICD Codes: Z86.73 - Personal history of transient ischemic attack (TIA), and cerebral infarction without residual deficits SNOMED: 139498679 (14) Bacteremia ICD Codes: R78.81 - Bacteremia SNOMED: 7173550 (15) UTI (urinary tract infection) ICD Codes: N39.0 - Urinary tract infection, site not specified SNOMED: 15420813 (16) Bronchitis ICD Codes: J40 - Bronchitis, not specified as acute or chronic SNOMED: 70639160 (17) encephalopathy due to toxin Status: stable, progressing Assessment/Plan pt diet seizure control dc if clear Subjective Constitutional: Reports: weakness Allergies: Coded Allergies: No Known Allergies (Unverified , 09/03/17) All Systems: reviewed and negative except above Subjective sleepy calm Objective Last 24 Hour Vital Signs Date Time Temp Pulse Resp B/P (MAP) Pulse Ox O2 Delivery O2 Flow Rate FiO2 06/29/18 12:01 113/51 06/29/18 11:51 97.3 88 18 113/51 (71) 96 06/29/18 09:09 60 116/53 06/29/18 09:00 Room Air 06/29/18 08:00 97.6 60 19 116/53 (74) 96 06/29/18 06:04 136/82 06/29/18 04:29 97.9 59 18 120/51 (74) 96 06/29/18 01:00 97.5 56 17 136/69 (91) 06/28/18 23:43 123/55 06/28/18 21:20 61 129/62 06/28/18 21:00 Room Air 06/28/18 20:00 98.4 61 17 129/62 (84) 98 06/28/18 17:38 143/62 06/28/18 16:00 98.0 62 18 143/62 (89) 100 06/28/18 15:46 108/65 Intake and Output 06/28/18 06/29/18 18:59 06:59 Intake Total 55 ml 725 ml Balance 55 ml 725 ml Intake Free Water 120 ml Tube Feeding 55 ml 605 ml # Voids 3 # Bowel Movements 1 Laboratory Tests 06/29/18 10:00: White Blood Count 9.7, Red Blood Count 4.45L, Hemoglobin 12.3L, Hematocrit 37.5L , Mean Corpuscular Volume 84, Mean Corpuscular Hemoglobin 27.7, Mean Corpuscular Hemoglobin Concent 32.9, Red Cell Distribution Width 12.6, Platelet Count 168, Mean Platelet Volume 8.7, Neutrophils (%) (Auto) 65.5, Lymphocytes (% ) (Auto) 24.7, Monocytes (%) (Auto) 8.5, Eosinophils (%) (Auto) 0.6, Basophils ( %) (Auto) 0.7, Sodium Level 135L, Potassium Level 3.9, Chloride Level 102, Carbon Dioxide Level 25, Anion Gap 8, Blood Urea Nitrogen 31H, Creatinine 1.3, Estimat Glomerular Filtration Rate > 60, Glucose Level 170H, Calcium Level 8.7 Height (Feet): 5 Height (Inches): 8.00 Weight (Pounds): 162 General Appearance: lethargic EENT: normal ENT inspection Neck: normal alignment Cardiovascular: normal peripheral pulses, normal rate, regular rhythm Respiratory/Chest: chest wall non-tender, lungs clear, normal breath sounds Abdomen: normal bowel sounds, non tender, soft Extremities: normal inspection Edema: no edema noted Arm (L), no edema noted Arm (R), no edema noted Leg (L), no edema noted Leg (R), no edema noted Pedal (L), no edema noted Pedal (R), no edema noted Generalized Neurologic: motor weakness Skin: normal pigmentation, warm/dry Stuart New DO Jun 29, 2018 14:32
--- NOTE | 2018-06-29 15:06 | NUR ---
DISCHARGE PLANNING PATIENT HAS BEEN REFERRRED BACK TO: [facility] P:[phone] F:[phone]
--- NOTE | 2018-06-29 15:49 | NUR ---
DISCHARGE PLANNED PATIENT IS DISCHARGED BACK TO: [facility] ROOM# [id number] SKILLED T:[phone] FOR NURSE TO NURSE REPORT [facility] HAS BEEN ARRANGED FOR DEHYDRATOR OPERATOR AT 1630 FOR DEHYDRATOR OPERATOR S/W ANDREIA [id number]
--- NOTE | 2018-06-29 15:59 | Nephrology Progress Note ---
Assessment/Plan Problem List: (1) Seizure (2) Dehydration (3) HTN (hypertension) (4) Feeding by G-tube (5) Elevated troponin (6) Electrolyte abnormality Assessment Sz Right paralysis , h/o CVA PEG Hyponatremia elevated troponin clinical dehydration elevated troponin Plan adjust BP meds for low HR labs reviewed Venofer one time given [place] Dced and Keppra increased by Psych. isordil, ASA , med surg DC planning Subjective ROS Limited/Unobtainable: No Constitutional: Reports: malaise Objective Objective Last 24 Hour Vital Signs Date Time Temp Pulse Resp B/P (MAP) Pulse Ox O2 Delivery O2 Flow Rate FiO2 06/29/18 12:01 113/51 06/29/18 11:51 97.3 88 18 113/51 (71) 96 06/29/18 09:09 60 116/53 06/29/18 09:00 Room Air 06/29/18 08:00 97.6 60 19 116/53 (74) 96 06/29/18 06:04 136/82 06/29/18 04:29 97.9 59 18 120/51 (74) 96 06/29/18 01:00 97.5 56 17 136/69 (91) 06/28/18 23:43 123/55 06/28/18 21:20 61 129/62 06/28/18 21:00 Room Air 06/28/18 20:00 98.4 61 17 129/62 (84) 98 06/28/18 17:38 143/62 06/28/18 16:00 98.0 62 18 143/62 (89) 100 Intake and Output 06/28/18 06/29/18 19:00 07:00 Intake Total 55 ml 670 ml Balance 55 ml 670 ml Intake Free Water 120 ml Tube Feeding 55 ml 550 ml # Voids 3 # Bowel Movements 1 Laboratory Tests 06/29/18 10:00: White Blood Count 9.7, Red Blood Count 4.45L, Hemoglobin 12.3L, Hematocrit 37.5L , Mean Corpuscular Volume 84, Mean Corpuscular Hemoglobin 27.7, Mean Corpuscular Hemoglobin Concent 32.9, Red Cell Distribution Width 12.6, Platelet Count 168, Mean Platelet Volume 8.7, Neutrophils (%) (Auto) 65.5, Lymphocytes (% ) (Auto) 24.7, Monocytes (%) (Auto) 8.5, Eosinophils (%) (Auto) 0.6, Basophils ( %) (Auto) 0.7, Sodium Level 135L, Potassium Level 3.9, Chloride Level 102, Carbon Dioxide Level 25, Anion Gap 8, Blood Urea Nitrogen 31H, Creatinine 1.3, Estimat Glomerular Filtration Rate > 60, Glucose Level 170H, Calcium Level 8.7 Height (Feet): 5 Height (Inches): 8.00 Weight (Pounds): 162 General Appearance: no apparent distress Objective no change Odilon Carroll MD Jun 29, 2018 15:59
[2018-06-29 16:00] VITALS: BP 115/60
[2018-06-29] MEDS ORDERED: BACLOFEN5 MG GT (16:30)
[2018-06-29] MEDS ORDERED: DOCUSATE S50 MG/5 ML PO (16:31)
[2018-06-29] MEDS ORDERED: HYDRALAZINE HCL25 M1 GT (16:32)
[2018-06-29] MEDS ORDERED: NOVOLOG100 UNIT/4 SQ (16:33)
[2018-06-29] MEDS ORDERED: NOVOLOG100 UNIT/5 SQ (16:34)
[2018-06-29] MEDS ORDERED: ISOSORBIDE DINI10 M1 PO (16:40)
[2018-06-29] MEDS ORDERED: ISOSORBIDE DINI10 M1 GT (16:41)
[2018-06-29] MEDS ORDERED: NAMENDA5 MG ORAL (16:41)
[2018-06-29] MEDS ORDERED: METOPROLOL TART25 MG ORAL (16:42)
[2018-06-29] MEDS ORDERED: REMERON15 M1 ORAL (16:42)
[2018-06-29] MEDS ORDERED: NITROGLYCERIN1 EAC2 TD (16:43)
[2018-06-29 16:57] VITALS: BP 115/60
[2018-06-29] MEDS: Nitroglycerin Patch 0.4mg TDERMAL SCH (16:57)
--- NOTE | 2018-06-29 17:00 | NUR ---
NURSE NOTES: Received order to D/C pt. all discharge assessments and instructions done, pt is stable, V/S stable. given report to SHELLEY HARTMAN in SNF. pt's brother is aware about D/C. iv access D/C. Pt left hospital with accompany ambulance personnel.
--- NOTE | 2018-06-29 17:30 | Progress Note ---
DATE: 06/29/2018 SUBJECTIVE: This is a 68-year-old male patient. He has recurrent seizures but this patient continues to have some mood lability, confusion, altered mental status. His cognition has declined below his baseline that is why his attending physician has requested daily psychiatric consultation for this patient. MENTAL STATUS EXAMINATION: The patient is a 68-year-old male. His appearance is disheveled. Attitude irritable and agitated. Affect, guarded and restricted. Intellect poor. Mood depressed and anxious. Motor activity, psychomotor agitation. Attention span is poor. Orientation x2. Speech is low volume. Thought process, disorganized and illogical. Insight and judgment is poor. DIAGNOSIS: Major depressive disorder, mild recurrent with psychotic features, rule out pseudodementia. PLAN: Plan for this patient is to treat him with a medication regimen consisting of Remeron at a dose of 50 mg per G-tube at bedtime to help with his insomnia and help him also with depression and appetite. Also because of his altered mental status and confusion, I am also going to add Namenda at a dose of 5 mg twice a day to prevent any further decline in his cognition and encouraged him to interact appropriately with staff and other patients and continue to be followed by Psychiatry throughout his hospital course. A 20 minutes of cognitive behavioral therapy to help this patient identify his automatic negative thoughts and help to convert those negative thoughts to more positive thoughts to reduce depression, anxiety, and suicidality and help him to have a more adaptive behavioral pattern. Chart was reviewed and discussed with staff. Seen and assessed in his room. Samuel Solorzano M.D. DR: Angela JOB#: [id number] CC:
--- NOTE | 2018-06-30 08:14 | Consultation ---
DATE OF CONSULTATION: 06/28/2018 NOTE: POOR AUDIO PSYCHOTHERAPY CONSULTATION PROGRESS NOTE CONSULTING PHYSICIAN: Mayte Rose M.D. TREATING ATTENDING PHYSICIAN: Stuart New D.O. HISTORY: The patient is a male patient, 68-year-old from [facility]. The patient is brought into the hospital with some fever with 00:30 disorganized process and for these reasons, Psychiatry consultation 00:36 hospital for confusion and disorientation and was treated in the past. 00:43 he states he was in the hospital setting, does not feel well, 00:54 he does not member. He had difficult time recalling issues 01:08. Denies suicidal or homicidal thoughts of ideation. Denies auditory or visual hallucinations. He does state that he is feeling slightly depressed, however, 01:19 he is in the hospital. PAST MEDICAL HISTORY: Includes a history of 01:36 chronic obstructive pulmonary disease, hypertension, aphasia, dysphagia, hyperlipidemia, and CVA. SOCIAL HISTORY: The patient is a single 68-year-old male patient, 02:04. He is currently financially supported by [employer]. PSYCHIATRIC HISTORY: The patient has a history of depression. MENTAL STATUS EXAMINATION: The patient is alert and oriented to person and place. Mood is irritable. Affect is blunted. Thought process, disorganized. Thought content, confused with poor attention and concentration. Poor insight, judgment, and impulse control. DIAGNOSES: 1. Major depressive disorder, recurrent. 2. 02:28. PLAN: Reality orientation. 02:33 confused and disoriented. 02:49 supportive psychotherapy. This is the process that 02:57 ____02:58 discuss his needs effectively. Address the patient's disorganized thoughts. Encouraging the patient to participate in treatment milieu 03:12. This clinician has reviewed the patient's chart. Discussed the treatment with treatment team. Psychotherapy provided to this patient, 45 minutes. Mayte Rose PsyD. DR: KIRK JOB#: [id number] CC:
--- NOTE | 2018-06-30 16:03 | Discharge Summary ---
Discharge Summary Discharge Summary _ DATE OF ADMISSION: 06/21/2018 DATE OF DISCHARGE: 06/29/2018 DISCHARGED BY: Dr. Stuart New CONSULTANTS: Dr. Odilon Rose [facility] COURSE: Patient is a 68-year-old male, who was brought in from nursing facility due to reports of seizure activity. Patient had a breakthrough seizure in the morning of admission. Patient himself was unable to provide history. History was limited. On discussion with patient's family member, it was reported that saw him in the morning with foaming at the mouth and appeared that his eyes rolled back. He has medical history significant for organic brain syndrome, hypertension, COPD, diabetes, CVA, dysphagia on G-tube, hyperlipidemia, psychosis, depression and seizure disorder. On evaluation at the ED, blood work showed elevated troponin. EKG did not show any ST changes. There was no leukocytosis, hemoglobin hematocrit were stable. Sodium was 134, potassium 5.1. BUN was elevated to 21, creatinine 1.1. Urinalysis was essentially negative. He had a chest x-ray done that showed no acute findings. He was then admitted for evaluation of seizure disorder, elevated troponin, hyponatremia, and azotemia. Solar Design Engineer was consulted for fluid management. Patient was given IV hydration. He was placed on seizure precautions. He was given Depakote and Keppra. He was given gastric support. He was continued on G-tube feedings. Valproic acid level 29. Depakote dose was increased. Cardiac evaluation was done. Patient had a heart rate of 120s. Twelve-lead EKG showed sinus tachycardia with no ST and T wave abnormalities. Patient had slight elevation in troponin I level. This could be secondary to non-ST elevated TX type II or rhabdomyolysis associated with seizure activity in association with small troponin leak. Given overall clinical picture with severe debilitation, patient was not deemed to be suitable candidate for ischemic workup including heart catheterization. He was continued on conservative medical management. He was given antiplatelet therapy, statin, and beta blockers. Echocardiogram done showed ejection fraction of 55% with normal left ventricular size, function and wall motion. Troponin levels eventually down trended. State'S Attorney was consulted for evaluation of lymphocytosis. Patient had elevated lymphocyte percentage, potentially reactive process from seizure disorder. Lymphocytosis eventually improved. Patient was confused and has history of depression and psychotic disorder. Patient was unable to understand, process nor communicate appropriately. He was seen by psychiatrist. Depakote was discontinued. Keppra was increased to 1000 mg twice daily. He was given Remeron. He was seen by physical therapist. Patient has severe flexion contractures on the right upper extremity and right lower extremity and is dependent on all aspects of ADL/functional mobilities. Patient is not a candidate for skilled PT services. He was eventually discharged back to [facility]. FINAL DIAGNOSES: Seizure disorder with reported acute exacerbation Elevated troponin I, possibly due to seizure activity or non-ST elevated TX, type II Encephalopathy Dehydration Hyponatremia Hypertension Dysphagia with feeding via G-tube Old CVA with right hemiparesis Hyponatremia Diabetes mellitus Dementia Lymphocytosis Anemia of chronic disease Major depressive disorder, mild recurrent with psychotic features DISPOSITION: Patient was discharged to a SNF. DISCHARGE MEDICATIONS: Refer to Discharge Medication List. I have been assigned to dictate discharge summary on this account, and I was not involved in the patient's management. Martine King NP Jun 30, 2018 16:03
== END 2018-06-29 17:23 | DRG 100 ==
LOC: EDBD 08:25 → EDBEDREQ 08:38 → EMR 08:55 → 4E 09:00 → EDBEDREQ 09:08 → 2E 11:21 → 4E 06-24 18:19
DX: G40.909 Epilepsy, unspecified, not intractable, without status epilepticus (principal); I21.4 Non-ST elevation (NSTEMI) myocardial infarction; G93.40 Encephalopathy, unspecified; E87.1 Hypo-osmolality and hyponatremia; Z43.1 Encounter for attention to gastrostomy; I69.351 Hemiplegia and hemiparesis following cerebral infarction affecting right dominant side; F33.8 Other recurrent depressive disorders; E86.0 Dehydration; I10 Essential (primary) hypertension; R13.10 Dysphagia, unspecified; E11.9 Type 2 diabetes mellitus without complications; F03.90 Unspecified dementia, unspecified severity, without behavioral disturbance, psychotic disturbance, mood disturbance, and anxiety; D63.8 Anemia in other chronic diseases classified elsewhere; F09 Unspecified mental disorder due to known physiological condition; J44.9 Chronic obstructive pulmonary disease, unspecified; I25.2 Old myocardial infarction; I69.320 Aphasia following cerebral infarction; R00.0 Tachycardia, unspecified
CPT/HCPCS: 36415; 71045; 80048; 80053; 80061; 80164; 81003; 82550; 82553; 82607; 82728; 82746; 82962; 82977; 83540; 83550; 83690; 83735; 83880; 84100; 84443; 84484; 84550; 85007; 85025; 86140; 87081; 93005; 93306; 96365; 99285; J1815

== ENCOUNTER 2019-05-04 23:40 | Inpatient (IN) | payer MEDICARE, OTHER ==
[~2019-05-04] VITALS: Ht 162.6 cm; Wt 83.5 kg
[~2019-05-04 23:40] MED LIST changes: +ACETAMINOPHEN325 M1 GT; +BACLOFEN5 MG GT; +DOCUSATE S50 MG/5 ML PO; +HYDRALAZINE HCL25 M1 GT; +ISOSORBIDE DINI10 M1 GT; +ISOSORBIDE DINI10 M1 PO; +METOPROLOL TART25 MG GT; +NAMENDA5 MG GT; +NITROGLYCERIN1 EAC2 TD; +NOVOLOG100 UNIT/4 SQ; +NOVOLOG100 UNIT/5 SQ; +SENNA LAXATIVE1 EAC1 PO
[2019-05-04 23:45] VITALS: BP 132/82
[2019-05-05] VITALS (8 sets, daily range): BP systolic 105–141; BP diastolic 55–82
[2019-05-05] MEDS ORDERED: levETIRAcetam 500mg/NS100ml 100 ML IVPB ONE
[2019-05-05 00:15] LABS: BASOPHILS % (AUTO) 1.4 % (0.0-2.0); EOSINOPHILS % (AUTO) 2.4 % (0.0-3.0); HEMATOCRIT 44.3 % (42.0-52.0); HEMOGLOBIN 14.5 G/DL (14.2-18.0); LYMPHOCYTES % (AUTO) 46.7 % (20.0-45.0); MEAN CORPUSCULAR VOLUME 81 FL (80-99); MONOCYTES % (AUTO) 7.3 % (1.0-10.0); NEUTROPHILS % (AUTO) 42.2 % (45.0-75.0); PLATELET COUNT 250 K/UL (150-450); RED BLOOD COUNT 5.44 M/UL (4.70-6.10); RED CELL DISTRIBUTION WIDTH 11.7 % (11.6-14.8); WHITE BLOOD COUNT 13.5 K/UL (4.8-10.8)
[2019-05-05 00:23] LABS: ANION GAP 7 mmol/L (5-15); BLOOD UREA NITROGEN 15 mg/dL (7-18); CALCIUM 8.7 MG/DL (8.5-10.1); CARBON DIOXIDE 28 MMOL/L (21-32); CHLORIDE 105 MMOL/L (98-107); CREATININE 1.1 MG/DL (0.55-1.30); POTASSIUM 5.4 MMOL/L (3.5-5.1); SODIUM 140 MMOL/L (136-145)
[2019-05-05 00:52] LABS: APPEARANCE,URINE CLEAR; BILIRUBIN, URINE NEGATIVE (NEGATIVE); COLOR,URINE PALE YELLOW; GLUCOSE, URINE (UA) NEGATIVE (NEGATIVE); KETONES,URINE NEGATIVE (NEGATIVE); LEUKOCYTE ESTERASE ,URINE NEGATIVE (NEGATIVE); NITRITE,URINE NEGATIVE (NEGATIVE); PH,URINE 6 (4.5-8.0); UROBILINOGEN,URINE NORMAL MG/DL (0.0-1.0)
[2019-05-05 00:53] LABS: PROTEIN,URINE NEGATIVE (NEGATIVE)
[2019-05-05] MEDS ORDERED: SENNA8.6 M2 GT (01:51)
[2019-05-05] MEDS ORDERED: FAMOTIDINE20 MG GT (01:51)
[2019-05-05] MEDS ORDERED: VITAMIN C500 M1 GT (01:51)
[2019-05-05] MEDS ORDERED: DULCOLAX10 MG RC (01:51)
[2019-05-05] MEDS ORDERED: PRO-STAT LIQUID30 ML GT (01:51)
[2019-05-05] MEDS ORDERED: FLEET ENEMA133 M1 RC (01:51)
[2019-05-05] MEDS ORDERED: MULTIVITAMINS1 EAC8 GT (01:51)
[2019-05-05] MEDS ORDERED: LIPITOR10 MG GT (01:51)
--- NOTE | 2019-05-05 02:02 | Emergency Room Report ---
History of Present Illness General Chief Complaint: Seizure Source: Patient, EMS Present Illness HPI Is a 69-year-old male fpc patient with a history of seizure and dementia. He presents with chief complaint of seizure. Witnessed by nursing staff. Tonic-clonic in nature. Lasting a few minutes. Patient is back to baseline. He does take Keppra. No complaint. No trauma. No incontinence of bowel or urine. Allergies: Coded Allergies: No Known Allergies (Unverified , 09/03/17) Patient History Past Medical History: see triage record, old chart reviewed, dementia, seizures Past Surgical History: other Pertinent Family History: none Social History: Denies: smoking Immunizations: UTD Reviewed Nursing Documentation: PMH: Agreed; PSxH: Agreed Nursing Documentation-PMH Hx Hypertension: Yes Hx COPD: Yes Hx Diabetes: Yes Hx Cancer: No History Of Psychiatric Problem: Yes Hx Cerebrovascular Accident: Yes - hemiplegia/hemiparesis Hx Seizures: Yes Hx Aphasia: Yes Hx Dysphasia: Yes - G-tube Review of Systems Eye: Denies: eye pain, blurred vision ENT: Denies: ear pain, nose congestion, throat swelling Respiratory: Denies: cough, shortness of breath Cardiovascular: Denies: chest pain, palpitations Gastrointestinal: Denies: abdominal pain, diarrhea, nausea, vomiting Musculoskeletal: Denies: back pain, joint pain Skin: Denies: rash Neurological: Denies: headache, numbness Endocrine: Denies: increased thirst, increased urine Hematologic/Lymphatic: Denies: easy bruising All Other Systems: negative except mentioned in HPI Physical Exam Vital Signs Date Time Temp Pulse Resp B/P (MAP) Pulse Ox O2 Delivery O2 Flow Rate FiO2 05/04/19 23:28 98.4 70 18 132/82 (99) 98 Room Air Vitals normal Sp02 EP Interpretation: reviewed, normal General Appearance: well appearing, no apparent distress, alert Head: normocephalic, atraumatic Eyes: bilateral eye PERRL, bilateral eye EOMI ENT: hearing grossly normal, normal pharynx Neck: full range of motion, supple, no meningismus Respiratory: chest non-tender, lungs clear, normal breath sounds Cardiovascular #1: regular rate, rhythm, no murmur Gastrointestinal: normal bowel sounds, non tender, no mass, no organomegaly, no bruit, non-distended Musculoskeletal: back normal, normal range of motion Psychiatric: mood/affect normal Medical Decision Making Diagnostic Impression: Primary Impression: Epileptic seizure, generalized Additional Impression: Altered mental status Qualified Codes: R41.82 - Altered mental status, unspecified ER Course Presents with breakthrough seizure. No electrolyte abnormality. No trauma to warrant x-ray or CT scan. No infection. Patient will be admitted for monitoring. I discussed the case with Dr. New who will admit. Rhythm Strip Diag. Results EP Interpretation: yes Rate: 88 Rhythm: NSR, no PVC's, no ectopy Last Vital Signs Date Time Temp Pulse Resp B/P (MAP) Pulse Ox O2 Delivery O2 Flow Rate FiO2 05/04/19 23:45 70 18 Room Air 05/04/19 23:45 98.4 132/82 98 Status: improved Disposition: ADMITTED INPATIENT Condition: Serious Referrals: Stuart New DO (PCP) John Bauer MD May 05, 2019 02:02
[2019-05-05] MEDS ORDERED: Fleet's Enema 133ml RECTAL PRN ×2 (05:00→06:00)
[2019-05-05] MEDS ORDERED: HydrALAZINE 25mg tab GT PRN (05:00)
[2019-05-05] MEDS ORDERED: Milk of Magnesia 30ml Ud GT PRN ×2 (05:00→16:00)
[2019-05-05] MEDS ORDERED: D5 1/2NS 1,000 ML IV SCH (06:00)
[2019-05-05] MEDS: Haloperidol 1mg tab GT SCH ×3 (06:00→22:27)
[2019-05-05] MEDS: NovoLOG Insulin Flexpen SUBQ SCH ×4 (06:30→21:00)
[2019-05-05] MEDS ORDERED: Nitroglycerin Patch 0.4mg TDERMAL SCH (07:00)
[2019-05-05] MEDS: Depakote 125mg Sprinkles GT SCH ×3 (07:21→18:40)
[2019-05-05] MEDS ORDERED: Levofloxacin 500mg tab GT SCH (09:00)
[2019-05-05] MEDS ORDERED: Heparin 5000 units/ml inj SUBQ SCH (09:00)
[2019-05-05] MEDS ORDERED: Multivitamin w/Minerals tab ORAL SCH (09:00)
[2019-05-05] MEDS ORDERED: Metoprolol 25mg tab ORAL SCH (09:00)
[2019-05-05] MEDS ORDERED: Aspirin Baby 81mg GT SCH (09:00)
[2019-05-05] MEDS ORDERED: Ascorbic Acid 500mg tab ORAL SCH (09:00)
[2019-05-05] MEDS ORDERED: Allopurinol 100mg Tab GT SCH (09:00)
[2019-05-05] MEDS ORDERED: HydrALAZINE 25mg tab ORAL PRN ×2 (09:00→17:00)
[2019-05-05] MEDS ORDERED: Memantine 10mg tab ORAL SCH ×2 (09:00)
[2019-05-05] MEDS: Docusate 100mg/10ml Liq GT SCH ×3 (09:33→18:38)
--- NOTE | 2019-05-05 10:11 | Cardiac Electrophysiology PN ---
Subjective Subjective [id number] Objective Last 24 Hour Vital Signs Date Time Temp Pulse Resp B/P (MAP) Pulse Ox O2 Delivery O2 Flow Rate FiO2 05/05/19 09:34 57 137/71 05/05/19 08:00 97.2 57 18 137/71 (93) 97 05/05/19 07:22 148/80 05/05/19 07:21 148/80 05/05/19 04:00 97.2 50 16 105/55 (72) 99 05/05/19 03:16 Room Air 05/05/19 02:30 97.7 55 17 140/64 (89) 100 05/05/19 02:05 98.4 18 132/82 98 Room Air 05/05/19 02:05 98.4 18 132/82 98 Room Air 05/04/19 23:45 70 18 Room Air 05/04/19 23:45 98.4 18 132/82 98 Room Air 05/04/19 23:28 98.4 70 18 132/82 (99) 98 Room Air Intake and Output 05/04/19 05/05/19 18:59 06:59 Intake Total 1000 ml Balance 1000 ml Intake IV Total 1000 ml Laboratory Tests Test 05/05/19 00:00 05/05/19 00:20 White Blood Count 13.5 K/UL (4.8-10.8) H Red Blood Count 5.44 M/UL (4.70-6.10) Hemoglobin 14.5 G/DL (14.2-18.0) Hematocrit 44.3 % (42.0-52.0) Mean Corpuscular Volume 81 FL (80-99) Mean Corpuscular Hemoglobin 26.6 PG (27.0-31.0) L Mean Corpuscular Hemoglobin Concent 32.7 G/DL (32.0-36.0) Red Cell Distribution Width 11.7 % (11.6-14.8) Platelet Count 250 K/UL (150-450) Mean Platelet Volume 7.5 FL (6.5-10.1) Neutrophils (%) (Auto) 42.2 % (45.0-75.0) L Lymphocytes (%) (Auto) 46.7 % (20.0-45.0) H Monocytes (%) (Auto) 7.3 % (1.0-10.0) Eosinophils (%) (Auto) 2.4 % (0.0-3.0) Basophils (%) (Auto) 1.4 % (0.0-2.0) Sodium Level 140 MMOL/L (136-145) Potassium Level 5.4 MMOL/L (3.5-5.1) H Chloride Level 105 MMOL/L (98-107) Carbon Dioxide Level 28 MMOL/L (21-32) Anion Gap 7 mmol/L (5-15) Blood Urea Nitrogen 15 mg/dL (7-18) Creatinine 1.1 MG/DL (0.55-1.30) Estimat Glomerular Filtration Rate > 60 mL/min (>60) Glucose Level 109 MG/DL (74-106) H Calcium Level 8.7 MG/DL (8.5-10.1) Urine Color Pale yellow Urine Appearance Clear Urine pH 6 (4.5-8.0) Urine Specific [place] 1.010 (1.005-1.035) Urine Protein Negative (NEGATIVE) Urine Glucose (UA) Negative (NEGATIVE) Urine Ketones Negative (NEGATIVE) Urine Blood Negative (NEGATIVE) Urine Nitrite Negative (NEGATIVE) Urine Bilirubin Negative (NEGATIVE) Urine Urobilinogen Normal MG/DL (0.0-1.0) Urine Leukocyte Esterase Negative (NEGATIVE) Urine RBC 0 /HPF (0 - 0) Urine WBC 0 /HPF (0 - 0) Urine Squamous Epithelial Cells None /LPF (NONE/OCC) Urine Bacteria None /HPF (NONE) Pieter Mcclain MD May 05, 2019 10:11
[2019-05-05 11:51] LABS: BASOPHILS % (AUTO) 0.9 % (0.0-2.0); HEMATOCRIT 41.7 % (42.0-52.0); HEMOGLOBIN 13.6 G/DL (14.2-18.0); LYMPHOCYTES % (AUTO) 49.3 % (20.0-45.0); MEAN CORPUSCULAR VOLUME 81 FL (80-99); MONOCYTES % (AUTO) 7.5 % (1.0-10.0); NEUTROPHILS % (AUTO) 39.3 % (45.0-75.0); PLATELET COUNT 224 K/UL (150-450); RED BLOOD COUNT 5.13 M/UL (4.70-6.10); RED CELL DISTRIBUTION WIDTH 11.7 % (11.6-14.8); WHITE BLOOD COUNT 9.4 K/UL (4.8-10.8)
[2019-05-05 12:08] LABS: ANION GAP 6 mmol/L (5-15); BLOOD UREA NITROGEN 12 mg/dL (7-18); CALCIUM 8.1 MG/DL (8.5-10.1); CARBON DIOXIDE 25 MMOL/L (21-32); CHLORIDE 104 MMOL/L (98-107); CREATININE 0.9 MG/DL (0.55-1.30); SODIUM 135 MMOL/L (136-145)
--- NOTE | 2019-05-05 15:00 | Consultation ---
DATE OF CONSULTATION: 05/05/2019 CONSULTING PHYSICIAN: Samuel Solorzano M.D. HISTORY OF PRESENT ILLNESS: The patient has a history of seizure disorder. This is a 69-year-old male patient who came into [facility] secondary to seizure disorder, but this patient [facility] the [facility] because he has seizures. He had a tonic-clonic seizure. He takes Keppra, but he also developed altered mental status and confusion, worsened by stress of his medical illness. He does have a mental health history . He has altered mental status, decline in cognition below his baseline. That is why, his attending physician has requested daily psychiatric consultation for this patient. MEDICAL HISTORY: He has history of epilepsy, seizure, bronchitis, urinary tract infection, hypertension, COPD, electrolyte abnormalities, and dehydration. PSYCHOTROPIC MEDICATIONS ON ADMISSION: Per chart, he normally takes Remeron 15 mg at bedtime and Namenda 5 mg twice a day. SUBSTANCE ABUSE HISTORY: No known history of any drug and alcohol use. PAIN ASSESSMENT: 0/10 pain. DEVELOPMENTAL PROBLEMS: Denies. FAMILY PSYCHIATRIC HISTORY: No known family psych history. SOCIAL HISTORY: Financially supported by [employer] and Medicare. This patient is currently living in [facility]. PSYCHIATRIC HISTORY: History of major depressive disorder, severe, recurrent with psychotic features, rule out dementia with psychosis. No secondary. MENTAL STATUS EXAMINATION: This is a 69-year-old male. Appearance is disheveled. Attitude, irritable and agitated. Affect, guarded and restricted. Intellect, poor. Mood, depressed and anxious. Motor activity, psychomotor agitation. Attention span is poor. Orientation x2. Speech is low volume, slurred. Thought process, disorganized and illogical. Insight and judgment is poor. DIAGNOSES: 1. Major depressive disorder, severe, recurrent with psychotic features, rule out dementia with psychosis. 2. No secondary. 3. Medical, diabetes, hypertension, COPD. 4. Psychosocial stressors, financial. 5. Functional impairment is mild. PLAN: Right now, he is currently NPO per nursing. Once he is able to tolerate oral feedings, I will restart him on Namenda at a dose of 5 mg twice a day and then also Depakene syrup at a strength of 250 mg per G-tube every 8 hours and Namenda 5 mg twice a day. He will continue to be followed by Psychiatry throughout hospital course. Chart reviewed and discussed with staff. Seen and assessed at bedside. 20 minutes of cognitive behavioral therapy to help him identify his automatic negative thoughts and help him convert those negative thoughts to more positive thoughts to reduce depression, anxiety, and mood lability. I would like to thank Dr. Stuart New for this interesting psychiatric consultation. Samuel Solorzano M.D. DR: SANDRA JOB#: [id number] CC:
--- NOTE | 2019-05-05 15:11 | Cardiology Report ---
APPROVED REPORT EXAM: Two-dimensional and M-mode echocardiogram with Doppler and color Doppler. INDICATION Bradycardia M-Mode DIMENSIONS IVSd0.9 (0.7-1.1cm)Left Atrium (MM)3.8 (1.6-4.0cm) LVDd4.6 (3.5-5.6cm)Aortic Root2.7 (2.0-3.7cm) PWd0.8 (0.7-1.1cm)Aortic Cusp Exc.2.0 (1.5-2.0cm) LVDs3.3 (2.5-4.0cm) PWs1.2 cm Normal left ventricular chamber size, systolic function and wall motion. Left ventricular ejection fraction estimated to be 60 %. Mild left ventricular hypertrophy. No evidence of pericardial effusion. All other cardiac chamber sizes are within normal limits. Moderate focal aortic valve sclerosis with adequate cusp excursion. Thickened mitral valve leaflets with normal excursion. Mitral annulus and aortic root calcification. Normal pulmonic valve structure. Normal tricuspid valve structure. Subcostal views not obtainable due to G-tube. A color flow and spectral Doppler study was performed and revealed: Trace aortic regurgitation. No mitral regurgitation. Mitral diastolic velocities suggest mild left ventricular diastolic dysfunction (Grade I). Trace tricuspid regurgitation. Tricuspid systolic velocities suggests peak right ventricular systolic pressure of 19 mmHg. Trace pulmonic regurgitation present.
[2019-05-05] MEDS: D5 1/2NS 1,000 ML IV SCH (15:30)
--- NOTE | 2019-05-05 15:30 | Consultation ---
DATE OF CONSULTATION: 05/05/2019 NOTE: INCOMPLETE DICTATION CARDIOLOGY CONSULTATION CONSULTING PHYSICIAN: Pieter Mcclain M.D. REFERRING PHYSICIAN: Stuart New D.O. REASON FOR CONSULTATION: Bradycardia. HISTORY OF PRESENT ILLNESS: Pieter Mcclain M.D. DR: EBONY JOB#: [id number] CC:
--- NOTE | 2019-05-05 15:45 | History and Physical Report ---
DATE OF ADMISSION: 05/05/2019 TIME SEEN: On 05/05/2019, at 9 a.m. CONSULTANTS: 1. Odilon Carroll M.D. 2. Pieter Mcclain M.D. 3. Sanjeev Stout M.D. 4. Samuel Osborn M.D. CHIEF COMPLAINT: Seizure, weakness, lethargy, and confusion. BRIEF HISTORY: This 69-year-old male from [facility], presented with increased seizure, was bradycardic, very confused, which was baseline. The patient admitted for above. Currently calm, confused in bed, and nonverbal. REVIEW OF SYSTEMS: Not available. PAST MEDICAL HISTORY: Includes confusion, seizure, hypertension, COPD, diabetes, renal insufficiency, and encephalopathy. PAST SURGICAL HISTORY: G-tube. ALLERGIES: Denies. SOCIAL HISTORY: No smoking. No alcohol. No intravenous drug abuse. FAMILY HISTORY: Noncontributory. PHYSICAL EXAMINATION: GENERAL: Calm in bed, confused, disoriented x3, and in no acute distress. VITAL SIGNS: Temperature is 97 degrees, pulse 50, respirations 16, and blood pressure 105/55. CARDIOVASCULAR: No murmur. LUNGS: Distant and clear. ABDOMEN: Bowel sounds positive. Nontender. Nondistended. EXTREMITIES: No cyanosis or edema. NEUROLOGIC: The patient moves all extremities, slightly weak. LABORATORY AND DIAGNOSTIC DATA: Labs at this time show white count 13, otherwise CBC is normal. BMP shows potassium 5.4 and glucose 109. Urinalysis showed negative. MEDICATIONS: Include Lipitor, Senokot, Remeron, Zyloprim, aspirin, famotidine, levetiracetam, levofloxacin, memantine, metoprolol, nitroglycerin, Haldol, and isosorbide. ASSESSMENT: Seizure, leukocytosis, hyperkalemia, bradycardia, hypertension, COPD, diabetes, renal insufficiency, and encephalopathy. PLAN: Blood pressure and seizure control. Resume home medications and G-tube feeding. Blood pressure and blood sugar . Dietary followup. We will continue to follow this patient. PT and dietary evaluation. CBC and BMP in the morning. Stuart New D.O. DR: Afia JOB#: [id number] CC:
--- NOTE | 2019-05-05 16:15 | Consultation ---
DATE OF CONSULTATION: 05/05/2019 CARDIAC ELECTROPHYSIOLOGY CONSULTATION CONSULTING PHYSICIAN: Pieter Mcclain M.D. REFERRING PHYSICIAN: Stuart New D.O. REASON FOR CONSULTATION: Bradycardia. HISTORY OF PRESENT ILLNESS: The patient is a 69-year-old gentleman with history of schizophrenia, seizure, and dementia who is a penitentiary resident with history of G-tube placement, who was brought to the hospital for seizure that was witnessed by nursing staff. It was tonic-clonic, lasting a few minutes. The patient also noted to be bradycardic with heart rate dropping to 40s. Cardiac electrophysiology consultation was obtained for further evaluation. REVIEW OF SYSTEMS: Cannot be obtained as the patient is aphasic. PAST MEDICAL HISTORY: As mentioned above. FAMILY HISTORY: Noncontributory. SOCIAL HISTORY: alf resident. Does not smoke or drink alcohol. PHYSICAL EXAMINATION: VITAL SIGNS: Show blood pressure is 137/71, pulse is 50, respirations 18. He is afebrile. HEAD AND NECK: Showed no JVD. LUNGS: Clear. CARDIOVASCULAR: Shows bradycardic S1 and S2 with no gallop or murmur. ABDOMEN: Soft and status post G-tube. EXTREMITIES: No pitting edema, but contracted. LABORATORY AND DIAGNOSTIC DATA: Labs show white count of 13.5, hemoglobin of 14.4, hematocrit 44.3, and platelet count of 250. Sodium is 140, potassium 5.4, BUN of 15, creatinine 1.1, and glucose of 109. Troponin is negative. ASSESSMENT AND PLAN: 1. Bradycardia. Heart rate dropped to 40s. We will transfer the patient to telemetry for close monitoring. The patient is on metoprolol 12.5 b.i.d. that we will discontinue at this time. 2. Hypertension. The patient is on Isordil 10 mg every 6 hours through G-tube and p.r.n. clonidine as well as p.r.n. hydralazine. I will start the patient on a standing dose of amlodipine 5 mg daily. 3. Hyperlipidemia, on Lipitor. 4. History of elevated troponin, on aspirin and Lipitor. I will discontinue metoprolol. 5. Uncontrolled seizures, on Keppra. 6. Dementia. 7. Dysphagia, status post PEG placement. 8. History of schizophrenia. Thank you very much, Dr. New, for allowing me to participate in the care of this patient. Please do not hesitate to contact me for any questions regarding my evaluation. Pieter Mcclain M.D. DR: EBONY JOB#: [id number] CC:
[2019-05-05] MEDS: Memantine 5 MG TAB ORAL SCH (18:40)
[2019-05-05] MEDS ORDERED: Sennosides 8.6mg tab GT SCH (21:00)
[2019-05-05] MEDS: Sennosides 8.6mg tab GT SCH (21:30)
[2019-05-05] MEDS: Heparin 5000 units/ml inj SUBQ SCH (21:32)
[2019-05-05] MEDS ORDERED: Depakote 125mg Sprinkles GT SCH (22:00)
[2019-05-06] VITALS: BP 114/70
[2019-05-06] MEDS: D5 1/2NS 1,000 ML IV SCH (00:32)
[2019-05-06] MEDS: Depakote 125mg Sprinkles GT SCH ×3 (03:06→17:18)
[2019-05-06 04:00] VITALS: BP 149/67
[2019-05-06 05:55] LABS: HEMATOCRIT 44.4 % (42.0-52.0); HEMOGLOBIN 14.5 G/DL (14.2-18.0); MEAN CORPUSCULAR VOLUME 82 FL (80-99); PLATELET COUNT 205 K/UL (150-450); RED BLOOD COUNT 5.42 M/UL (4.70-6.10); RED CELL DISTRIBUTION WIDTH 11.8 % (11.6-14.8); WHITE BLOOD COUNT 8.9 K/UL (4.8-10.8)
[2019-05-06] MEDS: Haloperidol 1mg tab GT SCH ×3 (06:00→21:59)
[2019-05-06 06:27] LABS: ANION GAP 8 mmol/L (5-15); BLOOD UREA NITROGEN 11 mg/dL (7-18); CALCIUM 8.7 MG/DL (8.5-10.1); CARBON DIOXIDE 25 MMOL/L (21-32); CHLORIDE 110 MMOL/L (98-107); POTASSIUM 4.3 MMOL/L (3.5-5.1); SODIUM 143 MMOL/L (136-145)
[2019-05-06] MEDS: NovoLOG Insulin Flexpen SUBQ SCH ×4 (06:30→20:42)
[2019-05-06] MEDS: Nitroglycerin Patch 0.4mg TDERMAL SCH (06:59)
--- NOTE | 2019-05-06 07:30 | Progress Note ---
DATE: 05/06/2019 SUBJECTIVE: This is a 69-year-old male patient with seizure disorder. This patient continues to have some confusion, disorganized thought process, and got some mood lability. decline in cognition below the baseline. That is why, he does require inpatient treatment at this time. This patient has seizure disorder, lethargy, confusion. That is why, he is very confused. He has lethargy, weakness, and confusion. DIAGNOSIS: Major depressive disorder, severe, recurrent with psychotic features, rule out dementia with psychosis. PLAN: Plan for this patient is to treat him with Namenda 5 mg twice a day per G-tube and Depakene syrup 250 mg per G-tube q.8 hours. A 20 minutes of cognitive behavioral therapy to help him identify his automatic negative thoughts to help him convert those negative thoughts to more positive thoughts to reduce depression, anxiety, and mood lability. Chart reviewed. Discussed with staff. Seen and assessed . Samuel Solorzano M.D. DR: JOE JOB#: [id number] CC:
[2019-05-06 08:00] VITALS: BP 125/58
[2019-05-06] MEDS ORDERED: Allopurinol 100mg Tab GT SCH (09:00)
[2019-05-06] MEDS ORDERED: Fleet's Enema 133ml RECTAL PRN (09:00)
[2019-05-06] MEDS: Memantine 5 MG TAB ORAL SCH ×2 (09:42→17:17)
[2019-05-06] MEDS: Levofloxacin 500mg tab GT SCH (09:43)
[2019-05-06] MEDS: Multivitamins W/Minerals 15 ML UDC GT SCH (09:44)
[2019-05-06] MEDS: Ascorbic Acid 500mg tab ORAL SCH (09:44)
[2019-05-06] MEDS: Aspirin Baby 81mg GT SCH (09:44)
[2019-05-06] MEDS: Docusate 100mg/10ml Liq GT SCH ×3 (09:44→17:18)
[2019-05-06] MEDS: Heparin 5000 units/ml inj SUBQ SCH ×2 (09:46→20:40)
--- NOTE | 2019-05-06 10:02 | General Progress Note ---
Assessment/Plan Problem List: (1) Dehydration ICD Codes: E86.0 - Dehydration SNOMED: 63061411 (2) Seizure ICD Codes: R56.9 - Unspecified convulsions SNOMED: 41326191 (3) HTN (hypertension) ICD Codes: I10 - Essential (primary) hypertension SNOMED: 60299746 (4) Feeding by G-tube ICD Codes: Z93.1 - Gastrostomy status SNOMED: 639432662, 082873018 (5) COPD (chronic obstructive pulmonary disease) ICD Codes: J44.9 - Chronic obstructive pulmonary disease, unspecified SNOMED: 38214528 (6) Diabetes mellitus ICD Codes: E11.9 - Type 2 diabetes mellitus without complications SNOMED: 02297141 (7) Renal insufficiency ICD Codes: N28.9 - Disorder of kidney and ureter, unspecified SNOMED: 474914005, 667760928 (8) History of CVA (cerebrovascular accident) ICD Codes: Z86.73 - Personal history of transient ischemic attack (TIA), and cerebral infarction without residual deficits SNOMED: 014173576 (9) Altered mental status ICD Codes: R41.82 - Altered mental status, unspecified SNOMED: 919869465 Qualifiers: Qualified Codes: R41.82 - Altered mental status, unspecified Status: unchanged Assessment/Plan: pt firt seiszure control bp bs control neuro psyc eval cbc bmp am Subjective Constitutional: Reports: weakness Allergies: Coded Allergies: No Known Allergies (Unverified , 09/03/17) All Systems: reviewed and negative except above Subjective sleepy confused Objective Last 24 Hour Vital Signs Date Time Temp Pulse Resp B/P (MAP) Pulse Ox O2 Delivery O2 Flow Rate FiO2 05/06/19 09:43 52 125/58 05/06/19 08:00 98.0 52 18 125/58 (80) 99 05/06/19 06:59 163/78 05/06/19 06:58 163/78 05/06/19 04:00 96.4 43 18 149/67 (94) 98 05/06/19 04:00 41 05/06/19 00:26 114/70 05/06/19 00:00 97.5 45 18 114/70 (85) 96 05/06/19 00:00 46 05/05/19 21:00 Room Air 05/05/19 20:00 97.7 48 17 116/74 (88) 98 05/05/19 20:00 58 05/05/19 18:40 116/74 05/05/19 18:01 98.3 48 18 116/74 (88) 100 05/05/19 16:29 56 05/05/19 15:34 97.6 60 18 124/62 (82) 96 05/05/19 13:04 141/64 05/05/19 12:52 97.1 54 18 141/64 (89) 96 05/05/19 12:51 50 Intake and Output 05/05/19 05/06/19 18:59 06:59 Intake Total 470 ml Balance 470 ml Intake Oral 230 ml IV Total 240 ml # Voids 4 2 # Bowel Movements 1 Laboratory Tests 05/05/19 11:20: White Blood Count 9.4, Red Blood Count 5.13, Hemoglobin 13.6L, Hematocrit 41.7L , Mean Corpuscular Volume 81, Mean Corpuscular Hemoglobin 26.5L, Mean Corpuscular Hemoglobin Concent 32.5, Red Cell Distribution Width 11.7, Platelet Count 224, Mean Platelet Volume 7.5, Neutrophils (%) (Auto) 39.3L, Lymphocytes ( %) (Auto) 49.3H, Monocytes (%) (Auto) 7.5, Eosinophils (%) (Auto) 3.0, Basophils (%) (Auto) 0.9, Sodium Level 135L, Potassium Level 4.0, Chloride Level 104, Carbon Dioxide Level 25, Anion Gap 6, Blood Urea Nitrogen 12, Creatinine 0.9, Estimat Glomerular Filtration Rate > 60, Glucose Level 85, Calcium Level 8.1L 05/06/19 04:55: White Blood Count 8.9, Red Blood Count 5.42, Hemoglobin 14.5, Hematocrit 44.4, Mean Corpuscular Volume 82, Mean Corpuscular Hemoglobin 26.8L, Mean Corpuscular Hemoglobin Concent 32.7, Red Cell Distribution Width 11.8, Platelet Count 205, Mean Platelet Volume 7.0, Neutrophils (%) (Auto) , Lymphocytes (%) (Auto) , Monocytes (%) (Auto) , Eosinophils (%) (Auto) , Basophils (%) (Auto) , Sodium Level 143, Potassium Level 4.3, Chloride Level 110H, Carbon Dioxide Level 25, Anion Gap 8, Blood Urea Nitrogen 11, Creatinine 1.0, Estimat Glomerular Filtration Rate > 60, Glucose Level 90, Calcium Level 8.7, Neutrophils % (Manual ) [Pending], Lymphocytes % (Manual) [Pending], Platelet Estimate [Pending], Platelet Morphology [Pending], Troponin I 0.024, Thyroid Stimulating Hormone ( TSH) 1.290, Free Thyroxine 1.55H Height (Feet): 5 Height (Inches): 4.00 Weight (Pounds): 145 General Appearance: lethargic EENT: normal ENT inspection Neck: normal alignment Cardiovascular: normal peripheral pulses, normal rate, regular rhythm Respiratory/Chest: chest wall non-tender, lungs clear, normal breath sounds Abdomen: normal bowel sounds, non tender, soft Extremities: normal inspection Edema: no edema noted Arm (L), no edema noted Arm (R), no edema noted Leg (L), no edema noted Leg (R), no edema noted Pedal (L), no edema noted Pedal (R), no edema noted Generalized Neurologic: motor weakness Skin: normal pigmentation, warm/dry Stuart New DO May 06, 2019 10:02
[2019-05-06 12:00] VITALS: BP 127/60
--- NOTE | 2019-05-06 12:34 | Consultation ---
Consult Note Assessment/Plan Dehydration Sz HTN DM s/p CVA has a GT in place Monitor Lytes, Mag Hydrate Keep BP in check Per orders Odilon Carroll MD May 06, 2019 12:34
[2019-05-06 15:54] VITALS: BP 130/64
[2019-05-06 20:00] VITALS: BP 112/66
[2019-05-06] MEDS: Sennosides 8.6mg tab GT SCH (20:41)
[2019-05-07] VITALS: BP 127/67
[2019-05-07] MEDS: D5 1/2NS 1,000 ML IV SCH (01:31)
[2019-05-07] MEDS: Depakote 125mg Sprinkles GT SCH ×3 (02:18→17:53)
[2019-05-07 04:00] VITALS: BP 126/65
[2019-05-07] MEDS: Haloperidol 1mg tab GT SCH ×3 (05:59→21:04)
[2019-05-07] MEDS: Nitroglycerin Patch 0.4mg TDERMAL SCH (06:00)
[2019-05-07] MEDS: NovoLOG Insulin Flexpen SUBQ SCH ×4 (06:15→21:06)
[2019-05-07 08:00] VITALS: BP 122/71
--- NOTE | 2019-05-07 08:54 | General Progress Note ---
Assessment/Plan Problem List: (1) Dehydration ICD Codes: E86.0 - Dehydration SNOMED: 19326711 (2) Seizure ICD Codes: R56.9 - Unspecified convulsions SNOMED: 22917146 (3) HTN (hypertension) ICD Codes: I10 - Essential (primary) hypertension SNOMED: 16480911 (4) Feeding by G-tube ICD Codes: Z93.1 - Gastrostomy status SNOMED: 225613242, 678519837 (5) COPD (chronic obstructive pulmonary disease) ICD Codes: J44.9 - Chronic obstructive pulmonary disease, unspecified SNOMED: 72550113 (6) Diabetes mellitus ICD Codes: E11.9 - Type 2 diabetes mellitus without complications SNOMED: 31262271 (7) Renal insufficiency ICD Codes: N28.9 - Disorder of kidney and ureter, unspecified SNOMED: 306180593, 491321204 (8) History of CVA (cerebrovascular accident) ICD Codes: Z86.73 - Personal history of transient ischemic attack (TIA), and cerebral infarction without residual deficits SNOMED: 790866945 (9) Altered mental status ICD Codes: R41.82 - Altered mental status, unspecified SNOMED: 752239858 Qualifiers: Qualified Codes: R41.82 - Altered mental status, unspecified Status: stable, progressing Assessment/Plan: pt firt seiszure control bp bs control neuro psyc eval cbc bmp am aru eval Subjective Constitutional: Reports: weakness Allergies: Coded Allergies: No Known Allergies (Unverified , 09/03/17) All Systems: reviewed and negative except above Subjective eating calm Objective Last 24 Hour Vital Signs Date Time Temp Pulse Resp B/P (MAP) Pulse Ox O2 Delivery O2 Flow Rate FiO2 05/07/19 08:00 98.9 48 18 122/71 (88) 99 05/07/19 06:00 126/65 05/07/19 05:59 126/65 05/07/19 04:00 97.0 46 20 126/65 (85) 99 05/07/19 04:00 45 05/07/19 00:00 98.1 48 22 127/67 (87) 100 05/07/19 00:00 105/64 05/07/19 00:00 50 05/06/19 21:00 Room Air 05/06/19 20:00 97.1 56 18 112/66 (81) 100 05/06/19 20:00 57 05/06/19 17:17 130/64 05/06/19 16:00 74 05/06/19 15:54 97.3 61 18 130/64 (86) 98 05/06/19 12:47 127/60 05/06/19 12:00 56 05/06/19 12:00 97.9 56 18 127/60 (82) 99 05/06/19 09:43 52 125/58 05/06/19 09:00 Room Air 05/06/19 09:00 58 Intake and Output 05/06/19 05/07/19 19:00 07:00 Intake Total 600 ml Balance 600 ml Other 600 ml # Voids 3 Laboratory Tests 05/06/19 18:05: Urine Opiates Screen Negative, Urine Barbiturates Screen Negative, Phencyclidine (PCP) Screen Negative, Urine Amphetamines Screen Negative, Urine Benzodiazepines Screen Negative, Urine Cocaine Screen Negative, Urine Marijuana (THC) Screen Negative Height (Feet): 5 Height (Inches): 4.00 Weight (Pounds): 145 General Appearance: lethargic EENT: normal ENT inspection Neck: normal alignment Cardiovascular: normal peripheral pulses, normal rate, regular rhythm Respiratory/Chest: chest wall non-tender, lungs clear, normal breath sounds Abdomen: normal bowel sounds, non tender, soft Extremities: normal inspection Edema: no edema noted Arm (L), no edema noted Arm (R), no edema noted Leg (L), no edema noted Leg (R), no edema noted Pedal (L), no edema noted Pedal (R), no edema noted Generalized Neurologic: motor weakness Skin: normal pigmentation, warm/dry Stuart New DO May 07, 2019 08:54
[2019-05-07] MEDS: Docusate 100mg/10ml Liq GT SCH ×3 (09:23→17:53)
[2019-05-07] MEDS: Aspirin Baby 81mg GT SCH (09:25)
[2019-05-07] MEDS: Ascorbic Acid 500mg tab ORAL SCH (09:25)
[2019-05-07] MEDS: Memantine 5 MG TAB ORAL SCH (09:25)
[2019-05-07] MEDS: Multivitamins W/Minerals 15 ML UDC GT SCH (09:26)
[2019-05-07] MEDS: Heparin 5000 units/ml inj SUBQ SCH ×2 (09:27→21:07)
[2019-05-07 09:28] LABS: HEMATOCRIT 40.1 % (42.0-52.0); HEMOGLOBIN 12.7 G/DL (14.2-18.0); MEAN CORPUSCULAR VOLUME 83 FL (80-99); PLATELET COUNT 201 K/UL (150-450); RED BLOOD COUNT 4.84 M/UL (4.70-6.10); RED CELL DISTRIBUTION WIDTH 12.1 % (11.6-14.8); WHITE BLOOD COUNT 7.4 K/UL (4.8-10.8)
[2019-05-07 09:42] LABS: AMMONIA 14 umol/L (11-32)
[2019-05-07] MEDS: Levofloxacin 500mg tab GT SCH (09:43)
[2019-05-07 09:57] LABS: ALANINE AMINOTRANSFERASE 44 U/L (12-78); ALBUMIN 2.3 G/DL (3.4-5.0); ALBUMIN/GLOBULIN RATIO 0.5 (1.0-2.7); ALKALINE PHOSPHATASE 63 U/L (46-116); ASPARTATE AMINO TRANSFERASE 40 U/L (15-37); BILIRUBIN,TOTAL 0.6 MG/DL (0.2-1.0); BLOOD UREA NITROGEN 8 mg/dL (7-18); CALCIUM 7.6 MG/DL (8.5-10.1); CREATINE KINASE 53 U/L (26-308); CREATININE 1.2 MG/DL (0.55-1.30); GAMMA GLUTAMYL TRANSPEPTIDASE 67 U/L (5-85); PHOSPHORUS 2.2 MG/DL (2.5-4.9)
[2019-05-07 10:08] LABS: ANION GAP 7 mmol/L (5-15); CARBON DIOXIDE 26 MMOL/L (21-32); CHLORIDE 108 MMOL/L (98-107); POTASSIUM 3.9 MMOL/L (3.5-5.1); SODIUM 141 MMOL/L (136-145)
[2019-05-07 12:00] VITALS: BP 148/72
--- NOTE | 2019-05-07 12:01 | Progress Note ---
DATE: 05/07/2019 SUBJECTIVE: This is a 69-year-old male patient with seizure disorder. This patient continues to have confusion, disorganized thought process, mood lability. That is why, he does require daily psychiatric consultation, seizure disorder, lethargic, confusion. DIAGNOSIS: Major depressive disorder, severe, recurrent with psychotic features, rule out dementia with psychosis. PLAN: Plan for this patient, treat him with a medication regimen of Namenda 5 mg twice a day per G-tube and Depakene syrup 250 mg per G-tube every 8 hours. A 20 minutes of cognitive behavioral therapy to help him identify his automatic negative thoughts to help him convert those negative thoughts to more positive thoughts to reduce depression, anxiety, and mood lability. . Chart reviewed. Discussed with staff. Seen and assessed in his room. Samuel Solorzano M.D. DR: JOE JOB#: [id number] CC:
--- NOTE | 2019-05-07 12:04 | Nephrology Progress Note ---
Assessment/Plan Problem List: (1) Electrolyte abnormality (2) Seizure (3) History of CVA (cerebrovascular accident) Assessment Dehydration Sz HTN DM s/p CVA has a GT in place Plan Monitor Lytes, Mag Hydrate Keep BP in check Per orders Subjective ROS Limited/Unobtainable: No Objective Objective Last 24 Hour Vital Signs Date Time Temp Pulse Resp B/P (MAP) Pulse Ox O2 Delivery O2 Flow Rate FiO2 05/07/19 09:26 48 122/71 05/07/19 09:00 Room Air 05/07/19 08:00 43 05/07/19 08:00 98.9 48 18 122/71 (88) 99 05/07/19 06:00 126/65 05/07/19 05:59 126/65 05/07/19 04:00 97.0 46 20 126/65 (85) 99 05/07/19 04:00 45 05/07/19 00:00 98.1 48 22 127/67 (87) 100 05/07/19 00:00 105/64 05/07/19 00:00 50 05/06/19 21:00 Room Air 05/06/19 20:00 97.1 56 18 112/66 (81) 100 05/06/19 20:00 57 05/06/19 17:17 130/64 05/06/19 16:00 74 05/06/19 15:54 97.3 61 18 130/64 (86) 98 05/06/19 12:47 127/60 Intake and Output 05/06/19 05/07/19 19:00 07:00 Intake Total 600 ml Balance 600 ml Other 600 ml # Voids 3 Laboratory Tests 05/06/19 18:05: Urine Opiates Screen Negative, Urine Barbiturates Screen Negative, Phencyclidine (PCP) Screen Negative, Urine Amphetamines Screen Negative, Urine Benzodiazepines Screen Negative, Urine Cocaine Screen Negative, Urine Marijuana (THC) Screen Negative 05/07/19 09:00: White Blood Count 7.4, Red Blood Count 4.84, Hemoglobin 12.7L, Hematocrit 40.1L , Mean Corpuscular Volume 83, Mean Corpuscular Hemoglobin 26.3L, Mean Corpuscular Hemoglobin Concent 31.7L, Red Cell Distribution Width 12.1, Platelet Count 201, Mean Platelet Volume 6.8, Neutrophils (%) (Auto) , Lymphocytes (%) (Auto) , Monocytes (%) (Auto) , Eosinophils (%) (Auto) , Basophils (%) (Auto) , Differential Total Cells Counted 100, Neutrophils % ( Manual) 34L, Lymphocytes % (Manual) 58H, Monocytes % (Manual) 7, Eosinophils % ( Manual) 1, Basophils % (Manual) 0, Band Neutrophils 0, Platelet Estimate Adequate, Platelet Morphology Normal, Red Blood Cell Morphology , Hypochromasia 1+, Sodium Level 141, Potassium Level 3.9, Chloride Level 108H, Carbon Dioxide Level 26, Anion Gap 7, Blood Urea Nitrogen 8, Creatinine 1.2, Estimat Glomerular Filtration Rate > 60, Glucose Level 349#H, Hemoglobin A1c 5.8, Uric Acid 6.0, Calcium Level 7.6L, Phosphorus Level 2.2L, Magnesium Level 1.7L, Total Bilirubin 0.6, Gamma Glutamyl Transpeptidase 67, Aspartate Amino Transf ( AST/SGOT) 40H, Alanine Aminotransferase (ALT/SGPT) 44, Alkaline Phosphatase 63, Ammonia 14, Total Creatine Kinase 53, C-Reactive Protein, Quantitative 1.0H, Pro -B-Type Natriuretic Peptide 139H, Total Protein 7.1, Albumin 2.3L, Globulin 4.8 , Albumin/Globulin Ratio 0.5L, Vitamin B12 Level 1252H, Folate 13.5, Valproic Acid (Depakene) Level 53 Height (Feet): 5 Height (Inches): 4.00 Weight (Pounds): 145 General Appearance: no apparent distress Respiratory/Chest: decreased breath sounds Abdomen: soft Odilon Carroll MD May 07, 2019 12:04
--- NOTE | 2019-05-07 14:52 | Cardiac Electrophysiology PN ---
Assessment/Plan Assessment/Plan 1. Bradycardia. Heart rate dropped to 40s. Transferred to telemetry for close monitoring. HR still drops to 43 despite being off metoprolol 2. Hypertension. DCed Isordil. Change Hydralazine to 25 q 12 hr 3. Hyperlipidemia, on Lipitor. 4. History of elevated troponin, on aspirin and Lipitor. No CP. Repeat troponin 5. Uncontrolled seizures, on Keppra. 6. Dementia. 7. S/P PEG placement. 8. History of schizophrenia. JORDANA RN Subjective Subjective Lowest HR was 43 overnight. No CP or SOB Objective Last 24 Hour Vital Signs Date Time Temp Pulse Resp B/P (MAP) Pulse Ox O2 Delivery O2 Flow Rate FiO2 05/07/19 12:00 98.9 49 18 148/72 (97) 100 05/07/19 12:00 50 05/07/19 09:26 48 122/71 05/07/19 09:00 Room Air 05/07/19 08:00 43 05/07/19 08:00 98.9 48 18 122/71 (88) 99 05/07/19 06:00 126/65 05/07/19 05:59 126/65 05/07/19 04:00 97.0 46 20 126/65 (85) 99 05/07/19 04:00 45 05/07/19 00:00 98.1 48 22 127/67 (87) 100 05/07/19 00:00 105/64 05/07/19 00:00 50 05/06/19 21:00 Room Air 05/06/19 20:00 97.1 56 18 112/66 (81) 100 05/06/19 20:00 57 05/06/19 17:17 130/64 05/06/19 16:00 74 05/06/19 15:54 97.3 61 18 130/64 (86) 98 Intake and Output 05/06/19 05/07/19 18:59 06:59 Intake Total 600 ml Balance 600 ml Other 600 ml # Voids 3 Laboratory Tests Test 05/06/19 18:05 05/07/19 09:00 Urine Opiates Screen Negative (NEGATIVE) Urine Barbiturates Screen Negative (NEGATIVE) Phencyclidine (PCP) Screen Negative (NEGATIVE) Urine Amphetamines Screen Negative (NEGATIVE) Urine Benzodiazepines Screen Negative (NEGATIVE) Urine Cocaine Screen Negative (NEGATIVE) Urine Marijuana (THC) Screen Negative (NEGATIVE) White Blood Count 7.4 K/UL (4.8-10.8) Red Blood Count 4.84 M/UL (4.70-6.10) Hemoglobin 12.7 G/DL (14.2-18.0) L Hematocrit 40.1 % (42.0-52.0) L Mean Corpuscular Volume 83 FL (80-99) Mean Corpuscular Hemoglobin 26.3 PG (27.0-31.0) L Mean Corpuscular Hemoglobin Concent 31.7 G/DL (32.0-36.0) L Red Cell Distribution Width 12.1 % (11.6-14.8) Platelet Count 201 K/UL (150-450) Mean Platelet Volume 6.8 FL (6.5-10.1) Neutrophils (%) (Auto) % (45.0-75.0) Lymphocytes (%) (Auto) % (20.0-45.0) Monocytes (%) (Auto) % (1.0-10.0) Eosinophils (%) (Auto) % (0.0-3.0) Basophils (%) (Auto) % (0.0-2.0) Differential Total Cells Counted 100 Neutrophils % (Manual) 34 % (45-75) L Lymphocytes % (Manual) 58 % (20-45) H Monocytes % (Manual) 7 % (1-10) Eosinophils % (Manual) 1 % (0-3) Basophils % (Manual) 0 % (0-2) Band Neutrophils 0 % (0-8) Platelet Estimate Adequate Platelet Morphology Normal Red Blood Cell Morphology Hypochromasia 1+ Sodium Level 141 MMOL/L (136-145) Potassium Level 3.9 MMOL/L (3.5-5.1) Chloride Level 108 MMOL/L (98-107) H Carbon Dioxide Level 26 MMOL/L (21-32) Anion Gap 7 mmol/L (5-15) Blood Urea Nitrogen 8 mg/dL (7-18) Creatinine 1.2 MG/DL (0.55-1.30) Estimat Glomerular Filtration Rate > 60 mL/min (>60) Glucose Level 349 MG/DL (74-106) #H Hemoglobin A1c 5.8 % (4.3-6.0) Uric Acid 6.0 MG/DL (2.6-7.2) Calcium Level 7.6 MG/DL (8.5-10.1) L Phosphorus Level 2.2 MG/DL (2.5-4.9) L Magnesium Level 1.7 MG/DL (1.8-2.4) L Total Bilirubin 0.6 MG/DL (0.2-1.0) Gamma Glutamyl Transpeptidase 67 U/L (5-85) Aspartate Amino Transf (AST/SGOT) 40 U/L (15-37) H Alanine Aminotransferase (ALT/SGPT) 44 U/L (12-78) Alkaline Phosphatase 63 U/L (46-116) Ammonia 14 umol/L (11-32) Total Creatine Kinase 53 U/L (26-308) C-Reactive Protein, Quantitative 1.0 mg/dL (0.00-0.90) H Pro-B-Type Natriuretic Peptide 139 pg/mL (0-125) H Total Protein 7.1 G/DL (6.4-8.2) Albumin 2.3 G/DL (3.4-5.0) L Globulin 4.8 g/dL Albumin/Globulin Ratio 0.5 (1.0-2.7) L Vitamin B12 Level 1252 PG/ML (193-986) H Folate 13.5 NG/ML (8.6-58.9) Valproic Acid (Depakene) Level 53 MCG/ML (50-100) Microbiology Date/Time Source Procedure Growth Status 05/04/19 23:00 Nasal Nares MRSA Culture - Final Staphylococcus Aureus - Mrsa Complete 05/04/19 23:00 Rectum - Final NO CARBAPENEM-RESISTANT ENTEROBACTERI... Complete 05/04/19 23:00 Rectal Mucosa VRE Culture - Final NO VANCOMYCIN RESISTANT ENTEROCOCCUS ... Complete Objective HEAD AND NECK: No JVD. LUNGS: Clear. CARDIOVASCULAR: Bradycardic S1 and S2 with no gallop or murmur. ABDOMEN: Soft and status post G-tube. EXTREMITIES: No pitting edema, but contracted. Pieter Mcclain MD May 07, 2019 14:52
[2019-05-07 16:00] VITALS: BP 120/64
[2019-05-07] MEDS: Memantine 5 MG TAB GT SCH (17:53)
[2019-05-07] MEDS ORDERED: HydrALAZINE 25mg tab GT PRN (18:00)
[2019-05-07] MEDS ORDERED: HydrALAZINE 10mg Tab GT SCH (18:00)
[2019-05-07] MEDS ORDERED: Acetaminophen 650mg/20.3ml GT PRN (18:00)
[2019-05-07] MEDS ORDERED: COLACE100 MG GT (18:16)
[2019-05-07] MEDS ORDERED: ACETAMINOPHEN325 M1 GT (18:17)
[2019-05-07 20:00] VITALS: BP 120/67
[2019-05-07] MEDS: Sennosides 8.6mg tab GT SCH (21:04)
[2019-05-07] MEDS: HydrALAZINE 10mg Tab GT SCH (21:05)
[2019-05-08] VITALS: BP 128/60
[2019-05-08] MEDS: Depakote 125mg Sprinkles GT SCH ×3 (02:41→18:05)
[2019-05-08 04:00] VITALS: BP 133/61
[2019-05-08] MEDS: NovoLOG Insulin Flexpen SUBQ SCH ×4 (06:11→21:00)
[2019-05-08] MEDS: Haloperidol 1mg tab GT SCH ×3 (06:23→21:53)
[2019-05-08] MEDS: Nitroglycerin Patch 0.4mg TDERMAL SCH (06:24)
[2019-05-08 08:00] VITALS: BP 128/65
[2019-05-08] MEDS: Multivitamins W/Minerals 15 ML UDC GT SCH (08:33)
[2019-05-08] MEDS: Memantine 5 MG TAB GT SCH ×2 (08:33→18:04)
[2019-05-08] MEDS: Docusate 100mg/10ml Liq GT SCH ×3 (08:33→18:04)
[2019-05-08] MEDS: Levofloxacin 500mg tab GT SCH (08:33)
[2019-05-08] MEDS: Aspirin Baby 81mg GT SCH (08:33)
[2019-05-08] MEDS: HydrALAZINE 10mg Tab GT SCH ×2 (08:34→21:53)
[2019-05-08] MEDS: Ascorbic Acid 500mg tab GT SCH (08:34)
[2019-05-08] MEDS: Heparin 5000 units/ml inj SUBQ SCH ×2 (08:34→22:00)
--- NOTE | 2019-05-08 09:36 | General Progress Note ---
Assessment/Plan Problem List: (1) Dehydration ICD Codes: E86.0 - Dehydration SNOMED: 03256217 (2) Seizure ICD Codes: R56.9 - Unspecified convulsions SNOMED: 63948242 (3) HTN (hypertension) ICD Codes: I10 - Essential (primary) hypertension SNOMED: 10715420 (4) Feeding by G-tube ICD Codes: Z93.1 - Gastrostomy status SNOMED: 370727952, 790225152 (5) COPD (chronic obstructive pulmonary disease) ICD Codes: J44.9 - Chronic obstructive pulmonary disease, unspecified SNOMED: 41572434 (6) Diabetes mellitus ICD Codes: E11.9 - Type 2 diabetes mellitus without complications SNOMED: 93538414 (7) Renal insufficiency ICD Codes: N28.9 - Disorder of kidney and ureter, unspecified SNOMED: 535637071, 376938511 (8) History of CVA (cerebrovascular accident) ICD Codes: Z86.73 - Personal history of transient ischemic attack (TIA), and cerebral infarction without residual deficits SNOMED: 184739872 (9) Altered mental status ICD Codes: R41.82 - Altered mental status, unspecified SNOMED: 208375941 Qualifiers: Qualified Codes: R41.82 - Altered mental status, unspecified Status: stable, progressing Assessment/Plan: pt firt seiszure control bp bs control neuro psyc eval cbc bmp am aru eval Subjective Constitutional: Reports: weakness Allergies: Coded Allergies: No Known Allergies (Unverified , 09/03/17) All Systems: reviewed and negative except above Subjective sleepy calm Objective Last 24 Hour Vital Signs Date Time Temp Pulse Resp B/P (MAP) Pulse Ox O2 Delivery O2 Flow Rate FiO2 05/08/19 08:34 128/65 05/08/19 08:00 97.0 60 20 128/65 (86) 98 05/08/19 06:24 130/65 05/08/19 04:00 97.3 45 20 133/61 (85) 97 05/08/19 04:00 47 05/08/19 00:00 51 05/08/19 00:00 97.2 49 20 128/60 (82) 99 05/07/19 21:05 120/67 05/07/19 21:00 Room Air 05/07/19 20:00 97.2 55 20 120/67 (84) 99 05/07/19 20:00 53 05/07/19 16:00 56 05/07/19 16:00 97.7 56 18 120/64 (82) 98 05/07/19 12:00 98.9 49 18 148/72 (97) 100 05/07/19 12:00 50 Intake and Output 05/07/19 05/08/19 19:00 07:00 Intake Total 240 ml 120 ml Balance 240 ml 120 ml Intake Oral 240 ml 120 ml # Voids 1 2 Laboratory Tests 05/07/19 17:10: Troponin I 0.038 Height (Feet): 5 Height (Inches): 4.00 Weight (Pounds): 145 General Appearance: lethargic EENT: normal ENT inspection Neck: normal alignment Cardiovascular: normal peripheral pulses, normal rate, regular rhythm Respiratory/Chest: chest wall non-tender, lungs clear, normal breath sounds Abdomen: normal bowel sounds, non tender, soft Extremities: normal inspection Edema: no edema noted Arm (L), no edema noted Arm (R), no edema noted Leg (L), no edema noted Leg (R), no edema noted Pedal (L), no edema noted Pedal (R), no edema noted Generalized Neurologic: motor weakness Skin: normal pigmentation, warm/dry Stuart New DO May 08, 2019 09:36
--- NOTE | 2019-05-08 09:45 | Progress Note ---
DATE: 05/08/2019 SUBJECTIVE: This is a 69-year-old male patient with seizure disorder. This patient has a history of seizure disorder, but he has confusion, disorganized thought process, altered mental status, and mood lability. That is why, he does require daily psychiatric consultation. He has seizure disorder, lethargic, and confusion. MENTAL STATUS EXAMINATION: This is a 69-year-old male. Appearance is disheveled. Attitude, irritable and agitated. Affect, guarded and restricted. Intellect poor. Mood, depressed and anxious. Motor activity, psychomotor agitation. Insight and judgment is poor. DIAGNOSIS: Major depressive disorder, severe, recurrent with psychotic features, rule out dementia with psychosis. PLAN: Plan for this patient, treat him with a medication regimen of Namenda 5 mg twice a day per G-tube and Depakene syrup 250 mg per G-tube q.8 h. A 20 minutes of cognitive behavioral therapy to help him identify his automatic negative thoughts to help him convert those negative thoughts to more positive thoughts to reduce depression, anxiety, and mood lability. A 20 minutes of cognitive behavioral therapy. . Samuel Solorzano M.D. DR: JOE JOB#: [id number] CC:
[2019-05-08 10:31] LABS: HEMATOCRIT 39.4 % (42.0-52.0); HEMOGLOBIN 12.9 G/DL (14.2-18.0); MEAN CORPUSCULAR VOLUME 81 FL (80-99); PLATELET COUNT 191 K/UL (150-450); RED BLOOD COUNT 4.85 M/UL (4.70-6.10); RED CELL DISTRIBUTION WIDTH 10.8 % (11.6-14.8); WHITE BLOOD COUNT 6.6 K/UL (4.8-10.8)
[2019-05-08 12:00] VITALS: BP 130/60
[2019-05-08 12:42] LABS: ANION GAP 10 mmol/L (5-15); BLOOD UREA NITROGEN 9 mg/dL (7-18); CALCIUM 8.6 MG/DL (8.5-10.1); CARBON DIOXIDE 24 MMOL/L (21-32); CHLORIDE 111 MMOL/L (98-107); SODIUM 145 MMOL/L (136-145)
--- NOTE | 2019-05-08 14:58 | Nephrology Progress Note ---
Assessment/Plan Problem List: (1) Electrolyte abnormality (2) Seizure (3) History of CVA (cerebrovascular accident) (4) Bradyarrhythmia Assessment Dehydration Sz HTN DM s/p CVA has a GT in place Plan Monitor Lytes, Mag Hydrate Keep BP in check Per orders Subjective ROS Limited/Unobtainable: No Constitutional: Reports: malaise Objective Objective Last 24 Hour Vital Signs Date Time Temp Pulse Resp B/P (MAP) Pulse Ox O2 Delivery O2 Flow Rate FiO2 05/08/19 12:00 97.5 89 18 130/60 (83) 98 05/08/19 12:00 49 05/08/19 09:00 Room Air 05/08/19 08:34 128/65 05/08/19 08:00 44 05/08/19 08:00 97.0 60 20 128/65 (86) 98 05/08/19 06:24 130/65 05/08/19 04:00 97.3 45 20 133/61 (85) 97 05/08/19 04:00 47 05/08/19 00:00 51 05/08/19 00:00 97.2 49 20 128/60 (82) 99 05/07/19 21:05 120/67 05/07/19 21:00 Room Air 05/07/19 20:00 97.2 55 20 120/67 (84) 99 05/07/19 20:00 53 05/07/19 16:00 56 05/07/19 16:00 97.7 56 18 120/64 (82) 98 Intake and Output 05/07/19 05/08/19 18:59 06:59 Intake Total 240 ml Balance 240 ml Intake Oral 240 ml # Voids 1 2 Laboratory Tests 05/07/19 17:10: Troponin I 0.038 05/08/19 10:00: White Blood Count 6.6, Red Blood Count 4.85, Hemoglobin 12.9L, Hematocrit 39.4L , Mean Corpuscular Volume 81, Mean Corpuscular Hemoglobin 26.5L, Mean Corpuscular Hemoglobin Concent 32.6, Red Cell Distribution Width 10.8L, Platelet Count 191, Mean Platelet Volume 7.0, Neutrophils (%) (Auto) , Lymphocytes (%) (Auto) , Monocytes (%) (Auto) , Eosinophils (%) (Auto) , Basophils (%) (Auto) , Differential Total Cells Counted 100, Neutrophils % ( Manual) 24L, Lymphocytes % (Manual) 69H, Monocytes % (Manual) 4, Eosinophils % ( Manual) 3, Basophils % (Manual) 0, Band Neutrophils 0, Platelet Estimate Adequate, Platelet Morphology Normal, Red Blood Cell Morphology Normal 05/08/19 11:45: Sodium Level 145, Potassium Level 4.0, Chloride Level 111H, Carbon Dioxide Level 24, Anion Gap 10, Blood Urea Nitrogen 9, Creatinine 1.0, Estimat Glomerular Filtration Rate > 60, Glucose Level 77#, Calcium Level 8.6 Height (Feet): 5 Height (Inches): 4.00 Weight (Pounds): 145 General Appearance: no apparent distress Cardiovascular: normal rate, bradycardia Objective no change Odilon Carroll MD May 08, 2019 14:58
[2019-05-08 16:00] VITALS: BP 134/72
--- NOTE | 2019-05-08 17:56 | Cardiac Electrophysiology PN ---
Assessment/Plan Assessment/Plan 1. Bradycardia. Heart rate dropped to 40s on telemetry 2. Hypertension on Hydralazine 25 q 12 hr 3. Hyperlipidemia, on Lipitor. 4. History of elevated troponin, on aspirin and Lipitor. No CP. Repeat troponin 5. Uncontrolled seizures, on Keppra. 6. Dementia. 7. S/P PEG placement. 8. History of schizophrenia. DW RN Subjective Subjective No CP or SOB. HR 40-50s Objective Last 24 Hour Vital Signs Date Time Temp Pulse Resp B/P (MAP) Pulse Ox O2 Delivery O2 Flow Rate FiO2 05/08/19 16:00 98.6 69 20 134/72 (92) 96 05/08/19 12:00 97.5 89 18 130/60 (83) 98 05/08/19 12:00 49 05/08/19 09:00 Room Air 05/08/19 08:34 128/65 05/08/19 08:00 44 05/08/19 08:00 97.0 60 20 128/65 (86) 98 05/08/19 06:24 130/65 05/08/19 04:00 97.3 45 20 133/61 (85) 97 05/08/19 04:00 47 05/08/19 00:00 51 05/08/19 00:00 97.2 49 20 128/60 (82) 99 05/07/19 21:05 120/67 05/07/19 21:00 Room Air 05/07/19 20:00 97.2 55 20 120/67 (84) 99 05/07/19 20:00 53 Intake and Output 05/07/19 05/08/19 18:59 06:59 Intake Total 240 ml Balance 240 ml Intake Oral 240 ml # Voids 1 2 Laboratory Tests Test 05/08/19 10:00 05/08/19 11:45 White Blood Count 6.6 K/UL (4.8-10.8) Red Blood Count 4.85 M/UL (4.70-6.10) Hemoglobin 12.9 G/DL (14.2-18.0) L Hematocrit 39.4 % (42.0-52.0) L Mean Corpuscular Volume 81 FL (80-99) Mean Corpuscular Hemoglobin 26.5 PG (27.0-31.0) L Mean Corpuscular Hemoglobin Concent 32.6 G/DL (32.0-36.0) Red Cell Distribution Width 10.8 % (11.6-14.8) L Platelet Count 191 K/UL (150-450) Mean Platelet Volume 7.0 FL (6.5-10.1) Neutrophils (%) (Auto) % (45.0-75.0) Lymphocytes (%) (Auto) % (20.0-45.0) Monocytes (%) (Auto) % (1.0-10.0) Eosinophils (%) (Auto) % (0.0-3.0) Basophils (%) (Auto) % (0.0-2.0) Differential Total Cells Counted 100 Neutrophils % (Manual) 24 % (45-75) L Lymphocytes % (Manual) 69 % (20-45) H Monocytes % (Manual) 4 % (1-10) Eosinophils % (Manual) 3 % (0-3) Basophils % (Manual) 0 % (0-2) Band Neutrophils 0 % (0-8) Platelet Estimate Adequate Platelet Morphology Normal Red Blood Cell Morphology Normal Sodium Level 145 MMOL/L (136-145) Potassium Level 4.0 MMOL/L (3.5-5.1) Chloride Level 111 MMOL/L (98-107) H Carbon Dioxide Level 24 MMOL/L (21-32) Anion Gap 10 mmol/L (5-15) Blood Urea Nitrogen 9 mg/dL (7-18) Creatinine 1.0 MG/DL (0.55-1.30) Estimat Glomerular Filtration Rate > 60 mL/min (>60) Glucose Level 77 MG/DL (74-106) # Calcium Level 8.6 MG/DL (8.5-10.1) Objective HEAD AND NECK: No JVD. LUNGS: Clear. CARDIOVASCULAR: Bradycardic S1 and S2 with no gallop or murmur. ABDOMEN: Soft and status post G-tube. EXTREMITIES: No pitting edema, but contracted. Pieter Mcclain MD May 08, 2019 17:56
[2019-05-08 20:00] VITALS: BP 152/90
[2019-05-08] MEDS: Sennosides 8.6mg tab GT SCH (21:53)
[2019-05-09] VITALS: BP 145/75
[2019-05-09] MEDS: Depakote 125mg Sprinkles GT SCH ×3 (03:19→17:24)
[2019-05-09 04:00] VITALS: BP 147/85
[2019-05-09] MEDS: Haloperidol 1mg tab GT SCH ×3 (05:52→21:20)
[2019-05-09] MEDS: NovoLOG Insulin Flexpen SUBQ SCH ×4 (05:53→21:00)
[2019-05-09] MEDS: Nitroglycerin Patch 0.4mg TDERMAL SCH (06:22)
[2019-05-09 08:00] VITALS: BP 146/77
[2019-05-09] MEDS: Docusate 100mg/10ml Liq GT SCH ×3 (08:50→17:24)
[2019-05-09] MEDS: HydrALAZINE 10mg Tab GT SCH ×3 (08:51→21:20)
[2019-05-09] MEDS: Levofloxacin 500mg tab GT SCH (08:51)
[2019-05-09] MEDS: Memantine 5 MG TAB GT SCH ×2 (08:51→17:24)
[2019-05-09] MEDS: Aspirin Baby 81mg GT SCH (08:51)
[2019-05-09] MEDS: Ascorbic Acid 500mg tab GT SCH (08:51)
[2019-05-09] MEDS: Heparin 5000 units/ml inj SUBQ SCH ×2 (08:54→21:27)
[2019-05-09] MEDS: Multivitamins W/Minerals 15 ML UDC GT SCH (08:57)
--- NOTE | 2019-05-09 11:00 | Progress Note ---
DATE: 05/09/2019 SUBJECTIVE: This is a 69-year-old male patient, who has history of seizure disorder. This patient has confusion, disorganized thought process, altered mental status, mood lability. That is why, he does require daily psychiatric consultation. seizure disorder, lethargic, thought process. MENTAL STATUS EXAMINATION: This is a 69-year-old male. Appearance is disheveled. Attitude, irritable and agitated. Affect, guarded and restricted. Intellect poor. Mood, depressed and anxious. Motor activity, psychomotor agitation. Attention span is poor. Orientation x2. Speech is low volume and slurred. Thought process, disorganized and illogical. Insight and judgment is poor. DIAGNOSIS: Major depressive disorder, severe, recurrent with psychotic features, rule out dementia with psychosis. PLAN: Treat him with Namenda 5 mg twice a day per G-tube and Depakene syrup 250 mg per G-tube q.8 h. A 20 minutes of cognitive behavioral therapy to help him identify his automatic negative thoughts to help him convert those negative thoughts to more positive thoughts to reduce depression, anxiety, and mood lability. Chart reviewed. Discussed with staff. Seen and assessed in his room. Samuel Solorzano M.D. DR: JOE JOB#: [id number] CC:
[2019-05-09 11:11] LABS: HEMATOCRIT 40.9 % (42.0-52.0); HEMOGLOBIN 13.3 G/DL (14.2-18.0); MEAN CORPUSCULAR VOLUME 80 FL (80-99); PLATELET COUNT 178 K/UL (150-450); RED BLOOD COUNT 5.09 M/UL (4.70-6.10); RED CELL DISTRIBUTION WIDTH 10.5 % (11.6-14.8); WHITE BLOOD COUNT 5.9 K/UL (4.8-10.8)
[2019-05-09 11:28] LABS: ALANINE AMINOTRANSFERASE 33 U/L (12-78); ALBUMIN 2.3 G/DL (3.4-5.0); ALBUMIN/GLOBULIN RATIO 0.5 (1.0-2.7); ALKALINE PHOSPHATASE 70 U/L (46-116); ANION GAP 9 mmol/L (5-15); ASPARTATE AMINO TRANSFERASE 30 U/L (15-37); BILIRUBIN,TOTAL 0.4 MG/DL (0.2-1.0); BLOOD UREA NITROGEN 8 mg/dL (7-18); CALCIUM 8.5 MG/DL (8.5-10.1); CARBON DIOXIDE 26 MMOL/L (21-32); CHLORIDE 109 MMOL/L (98-107); CREATININE 0.9 MG/DL (0.55-1.30); PHOSPHORUS 3.1 MG/DL (2.5-4.9); POTASSIUM 3.6 MMOL/L (3.5-5.1); SODIUM 144 MMOL/L (136-145)
--- NOTE | 2019-05-09 11:40 | Cardiac Electrophysiology PN ---
Assessment/Plan Assessment/Plan 1. Bradycardia. Heart rate dropped to 30s on telemetry and 2.2 second pause No pauses more than 3 seconds and HR 30s was at midnight when sleeping. Hold off on pacer for now 2. Hypertension on Hydralazine 25 q 12 hr 3. Hyperlipidemia, on Lipitor. 4. History of elevated troponin, on aspirin and Lipitor. No CP. Repeat troponin 5. Uncontrolled seizures, on Keppra. 6. Dementia. 7. S/P PEG placement. 8. History of schizophrenia. JORDANA RN Subjective Subjective No CP or SOB. HR 40-50s. Had tierra at midnight with HR dropping to 30s with 2.2 second pauses Objective Last 24 Hour Vital Signs Date Time Temp Pulse Resp B/P (MAP) Pulse Ox O2 Delivery O2 Flow Rate FiO2 05/09/19 08:51 146/77 05/09/19 08:00 55 05/09/19 08:00 96.3 56 20 146/77 (100) 98 05/09/19 06:22 147/85 05/09/19 04:00 44 05/09/19 04:00 97.6 53 18 147/85 (105) 99 05/09/19 00:00 53 05/09/19 00:00 98.2 56 19 145/75 (98) 99 05/08/19 21:53 152/90 05/08/19 21:00 Room Air 05/08/19 20:00 57 05/08/19 20:00 98.0 88 20 152/90 (110) 96 05/08/19 16:00 98.6 69 20 134/72 (92) 96 05/08/19 16:00 67 05/08/19 12:00 97.5 89 18 130/60 (83) 98 05/08/19 12:00 49 Intake and Output 05/08/19 05/09/19 19:00 07:00 Intake Total 200 ml Balance 200 ml Intake Oral 200 ml # Voids 2 2 # Bowel Movements 1 Laboratory Tests Test 05/08/19 11:45 05/09/19 10:50 Sodium Level 145 MMOL/L (136-145) 144 MMOL/L (136-145) Potassium Level 4.0 MMOL/L (3.5-5.1) 3.6 MMOL/L (3.5-5.1) Chloride Level 111 MMOL/L (98-107) H 109 MMOL/L (98-107) H Carbon Dioxide Level 24 MMOL/L (21-32) 26 MMOL/L (21-32) Anion Gap 10 mmol/L (5-15) 9 mmol/L (5-15) Blood Urea Nitrogen 9 mg/dL (7-18) 8 mg/dL (7-18) Creatinine 1.0 MG/DL (0.55-1.30) 0.9 MG/DL (0.55-1.30) Estimat Glomerular Filtration Rate > 60 mL/min (>60) > 60 mL/min (>60) Glucose Level 77 MG/DL (74-106) # 95 MG/DL (74-106) Calcium Level 8.6 MG/DL (8.5-10.1) 8.5 MG/DL (8.5-10.1) White Blood Count 5.9 K/UL (4.8-10.8) Red Blood Count 5.09 M/UL (4.70-6.10) Hemoglobin 13.3 G/DL (14.2-18.0) L Hematocrit 40.9 % (42.0-52.0) L Mean Corpuscular Volume 80 FL (80-99) Mean Corpuscular Hemoglobin 26.2 PG (27.0-31.0) L Mean Corpuscular Hemoglobin Concent 32.6 G/DL (32.0-36.0) Red Cell Distribution Width 10.5 % (11.6-14.8) L Platelet Count 178 K/UL (150-450) Mean Platelet Volume 7.0 FL (6.5-10.1) Neutrophils (%) (Auto) % (45.0-75.0) Lymphocytes (%) (Auto) % (20.0-45.0) Monocytes (%) (Auto) % (1.0-10.0) Eosinophils (%) (Auto) % (0.0-3.0) Basophils (%) (Auto) % (0.0-2.0) Neutrophils % (Manual) Pending Lymphocytes % (Manual) Pending Platelet Estimate Pending Platelet Morphology Pending Phosphorus Level 3.1 MG/DL (2.5-4.9) Magnesium Level 1.6 MG/DL (1.8-2.4) L Total Bilirubin 0.4 MG/DL (0.2-1.0) Aspartate Amino Transf (AST/SGOT) 30 U/L (15-37) Alanine Aminotransferase (ALT/SGPT) 33 U/L (12-78) Alkaline Phosphatase 70 U/L (46-116) Total Protein 7.1 G/DL (6.4-8.2) Albumin 2.3 G/DL (3.4-5.0) L Globulin 4.8 g/dL Albumin/Globulin Ratio 0.5 (1.0-2.7) L Free Triiodothyronine 1.6 pg/mL (2.3-4.2) L Objective HEAD AND NECK: No JVD. LUNGS: Clear. CARDIOVASCULAR: Bradycardic S1 and S2 with no gallop or murmur. ABDOMEN: Soft and status post G-tube. EXTREMITIES: No pitting edema, but contracted. Pieter Mcclain MD May 09, 2019 11:40
[2019-05-09 12:00] VITALS: BP 154/63
--- NOTE | 2019-05-09 12:07 | Nephrology Progress Note ---
Assessment/Plan Problem List: (1) Electrolyte abnormality (2) Seizure (3) History of CVA (cerebrovascular accident) (4) Bradyarrhythmia Assessment Dehydration Sz HTN DM s/p CVA has a GT in place Plan Monitor Lytes, Mag Hydrate Keep BP in check Per orders Subjective ROS Limited/Unobtainable: No Objective Objective Last 24 Hour Vital Signs Date Time Temp Pulse Resp B/P (MAP) Pulse Ox O2 Delivery O2 Flow Rate FiO2 05/09/19 08:51 146/77 05/09/19 08:00 55 05/09/19 08:00 96.3 56 20 146/77 (100) 98 05/09/19 06:22 147/85 05/09/19 04:00 44 05/09/19 04:00 97.6 53 18 147/85 (105) 99 05/09/19 00:00 53 05/09/19 00:00 98.2 56 19 145/75 (98) 99 05/08/19 21:53 152/90 05/08/19 21:00 Room Air 05/08/19 20:00 57 05/08/19 20:00 98.0 88 20 152/90 (110) 96 05/08/19 16:00 98.6 69 20 134/72 (92) 96 05/08/19 16:00 67 Intake and Output 05/08/19 05/09/19 19:00 07:00 Intake Total 200 ml Balance 200 ml Intake Oral 200 ml # Voids 2 2 # Bowel Movements 1 Laboratory Tests 05/09/19 10:50: White Blood Count 5.9, Red Blood Count 5.09, Hemoglobin 13.3L, Hematocrit 40.9L , Mean Corpuscular Volume 80, Mean Corpuscular Hemoglobin 26.2L, Mean Corpuscular Hemoglobin Concent 32.6, Red Cell Distribution Width 10.5L, Platelet Count 178, Mean Platelet Volume 7.0, Neutrophils (%) (Auto) , Lymphocytes (%) (Auto) , Monocytes (%) (Auto) , Eosinophils (%) (Auto) , Basophils (%) (Auto) , Differential Total Cells Counted 100, Neutrophils % ( Manual) 33L, Lymphocytes % (Manual) 54H, Monocytes % (Manual) 10, Eosinophils % (Manual) 3, Basophils % (Manual) 0, Band Neutrophils 0, Platelet Estimate Adequate, Platelet Morphology Normal, Red Blood Cell Morphology Normal, Sodium Level 144, Potassium Level 3.6, Chloride Level 109H, Carbon Dioxide Level 26, Anion Gap 9, Blood Urea Nitrogen 8, Creatinine 0.9, Estimat Glomerular Filtration Rate > 60, Glucose Level 95, Calcium Level 8.5, Phosphorus Level 3.1 , Magnesium Level 1.6L, Total Bilirubin 0.4, Aspartate Amino Transf (AST/SGOT) 30, Alanine Aminotransferase (ALT/SGPT) 33, Alkaline Phosphatase 70, Total Protein 7.1, Albumin 2.3L, Globulin 4.8, Albumin/Globulin Ratio 0.5L, Free Triiodothyronine 1.6L Height (Feet): 5 Height (Inches): 4.00 Weight (Pounds): 145 General Appearance: no apparent distress Cardiovascular: bradycardia Respiratory/Chest: decreased breath sounds Abdomen: soft Objective no change Odilon Carroll MD May 09, 2019 12:07
--- NOTE | 2019-05-09 12:33 | Cardiology Report ---
APPROVED REPORT EKG Measurement Heart [id number] Sinus bradycardia Otherwise normal ECG
[2019-05-09] MEDS: Magnesium Oxide 400mg tab GT SCH ×2 (13:14→18:09)
--- NOTE | 2019-05-09 13:15 | CDS Physician Query ---
Clarification is required for compliance, coding accuracy, and to reflect severity of illness for this patient Dear Odilon Mcpherson MD Date: 05/09/2019 Social Media Specialist/CDS Name: Franco Weiss This 69-year-old male from [facility], presented with increased seizure, was bradycardic, very confused, which was baseline. The patient admitted for above. Currently calm, confused in bed, and nonverbal. Assessment/Plan Problem List: (1) Electrolyte abnormality (2) Seizure (3) History of CVA (cerebrovascular accident) "Altered Mental Status" documented in progress notes Please indicate the nature and chronicity of the condition below: [] Metabolic Encephalopathy [] Toxic Encephalopathy [] Toxic - Metabolic Encephalopathy [] Encephalopathy, Other [] Dementia with Delirium [] Hypoxic encephalopathy [] Posterior reversible encephalopathy syndrome [] Other: [] Not Applicable Present on Admission: [] Yes [] No [] Clinically Undetermined Physician signature Date Please also document in your Progress Notes and/or Discharge Summary and indicate if the condition was present on admission. MTDD
--- NOTE | 2019-05-09 14:30 | General Progress Note ---
Assessment/Plan Problem List: (1) Dehydration ICD Codes: E86.0 - Dehydration SNOMED: 03097840 (2) Seizure ICD Codes: R56.9 - Unspecified convulsions SNOMED: 42947961 (3) HTN (hypertension) ICD Codes: I10 - Essential (primary) hypertension SNOMED: 05698729 (4) Feeding by G-tube ICD Codes: Z93.1 - Gastrostomy status SNOMED: 383217603, 428719239 (5) COPD (chronic obstructive pulmonary disease) ICD Codes: J44.9 - Chronic obstructive pulmonary disease, unspecified SNOMED: 77951092 (6) Diabetes mellitus ICD Codes: E11.9 - Type 2 diabetes mellitus without complications SNOMED: 25849458 (7) Renal insufficiency ICD Codes: N28.9 - Disorder of kidney and ureter, unspecified SNOMED: 712426131, 860232644 (8) History of CVA (cerebrovascular accident) ICD Codes: Z86.73 - Personal history of transient ischemic attack (TIA), and cerebral infarction without residual deficits SNOMED: 630695547 (9) Altered mental status ICD Codes: R41.82 - Altered mental status, unspecified SNOMED: 268053732 Qualifiers: Qualified Codes: R41.82 - Altered mental status, unspecified Status: stable, progressing Assessment/Plan: pt firt seiszure control bp bs control neuro psyc eval cbc bmp am snf Subjective Constitutional: Reports: weakness Allergies: Coded Allergies: No Known Allergies (Unverified , 09/03/17) All Systems: reviewed and negative except above Subjective sleepy calm Objective Last 24 Hour Vital Signs Date Time Temp Pulse Resp B/P (MAP) Pulse Ox O2 Delivery O2 Flow Rate FiO2 05/09/19 13:16 154/63 05/09/19 12:00 96.6 55 20 154/63 (93) 98 05/09/19 08:51 146/77 05/09/19 08:00 55 05/09/19 08:00 96.3 56 20 146/77 (100) 98 05/09/19 06:22 147/85 05/09/19 04:00 44 05/09/19 04:00 97.6 53 18 147/85 (105) 99 05/09/19 00:00 53 05/09/19 00:00 98.2 56 19 145/75 (98) 99 05/08/19 21:53 152/90 05/08/19 21:00 Room Air 05/08/19 20:00 57 05/08/19 20:00 98.0 88 20 152/90 (110) 96 05/08/19 16:00 98.6 69 20 134/72 (92) 96 05/08/19 16:00 67 Intake and Output 05/08/19 05/09/19 19:00 07:00 Intake Total 200 ml Balance 200 ml Intake Oral 200 ml # Voids 2 2 # Bowel Movements 1 Laboratory Tests 05/09/19 10:50: White Blood Count 5.9, Red Blood Count 5.09, Hemoglobin 13.3L, Hematocrit 40.9L , Mean Corpuscular Volume 80, Mean Corpuscular Hemoglobin 26.2L, Mean Corpuscular Hemoglobin Concent 32.6, Red Cell Distribution Width 10.5L, Platelet Count 178, Mean Platelet Volume 7.0, Neutrophils (%) (Auto) , Lymphocytes (%) (Auto) , Monocytes (%) (Auto) , Eosinophils (%) (Auto) , Basophils (%) (Auto) , Differential Total Cells Counted 100, Neutrophils % ( Manual) 33L, Lymphocytes % (Manual) 54H, Monocytes % (Manual) 10, Eosinophils % (Manual) 3, Basophils % (Manual) 0, Band Neutrophils 0, Platelet Estimate Adequate, Platelet Morphology Normal, Red Blood Cell Morphology Normal, Sodium Level 144, Potassium Level 3.6, Chloride Level 109H, Carbon Dioxide Level 26, Anion Gap 9, Blood Urea Nitrogen 8, Creatinine 0.9, Estimat Glomerular Filtration Rate > 60, Glucose Level 95, Calcium Level 8.5, Phosphorus Level 3.1 , Magnesium Level 1.6L, Total Bilirubin 0.4, Aspartate Amino Transf (AST/SGOT) 30, Alanine Aminotransferase (ALT/SGPT) 33, Alkaline Phosphatase 70, Total Protein 7.1, Albumin 2.3L, Globulin 4.8, Albumin/Globulin Ratio 0.5L, Free Triiodothyronine 1.6L Height (Feet): 5 Height (Inches): 4.00 Weight (Pounds): 145 General Appearance: lethargic EENT: normal ENT inspection Neck: normal alignment Cardiovascular: normal peripheral pulses, normal rate, regular rhythm Respiratory/Chest: chest wall non-tender, lungs clear, normal breath sounds Abdomen: normal bowel sounds, non tender, soft Extremities: normal inspection Edema: no edema noted Arm (L), no edema noted Arm (R), no edema noted Leg (L), no edema noted Leg (R), no edema noted Pedal (L), no edema noted Pedal (R), no edema noted Generalized Neurologic: motor weakness Skin: normal pigmentation, warm/dry Stuart New DO May 09, 2019 14:30
[2019-05-09 16:00] VITALS: BP 133/76
[2019-05-09 20:00] VITALS: BP 129/60
[2019-05-09] MEDS: Sennosides 8.6mg tab GT SCH (21:20)
[2019-05-10] VITALS (7 sets, daily range): BP systolic 123–166; BP diastolic 57–85
[2019-05-10] MEDS: Depakote 125mg Sprinkles GT SCH ×3 (02:53→17:43)
[2019-05-10] MEDS: NovoLOG Insulin Flexpen SUBQ SCH ×4 (05:45→21:00)
[2019-05-10] MEDS: Haloperidol 1mg tab GT SCH ×3 (05:54→21:20)
[2019-05-10] MEDS: HydrALAZINE 10mg Tab GT SCH ×3 (05:54→21:20)
[2019-05-10] MEDS: Nitroglycerin Patch 0.4mg TDERMAL SCH (06:39)
[2019-05-10 09:30] LABS: HEMATOCRIT 40.1 % (42.0-52.0); HEMOGLOBIN 13.2 G/DL (14.2-18.0); MEAN CORPUSCULAR VOLUME 82 FL (80-99); PLATELET COUNT 182 K/UL (150-450); RED BLOOD COUNT 4.92 M/UL (4.70-6.10); RED CELL DISTRIBUTION WIDTH 11.7 % (11.6-14.8)
[2019-05-10 09:43] LABS: ANION GAP 6 mmol/L (5-15); BLOOD UREA NITROGEN 8 mg/dL (7-18); CALCIUM 8.7 MG/DL (8.5-10.1); CARBON DIOXIDE 28 MMOL/L (21-32); CHLORIDE 110 MMOL/L (98-107); POTASSIUM 3.9 MMOL/L (3.5-5.1); SODIUM 144 MMOL/L (136-145)
[2019-05-10] MEDS: Ascorbic Acid 500mg tab GT SCH (09:55)
[2019-05-10] MEDS: Docusate 100mg/10ml Liq GT SCH ×3 (09:55→17:43)
[2019-05-10] MEDS: Multivitamins W/Minerals 15 ML UDC GT SCH (09:55)
[2019-05-10] MEDS: Levofloxacin 500mg tab GT SCH (09:56)
[2019-05-10] MEDS: Magnesium Oxide 400mg tab GT SCH ×3 (09:56→17:44)
[2019-05-10] MEDS: Memantine 5 MG TAB GT SCH (09:56)
[2019-05-10] MEDS: Aspirin Baby 81mg GT SCH (09:56)
[2019-05-10] MEDS: Heparin 5000 units/ml inj SUBQ SCH ×2 (10:00→21:24)
--- NOTE | 2019-05-10 11:52 | Nephrology Progress Note ---
Assessment/Plan Problem List: (1) Electrolyte abnormality (2) Seizure (3) History of CVA (cerebrovascular accident) (4) Bradyarrhythmia Assessment Dehydration Sz HTN DM s/p CVA has a GT in place Plan Hydralazine Monitor Lytes, Mag Hydrate Keep BP in check Per orders Subjective Constitutional: Reports: malaise Objective Objective Last 24 Hour Vital Signs Date Time Temp Pulse Resp B/P (MAP) Pulse Ox O2 Delivery O2 Flow Rate FiO2 05/10/19 08:00 98.2 48 17 166/72 (103) 97 05/10/19 06:39 134/70 05/10/19 05:54 134/70 05/10/19 04:00 97.6 57 19 134/70 (91) 99 05/10/19 04:00 52 05/10/19 00:00 57 05/10/19 00:00 97.7 56 19 130/64 (86) 98 05/09/19 21:20 145/76 05/09/19 21:00 Room Air 05/09/19 20:00 97.7 52 18 129/60 (83) 99 05/09/19 16:00 97.2 68 20 133/76 (95) 96 05/09/19 16:00 57 05/09/19 13:16 154/63 05/09/19 12:00 96.6 55 20 154/63 (93) 98 05/09/19 12:00 46 Intake and Output 05/09/19 05/10/19 19:00 07:00 Intake Total 540 ml Output Total 250 ml Balance 290 ml Intake Oral 540 ml Output Urine Total 250 ml # Voids 1 3 # Bowel Movements 1 Laboratory Tests 05/10/19 09:00: White Blood Count 6.0, Red Blood Count 4.92, Hemoglobin 13.2L, Hematocrit 40.1L , Mean Corpuscular Volume 82, Mean Corpuscular Hemoglobin 26.9L, Mean Corpuscular Hemoglobin Concent 33.0, Red Cell Distribution Width 11.7, Platelet Count 182, Mean Platelet Volume 6.8, Neutrophils (%) (Auto) , Lymphocytes (%) ( Auto) , Monocytes (%) (Auto) , Eosinophils (%) (Auto) , Basophils (%) (Auto) , Differential Total Cells Counted 100, Neutrophils % (Manual) 29L, Lymphocytes % (Manual) 59H, Monocytes % (Manual) 11H, Eosinophils % (Manual) 1, Basophils % ( Manual) 0, Band Neutrophils 0, Platelet Estimate Adequate, Platelet Morphology Normal, Sodium Level 144, Potassium Level 3.9, Chloride Level 110H, Carbon Dioxide Level 28, Anion Gap 6, Blood Urea Nitrogen 8, Creatinine 1.0, Estimat Glomerular Filtration Rate > 60, Glucose Level 98, Calcium Level 8.7 Height (Feet): 5 Height (Inches): 4.00 Weight (Pounds): 184 General Appearance: no apparent distress Cardiovascular: bradycardia Respiratory/Chest: decreased breath sounds Abdomen: soft Objective no change Odilon Carroll MD May 10, 2019 11:52
--- NOTE | 2019-05-10 14:38 | General Progress Note ---
Assessment/Plan Problem List: (1) Dehydration ICD Codes: E86.0 - Dehydration SNOMED: 80075536 (2) Seizure ICD Codes: R56.9 - Unspecified convulsions SNOMED: 26720622 (3) HTN (hypertension) ICD Codes: I10 - Essential (primary) hypertension SNOMED: 08507477 (4) Feeding by G-tube ICD Codes: Z93.1 - Gastrostomy status SNOMED: 055698275, 414916357 (5) COPD (chronic obstructive pulmonary disease) ICD Codes: J44.9 - Chronic obstructive pulmonary disease, unspecified SNOMED: 76344687 (6) Diabetes mellitus ICD Codes: E11.9 - Type 2 diabetes mellitus without complications SNOMED: 90860672 (7) Renal insufficiency ICD Codes: N28.9 - Disorder of kidney and ureter, unspecified SNOMED: 572529297, 527270031 (8) History of CVA (cerebrovascular accident) ICD Codes: Z86.73 - Personal history of transient ischemic attack (TIA), and cerebral infarction without residual deficits SNOMED: 591440742 (9) Altered mental status ICD Codes: R41.82 - Altered mental status, unspecified SNOMED: 515127609 Qualifiers: Qualified Codes: R41.82 - Altered mental status, unspecified Status: stable, progressing Assessment/Plan: pt diet abx dc if clear Subjective Constitutional: Reports: weakness Allergies: Coded Allergies: No Known Allergies (Unverified , 09/03/17) All Systems: reviewed and negative except above Subjective sleepy calm Objective Last 24 Hour Vital Signs Date Time Temp Pulse Resp B/P (MAP) Pulse Ox O2 Delivery O2 Flow Rate FiO2 05/10/19 13:50 138/85 05/10/19 12:00 97.9 53 19 138/85 (102) 98 05/10/19 12:00 53 05/10/19 09:00 Room Air 05/10/19 08:00 46 05/10/19 08:00 98.2 48 17 166/72 (103) 97 05/10/19 06:39 134/70 05/10/19 05:54 134/70 05/10/19 04:00 97.6 57 19 134/70 (91) 99 05/10/19 04:00 52 05/10/19 00:00 57 05/10/19 00:00 97.7 56 19 130/64 (86) 98 05/09/19 21:20 145/76 05/09/19 21:00 Room Air 05/09/19 20:00 97.7 52 18 129/60 (83) 99 05/09/19 16:00 97.2 68 20 133/76 (95) 96 05/09/19 16:00 57 Intake and Output 05/09/19 05/10/19 19:00 07:00 Intake Total 540 ml Output Total 250 ml Balance 290 ml Intake Oral 540 ml Output Urine Total 250 ml # Voids 1 3 # Bowel Movements 1 Laboratory Tests 05/10/19 09:00: White Blood Count 6.0, Red Blood Count 4.92, Hemoglobin 13.2L, Hematocrit 40.1L , Mean Corpuscular Volume 82, Mean Corpuscular Hemoglobin 26.9L, Mean Corpuscular Hemoglobin Concent 33.0, Red Cell Distribution Width 11.7, Platelet Count 182, Mean Platelet Volume 6.8, Neutrophils (%) (Auto) , Lymphocytes (%) ( Auto) , Monocytes (%) (Auto) , Eosinophils (%) (Auto) , Basophils (%) (Auto) , Differential Total Cells Counted 100, Neutrophils % (Manual) 29L, Lymphocytes % (Manual) 59H, Monocytes % (Manual) 11H, Eosinophils % (Manual) 1, Basophils % ( Manual) 0, Band Neutrophils 0, Platelet Estimate Adequate, Platelet Morphology Normal, Sodium Level 144, Potassium Level 3.9, Chloride Level 110H, Carbon Dioxide Level 28, Anion Gap 6, Blood Urea Nitrogen 8, Creatinine 1.0, Estimat Glomerular Filtration Rate > 60, Glucose Level 98, Calcium Level 8.7 Height (Feet): 5 Height (Inches): 4.00 Weight (Pounds): 184 General Appearance: lethargic EENT: normal ENT inspection Neck: normal alignment Cardiovascular: normal peripheral pulses, normal rate, regular rhythm Respiratory/Chest: chest wall non-tender, lungs clear, normal breath sounds Abdomen: normal bowel sounds, non tender, soft Extremities: normal inspection Edema: no edema noted Arm (L), no edema noted Arm (R), no edema noted Leg (L), no edema noted Leg (R), no edema noted Pedal (L), no edema noted Pedal (R), no edema noted Generalized Neurologic: motor weakness Skin: normal pigmentation, warm/dry Stuart New DO May 10, 2019 14:38
--- NOTE | 2019-05-10 16:15 | Progress Note ---
DATE: 05/10/2019 SUBJECTIVE: This is a male patient with seizure disorder. The patient is a 69-year-old male patient. He has shortness of breath, pneumonia, bacteremia, urinary tract infection, encephalopathy, altered mental status worsened by stress of his medical condition, COPD, hypertension, seizure disorder, decline in cognition below his baseline so his attending has requested daily psychiatric consultation. MENTAL STATUS EXAMINATION: This is a 69-year-old male. Appearance is disheveled. Attitude, irritable and agitated. Affect, guarded and restricted. Intellect poor. Mood, depressed and anxious. Motor activity, psychomotor agitation. Insight and judgment is poor. DIAGNOSIS: Major depressive disorder, severe, recurrent with psychotic features, rule out dementia with psychosis. PLAN: Namenda 5 mg twice a day per G-tube and Depakene syrup 250 mg per G-tube every 8 hours. A 20 minutes of cognitive behavioral therapy to help him identify his automatic negative thoughts and help him convert negative thoughts to more positive thoughts to reduce depression, anxiety, suicidality. Chart reviewed. Discussed with staff. Seen and assessed in his room. Samuel Solorzano M.D. DR: Angela JOB#: [id number] CC:
--- NOTE | 2019-05-10 16:26 | Cardiac Electrophysiology PN ---
Assessment/Plan Assessment/Plan 1. Bradycardia. Heart rate dropped to 30s on telemetry and 2.2 second pause all in the middle of the night No pauses more than 3 seconds . No indication for pacer for at this time 2. Hypertension on Hydralazine 25 q 12 hr 3. Hyperlipidemia, on Lipitor. 4. History of elevated troponin, on aspirin and Lipitor. No CP. Repeat troponin 5. Uncontrolled seizures, on Keppra. 6. Dementia. 7. S/P PEG placement. 8. History of schizophrenia. JORDANA RN Subjective Subjective No CP or SOB. HR 40-50s. No critical pauses Objective Last 24 Hour Vital Signs Date Time Temp Pulse Resp B/P (MAP) Pulse Ox O2 Delivery O2 Flow Rate FiO2 05/10/19 13:50 138/85 05/10/19 12:00 97.9 53 19 138/85 (102) 98 05/10/19 12:00 53 05/10/19 09:00 Room Air 05/10/19 08:00 46 05/10/19 08:00 98.2 48 17 166/72 (103) 97 05/10/19 06:39 134/70 05/10/19 05:54 134/70 05/10/19 04:00 97.6 57 19 134/70 (91) 99 05/10/19 04:00 52 05/10/19 00:00 57 05/10/19 00:00 97.7 56 19 130/64 (86) 98 05/09/19 21:20 145/76 05/09/19 21:00 Room Air 05/09/19 20:00 97.7 52 18 129/60 (83) 99 Intake and Output 05/09/19 05/10/19 18:59 06:59 Intake Total 540 ml Output Total 250 ml Balance 290 ml Intake Oral 540 ml Output Urine Total 250 ml # Voids 1 3 # Bowel Movements 1 Laboratory Tests Test 05/10/19 09:00 White Blood Count 6.0 K/UL (4.8-10.8) Red Blood Count 4.92 M/UL (4.70-6.10) Hemoglobin 13.2 G/DL (14.2-18.0) L Hematocrit 40.1 % (42.0-52.0) L Mean Corpuscular Volume 82 FL (80-99) Mean Corpuscular Hemoglobin 26.9 PG (27.0-31.0) L Mean Corpuscular Hemoglobin Concent 33.0 G/DL (32.0-36.0) Red Cell Distribution Width 11.7 % (11.6-14.8) Platelet Count 182 K/UL (150-450) Mean Platelet Volume 6.8 FL (6.5-10.1) Neutrophils (%) (Auto) % (45.0-75.0) Lymphocytes (%) (Auto) % (20.0-45.0) Monocytes (%) (Auto) % (1.0-10.0) Eosinophils (%) (Auto) % (0.0-3.0) Basophils (%) (Auto) % (0.0-2.0) Differential Total Cells Counted 100 Neutrophils % (Manual) 29 % (45-75) L Lymphocytes % (Manual) 59 % (20-45) H Monocytes % (Manual) 11 % (1-10) H Eosinophils % (Manual) 1 % (0-3) Basophils % (Manual) 0 % (0-2) Band Neutrophils 0 % (0-8) Platelet Estimate Adequate Platelet Morphology Normal Sodium Level 144 MMOL/L (136-145) Potassium Level 3.9 MMOL/L (3.5-5.1) Chloride Level 110 MMOL/L (98-107) H Carbon Dioxide Level 28 MMOL/L (21-32) Anion Gap 6 mmol/L (5-15) Blood Urea Nitrogen 8 mg/dL (7-18) Creatinine 1.0 MG/DL (0.55-1.30) Estimat Glomerular Filtration Rate > 60 mL/min (>60) Glucose Level 98 MG/DL (74-106) Calcium Level 8.7 MG/DL (8.5-10.1) Objective HEAD AND NECK: No JVD. LUNGS: Clear. CARDIOVASCULAR: Bradycardic S1 and S2 with no gallop or murmur. ABDOMEN: Soft and status post G-tube. EXTREMITIES: No pitting edema, but contracted. Pieter Mcclain MD May 10, 2019 16:26
[2019-05-10] MEDS: Sennosides 8.6mg tab GT SCH (21:20)
[2019-05-10] MEDS ORDERED: D5 1/2NS 1000ml IV ONE (22:24)
--- NOTE | 2019-05-11 09:14 | Discharge Summary ---
Discharge Summary Discharge Summary _ DATE OF ADMISSION: 05/05/1911 DATE OF DISCHARGE: 05/10/2019 DISCHARGED BY: Dr. New REASON FOR ADMISSION: 69 years old male, resident of half-way facility, with past medical history of COPD, hypertension, diabetes mellitus, CVA with hemiparesis, seizure disorder, dysphagia, G-tube, dementia, presented after seizure episode witnessed by the nursing staff. Seizure episode was described as tonic-clonic, lasting few minutes. No reported trauma. No bowel or urine incontinence. Patient was on Keppra , which apparently according to the nursing staff , he was taking on a regular basis. Upon evaluation vital signs were stable. Laboratory work-up revealed mild leukocytosis WBC 13.5, stable hemoglobin and hematocrit. Potassium 5.4. Otherwise stable electrolytes and renal parameters. Glucose 109. Urine toxicology screen was negative. Depakote level was in range. Urinalysis revealed no evidence of urinary tract infection. Patient admitted to telemetry floor for further management. CONSULTANTS: midwife practitioner Dr. Lewis demolition engineer Dr. Carroll psychiatrist Dr. Solorzano [facility] COURSE: Patient admitted to telemetry floor. Seizure precaution maintained. Patient was continued on Keppra and Depakote. Metal Weigher followed. Patient started on the IV fluids. Blood pressure was managed with a hydralazine. Renal parameters and electrolytes were closely monitored. Electrolytes corrected as needed /hypomagnesemia and hyperkalemia. Investments Manager consulted after noted episode of bradycardia. Heart rate dropped to 37 pn telemetry with a 2.2-second pause, which happened at the middle of the night. No pauses more than 3 seconds. Per midwife practitioner, no indication for pacer at this time Statin continued. Blood pressure was stable with current antihypertensive regimen. Patient denied chest pain . Repeated troponin negative. Echocardiogram revealed preserved ejection fraction of 60% with mild left ventricular hypertrophy. No evidence of wall motion abnormality. No evidence of pericardial effusion. Right ventricular pressure of 19. Heart rate stabilized. TSH within normal limits. Antiplatelet therapy with aspirin continued. DVT and GI prophylaxis provided. Blood sugar was managed with sliding scale of insulin. Bowel regimen instituted. No further seizures. Patient was continued on Depakote and Keppra. Psychiatrist seen and evaluated patient. Per psychiatrist , patient had a major depressive disorder, severe, recurrent with psychotic features. Psychiatric medication regimen was optimized . Cognitive behavioral therapy provided. Patient clinically stabilized and was ready for transfer back to half-way facility for continuation of care FINAL DIAGNOSES: Altered mental status/acute encephalopathy Uncontrolled seizure disorder with breakthrough episode Electrolyte abnormalities Bradycardia Dehydration Hypertension Diabetes mellitus History of CVA Dysphagia ,feeding by G-tube Major depressive disorder, severe, recurrent with psychotic features, DISCHARGE MEDICATIONS: See Medication Reconciliation list. DISCHARGE INSTRUCTIONS: Patient was discharged to the half-way facility. Follow up with medical doctor at the facility. I have been assigned to dictate discharge summary for this account. I was not involved in the patient's management. Naomi Pastor NP May 11, 2019 09:14
--- NOTE | 2019-05-11 16:57 | Cardiology Report ---
APPROVED REPORT EKG Measurement Heart [id number] Sinus bradycardia with 1st degree AV block Otherwise normal ECG
== END 2019-05-10 22:25 | DRG 100 ==
LOC: EDBD 23:40 → EMR 05-05 01:00 → EDBEDREQ 05-05 01:06 → 4E 05-05 01:09 → EDBEDREQ 05-05 01:30 → 2E 05-05 12:25
DX: G40.909 Epilepsy, unspecified, not intractable, without status epilepticus (principal); G93.41 Metabolic encephalopathy; F33.3 Major depressive disorder, recurrent, severe with psychotic symptoms; Z43.1 Encounter for attention to gastrostomy; E86.0 Dehydration; I10 Essential (primary) hypertension; J44.9 Chronic obstructive pulmonary disease, unspecified; E11.9 Type 2 diabetes mellitus without complications; E87.5 Hyperkalemia; R00.1 Bradycardia, unspecified; Z86.73 Personal history of transient ischemic attack (TIA), and cerebral infarction without residual deficits; R13.10 Dysphagia, unspecified; E78.5 Hyperlipidemia, unspecified; F03.90 Unspecified dementia, unspecified severity, without behavioral disturbance, psychotic disturbance, mood disturbance, and anxiety; E83.42 Hypomagnesemia
CPT/HCPCS: 36415; 80048; 80053; 80164; 80299; 80307; 81001; 82140; 82550; 82607; 82746; 82962; 82977; 83036; 83735; 83880; 84100; 84439; 84443; 84481; 84484; 84550; 85007; 85025; 86140; 87081; 93005; 93306; 97803; 99285; J1815; J7030

== ENCOUNTER 2020-03-14 11:01 | Emergency (ER) | payer MEDICARE, OTHER ==
[~2020-03-14] VITALS: Ht 162.6 cm; Wt 65.8 kg
[~2020-03-14 11:01] MED LIST changes: +COLACE100 MG GT; +DULCOLAX10 MG RC; +FAMOTIDINE20 MG GT; +FLEET ENEMA133 M1 RC; +LIPITOR10 MG GT; +MULTIVITAMINS1 EAC8 GT; +PRO-STAT LIQUID30 ML GT; +SENNA8.6 M2 GT; +VITAMIN C500 M1 GT
[2020-03-14 11:06] VITALS: BP 149/81
--- NOTE | 2020-03-14 11:29 | Emergency Room Report ---
History of Present Illness General Chief Complaint: Malfunctioning Gastric Tube Source: Patient Present Illness HPI Patient presents emergency department today with a dislodged G-tube. Patient is prison patient. A 16 [place] Smith was placed into the colostomy site and patient was transferred to the emergency department for G-tube replacement. Patient's primary care physician is Dr. Stuart Escalante. No further complaints were noted. No history of fever cough congestion. No other modifying factors. No other associated signs and symptoms. No other complaints were noted. Patient however baseline is nonverbal all the history was seen from medical records. Dr. Calixto was notified and recommended patient have a G-tube placement therefore G-tube with will be replaced. Allergies: Coded Allergies: No Known Allergies (Unverified , 09/03/17) COVID-19 Screening Contact w/high risk pt: No Recent Travel to affected area: No Experienced COVID-19 symptoms?: No COVID-19 Testing performed ELECTRICAL INSTALLER: No Patient History Past Medical History: HTN, COPD, other - G-tube Past Surgical History: unable to obtain Pertinent Family History: unable to obtain Social History Narrative Patient stays at a prison Reviewed Nursing Documentation: PMH: Agreed; PSxH: Agreed Nursing Documentation-PMH Past Medical History: No History, Except For Hx Hypertension: Yes Hx COPD: Yes Hx Diabetes: Yes Hx Cancer: No Hx Cerebrovascular Accident: Yes - hemiplegia/hemiparesis Hx Seizures: Yes Hx Epilepsy: Yes Hx Aphasia: Yes Hx Dysphasia: Yes - G-tube Review of Systems All Other Systems: negative except mentioned in HPI Physical Exam Vital Signs Date Time Temp Pulse Resp B/P (MAP) Pulse Ox O2 Delivery O2 Flow Rate FiO2 03/14/20 11:02 99.0 82 18 149/81 (103) 98 Room Air Sp02 EP Interpretation: reviewed, normal General Appearance: no apparent distress, alert Head: atraumatic Eyes: bilateral eye normal inspection ENT: normal ENT inspection Neck: normal inspection, supple Respiratory: normal inspection, lungs clear, normal breath sounds, no respiratory distress, no retraction, no wheezing Cardiovascular #1: regular rate, rhythm, no edema Gastrointestinal: normal inspection, normal bowel sounds, non tender, soft, no guarding, no hernia, other - Smith in place on the gastrostomy site. No evidence of infection. Genitourinary: no CVA tenderness Musculoskeletal: other - Contractures in the upper extremity Neurologic: alert, responsive Psychiatric: other - Unable to assess due to poor mental status Skin: no rash Procedures Additional Procedure Procedure Narrative G-tube replacement procedure: After consent was obtained from patient's primary care physician for procedure the G-tube stoma was prepped in the sterile manner. G-tube was gently introduced into the stoma until it was about 7 cm in. The G-tube balloon was inflated with 5 mL of sterile water. The G-tube was gently retracted and another 5 mL of sterile water was added. The G-tube was retracted until it could be retracted no further. Another 5 mL of sterile water was added. The G- tube was tacked in place at about 2-3 cm. There is no complications associated procedure. Placement was confirmed by x-ray Medical Decision Making Diagnostic Impression: Primary Impression: Malfunction of gastrostomy tube ER Course Patient presents emergency department today with a G-tube dislodgment. New G- tube was placed. There is no complications associated with the procedure. Patient tolerated without difficulty. I was advised by primary care physician to place the G-tube because patient is nonverbal and cannot communicate. Other X-Ray Diagnostic Results Other X-Ray Diagnostic Results : X-Ray ordered: KUB # of Views/Limited Vs Complete: 1 View EP Interpretation: Yes Interpretation: nonspecific bowel gas, no sbo, other - Indication: G-tube placement. No evidence of bowel perforation. Impression: Other - Appropriate placement of G-tube. Gastrografin noted in the stomach. Electronically Signed by: Electronically signed by Richie Martínez MD Last Vital Signs Date Time Temp Pulse Resp B/P (MAP) Pulse Ox O2 Delivery O2 Flow Rate FiO2 03/14/20 11:06 99.0 82 18 149/81 98 Room Air Status: improved Disposition: HOME, SELF-CARE Condition: Stable Richie Martínez MD Mar 14, 2020 11:29
[2020-03-14] MEDS ORDERED: Gastrograffin 30ml ORAL ONE (11:30)
[2020-03-14 13:25] VITALS: BP 142/80
--- NOTE | 2020-03-14 15:14 | Diagnostic Imaging Report ---
EXAM: XRAY Abdomen 1v HISTORY: Tube placement. COMPARISON: None. TECHNIQUE: Frontal view of the abdomen obtained. FINDINGS: There is a G-tube in place. Contrast identified in stomach and proximal small bowel. No extravasated contrast identified. No definite pathologic calcifications identified. There is no sign of free air. No acute abnormality noted of the visualized osseous structures. IMPRESSION: G-TUBE IN PLACE. NO EXTRAVASATED CONTRAST NOTED.
== END 2020-03-14 13:25 | disposition home or self-care (01) ==
LOC: EDBD 11:01 → EMR 12:07
DX: K94.23 Gastrostomy malfunction (principal); I10 Essential (primary) hypertension; J44.9 Chronic obstructive pulmonary disease, unspecified; E11.9 Type 2 diabetes mellitus without complications; G81.90 Hemiplegia, unspecified affecting unspecified side; G40.909 Epilepsy, unspecified, not intractable, without status epilepticus
CPT/HCPCS: 43762; 74018; 99284; Q9963